=== PATIENT | female | born 1990 | race Caucasian/White ===

== ENCOUNTER 2023-03-16 20:55 | Outpatient (REF) | payer OTHER, SELFPAY ==
[2023-03-22 13:07] LABS: Age Gdln ACOG Testing Note (.); HPV Aptima Negative (Negative); IGP, Aptima HPV, rfx 16/18,45 Note (.)
== END 2023-03-16 20:56 | disposition home or self-care (01) ==
LOC: LAB 20:55
PROVIDERS: Visit Provider Obstetrics & Gynecology
DX: Z12.4 Encounter for screening for malignant neoplasm of cervix (principal)
CPT/HCPCS: 87624; G0145

== ENCOUNTER 2023-10-29 09:24 | Outpatient (OUT) | payer OTHER, SELFPAY ==
--- NOTE | 2023-10-29 09:27 | US_ITS ---
[address] [address] Patient Name: SUSU RAUSCH MRN: [id number] date: 1990 Sex: F Assigned Patient Location: [facility] Current Patient Location: [facility] Accession/Order Number: [id number] Exam Date: 10/29/2023 09:27 Report Date: 10/29/2023 10:02 At the request of: ISABELLA LIRIANO Procedure: US OB transvaginal EXAMINATION: US OB transvaginal HISTORY: MISSED MENSES COMPARISON: No relevant comparison available. FINDINGS: Levi intrauterine gestation Gestational sac: 2.7 cm, 7 weeks 4 days CRL: 2.0 cm, 8 weeks 4 days Yolk sac: 4.9 mm Heart rate: 183 beats minute Cervix: Closed, 4.2 cm The uterus is normal, anteverted, anteflexed The ovaries are normal Clinical age: 8 weeks 6 days Clinical DOUGLAS: 06/03/2024 Ultrasound age: 8 weeks 4 days Clinical DOUGLAS: 06/05/2024 US/US OB transvaginal IMPRESSION: Viable levi intrauterine gestation measuring 8 weeks 4 days Electronically authenticated by: ANDRADE MATHEWS Date: 10/29/2023 10:02
--- OUTSIDE RECORDS SUMMARY | 2023-10-29 09:29 | XMS_ITS | CCD ---
Author Organization [facility] Care Team Providers Care Senior Manager Creative Services Name Role Phone JAIDA, DR QUINTANILLA Attending Unavailable REQUEST, NONE LISTED Primary Care Unavaila ble JAIDA, DR QUINTANILLA Admitting Unavailable JAIDA, DR QUINTANILLA Consulting Unavailable DEANDRA, DR MASON Admitting Unavailable DEANDRA, DR MASON Consulting Unavailable DEANDRA, DR MASON Attending Unavailable REQUEST, NONE LISTED Primary Care Unavaila ble DEANDRA, ISABELLA Attending Unavailable DEANDRA, ISABELLA Attending Unavailable Problems Active Problems Problem Classification Problem Date Documented Date Episodic/Chronic Immunizations and screening for infectious disease (1 source) Encounter for screening for human papillomavirus (HPV); Translations: [ENC SCREENING HUMAN PAPILLOMAVIRUS] Onset: 11-12-2021 Episodic Other screening for suspected conditions (not mental disorders or infectious disease) (4 sources) Encounter for screening for malignant neoplasm of cervix; Translations: [ENC SCREENING MALIG NEOPLASM CERV] Onset: 11-10-2021 Episodic Unclassified (3 sources) CONTACT W/AND (SUSP) EXPOS COVID-19; Translations: [CONTACT W/AND (SUSP) EXPOS COVID-19] Onset: 10-16-2021 Past or Other Problems Problem Classification Problem Date Documented Da te Episodic/Chronic Unclassified (1 source) CONTACT W/AND (SUSP) EXPOS COVID-19; Translations: [CONTACT W/AND (SUSP) EXPOS COVID-19] Onset: 10-14-2021 Results Test Name Value Interpretation Reference Range Facil ity PAP ACOG PANEL 2: 30 to 65on 11-13-2021 . . Normal [facility] Comment on above: Result Comment: Performed at: WB Performed By: #### [id number] #### [facility] [address] [place] [address] Dr. Abby Campoverde Age Gdln ACOG Testing 30-65 Normal [facility] Comment on above: Performed By: #### [id number] #### [facility] [address] [place] [address] Dr. Abby Campoverde DIAGNOSIS: Comment Normal [facility] Comment on above: Result Comment: NEGATIVE FOR INTRAEPITHE LIAL LESION OR MALIGNANCY. Performed at: WB Performed By: #### [id number] #### [facility] [address] [place] [address] Dr. Abby Campoverde HPV Aptima Negative Normal Negative [facility] Comment on above: Result Comment: This nucleic acid amplif ication test detects fourteen high-risk HPV types (16,18,31,33,35,39,45,51,52,56,58,59,66,68) without differentiation. Performed at: =G Performed By: #### [id number] #### [facility] [address] [place] [address] Dr. Abby Campoverde Methodology: Comment Normal [facility] Comment on above: Result Comment: This liquid based ThinPr ep(R) pap test was screened with the use of an image guided system. Performed at: WB Performed By: #### [id number] #### [facility] [address] [place] [address] Dr. Abby Campoverde Note: Comment Normal [facility] Comment on above: Result Comment: The Pap smear is a scree michelle test designed to aid in the detection of premalignant and malignant conditions of the uterine cervix. It is not a diagnostic procedure and should not be used as the sole means of detecting cervical cancer. Both false-positive and false-negative reports do occur. . Performed at: WB Performed By: #### [id number] #### [facility] [address] [place] [address] Dr. Abby Campoverde Performed by: Comment Normal [facility] Comment on above: Result Comment: Cherelle Machado chnologist (ASCP) Performed at: WB Performed By: #### [id number] #### [facility] [address] [place] [address] Dr. Abby Campoverde Specimen adequacy: Comment Normal [facility] Comment on above: Result Comment: Satisfactory for evaluat ion. Endocervical and/or squamous metaplastic cells (endocervical component) are present. Performed at: WB Performed By: #### [id number] #### [facility] [address] [address] [address] Abby Campoverde [facility]01 SARS-CoV-2 (COVID-19) RNA ABDI+probe Ql (Unsp spec) Not detected Normal NOT DETECTED [facility] Comment on above: Result Comment: This test is not yet segundo roved or cleared by the [place] FDA. When there are no FDA-approved or cleared tests available, and other criteria are met, FDA can make tests available under an emergency access mechanism called an Emergency Use Authorization (EUA). The EUA for this test is supported by the Wire Sawyer of Health and Human Service's (HHS's) declaration that circumstances exist to justify the emergency use of in vitro diagnostics for the detection and/or diagnosis of the virus that causes COVID-19. This EUA will remain in effect (meaning this test can be used) for the duration of the COVID-19 declaration justifying emergency of IVDs, unless it is terminated or revoked by FDA (after which the test may no longer be used). When diagnostic testing is negative, the possibility of a false negative should be considered in the context of a patient's recent exposures and the presence of clinical signs and symptoms consistent with SARS-CoV-2. Performed By: #### C VDTB #### [facility] [id number] Abby Campoverde Encounters Encounter Date Encounter Type Care Provider Facility Start: 03-30-2023 End: 03-30-2023 ambulatory ISABELLA LIRIANO Not Available Start: 03-16-2023 End: 03-16-2023 ambulatory ISABELLA LIRIANO Not Available Start: 11-10-2021 End: 11-10-[address] ISABELLA LIRIANO Facility:[facility] Start: 10-14-2021 End: 10-15-[address] DWIGHT SENA Facility:[facility] Payers Date Payer Category Payer Unknown [id number] 2.16.84 [id number] 1990 Unknown [id number] 2.16.84 [id number] 1990 Unknown [id number] 1990 Unknown [id number]. [id number] 1958 Unknown [id number] Summary Purpose Family History No Family History Records FoundNo Family History Records Found Advance Directives No Advanced Directives Records FoundNo Advanced Directives Records Found Additional Source Comments INFORMATION SOURCE (unrecogn ized section and content) DATE CREATED AUTHOR 11/18/2021 [facility] DATE CREATED AUTHOR KAYLIN JORGE 04/01/2023 [facility] EPIC FOR RECORDS PERTAINING TO PATIENTS WHO ARE OR HAVE BEEN ENROLLED IN A CHEMICAL DEPENDENCY/SUBSTANCEABUSE PROGRAM, SOME INFORMATION MAY BE OMITTED. This clinical summary was aggregated from multiple sources. Caution should be exercised in using it in the provision of clinical care. This summary normalizes information from multiple sources, and as a consequence, information in this document may materially change the coding, format and clinical context of patient data. In addition, data may be omitted in some cases. CLINICAL DECISIONS SHOULD BE BASED ON THE PRIMARY CLINICAL RECORDS. [facility]. provides no warranty or guarantee of the accuracy or completeness of information in this document.
== END 2023-10-29 09:25 | disposition home or self-care (01) ==
LOC: NOMS 09:25
PROVIDERS: Visit Provider Obstetrics & Gynecology
DX: Z34.91 Encounter for supervision of normal pregnancy, unspecified, first trimester (principal); Z3A.08 8 weeks gestation of pregnancy; N92.6 Irregular menstruation, unspecified
CPT/HCPCS: 76817

== ENCOUNTER 2023-11-24 13:33 | Outpatient (OUT) | payer OTHER, SELFPAY ==
--- OUTSIDE RECORDS SUMMARY | 2023-11-24 13:46 | XMS_ITS | CCD ---
Author Organization [facility] Care Team Providers Care Moisture Machine Tender Name Role Phone JAIDA, DR QUINTANILLA Attending Unavailable REQUEST, DR LANE LISTED Primary Care Unavaila ble JAIDA, DR QUINTANILLA Admitting Unavailable JAIDA, DR QUINTANILLA Consulting Unavailable DEANDRA, DR MASON Admitting Unavailable DEANDRA, DR MASON Consulting Unavailable DEANDRA, DR MASON Attending Unavailable REQUEST, DR LANE LISTED Primary Care Unavaila ble DEANDRAISABELLA PAL Attending Unavailable DEANDRAISABELLA Attending Unavailable Problems Active Problems Problem Classification [...] to 65on 11-13-2021 . . Normal [facility] Comment on above: Result Comment: Performed at: WB Performed By: #### [id number] #### [facility] [address] [address] [address] Abby Campoverde Age Gdln ACOG Testing 30-65 Normal [facility] Comment on above: Performed By: #### [id number] #### [facility] [address] [place] [address] Dr. Abby Campoverde DIAGNOSIS: Comment Normal [facility] Comment on above: Result Comment: NEGATIVE FOR INTRAEPITHE LIAL LESION OR MALIGNANCY. Performed at: WB Performed By: #### [id number] #### [facility] [address] [place] [address] Dr. Abby Campoverde HPV Aptima Negative Normal Negative [facility] Comment on above: Result Comment: This nucleic acid amplif ication test detects fourteen high-risk HPV types (16,18,31,33,35,39,45,51,52,56,58,59,66,68) without differentiation. Performed at: =G Performed By: #### [id number] #### [facility] [address] [place] [address] Dr. Abby Campoverde Methodology: Comment Normal [facility] Comment on above: Result Comment: This liquid based ThinPr ep(R) pap test was screened with the use of an image guided system. Performed at: WB Performed By: #### [id number] #### [facility] [address] [place] [address] Dr. Abby Campoverde Note: Comment Normal [facility] Comment on above: Result Comment: The Pap smear is a scree michelle test designed to aid in the detection of premalignant and malignant conditions of the uterine cervix. It is not a diagnostic procedure and should not be used as the sole means of detecting cervical cancer. Both false-positive and false-negative reports do occur. . Performed at: WB Performed By: #### [id number] #### [facility] [address] [place] [address] Dr. Abby Campoverde Performed by: Comment Normal [facility] Comment on above: Result Comment: Cherelle Machado chnologist (ASCP) Performed at: WB Performed By: #### [id number] #### [facility] [address] [place] [address] Dr. Abby Campoverde Specimen adequacy: Comment Normal [facility] Comment on above: Result Comment: Satisfactory for evaluat ion. Endocervical and/or squamous metaplastic cells (endocervical component) are present. Performed at: WB Performed By: #### [id number] #### [facility] [address] [place], [place] [address] Dr. Abby Campoverde Covid-19 PCR ([facility])on 10-01 SARS-CoV-2 (COVID-19) RNA ABDI+probe Ql (Unsp spec) Not detected Normal NOT DETECTED [facility] Comment on above: Result Comment: This test is not yet segundo roved or cleared by the [place] FDA. When there are no FDA-approved or cleared tests available, and other criteria are met, FDA can make tests available under an emergency access mechanism called an Emergency Use Authorization (EUA). The EUA for this test is supported by the Hospital Nurse of Health and Human Service's (HHS's) declaration [...] consistent with SARS-CoV-2. Performed By: #### [facility] #### [facility] [address] [place], [place] [address] Dr. Abby Campoverde Encounters Encounter Date Encounter Type Care Provider Facility Start: 10-29-2023 End: 10-29-2023 ambulatory ISABELLA DEANDRA Not Available Start: 03-30-2023 End: 03-30-2023 ambulatory ISABELLA DEANDRA Not Available Start: 03-16-2023 End: 03-16-2023 ambulatory ISABELLA DEANDRA Not Available Start: 11-10-2021 End: 11-10-[address] ISABELLA LIRIANO Facility: Start: 10-14-2021 End: 10-15-[address] DWIGHT SENA Facility:[facility] Payers Date Payer Category Payer Unknown [id number] 2.16.84 [id number] 1990 Unknown [id number] 2.16.84 [id number] 1990 Unknown [id number] 2.16.84 [id number] 1990 Unknown [id number] [id number] 1990 Unknown [id number]. [id number] 1958 Unknown [id number] Summary Purpose Family History No Family History Records FoundNo Family History Records Found Advance Directives No Advanced Directives Records FoundNo Advanced Directives Records Found Additional Source Comments INFORMATION SOURCE (unrecogn ized section and content) DATE CREATED AUTHOR 11/18/2021 [facility] DATE CREATED AUTHOR AUTHOR'S ORGANIZ ATION 10/31/2023 [facility] EPIC FOR RECORDS PERTAINING TO PATIENTS [...] BE BASED ON THE PRIMARY CLINICAL RECORDS. [facility] [employer] provides no warranty or guarantee of the accuracy or completeness of information in this document.
[2023-11-24 14:39] LABS: Basophils Percent Auto 0.3 % (0.2-2.0); Eosinophils Percent Auto 0.5 % (0.9-7.0); Hematocrit 35.8 % (36.0-48.0); Hemoglobin 12.2 g/dL (12.0-16.0); Immature Granulocytes Abs Auto 0.04 10^3/uL (0.00-0.03); Immature Granulocytes Pct Auto 0.5 % (0.0-0.5); Lymphocytes Absolute Auto 1.5 10^3/uL (1.2-3.8); Lymphocytes Percent Auto 16.7 % (20.5-60.0); Mean Corpuscular HGB Conc 34.1 g/dL (29.9-35.2); Mean Corpuscular Hemoglobin 30.5 pg (26.7-34.0); Mean Corpuscular Volume 89.5 fL (81.0-99.0); Mean Platelet Volume 10.1 fL (9.5-13.5); Monocytes Absolute Auto 0.5 10^3/uL (0.3-0.8); Monocytes Percent Auto 5.1 % (1.7-12.0); Neutrophils Absolute Auto 6.8 10^3/uL (1.4-6.5); Neutrophils Percent Auto 76.9 % (43.0-75.0); Platelet Count 344 10^3/uL (150-450); Red Cell Distribution Width 11.5 % (11.0-15.0); White Blood Count 8.9 10^3/uL (4.0-11.0)
[2023-11-24 16:40] LABS: Estimated Average Glucose 103 mg/dL; Glycohemoglobin A1C 5.2 % (4.5-6.2)
[2023-11-25 05:08] LABS: HCV Ab Non Reactive (Non Reactive); HIV Ab/p24 Ag Screen Non Reactive (Non Reactive); Rubella Antibodies, IgG 4.46 index (Immune >0.99)
[2023-11-25 06:09] LABS: HBsAg Screen Negative (Negative)
[2023-11-25 11:10] LABS: Rapid Plasma Reagin, Quant Non Reactive titer (NonRea<1:1)
== END 2023-11-24 13:34 | disposition home or self-care (01) ==
LOC: LAB 13:34
PROVIDERS: Visit Provider Obstetrics & Gynecology
DX: N92.6 Irregular menstruation, unspecified (principal)
CPT/HCPCS: 36415; 83036; 85025; 86592; 86762; 86803; 86850; 86900; 86901; 87086; 87340; 87389

== ENCOUNTER 2024-01-05 19:48 | Outpatient (REF) | payer OTHER, SELFPAY ==
--- OUTSIDE RECORDS SUMMARY | 2024-01-05 19:52 | XMS_ITS | CCD ---
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 . Normal [facility] Comment on above: Result Comment: Performed at: WB Performed By: #### [id number] #### [facility] [address] [place] [address] Dr. Abby Campoverde Age Gdln ACOG Testing 30-65 Normal [facility] Comment on above: Performed By: #### [id number] #### [facility] [address] [place] [address] Dr. Abby Campoverde DIAGNOSIS: Comment Normal [facility] Comment on above: Result Comment: NEGATIVE FOR INTRAEPITHE LIAL LESION OR MALIGNANCY. Performed at: WB Performed By: #### [id number] #### [facility] [address] [place] [address] Dr. Abby Campoverde HPV Aptima Negative Normal Negative [facility] Comment on above: Result Comment: This nucleic acid amplif ication test detects fourteen high-risk HPV types (16,18,31,33,35,39,45,51,52,56,58,59,66,68) without differentiation. Performed at: =G Performed By: #### [id number] #### [facility] [address] [place] [address] Dr. Abby Campoverde Methodology: Comment Normal [facility] Comment on above: Result Comment: This liquid based ThinPr ep(R) pap test was screened with the use of an image guided system. Performed at: WB Performed By: #### [id number] #### [facility] [address] [place] [address] Dr. Abby Campoverde Note: Comment Normal [facility] Comment on above: Result Comment: The Pap smear is a scree michelle test designed to aid in the detection of premalignant and malignant conditions of the uterine cervix. It is not a diagnostic procedure and should not be used as the sole means of detecting cervical cancer. Both false-positive and false-negative reports do occur. . Performed at: WB Performed By: #### [id number] #### [facility] [address] [place] [address] Dr. Abby Campoverde Performed by: Comment Normal [facility] Comment on above: Result Comment: Cherelle Machado chnologist (ASCP) Performed at: WB Performed By: #### [id number] #### [facility] [address] [place] [address] Dr. Abby Campoverde Specimen adequacy: Comment Normal [facility] Comment on above: Result Comment: Satisfactory for evaluat ion. Endocervical and/or squamous metaplastic cells (endocervical component) are present. Performed at: WB Performed By: #### [id number] #### [facility] [address] [address] [address] Abby Campoverde [facility] SARS-CoV-2 (COVID-19) RNA ABDI+probe Ql (Unsp spec) Not detected Normal NOT DETECTED [facility] Comment on above: Result Comment: This test is not yet segundo roved or cleared by the [place] FDA. When there are no FDA-approved or cleared tests available, and other criteria are met, FDA can make tests available under an emergency access mechanism called an Emergency Use Authorization (EUA). The EUA for this test is supported by the [employer] of Health and Human Service's (HHS's) declaration [...] By: #### C VDTB #### [facility] [id number] Abby Campoverde Encounters Encounter Date Encounter Type Care Provider Facility Start: 12-06-2023 End: 12-06-2023 ambulatory ISABELLA DEANDRA Not Available Start: 10-29-2023 End: 10-29-2023 ambulatory ISABELLA DEANDRA Not Available Start: 03-30-2023 End: 03-30-2023 ambulatory ISABELLA DEANDRA Not Available Start: 03-16-2023 End: 03-16-2023 ambulatory ISABELLA DEANDRA Not Available Start: 11-10-2021 End: 11-10-[address] ISABELLA LIRIANO Facility:[facility] Start: 10-14-2021 End: 10-15-[address] DWIGHT SENA Facility:[facility] Payers Date Payer Category Payer Unknown [id number] 2.16.84 [id number] 1990 Unknown [id number] 2.16.84 [id number] 1990 Unknown [id number] 2.16.84 [id number] 1991 Unknown [id number] 2.16.84 [id number] 1991 Unknown [id number] [id number] 1991 Unknown [id number] [id number]. [id number] 1958 Unknown [id number] Summary Purpose Family History No Family History Records FoundNo Family History Records Found Advance Directives No Advanced Directives Records FoundNo Advanced Directives Records Found Additional Source Comments INFORMATION SOURCE (unrecogn ized section and content) DATE CREATED AUTHOR 11/18/2021 [facility] DATE CREATED AUTHOR AUTHOR'S PAULIE JORGE 12/08/2023 [facility] FOR RECORDS PERTAINING TO PATIENTS WHO ARE [...] BE BASED ON THE PRIMARY CLINICAL RECORDS. [facility] [employer] provides no warranty or guarantee of the accuracy or completeness of information in this document.
[2024-01-10 10:07] LABS: Age Gdln ACOG Testing Note (.); HPV Aptima Negative (Negative); IGP, Aptima HPV, rfx 16/18,45 Note (.)
== END 2024-01-05 19:49 | disposition home or self-care (01) ==
LOC: LAB 19:48
PROVIDERS: Visit Provider Obstetrics & Gynecology
DX: Z01.419 Encounter for gynecological examination (general) (routine) without abnormal findings (principal)
CPT/HCPCS: 87624; 88175

== ENCOUNTER 2024-01-27 12:27 | Outpatient (OUT) | payer OTHER, SELFPAY ==
--- OUTSIDE RECORDS SUMMARY | 2024-01-27 12:39 | XMS_ITS | CCD ---
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 . Normal [facility] Comment on above: Result Comment: Performed at: WB Performed By: #### [id number] #### [facility] [address] [place] [address] Dr. Abby Campoverde Age Gdln ACOG Testing 30-65 Normal [facility] Comment on above: Performed By: #### [id number] #### [facility] [address] [place] [address] Dr. Abby Campoverde DIAGNOSIS: Comment Normal [facility] Comment on above: Result Comment: NEGATIVE FOR INTRAEPITHE LIAL LESION OR MALIGNANCY. Performed at: WB Performed By: #### [id number] #### [facility] [address] [place] [address] Dr. Abby Campoverde HPV Aptima Negative Normal Negative [facility] Comment on above: Result Comment: This nucleic acid amplif ication test detects fourteen high-risk HPV types (16,18,31,33,35,39,45,51,52,56,58,59,66,68) without differentiation. Performed at: =G Performed By: #### [id number] #### [facility] [address] [place] [address] Dr. Abby Campoverde Methodology: Comment Normal [facility] Comment on above: Result Comment: This liquid based ThinPr ep(R) pap test was screened with the use of an image guided system. Performed at: WB Performed By: #### [id number] #### [facility] [address] [place] [address] Dr. Abby Campoverde Note: Comment Normal [facility] Comment on above: Result Comment: The Pap smear is a scree michelle test designed to aid in the detection of premalignant and malignant conditions of the uterine cervix. It is not a diagnostic procedure and should not be used as the sole means of detecting cervical cancer. Both false-positive and false-negative reports do occur. . Performed at: WB Performed By: #### [id number] #### [facility] [address] [place] [address] Dr. Abby Campoverde Performed by: Comment Normal [facility] Comment on above: Result Comment: Cherelle Machado chnologist (ASCP) Performed at: WB Performed By: #### [id number] #### [facility] [address] [place], [place] [address] Dr. Abby Campoverde Specimen adequacy: Comment Normal [facility] Comment on above: Result Comment: Satisfactory for evaluat ion. Endocervical and/or squamous metaplastic cells (endocervical component) are present. Performed at: WB Performed By: #### [id number] #### [facility] [address] [place], [place] [address] Dr. Abby Campoverde [facility] SARS-CoV-2 (COVID-19) RNA ABDI+probe Ql (Unsp spec) Not detected Normal NOT DETECTED [facility] Comment on above: Result Comment: This test is not yet segundo roved or cleared by the [place] FDA. When there are no FDA-approved or cleared tests available, and other criteria are met, FDA can make tests available under an emergency access mechanism called an Emergency Use Authorization (EUA). The EUA for this test is supported by the [place] of Health and Human Service's (HHS's) declaration [...] SARS-CoV-2. Performed By: #### C VDTB #### [facility] [address] [place], [place] [address] Dr. Abby Campoverde Encounters Encounter Date Encounter Type Care Provider Facility Start: 01-05-2024 End: 01-05-2024 ambulatory ISABELLA DEANDRA Not Available Start: 12-06-2023 End: 12-06-2023 ambulatory ISABELLA DEANDRA Not Available Start: 10-29-2023 End: 10-29-2023 ambulatory ISABELLA DEANDRA Not Available Start: 03-30-2023 End: 03-30-2023 ambulatory ISABELLA DEANDRA Not Available Start: 03-16-2023 End: 03-16-2023 ambulatory ISABELLA DEANDRA Not Available Start: 11-10-2021 End: 11-10-[address] ISABELLA LIRIANO Facility:[facility] Start: 10-14-2021 End: 10-15-2021 ambulatory DWIGHT SENA Facility:[facility] Payers Date Payer Category Payer Unknown [id number] 2.16.84 [id number] 1990 Unknown [id number] 2.16.84 [id number] 1990 Unknown [id number] 2.16.84 [id number] 1991 Unknown [id number] 2.16.84 [id number] 1991 Unknown [id number] 2.16.84 [id number] 1991 Unknown [id number] 2.16.840 .[id number] 1991 Unknown [id number] [id number]. [id number] 1959 Unknown [id number] Summary Purpose Family History No Family History Records FoundNo Family History Records Found Advance Directives No Advanced Directives Records FoundNo Advanced Directives Records Found Additional Source Comments INFORMATION SOURCE (unrecogn ized section and content) DATE CREATED AUTHOR 11/18/2021 [facility] DATE CREATED AUTHOR AUTHOR'S ORGANIZ ATION 01/07/2024 [facility] EPIC FOR RECORDS PERTAINING TO [...] BE BASED ON THE PRIMARY CLINICAL RECORDS. [facility]. provides no warranty or guarantee of the accuracy or completeness of information in this document.
[2024-01-30 00:10] LABS: AFP Value 54.5 ng/mL (.); Gest. Age on Collection Date 21.7 weeks (.); Insulin Dep Diabetes No (.); OSBR Risk 1 IN 10000 (.); Results Report (.)
== END 2024-01-27 12:28 | disposition home or self-care (01) ==
LOC: LAB 12:27
PROVIDERS: Visit Provider Obstetrics & Gynecology
DX: O24.419 Gestational diabetes mellitus in pregnancy, unspecified control (principal)
CPT/HCPCS: 36415; 82105

== ENCOUNTER 2024-02-02 14:06 | Outpatient (OUT) | payer OTHER, SELFPAY ==
--- NOTE | 2024-02-02 14:09 | US_ITS ---
[address] [address] Patient Name: SUSU RAUSCH MRN: [id number] date: 1990 Sex: F Assigned Patient Location: [facility] Current Patient Location: [facility] Accession/Order Number: [id number] Exam Date: 02/02/2024 14:09 Report Date: 02/02/2024 15:23 At the request of: ISABELLA LIRIANO Procedure: US OB anatomy EXAMINATION: US OB anatomy, US OB cervical length HISTORY: ANATOMY COMPARISON: No relevant comparison available. TECHNIQUE: Transabdominal sonographic examination was performed for obstetrical and evaluation. FINDINGS: Number: 1 Heart Rate: 150 bpm H.B. /min Amniotic Fluid Volume: Subjectively normal Placental Location: Posterior, the placental edge is 5.6 cm from the internal os position: Cephalic presentation, longitudinal lie Cervix Length: 4.22 cm , closed Normal anatomy: Lateral ventricles, cerebellum, posterior fossa, nose, lips, orbits, four-chamber heart, RVOT, LVOT, diaphragm, stomach, kidneys, abdominal cord insertion, bladder, umbilical arteries, three-vessel cord, spine, extremities BIOMETRY: BPD: 5.45 cm; 22 weeks 4 days; 47 % HC: 20.13 cm; 22 weeks 2 days; 25.10 % AC: 17.74 cm; 22 weeks 4 days; 43.60 % FL: 3.99 cm; 22 weeks 6 days; 49.20 % EFW:519.66 g; 48.80 %, 1 lb. 3 oz. FL/AC: 22.49 FL/BPD: 73.21 HC/AC: 1.13 GESTATIONAL AGE: Age by EDC: 22 weeks 4 days DOUGLAS by EDC: 2024-06-03 Age by current US: 22 weeks 4 days DOUGLAS by current US: 2024-06-03 US/US OB anatomy IMPRESSION: Normal anatomy scan Closed cervix measuring 4.2 cm in length *Reference: [employer] Practice Guideline for the performance of Obstetric Ultrasound Examinations, January 31, 2007. Electronically authenticated by: ANDRADE MATHEWS Date: 02/02/2024 15:23
--- NOTE | 2024-02-02 14:09 | US_ITS ---
[address] [address] Patient Name: SUSU RAUSCH MRN: [id number] date: 1990 Sex: F Assigned Patient Location: [facility] Current Patient Location: [facility] Accession/Order Number: [id number] Exam Date: 02/02/2024 14:09 Report Date: 02/02/2024 15:23 At the request of: ISABELLA LIRIANO Procedure: US OB cervical length EXAMINATION: US OB anatomy, US OB cervical length HISTORY: ANATOMY COMPARISON: No relevant comparison available. TECHNIQUE: Transabdominal sonographic examination was performed for obstetrical and evaluation. FINDINGS: Number: 1 Heart Rate: 150 bpm H.B. /min Amniotic Fluid Volume: Subjectively normal Placental Location: Posterior, the placental edge is 5.6 cm from the internal os position: Cephalic presentation, longitudinal lie Cervix Length: 4.22 cm , closed Normal anatomy: Lateral ventricles, cerebellum, posterior fossa, nose, lips, orbits, four-chamber heart, RVOT, LVOT, diaphragm, stomach, kidneys, abdominal cord insertion, bladder, umbilical arteries, three-vessel cord, spine, extremities BIOMETRY: BPD: 5.45 cm; 22 weeks 4 days; 47 % HC: 20.13 cm; 22 weeks 2 days; 25.10 % AC: 17.74 cm; 22 weeks 4 days; 43.60 % FL: 3.99 cm; 22 weeks 6 days; 49.20 % EFW:519.66 g; 48.80 %, 1 lb. 3 oz. FL/AC: 22.49 FL/BPD: 73.21 HC/AC: 1.13 GESTATIONAL AGE: Age by EDC: 22 weeks 4 days DOUGLAS by EDC: 2024-06-03 Age by current US: 22 weeks 4 days DOUGLAS by current US: 2024-06-03 US/US OB cervical length IMPRESSION: Normal anatomy scan Closed cervix measuring 4.2 cm in length *Reference: [employer] Practice Guideline for the performance of Obstetric Ultrasound Examinations, January 31, 2007. Electronically authenticated by: ANDRADE MATHEWS Date: 02/02/2024 15:23
--- OUTSIDE RECORDS SUMMARY | 2024-02-02 14:23 | XMS_ITS | CCD ---
Author Organization [facility] Inform ion [facility] Care Team Providers Care Assistant Infant Teacher Name Role Phone JAIDA, DR QUINTANILLA Attending [...] to 66on 11-13-2021 . . Normal [facility] Comment on above: Result Comment: Performed at: WB Performed By: #### [id number] #### [facility] [address] [place] [address] Dr. Abby Campoverde Age Gdln ACOG Testing 30-65 Normal [facility] Comment on above: Performed By: #### [id number] #### [facility] [address] [place] [address] Dr. Abby Campoverde DIAGNOSIS: Comment Normal [facility] Comment on above: Result Comment: NEGATIVE FOR INTRAEPITHE LIAL LESION OR MALIGNANCY. Performed at: WB Performed By: #### [id number] #### [facility] [address] [place] [address] Dr. Abby Campoverde HPV Aptima Negative Normal Negative [facility] Comment on above: Result Comment: This nucleic acid amplif ication test detects fourteen high-risk HPV types (16,18,31,33,35,39,45,51,52,56,58,59,66,68) without differentiation. Performed at: =G Performed By: #### [id number] #### [facility] [address] [place] [address] Dr. Abby Campoverde Methodology: Comment Normal [facility] Comment on above: Result Comment: This liquid based ThinPr ep(R) pap test was screened with the use of an image guided system. Performed at: WB Performed By: #### [id number] #### [facility] [address] [place] [address] Dr. Abby Campoverde Note: Comment Normal [facility] Comment on above: Result Comment: The Pap smear is a scree michelle test designed to aid in the detection of premalignant and malignant conditions of the uterine cervix. It is not a diagnostic procedure and should not be used as the sole means of detecting cervical cancer. Both false-positive and false-negative reports do occur. . Performed at: WB Performed By: #### [id number] #### [facility] [address] [place] [address] Dr. Abby Campoverde Performed by: Comment Normal [facility] Comment on above: Result Comment: Cherelle Machado chnologist (ASCP) Performed at: WB Performed By: #### [id number] #### [facility] [address] [place], [place] [address] Dr. Abby Campoverde Specimen adequacy: Comment Normal [facility] Comment on above: Result Comment: Satisfactory for evaluat ion. Endocervical and/or squamous metaplastic cells (endocervical component) are present. Performed at: WB Performed By: #### [id number] #### [facility] [address] [place], [place] [address] Dr. Abyb Campoverde [facility] SARS-CoV-2 (COVID-19) RNA ABDI+probe Ql (Unsp spec) Not detected Normal NOT DETECTED [facility] Comment on above: Result Comment: This test is not yet segundo roved or cleared by the [place] FDA. When there are no FDA-approved or cleared tests available, and other criteria are met, FDA can make tests available under an emergency access mechanism called an Emergency Use Authorization (EUA). The EUA for this test is supported by the [place] of Health and Human Service's (HHS's) declaration [...] SARS-CoV-2. Performed By: #### C VDTB #### [facility] [address] [place], [place] [address] Dr. Abby Campoverde Encounters Encounter Date Encounter [...] Facility:[facility] Payers Date Payer Category Payer Unknown [id number] 2.16.84 [id number] 1990 Unknown [id number] 2.16.84 [id number] 1990 Unknown [id number] 2.16.84 [id number] 1990 Unknown [id number] 2.16.84 [id number] 1990 Unknown [id number] 2.16.84 [id number] 1991 Unknown [id number] 2.16.840 .[id number] 1991 Unknown [id number] [id number]. [id number] 1958 Unknown [id number] Summary Purpose Family History No Family History Records FoundNo Family History Records Found Advance Directives No Advanced Directives Records FoundNo Advanced Directives Records Found Additional Source Comments INFORMATION SOURCE (unrecogn ized section and content) DATE CREATED AUTHOR 11/18/2021 [facility] DATE CREATED AUTHOR AUTHOR'S ORGANIZ ATION 01/07/2024 [facility] EPIC FOR RECORDS PERTAINING TO [...] BE BASED ON THE PRIMARY CLINICAL RECORDS. [facility]. provides no warranty or guarantee of the accuracy or completeness of information in this document.
== END 2024-02-02 14:07 | disposition home or self-care (01) ==
LOC: NOMS 14:07
PROVIDERS: Visit Provider Obstetrics & Gynecology
DX: Z36.89 Encounter for other specified antenatal screening (principal); Z3A.22 22 weeks gestation of pregnancy
CPT/HCPCS: 76805; 76817

== ENCOUNTER 2024-02-16 10:09 | Outpatient (OUT) | payer OTHER, SELFPAY ==
--- OUTSIDE RECORDS SUMMARY | 2024-02-16 10:11 | XMS_ITS | CCD ---
Author Organization [facility] Care Team Providers Care Bulk Intake Worker Name Role Phone DR HIMA SENA Attending Unavailable REQUEST, NONE LISTED Primary Care Unavaila francis SENA, DR QUINTANILLA Admitting Unavailable JAIDA, DR QUINTANILLA Consulting Unavailable DEANDRA, DR MASON Admitting Unavailable DEANDRA, DR MASON Consulting Unavailable DEANDRA, DR MASON Attending Unavailable REQUEST, NONE LISTED Primary Care UnavailISABELLA Tiwari Attending Unavailable DEANDRA, ISABELLA Attending Unavailable ISABELLA LIRIANO Attending Unavailable DEANDRA, ISABELLA Attending Unavailable TIFFANI SON Attending Unavailable Hima Sena MD Primary Care Provider Medications Current Medications Medication Drug Class(es) Dates Sig (Normalized) Sig (Original) aspirin 81 mg delayed release oral tablet (2 sources) Platelet Aggregation Inhibitor, Nonsteroidal Anti-inflammatory Drug take 1 tablet by mouth once daily aspirin 81 MG EC tablet Take 81 mg by mouth Daily Active magnesium oxide 400 mg oral tablet (3 sources) Start: 12-06-2023 End: 04-04-2024 take 1 tablet by mouth once daily magnesium oxide (Mag-Ox) 400 MG tablet Indications: Nonintractable headache, unspecified chronicity pattern, unspecified headache type Take 1 tablet (400 mg) by mouth Daily 30 tablet 3 12/06/2023 04/04/2024 Active MV-Min-Fe Fum-FA-DHA ( 1 PO) (3 sources) MV-Min- Fe Fum-FA-DHA ( 1 PO) Take by mouth Active Problems Active Problems Problem Classification Problem Date Documented Date Episodic/Chronic Immunizations and screening for infectious disease (1 source) Encounter for screening for human papillomavirus (HPV); Translations: [ENC SCREENING HUMAN PAPILLOMAVIRUS] Onset: 11-12-2021 Episodic Other and delivery including normal (2 sources) Second trimester ; Translations: [Encounter for supervision of normal , unspecified, second trimester] 02-02-2024 Episodic Other screening for suspected conditions (not mental disorders or infectious disease) (6 sources) Encounter for screening for malignant neoplasm of cervix; Translations: [Patient encounter status] Onset: 11-10-2021 Episodic Residual codes; unclassified (2 sources) Gestation period, 22 weeks; Translations: [22 weeks gestation of ] 02-02-2024 Episodic Unclassified (3 sources) CONTACT W/AND (SUSP) EXPOS COVID-19; Translations: [CONTACT W/AND (SUSP) EXPOS COVID-19] Onset: 10-16-2021 Past or Other Problems Problem Classification Problem Date Documented Da te Episodic/Chronic Unclassified (1 source) CONTACT W/AND (SUSP) EXPOS COVID-19; Translations: [CONTACT W/AND (SUSP) EXPOS COVID-19] Onset: 10-14-2021 Results Test Name Value Interpretation Reference Range Facility Urinalysis macro (dipstick) panel (U)on 02-02-2024 Bilirubin, UA Negative Negative - 4(70) +++ mg/dL [facility] Blood, UA Negative Negative - 50 Álvaro/mcL [facility] Clarity, UA Clear [facility] Color, UA Yellow [facility] Glucose, UA Negative Negative - 1999(110) ++++ mg/dL [facility] Interpretation and review of laboratory results Normal [facility] Ketones, UA Negative Negative - 160(16) ++++ mg/dL [facility] Leukocytes, UA Negative Negative - 500+++ Reji/mcL [facility] Nitrite, UA Negative Negative - Positive [facility] pH, UA 5.5 5 - 9 [facility] Protein, UA Negative Negative - 1999(20) ++++ mg/dL [facility] Spec Grav, UA 1.010 1 - 1.03 [facility] care Urobilinogen, UA 0.2 0.2 - 12 mg/dL [facility] PAP ACOG PANEL 2: 30 to 65on 11-13-2021 . . Normal [facility] Comment on above: Result Comment: Perf ormed at: WB Performed By: #### [id number] #### [facility] [address] [place] [address] Dr. Abby Campoverde Age Gdln ACOG Testing 30-65 Normal [facility] Comment on above: Performed By: #### [id number] #### [facility] [address] [address] [address] Abby Campoverde DIAGNOSIS: Comment Normal [facility] Comment on above: Result Comment: NEGA TIVE FOR INTRAEPITHELIAL LESION OR MALIGNANCY. Performed at: WB Performed By: #### [id number] #### [facility] [address] [address] [address] Abby Campoverde HPV Aptima Negative Normal Negative [facility] Comment on above: Result Comment: This nucleic acid amplification test detects fourteen high-risk HPV types (16,18,31,33,35,39,45,51,52,56,58,59,66,68) without differentiation. Performed at: =G Performed By: #### [id number] #### [facility] [address] [place] [address] Dr. Abby Campoverde Methodology: Comment Normal [facility] Comment on above: Result Comment: This liquid based ThinPrep(R) pap test was screened with the use of an image guided system. Performed at: WB Performed By: #### [id number] #### [facility] [address] [place] [address] Dr. Abby Campoverde Note: Comment Normal [facility] Comment on above: Result Comment: The Pap smear is a screening test designed to aid in the detection of premalignant and malignant conditions of the uterine cervix. It is not a diagnostic procedure and should not be used as the sole means of detecting cervical cancer. Both false-positive and false-negative reports do occur. . Performed at: WB Performed By: #### [id number] #### [facility] [address] [address] [address] Abby Campoverde Performed by: Comment Normal [facility] Comment on above: Result Comment: Madisyn Sherman, Improvement Spec (ASCP) Performed at: WB Performed By: #### [id number] #### [facility] [address] [place] [address] Dr. Abby Campoverde Specimen adequacy: Comment Normal [facility] Comment on above: Result Comment: Sati sfactory for evaluation. Endocervical and/or squamous metaplastic cells (endocervical component) are present. Performed at: WB Performed By: #### [id number] #### [facility] [address] [place] [address] [id number] [address] Abby Campoverde Covid-19 PCR ([facility])on 10-01 SARS-CoV-2 (COVID-19) RNA ABDI+probe Ql (Unsp spec) Not detected Normal NOT DETECTED [facility] Comment on above: Result Comment: This test is not yet approved or cleared by the [place] FDA. When there are no FDA-approved or cleared tests available, and other criteria are met, FDA can make tests available under an emergency access mechanism called an Emergency Use Authorization (EUA). The EUA for this test is supported by the [employer] Clerk of Health and Human Service's (HHS's) declaration [...] consistent with SARS-CoV-2. Performed By: #### [facility] #### [facility] [address] [place] [address] Abby Campoverde Vital Signs Date Time Vital Sign Value Performing Clinician Faci lity 02-02-2024 15:46-0400 Body mass index (BMI) [Ratio] 32.01 kg/m2 Tiffani ALVARENGA Work Phone: [facility] 02-02-2024 15:46-0400 Body weight 79.38 kg Tiffani ALVARENGA Work Phone: [facility] 02-02-2024 15:46-0400 Diastolic blood pressure 76 mm[Hg] Tiffani ALVARENGA Work Phone: [facility] 02-02-2024 15:46-0400 Systolic blood pressure 126 mm[Hg] Tiffani ALVARENGA Work Phone: [facility] Encounters Encounter Date Encounter Type Care Provider Facility Start: 02-02-2024 End: 02-02-2024 flow sheet Tiffani ALVARENGA Work Phone: [facility] Comment on above: Second trimester pre gnancy; 22 weeks gestation of ; Diabetes mellitus screening Start: 02-02-2024 End: 02-02-2024 ambulatory TIFFNAI SON Not Available Start: 02-02-2024 End: 02-02-2024 Bamboo flowsheet Tiffani ALVARENGA Work Phone: [facility] Start: 02-02-2024 End: 02-02-2024 Bamboo flowsheet Tiffani ALVARENGA Work Phone: [facility] Start: 01-05-2024 End: 01-05-2024 ambulatory ISABELLA DEANDRA Not Available Start: 12-06-2023 End: 12-06-2023 ambulatory ISABELLA DEANDRA Not Available Start: 10-29-2023 End: 10-29-2023 ambulatory ISABELLA DEANDRA Not Available Start: 03-30-2023 End: 03-30-2023 ambulatory ISABELLA DEANDRA Not Available Start: 03-16-2023 End: 03-16-2023 ambulatory ISABELLA DEANDRA Not Available Start: 11-10-2021 End: 11-10-[address] ISABELLA LIRIANO Facility:[facility] Start: 10-14-2021 End: 10-15-[address] HIMA SENA Facility:[facility] Procedures Date Procedure Procedure Detail Performing Clinician Start: 02-02-2024 Urnls dip stick/tabl et rgnt non-auto w/o micrscp Tiffani ALVARENGA Work Phone: Start: 01-05-2024 Microscopic observat ion [Identifier] in Cervix by Cyto stain Tiffani ALVARENGA Work Phone: Plan of Treatment Date Care Activity Detail Author Start: 01-04-2027 Screening for malign ant neoplasm of cervix [facility] Start: 10-15-2025 Screening for malign ant neoplasm of cervix HPV/Cotest [facility] Start: 03-01-2024 End: 03-01-2024 Patient encounter procedure 03/01/2024 9:30 AM EDT Routine [facility] [address] [place] [id number] Tiffani Son PA [address] [facility] [address] [place], [place] [id number] [facility] Start: 02-02-2024 End: 02-02-2024 Patient encounter procedure 02/02/2024 3:30 PM EDT Routine [facility] [address] [place] [address] Tiffani Son PA [address] [place], [place] [id number] Arrived [facility] Comment on above: Arrived Start: 02-02-2024 End: 02-01-2025 CBC panel - Blood by Automated count CBC Lab Routine Diabetes mellitus screening Expected: 02/02/2024 (Approximate), Expires: 02/01/2025 [facility] Work Phone: Comment on above: Expected: 02/02/2024 (Approximate), Expires: 02/01/2025 Start: 02-02-2024 End: 02-01-2025 Measurement of glucose 1 hour after glucose challenge for glucose tolerance test Glucose tolerance, 1 hour Lab Routine Diabetes mellitus screening Expected: 02/02/2024 (Approximate), Expires: 02/01/2025 [facility] Comment on above: Expected: 02/02/2024 (Approximate), Expires: 02/01/2025 Start: 01-02-2024 Influenza vaccination Influenz a Vaccine (#1) [facility] Payers Date Payer Category Payer Unknown [employer] [id number] 2022-Present [address] [place] [address] [id number] 1991 Unknown [id number] 1991 Unknown [id number] 1991 Unknown [id number] 1991 Unknown [id number] 1991 Unknown [id number] 1991 Unknown [id number] 1991 Unknown [id number] 1991 Unknown [id number] 1959 Unknown [id number] Social History Date Type Detail Facility Start: 10-29-2023 Tobacco smoking status COIS Never sm oked tobacco [facility] Start: 10-29-2023 Tobacco use and exposure Smoke less tobacco non-user [facility] Start: 01-05-2024 End: 02-02-2024 Alcoholic beverage intake Current drinker of alcohol (finding) [facility] Start: 03-04-2023 End: 10-29-2023 [facility] of Social function [facility] Start: 03-04-2023 End: 10-29-2023 Alcohol Use Disorder Identification Test - Consumption [AUDIT-C] [facility] How often to you hav e a drink containing alcohol? Monthly or less [facility] How many standard dr inks containing alcohol do you have on a typical day? 1 or 2 [facility] How often do you hav e 6 or more drinks on 1 occasion? Never [facility] Start: 09-11-2023 [facility] Start: 1990 Sex assigned at Female [facility] Start: 03-09-2023 Gender identity Identifies as female gender (finding) [facility] History of Present illness Narrative 02-02-2024 COLETTE Almonte - 02/02/2024 3:30 PM EDT Note Date & Type Note Facility 02-02-2024 History of Presen t illness Narrative Reason for Appointment: Patient ID: Liliane Nuno is a 33 y.o. female who presents for Routine Visit Patient presents today for Return OB appointment. MEDICATIONS Current Outpatient Medications Medication Instructions aspirin 81 mg, Oral, Daily magnesium oxide (MAG-OX) 400 mg, Oral, Daily MV-Min-Fe Fum-FA-DHA ( 1 PO) Oral ALLERGIES No Known Allergies PROBLEMS Active Ambulatory Problems Diagnosis Date Noted No Active Ambulatory Problems Resolved Ambulatory Problems Diagnosis Date Noted No Resolved Ambulatory Problems No Additional Past Medical History HISTORY PAST MEDICAL HISTORY SOCIAL HISTORY History reviewed. No pertinent past medical history. Social History Tobacco Use Smoking status: Never Smokeless tobacco: Never Substance Use Topics Alcohol use: Yes Drug use: Never FAMILY HISTORY Family History Problem Relation Name Age of Onset Hypertension Mother Vandana Hyperlipidemia Mother Vandana Allergies Mother Vandana Heart disease Father Cancer Maternal Grandfather Gonsalo Asthma Maternal Grandmother Linda Thyroid disease Maternal Grandmother Linda SURGICAL HISTORY Past Surgical History: Procedure Laterality Date OTHER SURGICAL HISTORY 2012 Pap OTHER SURGICAL HISTORY 04/23/2021 RT ulnar nerve decompression- Dr. Whitman TONSILLECTOMY 2007 REVIEW OF SYSTEMS Review of Systems: Review of Systems Constitutional: Negative. HENT: Negative. Eyes: Negative. Respiratory: Negative. Cardiovascular: Negative. Gastrointestinal: Negative. Genitourinary: Negative. Musculoskeletal: Negative. Neurological: Negative. Psychiatric/Behavioral: Negative. OBJECTIVE Objective: Physical Exam Constitutional: Appearance: Normal appearance. She is normal weight. HENT: Head: Normocephalic. Cardiovascular: Rate and Rhythm: Normal rate. Pulses: Normal pulses. Pulmonary: Effort: Pulmonary effort is normal. Breath sounds: Normal breath sounds. Abdominal: Palpations: Abdomen is soft. Musculoskeletal: General: Normal range of motion. Neurological: General: No focal deficit present. Mental Status: She is alert and oriented to person, place, and time. Psychiatric: Mood and Affect: Mood normal. Behavior: Behavior normal. Thought Content: Thought content normal. Judgment: Judgment normal. Vitals and nursing note reviewed. Vitals: Estimated body mass index is 32.01 kg/m as calculated from the following: Height as of 03/30/23: 5' 2 . Weight as of this encounter: 175 lb. BP: 126/76 Patient's last menstrual period was 08/28/2023. ASSESSMENT & PLAN ICD-10-CM 1. Second trimester Z34.92 POCT urinalysis dipstick manually resulted 2. 22 weeks gestation of Z3A.22 POCT urinalysis dipstick manually resulted 3. Diabetes mellitus screening Z13.1 CBC Glucose tolerance, 1 hour Return OB: Patient presents today for a routine obstetrics appointment. Patient is currently 22w4d . Patient states she is doing well but has complaints of being tired due to current . Patient has verbalizes frequent movement. Orders Placed This Encounter Procedures CBC Glucose tolerance, 1 hour POCT urinalysis dipstick manually resulted Follow Up: Patient is to return to office in 4 week for routine OB appointment. Documented by COLETTE Almonte on behalf of: COLETTE Almonte documented in this encounter [facility] Evaluation note Note Date & Type Note Facility Evaluation note Diagnosis Second trimester state, incidental 22 weeks gestation of Diabetes mellitus screening Screening for diabetes mellitus documented in this encounter [facility] Summary Purpose Family History No Family History Records FoundNo Family History Records Found Advance Directives No Advanced Directives Records FoundNo Advanced Directives Records Found Additional Source Comments INFORMATION SOURCE (unrecogn ized section and content) DATE CREATED AUTHOR 11/18/2021 [facility] DATE CREATED AUTHOR 'S ORGANIZ ATION 02/04/2024 [facility] EPIC Reason for Visit (unrecogniz ed section and content) Reason Comments Routine Visit Care Teams (unrecognized sec tion and content) Bulk Intake Worker Relationship Specialty Start Date End Date Hima Sena MD [address] [facility] [address] [place] [address] PCP - General Family Medicine 09/08/22 Bulk Intake Worker Relationship Specialty Start Date End Date Hima Sena MD [address] [facility] [address] [place] [address] PCP - General Family Medicine 09/08/22 FOR RECORDS PERTAINING TO PATIENTS WHO ARE [...] BE BASED ON THE PRIMARY CLINICAL RECORDS. [facility]. provides no warranty or guarantee of the accuracy or completeness of information in this document.
[2024-02-16 11:17] LABS: Basophils Percent Auto 0.3 % (0.2-2.0); Eosinophils Percent Auto 0.3 % (0.9-7.0); Hematocrit 32.9 % (36.0-48.0); Hemoglobin 10.9 g/dL (12.0-16.0); Immature Granulocytes Abs Auto 0.13 10^3/uL (0.00-0.03); Immature Granulocytes Pct Auto 1.1 % (0.0-0.5); Lymphocytes Absolute Auto 1.1 10^3/uL (1.2-3.8); Lymphocytes Percent Auto 9.3 % (20.5-60.0); Mean Corpuscular HGB Conc 33.1 g/dL (29.9-35.2); Mean Corpuscular Hemoglobin 29.9 pg (26.7-34.0); Mean Corpuscular Volume 90.4 fL (81.0-99.0); Mean Platelet Volume 9.5 fL (9.5-13.5); Monocytes Absolute Auto 0.4 10^3/uL (0.3-0.8); Monocytes Percent Auto 3.1 % (1.7-12.0); Neutrophils Percent Auto 85.9 % (43.0-75.0); Platelet Count 299 10^3/uL (150-450); Red Blood Count 3.64 10^6/uL (4.20-5.40); Red Cell Distribution Width 12.8 % (11.0-15.0); White Blood Count 11.6 10^3/uL (4.0-11.0)
[2024-02-16 11:57] LABS: Glucose 1 Hour 154 mg/dL (<130)
== END 2024-02-16 10:10 | disposition home or self-care (01) ==
PROVIDERS: Visit Provider Physician Assistant
DX: Z13.1 Encounter for screening for diabetes mellitus (principal)
CPT/HCPCS: 36415; 82950; 85025

== ENCOUNTER 2024-02-22 09:13 | Outpatient (OUT) | payer OTHER, SELFPAY ==
--- OUTSIDE RECORDS SUMMARY | 2024-02-22 09:20 | XMS_ITS | CCD ---
Author Organization [facility] Care Team Providers Care Detacher Name Role Phone DR HIMA SENA Attending [...] aspirin 81 mg delayed release oral tablet (3 sources) Platelet Aggregation Inhibitor, Nonsteroidal Anti-inflammatory Drug take 1 tablet by mouth once daily aspirin 81 MG EC tablet Take 81 mg by mouth Daily Active magnesium oxide 400 mg oral tablet (4 sources) Start: 12-06-2023 End: 04-04-2024 take 1 tablet by mouth once daily magnesium oxide (Mag-Ox) 400 MG tablet Indications: Nonintractable headache, unspecified chronicity pattern, unspecified headache type Take 1 tablet (400 mg) by mouth Daily 30 tablet 3 12/06/2023 04/04/2024 Active MV-Min-Fe Fum-FA-DHA ( 1 PO) (4 sources) MV-Min- Fe Fum-FA-DHA ( 1 PO) [...] Test Name Value Interpretation Reference Range Facility ALL CBC WITH AUTO DIFFon BASOPHILS ABSOLUTE AUTO 0 [facility] Basophils/100 WBC (Bld) 0.3 % 0.2 - 2.0 % [facility] Eosinophils/100 WBC (Bld) 0.3 % Low 0.9 - 7.0 % [facility] Erythrocyte distribution width (RBC) [Ratio] 12.8 % 11.0 - 15.0 % [facility] Hematocrit (Bld) [Volume fraction] 32.9 % Low 36.0 - 48.0 % [facility] [Mass/Vol] 10.9 g/dL Low 12.0 - 16.0 g/dL [facility] IMMATURE GRANULOCYTES ABS AUTO 0.13 High [facility] Immature granulocytes/100 WBC (Bld) 1.1 % High 0.0 - 0.5 % [facility] Interpretation and review of laboratory results Abnormal [facility] LYMPHOCYTES ABSOLUTE AUTO 1.1 Low [facility] Lymphocytes/100 WBC (Bld) 9.3 % Low 20.5 - 60.0 % [facility] MCH (RBC) [Entitic mass] 29.9 pg 26.7 - 34.0 pg [facility] MCHC (RBC) [Mass/Vol] 33.1 g/dL 29.9 - 35.2 g/dL [facility] MCV (RBC) [Entitic vol] 90.4 fL 81.0 - 99.0 fL [facility] Monocytes/100 WBC (Bld) 3.1 % 1.7 - 12.0 % [facility] NEUTROPHILS ABSOLUTE AUTO 10 High [facility] Neutrophils/100 WBC (Bld) 85.9 % High 43.0 - 75.0 % [facility] Platelet mean volume (Bld) [Entitic vol] 9.5 fL 9.5 - 13.5 fL [facility] EO # 0 [facility] PLT [address] [facility] TB RBC 3.64 Low [facility] TB WBC 11.6 High [facility] Urinalysis macro (dipstick) panel (U)on 02-02-2024 Bilirubin, UA Negative Negative - 4(70) +++ mg/dL [facility] Blood, UA Negative Negative - 50 Álvaro/mcL [facility] Clarity, UA [facility] re Color, UA Yellow [facility] e Glucose, UA Negative Negative - 1999(110) ++++ mg/dL [facility] Interpretation and review of laboratory results Normal [facility] Ketones, UA Negative Negative - 160(16) ++++ mg/dL [facility] Leukocytes, UA Negative Negative - 500+++ Reji/mcL [facility] Nitrite, UA Negative Negative - Positive [facility] pH, UA 5.5 5 - 9 [facility] e Protein, UA Negative Negative - 1999(20) ++++ mg/dL [facility] Spec Grav, UA 1.010 1 - 1.03 [facility] Urobilinogen, UA 0.2 0.2 - 12 mg/dL [facility] PAP ACOG PANEL 2: 30 to 65on 11-13-2021 . . Normal [facility] Comment on above: Result Comment: Perf ormed at: WB Performed By: #### [id number] #### [facility] [address] [place] [address] Dr. Abby Campoverde Age Gdln ACOG Testing 30-65 Normal [facility] Comment on above: Performed By: #### [id number] #### [facility] [address] [address] [address] Abby Campoverde DIAGNOSIS: Comment Normal [facility] Comment on above: Result Comment: NEGA TIVE FOR INTRAEPITHELIAL LESION OR MALIGNANCY. Performed at: WB Performed By: #### [id number] #### [facility] [address] [place] [address] Dr. Abby Campoverde HPV Aptima Negative Normal Negative [facility] Comment on above: Result Comment: This nucleic acid amplification test detects fourteen high-risk HPV types (16,18,31,33,35,39,45,51,52,56,58,59,66,68) without differentiation. Performed at: =G Performed By: #### [id number] #### [facility] [address] [place] [address] Dr. Abby Campoverde Methodology: Comment Normal [facility] Comment on above: Result Comment: This liquid based ThinPrep(R) pap test was screened with the use of an image guided system. Performed at: WB Performed By: #### [id number] #### [facility] [address] [place] [address] Dr. Abby Campoverde Note: Comment Normal [facility] Comment on above: Result Comment: The Pap smear is a screening test designed to aid in the detection of premalignant and malignant conditions of the uterine cervix. It is not a diagnostic procedure and should not be used as the sole means of detecting cervical cancer. Both false-positive and false-negative reports do occur. . Performed at: WB Performed By: #### [id number] #### [facility] [address] [place] [address] Dr. Abby Campoverde Performed by: Comment Normal [facility] Comment on above: Result Comment: Madisyn Sherman, Test Lab Technician (ASCP) Performed at: WB Performed By: #### [id number] #### [facility] [address] [place] [address] Dr. Abby Campoverde Specimen adequacy: Comment Normal [facility] Comment on above: Result Comment: Sati sfactory for evaluation. Endocervical and/or squamous metaplastic cells (endocervical component) are present. Performed at: WB Performed By: #### [id number] #### [facility] [address] [place] [id number] Abby Campoverde [facility]01 SARS-CoV-2 (COVID-19) RNA ABDI+probe Ql (Unsp spec) Not detected Normal NOT DETECTED [facility] Comment on above: Result Comment: This test is not yet approved or cleared by the [place] FDA. When there are no FDA-approved or cleared tests available, and other criteria are met, FDA can make tests available under an emergency access mechanism called an Emergency Use Authorization (EUA). The EUA for this test is supported by the [employer] T[employer] of Health and Human Service's (HHS's) declaration [...] consistent with SARS-CoV-2. Performed By: #### [facility] #### [facility] [address] [place], [place] [id number] Dr. Abby Campoverde Vital Signs Date Time Vital Sign Value Performing Clinician Faci lity 02-02-2024 15:46-0400 Body mass index (BMI) [Ratio] 32.01 kg/m2 Tiffani ALVARENGA Work Phone: [facility] 02-02-2024 15:46-0400 Body weight 79.38 kg Tiffani ALVARENGA Work Phone: [facility] 02-02-2024 15:46-0400 Diastolic blood pressure 76 mm[Hg] Tiffani ALVARENGA Work Phone: [facility] 02-02-2024 15:46-0400 Systolic blood pressure 126 mm[Hg] Tiffani ALVARENGA Work Phone: [facility] Healthcare Encounters Encounter Date Encounter Type Care Provider Facility Start: 02-16-2024 End: 02-16-2024 [facility] Result Encounter Tiffani ALVARENGA Work Phone: [facility] External Department Unsolicited Start: 02-16-2024 End: 02-16-2024 [facility] Result Encounter Tiffani ALVARENGA Work Phone: [facility] External Department Unsolicited Start: 02-02-2024 End: 02-02-2024 flow sheet Tiffani ALVARENGA Work Phone: [facility] Comment on above: Second trimester pre gnancy; 22 weeks gestation of ; Diabetes mellitus screening Start: 02-02-2024 End: 02-02-2024 ambulatory TIFFANI SON Not Available Start: 02-02-2024 End: 02-02-2024 Bamboo flowsheet Tiffani ALVARENGA Work Phone: [facility] Start: 02-02-2024 End: 02-02-2024 Bamboo flowsheet Tiffani ALVARENGA Work Phone: [facility] Start: 01-05-2024 End: 01-05-2024 ambulatory [...] Date Procedure Procedure Detail Performing Clinician Start: 02-16-2024 ALL CBC WITH AUTO DIFF Tiffani ALVARENGA Work Phone: Start: 02-02-2024 Urnls dip stick/tabl et rgnt non-auto w/o micrscp Tiffani ALVARENGA Work Phone: Start: 01-05-2024 Microscopic observat ion [Identifier] in Cervix by Cyto stain Tiffani ALVARENGA Work Phone: Plan of Treatment Date Care Activity Detail Author Start: 01-04-2027 Screening for malign ant neoplasm of cervix [facility] Start: 10-15-2025 Screening for malign ant neoplasm of cervix HPV/Cotest [facility] Start: 03-01-2024 End: 03-01-2024 Patient encounter procedure 03/01/2024 9:30 AM EDT Routine [facility] [address] [place] [id number] Tiffani Son PA [address] [place] [address] [facility] Start: 02-02-2024 End: 02-02-2024 Patient encounter procedure 02/02/2024 3:30 PM EDT Routine [facility] [address] [place] [id number] Tiffani Son PA [address] [place], [place] [id number] Arrived [facility] Comment on above: Arrived Start: 02-02-2024 End: 02-01-2025 CBC panel - Blood by Automated count CBC Lab Routine Diabetes mellitus screening Expected: 02/02/2024 (Approximate), Expires: 02/01/2025 [facility] Work Phone: Comment on above: Expected: 02/02/2024 (Approximate), Expires: 02/01/2025 Start: 02-02-2024 End: 02-01-2025 Measurement of glucose 1 hour after glucose challenge for glucose tolerance test Glucose tolerance, 1 hour Lab Routine Diabetes mellitus screening Expected: 02/02/2024 (Approximate), Expires: 02/01/2025 [facility] Comment on above: Expected: 02/02/2024 (Approximate), Expires: 02/01/2025 Start: 01-02-2024 Influenza vaccination Influenz a Vaccine (#1) [facility] Payers Date Payer Category Payer Private Health Insurance [employer] [id number] 2022 Unknown [employer] [id number] 2022-Present [address] [place] [address] [id number] 1991 Unknown [id number] 593 1991 Unknown [id number]. 593 1991 Unknown [id number]. 9 1991 Unknown [id number]. 9 1991 Unknown [id number]. 9 1991 Unknown [id number] [id number]. 9 1991 Unknown [id number] [id number]. 9 1991 Unknown [id number]. 1259 1959 Unknown [id number] Social History Date Type Detail Facility Start: 10-29-2023 Tobacco smoking status NHIS Never sm oked tobacco [facility] Start: [...] content) DATE CREATED AUTHOR 11/18/2021 [facility] DATE CREATED AUTHOR AUTHOR'S ORGANIZ ATION 02/04/2024 [facility] EPIC Reason for Visit (unrecogniz ed section and content) Reason Comments Routine Visit Care Teams (unrecognized sec tion and content) Detacher Relationship Specialty Start Date End Date Hima Sena MD [address] [facility] [address] [place] [address] PCP - General Family Medicine 09/08/22 Detacher Relationship Specialty Start Date End Date Hima Sena MD [address] [facility] [address] [place] [address] PCP - General Family Medicine 09/08/22 Detacher Relationship Specialty Start Date End Date Hima Sena MD [address] [facility] [address] [place] [address] PCP - General Family Medicine 09/08/22 FOR [...] BE BASED ON THE PRIMARY CLINICAL RECORDS. [email or web address] provides no warranty or guarantee of the accuracy or completeness of information in this document.
[2024-02-22 09:55] LABS: Glucose Fasting 98 mg/dL (<95)
[2024-02-22 10:34] LABS: Glucose 1 Hour 193 mg/dL (<180)
[2024-02-22 11:54] LABS: Glucose 2 Hour 179 mg/dL (<155)
[2024-02-22 12:30] LABS: Glucose 3 Hour 71 mg/dL (<140)
== END 2024-02-22 09:14 | disposition home or self-care (01) ==
LOC: LAB 09:13
PROVIDERS: Visit Provider Physician Assistant
DX: R73.09 Other abnormal glucose (principal)
CPT/HCPCS: 36415; 82951; 82952

== ENCOUNTER 2024-03-14 08:05 | Outpatient (OUT) | payer OTHER, SELFPAY ==
--- OUTSIDE RECORDS SUMMARY | 2024-03-14 08:20 | XMS_ITS | CCD ---
Author Organization [facility] Care Team Providers Care Tie Binder Name Role Phone JAIDA, DR QUINTANILLA Attending Unavailable REQUEST, NONE LISTED Primary Care Unavailbrendon SENA, DR QUINTANILLA Admitting Unavailable JAIDA, DR QUINTANILLA Consulting Unavailable DEANDRA, DR MASON Admitting Unavailable DEANDRA, DR MASON Consulting Unavailable DEANDRA, DR MASON Attending Unavailable REQUEST, NONE LISTED Primary Care UnavailHima Armendariz MD Primary Care Provider [phone] ISABELLA STEVENSON Attending Unavailable ISABELLA STEVENSON Attending Unavailable ISABELLA STEVENSON Attending Unavailable ISABELLA STEVENSON Attending Unavailable TIFFANI SON Attending Unavailable TIFFANI SON Attending Unavailable Medications Current Medications Medication Drug Class(es) Dates Sig (Normalized) Sig (Original) aspirin 81 mg delayed release oral tablet (7 sources) Platelet Aggregation Inhibitor, Nonsteroidal Anti-inflammatory Drug take 1 tablet by mouth once daily aspirin 81 MG EC tablet Take 81 mg by mouth Daily Active Blood Glucose Monitoring Suppl (D-Care Glucometer) w/Device kit (2 sources) Start: 03-01-2024 End: 03-01-2025 Blood Glucose Monitoring Suppl (D-Care Glucometer) w/Device kit Indications: Gestational diabetes mellitus (GDM), antepartum, gestational diabetes method of control unspecified , Elevated glucose tolerance test 1 kit Daily Use four times daily to check FSBS. In the morning prior to breakfast & 1 hour after each meal for a total of 4times daily. 1 kit 03/01/2024 03/01/2025 Active ferrous sulfate (2 sources) take 1 tablet by mouth in the morning Ferrous Sulfate (IRON PO) Take 1 tablet by mouth in the morning. Active isopropyl alcohol 0.7 ml/ml medicated pad (2 sources) Start: 03-01-2024 Alcohol Swabs (Alcohol Prep Pad) 70 % pads Indications: Gestational diabetes mellitus (GDM), antepartum, gestational diabetes method of control unspecified , Elevated glucose tolerance test Apply 1 Pad topically Daily Use four times daily to check FSBS. 150 each 3 03/01/2024 Active Start: 03-01-2024 Alcohol Swabs (Alcohol Prep Pad) 70 % pads Indications: Gestational diabetes mellitus (GDM), antepartum, gestational diabetes method of control unspecified , Elevated glucose tolerance test Apply 1 Pad topically Daily Use four times daily to check FSBS. 150 each 3 03/01/2024 Active magnesium oxide 400 mg oral tablet (8 sources) Start: 12-06-2023 End: 04-04-2024 take 1 tablet by mouth once daily magnesium oxide (Mag-Ox) 400 MG tablet Indications: Nonintractable headache, unspecified chronicity pattern, unspecified headache type Take 1 tablet (400 mg) by mouth Daily 30 tablet 3 12/06/2023 04/04/2024 Active MV-Min-Fe Fum-FA-DHA ( 1 PO) (8 sources) MV-Min- Fe Fum-FA-DHA ( 1 PO) Take by mouth Active Problems Active Problems Problem Classification Problem Date Documented Date Episodic/Chronic Diabetes mellitus without complication (2 sources) Abnormal glucose tolerance test; Translations: [Other abnormal glucose] 03-01-2024 Episodic Diabetes or abnormal glucose tolerance complicating ; childbirth; or the puerperium (2 sources) Gestational diabetes mellitus; Translations: [Gestational diabetes mellitus in , unspecified control] 03-01-2024 Episodic Immunizations and screening for infectious disease (1 source) Encounter for screening for human papillomavirus (HPV); Translations: [ENC SCREENING HUMAN PAPILLOMAVIRUS] Onset: 11-12-2021 Episodic Other and delivery including normal (4 sources) Second trimester ; Translations: [Encounter for supervision of normal , unspecified, second trimester] 02-02-2024 Episodic Other screening for suspected conditions (not mental disorders or infectious disease) (6 sources) Encounter for screening for malignant neoplasm of cervix; Translations: [Patient encounter status] Onset: 11-10-2021 Episodic Residual codes; unclassified (2 sources) Gestation period, 22 weeks; Translations: [22 weeks gestation of ] 02-02-2024 Episodic Residual codes; unclassified (2 sources) Gestation period, 26 weeks; Translations: [26 weeks gestation of ] 03-01-2024 Episodic Unclassified (3 sources) CONTACT W/AND (SUSP) EXPOS COVID-19; Translations: [CONTACT W/AND (SUSP) EXPOS COVID-19] Onset: 10-16-2021 Past or Other Problems Problem Classification Problem Date Documented Da te Episodic/Chronic Unclassified (1 source) CONTACT W/AND (SUSP) EXPOS COVID-19; Translations: [CONTACT W/AND (SUSP) EXPOS COVID-19] Onset: 10-14-2021 Results Test Name Value Interpretation Reference Range Facility Urinalysis macro (dipstick) panel (U)on 03-01-2024 Bilirubin, UA Negative Negative - 4(70) +++ mg/dL [facility] Blood, UA Negative Negative - 50 Álvaro/mcL [facility] Clarity, UA Clear [facility] re Color, UA Yellow [facility] e Glucose, UA Negative Negative - 2000(110) ++++ mg/dL [facility] Interpretation and review of laboratory results Abnormal [facility] Ketones, UA Negative Negative - 160(16) ++++ mg/dL [facility] Leukocytes, UA Trace Negative - 500+++ Reji/mcL [facility] Nitrite, UA Negative Negative - Positive [facility] pH, UA 7 5 - 9 [facility] e Protein, UA Negative Negative - 2000(20) ++++ mg/dL [facility] Spec Grav, UA 1.015 1 - 1.03 [facility] Urobilinogen, UA 0.2 0.2 - 12 mg/dL [facility] e GLUCOSE TOLERANCE 3 HOURon 1 GLUCOSE TOLERANCE 3 HOUR High mg/dL [facility] Comment on above: GLU FAST 98H (<95) C ol: 02/22/24 0919 GLU 1HR 193H (<180) Col: 02/22/24 1020 GLU 2HR 179H (<155) Col: 02/22/24 1119 GLU 3HR 71 (<140) Col: 02/22/24 1220 Interpretation and review of laboratory results Abnormal [facility] e ALL CBC WITH AUTO DIFFon BASOPHILS ABSOLUTE AUTO 0 [facility] Basophils/100 WBC (Bld) 0.3 % 0.2 - 2.0 % [facility] Eosinophils/100 WBC (Bld) 0.3 % Low 0.9 - 7.0 % [facility] Erythrocyte distribution width (RBC) [Ratio] 12.8 % 11.0 - 15.0 % [facility] Hematocrit (Bld) [Volume fraction] 32.9 % Low 36.0 - 48.0 % [facility] e Hemoglobin (Bld) [Mass/Vol] 10.9 g/dL Low 12.0 - 16.0 g/dL [facility] IMMATURE GRANULOCYTES ABS AUTO 0.13 High [facility] Immature granulocytes/100 WBC (Bld) 1.1 % High 0.0 - 0.5 % [facility] Interpretation and review of laboratory results Abnormal [facility] LYMPHOCYTES ABSOLUTE AUTO 1.1 Low [facility] Lymphocytes/100 WBC (Bld) 9.3 % Low 20.5 - 60.0 % [facility] MCH (RBC) [Entitic mass] 29.9 pg 26.7 - 34.0 pg [facility] MCHC (RBC) [Mass/Vol] 33.1 g/dL 29.9 - 35.2 g/dL [facility] MCV (RBC) [Entitic vol] 90.4 fL 81.0 - 99.0 fL [facility] MONOCYTES ABSOLUTE AUTO 0.4 [facility] Monocytes/100 WBC (Bld) 3.1 % 1.7 - 12.0 % [facility] NEUTROPHILS ABSOLUTE AUTO 10 High [facility] Neutrophils/100 WBC (Bld) 85.9 % High 43.0 - 75.0 % [facility] Platelet mean volume (Bld) [Entitic vol] 9.5 fL 9.5 - 13.5 fL [facility] # 0 [facility] TB PLT 299 [facility] TB RBC 3.64 Low [facility] Health[facility] e TB WBC 11.6 High [facility] e Urinalysis macro (dipstick) panel (U)on 02-02-2024 Bilirubin, UA Negative Negative - 4(70) +++ mg/dL [facility] Blood, UA Negative Negative - 50 Álvaro/mcL [facility] Clarity, UA Clear [facility] Color, UA Yellow [facility] Glucose, UA Negative Negative - 2000(110) ++++ mg/dL [facility] Interpretation and review of laboratory results Normal [facility] Ketones, UA Negative Negative - 160(16) ++++ mg/dL [facility] Leukocytes, UA Negative Negative - 500+++ Reji/mcL [facility] Nitrite, UA Negative Negative - Positive [facility] pH, UA 5.5 5 - 9 [facility] e Protein, UA Negative Negative - 2000(20) ++++ mg/dL [facility] Spec Grav, UA 1.010 1 - 1.03 [facility] Urobilinogen, UA 0.2 0.2 - 12 [facility]dL [facility] PAP ACOG PANEL 2: 30 to 65on 11-13-2021 . . Normal [facility] Comment on above: Result Comment: Perf ormed at: WB Performed By: #### [id number] #### [facility] [address] [place] [address] Dr. Abby Campoverde Age Gdln ACOG Testing 30-65 Normal [facility] Comment on above: Performed By: #### [id number] #### [facility] [address] [address] [address] Abyb Campoverde DIAGNOSIS: Comment Normal [facility] Comment on above: Result Comment: NEGA TIVE FOR INTRAEPITHELIAL LESION OR MALIGNANCY. Performed at: WB Performed By: #### [id number] #### [facility] [address] [address] [address] Abby Campoverde HPV Aptima Negative Normal Negative [facility] Comment on above: Result Comment: This nucleic acid amplification test detects fourteen high-risk HPV types (16,18,31,33,35,39,45,51,52,56,58,59,66,68) without differentiation. Performed at: =G Performed By: #### [id number] #### [facility] [address] [address] [address] Abby Campoverde Methodology: Comment [facility] Comment on above: Result Comment: This liquid based ThinPrep(R) pap test was screened with the use of an image guided system. Performed at: WB Performed By: #### [id number] #### [facility] [address] [address] [address] Abby Campoverde Note: Comment Normal [facility] Comment on above: Result Comment: The Pap smear is a screening test designed to aid in the detection of premalignant and malignant conditions of the uterine cervix. It is not a diagnostic procedure and should not be used as the sole means of detecting cervical cancer. Both false-positive and false-negative reports do occur. . Performed at: WB Performed By: #### [id number] #### [facility] [address] [place] [address] Dr. Abby Campoverde Performed by: Comment Normal [facility] Comment on above: Result Comment: Madisyn Sherman, [employer] Strip Mill Inspector (ASCP) Performed at: WB Performed By: #### [id number] #### [facility] [address] [place] [address] Dr. Abby Campoverde Specimen adequacy: Comment Normal [facility] Comment on above: Result Comment: Sati sfactory for evaluation. Endocervical and/or squamous metaplastic cells (endocervical component) are present. Performed at: WB Performed By: #### [id number] #### [facility] [address] [place] [address] Dr. Abby Campoverde Covid-19 PCR ([facility])on 10-01 SARS-CoV-2 (COVID-19) RNA ABDI+probe Ql (Unsp spec) Not detected Normal NOT DETECTED [facility] Comment on above: Result Comment: This test is not yet approved or cleared by the [place] FDA. When there are no FDA-approved or cleared tests available, and other criteria are met, FDA can make tests available under an emergency access mechanism called an Emergency Use Authorization (EUA). The EUA for this test is supported by the [place] of Health and Human Service's (HHS's) declaration [...] consistent with SARS-CoV-2. Performed By: #### C [facility] #### [facility] [address] [place] [address] Dr. Abby Campoverde Vital Signs Date Time Vital Sign Value Performing Clinician Fachalie lity 03-01-2024 09:57-0400 Body mass index (BMI) [Ratio] 32.74 kg/m2 Tiffani Son PA Work Phone: [facility] 03-01-2024 09:57-0400 Body weight 81.19 kg Tiffani Nancy PA Work Phone: [facility] 03-01-2024 09:57-0400 Diastolic blood pressure 80 mm[Hg] Tiffani Son PA Work Phone: [facility] 03-01-2024 09:57-0400 Systolic blood pressure 122 mm[Hg] Tiffani Son PA Work Phone: [facility] 02-02-2024 15:46-0400 Body mass index (BMI) [Ratio] 32.01 kg/m2 Tiffani Inkster PA Work Phone: [facility] 02-02-2024 15:46-0400 Body weight 79.38 kg Tiffani Nancy PA Work Phone: [facility] 02-02-2024 15:46-0400 Diastolic blood pressure 76 mm[Hg] Tiffani Son PA Work Phone: [facility] 02-02-2024 15:46-0400 Systolic blood pressure 126 mm[Hg] Tiffani Inkster PA Work Phone: [facility] Healthcare Encounters Encounter Date Encounter Type Care Provider Facility Start: 03-01-2024 End: 03-01-2024 Bamboo flowsheet Tiffani Son PA Work Phone: [facility] Start: 03-01-2024 End: 03-01-2024 Bamboo flowsheet Tiffani ALVARENGA Work Phone: [facility] Start: 03-01-2024 End: 03-01-2024 flow sheet Tiffani ALVARENGA Work Phone: [facility] Comment on above: Second trimester pre gnancy; 26 weeks gestation of ; Gestational diabetes mellitus (GDM), antepartum, gestational diabetes method of control unspecified; Elevated glucose tolerance test Start: 03-01-2024 End: 03-01-2024 ambulatory TIFFANI SON Not Available Start: 02-22-2024 End: 02-22-2024 [facility] Result Encounter Tiffani ALVARENGA Work Phone: [facility] External Department Unsolicited Start: 02-22-2024 End: 02-22-2024 [facility] Result Encounter Tiffani ALVARENGA Work Phone: [facility] External Department Unsolicited Start: 02-16-2024 End: 02-16-2024 [facility] Result Encounter Tiffani ALVARENGA Work Phone: [facility] External Department Unsolicited Start: 02-16-2024 End: 02-16-2024 [facility] Result Encounter Tiffani ALVARENGA Work Phone: [facility] External Department Unsolicited Start: 02-02-2024 End: 02-02-2024 flow sheet Tiffani ALVARENGA Work Phone: [facility] Comment on above: Second trimester pre gnancy; 22 weeks gestation of ; Diabetes mellitus screening Start: 02-02-2024 End: 02-02-2024 ambulatory TIFFANI SON Not Available Start: 02-02-2024 End: 02-02-2024 Bamboo flowsheet Tiffani ALVARENGA Work Phone: [facility] Start: 02-02-2024 End: 02-02-2024 Bamboo flowsheet Tiffani ALVARENGA Work Phone: [facility] Start: 01-05-2024 End: 01-05-2024 ambulatory ISABELLA DEANDRA Not Available Start: 12-06-2023 End: 12-06-2023 ambulatory ISABELLA DEANDRA Not Available Start: 10-29-2023 End: 10-29-2023 ambulatory ISABELLA DEANDRA Not Available Start: 03-30-2023 End: 03-30-2023 ambulatory ISABELLA DEANDRA Not Available Start: 03-16-2023 End: 03-16-2023 ambulatory ISABELLA STEVENSON Not Available Start: 11-10-2021 End: 11-10-[address] ISABELLA STEVENSON Facility:[facility] Start: 10-14-2021 End: 10-15-[address] HIMA SENA Facility:[facility] Procedures Date Procedure Procedure Detail Performing Clinician Start: 03-01-2024 Urnls dip stick/tabl et rgnt non-auto w/o micrscp Tiffani ALVARENGA Work Phone: Start: 02-22-2024 GLUCOSE TOLERANCE 3 HOUR Tiffani ALVARENGA Work Phone: Start: 02-16-2024 ALL CBC WITH AUTO DIFF Tiffani ALVARENGA Work Phone: Start: 02-02-2024 Urnls dip stick/tabl et rgnt non-auto w/o micrscp Tiffani ALVARENGA Work Phone: Start: 01-05-2024 Microscopic observat ion [Identifier] in Cervix by Cyto stain Tiffani ALVARENGA Work Phone: Plan of Treatment Date Care Activity Detail Author Start: 01-04-2027 Screening for malign ant neoplasm of cervix [facility] Start: 10-15-2025 Screening for malign ant neoplasm of cervix HPV/Cotest [facility] Start: 03-16-2024 End: 03-16-2024 Patient encounter procedure 03/16/2024 9:50 AM EST Routine [facility] [address] [place] [address] Isabella Stevenson, DO [address] [place] [address] [facility] Start: 03-01-2024 End: 03-01-2025 US for US OB SCAN FOR GROWTH Imaging Routine Gestational diabetes mellitus (GDM), antepartum, gestational diabetes method of control unspecified Expected: 03/01/2024 (Approximate), Expires: 03/01/2025 [facility] Healthcare Work Phone: Comment on above: Expected: 03/01/2024 (Approximate), Expires: 03/01/2025 Start: 03-01-2024 End: 03-01-2024 Patient encounter procedure [facility] Comment on above: Arrived Start: 02-02-2024 End: 02-02-2024 Patient encounter procedure 02/02/2024 3:30 PM EDT Routine [facility] [address] [address] Tiffani Son PA [address] [place] [address] Arrived [facility] Comment on above: Arrived Start: 02-02-2024 End: 02-01-2025 CBC panel - Blood by Automated count CBC Lab Routine Diabetes mellitus screening Expected: 02/02/2024 (Approximate), Expires: 02/01/2025 [facility] Healthcare Work Phone: Comment on above: Expected: 02/02/2024 (Approximate), Expires: 02/01/2025 Start: 02-02-2024 End: 02-01-2025 Measurement of glucose 1 hour after glucose challenge for glucose tolerance test Glucose tolerance, 1 hour Lab Routine Diabetes mellitus screening Expected: 02/02/2024 (Approximate), Expires: 02/01/2025 [facility] Healthcare Comment on above: Expected: 02/02/2024 (Approximate), Expires: 02/01/2025 Start: 01-02-2024 Influenza vaccination Influenza Vacc ine (#1) [facility] Healthcare Payers Date Payer Category Payer Private Health Insurance [employer] [id number] 2022 Unknown [employer] [id number] 2022-Present [address] [place] [address] [id number] 1991 Unknown [id number] 1991 Unknown [id number] 1991 Unknown [id number] 1259 1991 Unknown [id number] 9 1991 Unknown [id number] 1259 1991 Unknown [id number] 9 1991 Unknown [id number] 1259 1991 Unknown [id number] 9 1991 Unknown [id number] 1259 1959 Unknown [id number] Social History Date Type Detail Facility Start: 10-29-2023 Tobacco smoking status TNIS Never sm oked tobacco [facility] Healthcare Start: 10-29-2023 Tobacco use and exposure Smoke less tobacco non-user [facility] Start: 01-05-2024 End: 02-02-2024 Alcoholic beverage intake Current drinker of alcohol (finding) [facility] Start: 03-04-2023 End: 10-29-2023 History of Social function [facility] re Start: 03-04-2023 End: 10-29-2023 Alcohol [...] Identifies as female gender (finding) [facility] Medical Equipment Procedure Code Equipment Code Equipment Origin al Text Equipment Identifier Dates Use as instructed [id number] Start: 03-01-2024 End: 03-01-2025 1 each by In Vit ro route Daily Use to check FSBS four times daily [id number] Start: 03-01-2024 End: 03-31-2024 History of Present illness Narrative 03-01-2024 COLETTE Almonte - 03/01/2024 9:30 AM EDT Note Date & Type Note Facility 03-01-2024 History of Presen t illness Narrative Reason for Appointment: Patient ID: Liliane Nuno is a 33 y.o. female who presents for Routine Visit Patient presents today for Return OB appointment. MEDICATIONS Current Outpatient Medications Medication Instructions Alcohol Swabs (Alcohol Prep Pad) 70 % pads 1 Pad, Topical, Daily, Use four times daily to check FSBS. aspirin 81 mg, Oral, Daily Blood Glucose Monitoring Suppl (D-Care Glucometer) w/Device kit 1 kit, Does not apply, Daily, Use four times daily to check FSBS. In the morning prior to breakfast & 1 hour after each meal for a total of 4times daily. Ferrous Sulfate (IRON PO) 1 tablet, Oral, Daily RT FREESTYLE TEST STRIPS test strip Use as instructed Lancets Ultra Thin misc 1 each, In Vitro, Daily, Use to check FSBS four times daily magnesium oxide (MAG-OX) 400 mg, Oral, Daily MV-Min-Fe Fum-FA-DHA ( 1 PO) Oral ALLERGIES No Known Allergies PROBLEMS Active Ambulatory Problems Diagnosis Date Noted No Active Ambulatory Problems Resolved Ambulatory Problems Diagnosis Date Noted No Resolved Ambulatory Problems No Additional Past Medical History HISTORY PAST MEDICAL HISTORY SOCIAL HISTORY No past medical history on file. Social History Tobacco Use Smoking status: Never [...] Negative. Gastrointestinal: Negative. Genitourinary: Negative. Musculoskeletal: Negative. Skin: Negative. Neurological: Negative. All other systems reviewed and are negative. Hematological: Negative. Endocrine: Negative. Allergic/Immunologic: Negative. OBJECTIVE Objective: Physical Exam Constitutional: Appearance: [...] reviewed. Vitals: Estimated body mass index is 32.74 kg/m as calculated from the following: Height as of 03/30/23: 5' 2 . Weight as of this encounter: 179 lb. BP: 122/80 Patient's last menstrual period was 08/28/2023. ASSESSMENT & PLAN ICD-10-CM 1. Second trimester Z34.92 POCT urinalysis dipstick manually resulted 2. 26 weeks gestation of Z3A.26 3. Gestational diabetes mellitus (GDM), antepartum, gestational diabetes method of control unspecified O24.419 Lancets Ultra Thin misc Alcohol Swabs (Alcohol Prep Pad) 70 % pads Blood Glucose Monitoring Suppl (D-Care Glucometer) w/Device kit FREESTYLE TEST STRIPS test strip 4. Elevated glucose tolerance test R73.09 Lancets Ultra [facility]in [facility] Alcohol Swabs (Alcohol Prep Pad) 70 % pads Blood Glucose Monitoring Suppl (D-Care Glucometer) w/Device kit FREESTYLE TEST STRIPS test strip Return OB: Patient presents today for a routine obstetrics appointment. Patient is currently 26w4d . Patient states she is doing well but has complaints of being tired due to current . Patient has verbalizes frequent movement. labor precautions was discussed/given and patient was instructed to perform kick counts three times a day. Patient was advised she failed her 3 hour glucose and a referral to Diabetic Edu was sent over to [facility]. Pt was made aware diabetic supplies were sent to pharmacy today and to picking belt operator when ready. Pt was advised to make sure to take her supplies w/her to her appt when she gets scheduled by Kristal Yee RN at [facility]. Pt verbally understood. Growth US was given to patient today to have done at 28 weeks to schedule at [facility]. Orders Placed This Encounter Procedures POCT urinalysis dipstick manually resulted Follow Up: Patient is to return to office in 2 week for routine OB appointment. Documented by Tosin Carvalho MA on behalf of: COLETTE Almonte documented in this encounter [facility] History of Present illness Narrative [...] History: Procedure Laterality Date OTHER SURGICAL HISTORY 2013 Pap OTHER SURGICAL HISTORY 04/23/2021 RT ulnar nerve decompression- Dr. Whitman TONSILLECTOMY 2006 REVIEW OF SYSTEMS Review of Systems: Review [...] mellitus documented in this encounter [facility] Evaluation note Note Date & Type Note Facility Evaluation note Diagnosis Second trimester state, incidental 26 weeks gestation of Gestational diabetes mellitus (GDM), antepartum, gestational diabetes method of control unspecified Elevated glucose tolerance test Impaired glucose tolerance test documented in this encounter [facility] Summary Purpose Family History No Family History Records FoundNo Family History Records Found Advance Directives No Advanced Directives Records FoundNo Advanced Directives Records Found Additional Source Comments INFORMATION SOURCE (unrecogn ized section and content) DATE CREATED AUTHOR 11/18/2021 [facility] DATE CREATED AUTHOR AUTHOR'S ORGANIZ ATION 03/02/2024 [facility] EPIC Reason for Visit (unrecogniz ed section and content) Reason Comments Routine Visit Care Teams (unrecognized sec tion and content) Tie Binder Relationship Specialty Start Date End Date Hima Sena MD [address] [address] PCP - General Family Medicine 09/08/22 Tie Binder Relationship Specialty Start Date End Date Hima Sena MD 112 [facility] [address] [place] [address] PCP - General Family Medicine 09/08/22 Tie Binder Relationship Specialty Start Date End Date Hima Sena MD [address] [address] PCP - General Family Medicine 09/08/22 Tie Binder Relationship Specialty Start Date End Date Hima Sena MD 112 [facility] [address] [place] [address] PCP - General Family Medicine 09/08/22 FOR [...] BE BASED ON THE PRIMARY CLINICAL RECORDS. [facility] [employer] [facility]. provides no warranty or guarantee of the accuracy or completeness of information in this document.
== END 2024-03-14 13:20 | disposition home or self-care (01) ==
LOC: FBCO 08:06
PROVIDERS: Visit Provider Obstetrics & Gynecology
DX: O24.419 Gestational diabetes mellitus in pregnancy, unspecified control (principal)
CPT/HCPCS: G0109

== ENCOUNTER 2024-03-29 13:03 | Outpatient (OUT) | payer OTHER, SELFPAY ==
--- NOTE | 2024-03-29 13:08 | US_ITS ---
[address] [address] Patient Name: SUSU RAUSCH MRN: [id number] date: 1990 Sex: F Assigned Patient Location: [facility] Current Patient Location: Accession/Order Number: [id number] Exam Date: 03/29/2024 13:08 Report Date: 03/30/2024 06:11 At the request of: MERY SON Procedure: US OB growth EXAMINATION: US OB growth HISTORY: GESTATIONAL DIABETES COMPARISON: Ultrasound OB anatomy 02/02/2024 FINDINGS: Heart Rate: 136 bpm Amniotic Fluid Volume: 10.2 cm; normal range. Number: 1 Position: CEPHALIC BIOMETRY: BPD: 7.80 cm; 31 weeks 2 days; 61.60 % HC: 28.27 cm; 31 weeks 0 days; 25.40 % AC: 26.26 cm; 30 weeks 0 days; 40.20 % FL: 6.01 cm; 31 weeks 2 days; 55.80 % EFW: 1627.74 g; 45.20 % FL/AC: 22.89 FL/BPD: 77.05 HC/AC: 1.08 GESTATIONAL AGE: Age by EDC: 30 weeks 4 days DOUGLAS by EDC: 2024-06-03 Age by US: 31 weeks 0 days DOUGLAS by US: 2024-05-31 US/US OB growth IMPRESSION: 1. Single live intrauterine with growth detailed above. Electronically authenticated by: DARREN LIRIANO Date: 03/30/2024 06:11
--- OUTSIDE RECORDS SUMMARY | 2024-03-29 13:22 | XMS_ITS | CCD ---
Author Organization [facility] Care Team Providers Care Library Attendant Name Role Phone JAIDA, DR QUINTANILLA Attending Unavailable REQUEST, NONE LISTED Primary Care Unavailbrendon SENA, DR QUINTANILLA Admitting Unavailable JAIDA, DR QUINTANILLA Consulting Unavailable ELVA, DR MASON Admitting Unavailable ELVA, DR MASON Consulting Unavailable ELVA, DR MASON Attending Unavailable NAYLA, NONE LISTED Primary Care Unavailbrendon Sena MD, Hima Vásquez Primary Care Provider ISABELLA STEVENSON Attending Unavailable ISABELLA STEVENSON Attending Unavailable ISABELLA STEVENSON Attending Unavailable TIFFANI SON Attending Unavailable TIFFANI SON Attending Unavailable ISABELLA STEVENSON Attending Unavailable Medications Current Medications Medication Drug Class(es) Dates Sig (Normalized) Sig (Original) aspirin 81 mg delayed release oral tablet (10 sources) Platelet Aggregation Inhibitor, Nonsteroidal Anti-inflammatory Drug take 1 tablet by mouth once daily aspirin 81 MG EC tablet Take 81 mg by mouth Daily Active Blood Glucose Monitoring Suppl (D-Care Glucometer) w/Device kit (5 sources) Start: 03-01-2024 End: 03-01-2025 Blood Glucose [...] 1 kit 03/01/2024 03/01/2025 Active ferrous sulfate (5 sources) take 1 tablet by mouth in the morning Ferrous Sulfate (IRON PO) Take 1 tablet by mouth in the morning. Active isopropyl alcohol 0.7 ml/ml medicated pad (5 sources) Start: 03-01-2024 Alcohol Swabs (Alcohol Prep Pad) 70 % pads Indications: Gestational diabetes mellitus (GDM), antepartum, gestational diabetes method of control unspecified , Elevated glucose tolerance test Apply 1 Pad topically Daily Use four times daily to check FSBS. 150 each 3 03/01/2024 Active magnesium oxide 400 mg oral tablet (11 sources) Start: 12-06-2023 End: 04-04-2024 take 1 tablet by mouth once daily magnesium oxide (Mag-Ox) 400 MG tablet Indications: Nonintractable headache, unspecified chronicity pattern, unspecified headache type Take 1 tablet (400 mg) by mouth Daily 30 tablet 3 12/06/2023 04/04/2024 Active MV-Min-Fe Fum-FA-DHA ( 1 PO) (11 sources) MV-Min- Fe Fum-FA-DHA ( 1 PO) [...] 11-12-2021 Episodic Other and delivery including normal (6 sources) Second trimester ; Translations: [Encounter for [...] [26 weeks gestation of ] 03-01-2024 Episodic Residual codes; unclassified (2 sources) Gestation period, 28 weeks; Translations: [28 weeks gestation of ] 03-16-2024 Episodic Unclassified (3 sources) CONTACT W/AND (SUSP) EXPOS COVID-19; Translations: [CONTACT W/AND (SUSP) EXPOS COVID-19] Onset: 10-16-2021 Past or Other Problems Problem Classification Problem Date Documented Da te Episodic/Chronic Unclassified (1 source) CONTACT W/AND (SUSP) EXPOS COVID-19; Translations: [CONTACT W/AND (SUSP) EXPOS COVID-19] Onset: 10-14-2021 Results Test Name Value Interpretation Reference Range Facility Urinalysis macro (dipstick) panel (U)on 03-16-2024 Bilirubin, UA Negative Negative - 4(70) +++ mg/dL [facility] Healthcare Blood, UA Negative Negative - 50 Álvaro/mcL [facility] Clarity, UA Clear [facility] Color, UA Yellow [facility] Glucose, UA Negative Negative - 1999(110) ++++ mg/dL [facility] Interpretation and review of laboratory results Abnormal [facility] Ketones, UA Negative Negative - 160(16) ++++ mg/dL [facility] Leukocytes, UA Negative Negative - 500+++ Reji/mcL [facility] Nitrite, UA Negative Negative - Positive [facility] pH, UA 7 5 - 9 [facility] Protein, UA Negative Negative - 1999(20) ++++ mg/dL [facility] Spec Grav, UA 1.02 1 - 1.03 [facility] care Urobilinogen, UA 1.0 0.2 - 12 mg/dL [facility] Urinalysis macro (dipstick) panel (U)on 03-01-2024 Bilirubin, UA Negative Negative - 4(70) +++ mg/dL [facility] Blood, UA Negative Negative - 50 Álvaro/mcL [facility] Clarity, UA Clear [facility] Color, UA Yellow [facility] Glucose, UA Negative Negative - 1999(110) ++++ mg/dL [facility] Interpretation and review of laboratory results Abnormal [facility] Ketones, UA Negative Negative - 160(16) ++++ mg/dL [facility] Leukocytes, UA Trace Negative - 500+++ Reji/mcL [facility] Nitrite, UA Negative Negative - Positive [facility] pH, UA 7 5 - 9 [facility] Protein, UA Negative Negative - 1999(20) ++++ mg/dL [facility] Spec Grav, UA 1.015 1 - 1.03 [facility] Urobilinogen, UA 0.2 0.2 - 12 mg/dL [facility] GLUCOSE TOLERANCE 3 HOURon GLUCOSE TOLERANCE 3 HOUR High mg/dL [facility] Comment on above: GLU FAST 98H (<95) C ol: 02/22/24 0919 GLU 1HR 193H (<180) Col: 02/22/24 1020 GLU 2HR 179H (<155) Col: 02/22/24 1119 GLU 3HR 71 (<140) Col: 02/22/24 1220 Interpretation and review of laboratory results Abnormal [facility] e ALL CBC WITH AUTO DIFFon BASOPHILS ABSOLUTE AUTO 0 [facility] Basophils/100 WBC (Bld) 0.3 % 0.2 - 2.0 % [facility] Eosinophils/100 WBC (Bld) 0.3 % Low 0.9 - 7.0 % [facility] Erythrocyte distribution width (RBC) [Ratio] 12.8 % 11.0 - 15.0 % [facility] Hematocrit (Bld) [Volume fraction] 32.9 % Low 36.0 - 48.0 % [facility] e Hemoglobin (Bld) [Mass/Vol] 10.9 g/dL Low 12.0 - 16.0 g/dL [facility] IMMATURE GRANULOCYTES ABS AUTO 0.13 High [facility] Immature granulocytes/100 WBC (Bld) 1.1 % High 0.0 - 0.5 % [facility] Interpretation and review of laboratory results Abnormal [facility] LYMPHOCYTES ABSOLUTE AUTO 1.1 Low [facility] Lymphocytes/100 WBC (Bld) 9.3 % Low 20.5 - 60.0 % [facility] MCH (RBC) [Entitic mass] 29.9 pg 26.7 - 34.0 pg [facility] MCHC (RBC) [Mass/Vol] 33.1 g/dL 29.9 - 35.2 g/dL [facility] MCV (RBC) [Entitic vol] 90.4 fL 81.0 - 99.0 fL [facility] MONOCYTES ABSOLUTE AUTO 0.4 [facility] Monocytes/100 WBC (Bld) 3.1 % 1.7 - 12.0 % [facility] NEUTROPHILS ABSOLUTE AUTO 10 High [facility] Neutrophils/100 WBC (Bld) 85.9 % High 43.0 - 75.0 % [facility] Platelet mean volume (Bld) [Entitic vol] 9.5 fL 9.5 - 13.5 fL [facility] EO # 0 [facility] PLT 299 [facility] RBC 3.64 Low [facility] WBC 11.6 High [facility] Urinalysis macro (dipstick) panel (U)on 02-02-2024 Bilirubin, UA Negative Negative - 4(70) +++ mg/dL [facility] Blood, UA Negative Negative - 50 Álvaro/mcL [facility] Clarity, UA Clear [facility] Color, UA Yellow [facility] e Glucose, UA Negative Negative - 1999(110) ++++ mg/dL [facility] Interpretation and review of laboratory results Normal [facility] Ketones, UA Negative Negative - 160(16) ++++ mg/dL [facility] Leukocytes, UA Negative Negative - 500+++ Reji/mcL [facility] Nitrite, UA Negative Negative - Positive [facility] pH, UA 5.5 5 - 9 [facility] e Protein, UA Negative Negative - 1999(20) ++++ mg/dL [facility] Spec Grav, UA 1.010 1 - 1.03 [facility] Urobilinogen, UA 0.2 0.2 - 12 mg/dL [facility] PAP ACOG PANEL 2: 30 to 65on 11-13-2021 . . Normal [facility] Comment on above: Result Comment: Perf ormed at: WB Performed By: #### [id number] #### [facility] [address] [address] [address] Abby Campoverde Age Gdln ACOG Testing 30-65 Normal [facility] Comment on above: Performed By: #### [id number] #### [facility] [address] [address] [address] Abby Campoverde DIAGNOSIS: Comment [facility] Comment on above: Result Comment: NEGA TIVE FOR INTRAEPITHELIAL LESION OR MALIGNANCY. Performed at: WB Performed By: #### [id number] #### [facility] [address] [address] [address] Abby Campoverde HPV Aptima Negative Normal Negative [facility] Comment on above: Result Comment: This nucleic acid amplification test detects fourteen high-risk HPV types (16,18,31,33,35,39,45,51,52,56,58,59,66,68) without differentiation. Performed at: =G Performed By: #### [id number] #### [facility] [address] [place] [address] Dr. Abby Campoverde Methodology: Comment Normal [facility] Comment on above: Result Comment: This liquid based ThinPrep(R) pap test was screened with the use of an image guided system. Performed at: WB Performed By: #### [id number] #### [facility] [address] [place] [address] Dr. Abby Campoverde Note: Comment Normal [facility] Comment on above: Result Comment: The Pap smear is a screening test designed to aid in the detection of premalignant and malignant conditions of the uterine cervix. It is not a diagnostic procedure and should not be used as the sole means of detecting cervical cancer. Both false-positive and false-negative reports do occur. . Performed at: WB Performed By: #### [id number] #### [facility] [address] [place] [address] Dr. Abby Campoverde Performed by: Comment Normal [facility] Comment on above: Result Comment: Madisyn Sherman, Semi Conductor Assembler (ASCP) Performed at: WB Performed By: #### [id number] #### [facility] [address] [place] [address] Dr. Abby Campoverde Specimen adequacy: Comment Normal [facility] Comment on above: Result Comment: Sati sfactory for evaluation. Endocervical and/or squamous metaplastic cells (endocervical component) are present. Performed at: WB Performed By: #### [id number] #### [facility] [address] [place] [address] Dr. Abby Campoverde Covid-19 PCR ([facility])on 10-01 SARS-CoV-2 (COVID-19) RNA ABDI+probe Ql (Unsp spec) Not detected Normal NOT DETECTED [facility] Comment on above: Result Comment: This test is not yet approved or cleared by the [place] FDA. When there are no FDA-approved or cleared tests available, and other criteria are met, FDA can make tests available under an emergency access mechanism called an Emergency Use Authorization (EUA). The EUA for this test is supported by the [place] of Health and Human Service's (HHS's) declaration [...] consistent with SARS-CoV-2. Performed By: #### C [facility] #### [facility] [address] [place] [address] Dr. Abby Campoverde Vital Signs Date Time Vital Sign Value Performing Clinician Raymond adorno 03-16-2024 10:04-0500 Body mass index (BMI) [Ratio] 33.13 kg/m2 [employer] Work Phone: [facility] 03-16-2024 10:04-0500 Body weight 82.16 kg IsabellaLearnBIG Work Phone: [facility] 03-16-2024 10:04-0500 Diastolic blood pressure 80 mm[Hg] [employer] Work Phone: [facility] 03-16-2024 10:04-0500 Systolic blood pressure 130 mm[Hg] [employer] Work Phone: [facility] 03-01-2024 09:57-0400 Body mass index (BMI) [Ratio] 32.74 kg/m2 Tiffani ALVARENGA Work Phone: [facility] 03-01-2024 09:57-0400 Body weight 81.19 kg Tiffani ALVARENGA Work Phone: [facility] 03-01-2024 09:57-0400 Diastolic blood pressure 80 mm[Hg] Tiffani ALVARENGA Work Phone: [facility] 03-01-2024 09:57-0400 Systolic blood pressure 122 mm[Hg] Tiffani ALVARENGA Work Phone: [facility] 02-02-2024 15:46-0400 Body mass index (BMI) [Ratio] 32.01 kg/m2 Tiffani Son PA Work Phone: [facility] 02-02-2024 15:46-0400 Body weight 79.38 kg Tiffani ALVARENGA Work Phone: [facility] 02-02-2024 15:46-0400 Diastolic blood pressure 76 mm[Hg] Tiffani ALVARENGA Work Phone: [facility] 02-02-2024 15:46-0400 Systolic blood pressure 126 mm[Hg] Tiffani ALVARENGA Work Phone: [facility] Encounters Encounter Date Encounter Type Care Provider Facility Start: 03-16-2024 End: 03-16-2024 Bamboo flowsheet Isabella Elva DO Work Phone: [facility] Start: 03-16-2024 End: 03-16-2024 Bamboo flowsheet Isabella Elva DO Work Phone: [facility] Start: 03-16-2024 End: 03-16-2024 flow sheet Isabella Elva DO Work Phone: [facility] Comment on above: 28 weeks gestation o f ; Third trimester Start: 03-16-2024 End: 03-16-2024 ambulatory ISABELLA ELVA Not Available Start: 03-01-2024 End: 03-01-2024 Bamboo flowsheet Tiffani ALVARENGA Work Phone: [facility] Start: 03-01-2024 End: 03-01-2024 Bamboo flowsheet Tiffani ALVARENGA Work Phone: [facility] Start: 03-01-2024 End: 03-01-2024 flow sheet Tiffani ALVARENGA Work Phone: [facility] Comment on above: Second trimester pre gnancy; 26 weeks gestation of ; Gestational diabetes mellitus (GDM), antepartum, gestational diabetes method of control unspecified; Elevated glucose tolerance test Start: 03-01-2024 End: 03-01-2024 ambulatory TIFFANI SON Not Available Start: 02-22-2024 End: 02-22-2024 [facility] Result Encounter Tiffani ALVARENGA Work Phone: [facility] External Department Unsolicited Start: 02-22-2024 End: 02-22-2024 [facility] Result Encounter Tiffani ALVARENGA Work Phone: [facility] External Department Unsolicited Start: 02-16-2024 End: 02-16-2024 [facility] Result Encounter Tiffani ALVARENGA Work Phone: [facility] External Department Unsolicited Start: 02-16-2024 End: 02-16-2024 [facility] Result Encounter Tiffani Nancy COLETTE Work Phone: [facility] External Department Unsolicited Start: 02-02-2024 End: 02-02-2024 flow sheet Tiffani [place] PA Work Phone: [facility] Comment on above: Second trimester pre gnancy; 22 weeks gestation of ; Diabetes mellitus screening Start: 02-02-2024 End: 02-02-2024 ambulatory TIFFANI SON Not Available Start: 02-02-2024 End: 02-02-2024 Bamboo flowsheet Tiffani Son PA Work Phone: [facility] Start: 02-02-2024 End: 02-02-2024 Bamboo flowsheet Tiffani ALVARENGA Work Phone: [facility] Start: 01-05-2024 End: 01-05-2024 ambulatory ISABELLA ELVA Not Available Start: 12-06-2023 End: 12-06-2023 ambulatory ISABELLA ELVA Not Available Start: 10-29-2023 End: 10-29-2023 ambulatory ISABELLA ELVA Not Available Start: 03-30-2023 End: 03-30-2023 ambulatory ISABELLA STEVENSON Not Available Start: 11-10-2021 End: 11-10-[address] ISABELLA STEVENSON Facility:[facility] Start: 10-14-2021 End: 10-15-[address] HIMA SENA Facility:[facility] Procedures Date Procedure Procedure Detail Performing Clinician Start: 03-16-2024 Urnls dip stick/tabl et rgnt non-auto w/o micrscp Isabella Stevenson DO Work Phone: Start: 03-01-2024 Urnls dip stick/tabl et rgnt non-auto w/o micrscp Tfifani ALVARENGA Work Phone: Start: 02-22-2024 GLUCOSE TOLERANCE [...] Screening for malign ant neoplasm of cervix [facility] Start: 10-15-2025 Screening for malign ant neoplasm of cervix HPV/Cotest [facility] Start: 03-29-2024 End: 03-29-2024 Patient encounter procedure 03/29/2024 1:40 PM EST Routine [facility] [address] [place] [address] Isabella Stevenson, DO [address] [place], [place] [id number] [facility] Start: 03-29-2024 End: 03-29-2024 Professional / ancillary services management 03/29/2024 1:00 PM EST Ancillary Procedure [facility] [address] [place] [id number] [facility] Start: 03-16-2024 End: 03-16-2024 Patient encounter procedure 03/16/2024 9:50 AM EST Routine [facility] [address] [place] [address] Isabella Stevenson DO [address] [place] [address] [facility] Start: 03-01-2024 End: 03-01-2025 US for US OB SCAN FOR GROWTH Imaging Routine Gestational diabetes mellitus (GDM), antepartum, gestational diabetes method of control unspecified Expected: 03/01/2024 (Approximate), Expires: 03/01/2025 [facility] Work Phone: Comment on above: Expected: 03/01/2024 (Approximate), Expires: 03/01/2025 Start: 03-01-2024 End: 03-01-2024 Patient encounter procedure [facility] Comment on above: Arrived Start: 02-02-2024 End: 02-02-2024 Patient encounter procedure 02/02/2024 3:30 PM EDT Routine [facility] [address] [place] [id number] Tiffani Son PA [address] [place] [address] Arrived [facility] Comment on above: Arrived Start: 02-02-2024 End: 02-01-2025 CBC panel - Blood by Automated count CBC Lab Routine Diabetes mellitus screening Expected: 02/02/2024 (Approximate), Expires: 02/01/2025 [facility] Work Phone: Comment on above: Expected: 02/02/2024 (Approximate), Expires: 02/01/2025 Start: 02-02-2024 End: 02-01-2025 Measurement of glucose 1 hour after glucose challenge for glucose tolerance test Glucose tolerance, 1 hour Lab Routine Diabetes mellitus screening Expected: 02/02/2024 (Approximate), Expires: 02/01/2025 [facility] Comment on above: Expected: 02/02/2024 (Approximate), Expires: 02/01/2025 Start: 01-02-2024 Influenza vaccination Influenza Vacc ine (#1) [facility] Payers Date Payer Category Payer Private Health Insurance [employer] [id number] 2022 Unknown [employer] [id number] 2022-Present [address] [place] [address] [id number] 1991 Unknown [id number] 1991 Unknown [id number] 593 1991 Unknown [id number] 9 1991 Unknown [id number] 9 1991 Unknown [id number] 1259 1991 Unknown [id number]. 9 1991 Unknown [id number]. 1259 1991 Unknown [id number]. 1259 1991 Unknown [id number]. 1259 1959 Unknown [id number] Social History Date Type Detail Facility Start: 10-29-2023 Tobacco smoking status NHIS Never sm oked tobacco [facility] Start: 10-29-2023 Tobacco use and exposure Smoke less tobacco non-user [facility] Start: 02-02-2024 End: 03-16-2024 Alcoholic beverage intake Current drinker of alcohol [...] Text Equipment Identifier Dates Use as instructed [id number] Start: 03-01-2024 End: 03-01-2025 1 each by In Vit ro route Daily Use to check FSBS four times daily [id number] Start: 03-01-2024 End: 03-31-2024 History of Present illness Narrative 03-16-2024 Joyce Robles LPN - 03/16/2024 9:50 AM EST Note Date & Type Note Facility 03-16-2024 History of Presen t illness Narrative Reason for Appointment: Patient ID: Liliane Rausch is a 33 y.o. female who presents for No chief complaint on file. Patient presents today for Return OB appointment. MEDICATIONS Current Outpatient Medications Medication Instructions Alcohol Swabs (Alcohol Prep Pad) 70 % pads 1 Pad, Topical, Daily, Use four times daily to check FSBS. aspirin 81 mg, Daily Blood Glucose Monitoring Suppl (Tutto Glucometer) w/Device kit 1 kit, Does not apply, Daily, Use four times daily to check FSBS. In the morning prior to breakfast & 1 hour after each meal for a total of 4times daily. Ferrous Sulfate (IRON PO) 1 tablet, Daily RT FREESTYLE TEST STRIPS test strip Use as instructed Lancets Ultra Thin misc 1 each, In Vitro, Daily, Use to check FSBS four times daily magnesium oxide (MAG-OX) 400 mg, Oral, Daily MV-Min-Fe Fum-FA-DHA ( 1 PO) Take by mouth ALLERGIES No Known Allergies PROBLEMS Active Ambulatory Problems Diagnosis Date Noted No Active Ambulatory Problems Resolved Ambulatory Problems Diagnosis Date Noted No Resolved Ambulatory Problems Past Medical History: Diagnosis Date Gestational diabetes HISTORY PAST MEDICAL HISTORY SOCIAL HISTORY Past Medical History: Diagnosis Date Gestational diabetes Social History Tobacco Use Smoking status: Never [...] SYSTEMS Review of Systems: Review of Systems All other systems reviewed and are negative. OBJECTIVE Objective: Physical Exam Constitutional: Appearance: Normal appearance. She is well-developed. Cardiovascular: Rate and Rhythm: Normal rate and regular rhythm. Pulmonary: Effort: Pulmonary effort is normal. Breath sounds: Normal breath sounds. Abdominal: General: Bowel sounds are normal. There is no distension. Palpations: Abdomen is soft. Tenderness: There is no abdominal tenderness. There is no guarding or rebound. Musculoskeletal: General: No swelling. Normal range of motion. Right lower leg: No edema. Left lower leg: No edema. Neurological: Mental Status: She is alert and oriented to person, place, and time. Skin: General: Skin is warm and dry. Psychiatric: Mood and Affect: Mood normal. Behavior: Behavior normal. Vitals and nursing note reviewed. Exam conducted with a traffic attendant present. Vitals: Estimated body mass index is 33.13 kg/m as calculated from the following: Height as of 23: 5' 2 . Weight as of this encounter: 181 lb 1.9 oz. BP: 130/80 Patient's last menstrual period was 08/28/2023. ASSESSMENT & PLAN ICD-10-CM 1. 28 weeks gestation of Z3A.28 POCT urinalysis dipstick manually resulted 2. Third trimester Z34.93 POCT urinalysis dipstick manually resulted Patient presents today for a routine obstetrics appointment. Patient is currently 28w5d with a Estimated Date of Delivery: 06/03/24. Patient recently completed Diabetic Education and is currently diet controlled. Patient is already scheduled for growth scan. Patient will start NST/BPPs at 32 weeks gestation for GDM and history of pre-eclampsia. Patient to return to clinic in 2 weeks and orders will be given at that time for NST/BPP. Documented by Joyce Robles LPN on behalf of: Isabella Stevenson DO documented in this encounter [facility] History of Present illness Narrative 03-01-2024 COLETTE Almonte - 03/01/2024 9:30 AM EDT Note Date & Type Note Facility 03-01-2024 History of Presen t illness Narrative Reason for Appointment: Patient ID: Liliane Rausch is a 33 y.o. female who presents [...] glucose tolerance test R73.09 Lancets Ultra Thin misc Alcohol Swabs (Alcohol [...] to Diabetic Edu was sent over to [facility]. Pt was made aware diabetic supplies were sent to pharmacy today and to fruit or nut picker when ready. Pt was advised to make sure to take her supplies w/her to her appt when she gets scheduled by Kristal Yee RN at [facility]. Pt verbally understood. Growth US was given to patient today to have done at 28 weeks to schedule at [facility]. Orders Placed This Encounter Procedures POCT [...] Narrative Reason for Appointment: Patient ID: Liliane Rausch is a 33 y.o. female who presents [...] of: COLETTE Almonte documented in this encounter [facility] Evaluation note Note Date & Type [...] test documented in this encounter [facility] Evaluation note Note Date & Type Note Facility Evaluation note Diagnosis 28 weeks gestation of Third trimester state, incidental documented in this encounter [facility] Summary Purpose Family History No Family History Records FoundNo Family History Records Found Advance Directives No Advanced Directives Records FoundNo Advanced Directives Records Found Additional Source Comments INFORMATION SOURCE (unrecogn ized section and content) DATE CREATED AUTHOR 11/18/2021 [facility] DATE CREATED AUTHOR AUTHOR'S ORGANIZ ATION 03/18/[address] [facility] EPIC Reason for Visit (unrecogniz ed section and content) Reason Comments Routine Visit Care Teams (unrecognized sec tion and content) Library Attendant Relationship Specialty Start Date End Date Hima Sena MD [address] [address] PCP - General Family Medicine 09/08/22 Library Attendant Relationship Specialty Start Date End Date Hima Sena MD [address] [facility] [address] [place] [address] PCP - General Family Medicine 09/08/22 Library Attendant Relationship Specialty Start Date End Date Hima Sena MD [address] [address] PCP - General Family Medicine 09/08/22 Library Attendant Relationship Specialty Start Date End Date Hima Sena MD [address] [place] [address] PCP - General [facility] 09/08/22 Library Attendant Relationship Specialty Start Date End Date Hima Sena MD [address] [facility] [address] [place] [address] PCP - General [facility] 09/08/22 Library Attendant Relationship Specialty Start Date End Date Hima Sena MD [address] [facility] [address] [place] [address] PCP - General [facility] 09/08/22 FOR RECORDS PERTAINING TO PATIENTS WHO [...] BE BASED ON THE PRIMARY CLINICAL RECORDS. [facility]. provides no warranty or guarantee of the accuracy or completeness of information in this document.
== END 2024-03-29 13:04 | disposition home or self-care (01) ==
LOC: NOMS 13:03
PROVIDERS: Visit Provider Physician Assistant
DX: O24.419 Gestational diabetes mellitus in pregnancy, unspecified control (principal); Z3A.31 31 weeks gestation of pregnancy
CPT/HCPCS: 76816

== ENCOUNTER 2024-04-07 07:36 | Outpatient (RCR) | payer OTHER, SELFPAY ==
[2024-04-07 09:30] VITALS: BP 121/65; PULSE 112; TEMP 36.5; O2SAT 98
[2024-04-07] MEDS: RHO(D) IMMUNE GLOBULIN 1,500 UNIT SYRINGE 1500 UNIT IM (09:38)
== END 2024-04-10 08:39 | disposition home or self-care (01) ==
LOC: LAB 07:36
PROVIDERS: Visit Provider Obstetrics & Gynecology
DX: O26.893 Other specified pregnancy related conditions, third trimester (principal); Z67.91 Unspecified blood type, Rh negative; Z3A.00 Weeks of gestation of pregnancy not specified
CPT/HCPCS: 36415; 86850; 86900; 86901; 96372; J2791

== ENCOUNTER 2024-04-18 06:04 | Outpatient (OUT) | payer OTHER, SELFPAY ==
--- NOTE | 2024-04-18 | US_ITS ---
[address] [address] Patient Name: SUSU RAUSCH MRN: [id number] date: 1990 Sex: F Assigned Patient Location: [facility] Current Patient Location: [facility] Accession/Order Number: [id number] Exam Date: 04/18/2024 13:00 Report Date: 04/18/2024 13:33 At the request of: ISABELLA LIRIANO Procedure: US OB BPP w non-stress EXAMINATION: US OB BPP w non-stress HISTORY: GESTATIONAL DIABETES MELLITUS O24.419 COMPARISON: No relevant comparison available. TECHNIQUE: Ultrasound biophysical profile was performed in the radiology department. non-reactive stress testing was performed by nursing staff in the birthing center. FINDINGS: BREATHING MOVEMENTS: 2 GROSS BODY MOVEMENTS: 2 TONE: 2 QUALITATIVE AMNIOTIC FLUID VOLUME: 2 PRESENTATION: CEPHALIC HEART RATE: 154.29 bpm AMNIOTIC FLUID VOLUME: 14.8 cm GESTATIONAL AGE: 33 weeks 3 days US/US OB BPP w non-stress IMPRESSION: Total biophysical profile score: 8 Electronically authenticated by: ANDRADE MATHEWS Date: 04/18/2024 13:33
--- OUTSIDE RECORDS SUMMARY | 2024-04-18 06:07 | XMS_ITS | CCD ---
Author Organization [facility] Care Team Providers Care Domestic Freight Forwarder Name Role Phone JAIDA, DR QUINTANILLA Attending Unavailable REQUEST, NONE LISTED Primary Care Unavailbrendon SENA, DR QUINTANILLA Admitting Unavailable JAIDA, DR QUINTANILLA Consulting Unavailable ELVA, DR MASON Admitting Unavailable ELVA, DR MASON Consulting Unavailable ELVA, DR MASON Attending Unavailable REQUEST, NONE LISTED Primary Care Unavailbrendon Sena MD, Hima Vásquez Primary Care Provider ISABELLA STEVENSON Attending Unavailable ELVA, ISABELLA Attending Unavailable TIFFANI SON Attending Unavailable TIFFANI SON Attending Unavailable ISABELLA STEVENSON Attending Unavailable ISABELLA STEVENSON Attending Unavailable ISABELLA STEVENSON Attending Unavailable Medications Current Medications Medication Drug Class(es) Dates Sig (Normalized) Sig (Original) aspirin 81 mg delayed release oral tablet (13 sources) Platelet Aggregation Inhibitor, Nonsteroidal Anti-inflammatory Drug take 1 tablet by mouth once daily aspirin 81 MG EC tablet Take 81 mg by mouth Daily Active azithromycin 250 mg oral tablet (2 sources) Macrolide Antimicrobial Start: 03-29-2024 azithromycin (Zithromax Z-Padilla) 250 MG tablet Indications: Sinusitis, unspecified chronicity, unspecified location As directed 6 tablet 03/29/2024 Active Blood Glucose Monitoring Suppl (D-Care Glucometer) w/Device kit (8 sources) Start: 03-01-2024 End: 03-01-2025 Blood Glucose [...] 1 kit 03/01/2024 03/01/2025 Active ferrous sulfate (8 sources) take 1 tablet by mouth in the morning Ferrous Sulfate (IRON PO) Take 1 tablet by mouth in the morning. Active isopropyl alcohol 0.7 ml/ml medicated pad (8 sources) Start: 03-01-2024 Alcohol Swabs (Alcohol Prep Pad) 70 % pads Indications: Gestational diabetes mellitus (GDM), antepartum, gestational diabetes method of control unspecified , Elevated glucose tolerance test Apply 1 Pad topically Daily Use four times daily to check FSBS. 150 each 3 03/01/2024 Active magnesium oxide 400 mg oral tablet (14 sources) Start: 12-06-2023 End: 04-04-2024 take 1 tablet by mouth once daily magnesium oxide (Mag-Ox) 400 MG tablet Indications: Nonintractable headache, unspecified chronicity pattern, unspecified headache type Take 1 tablet (400 mg) by mouth Daily 30 tablet 3 12/06/2023 04/04/2024 Active omeprazole 20 mg delayed release oral capsule (2 sources) Proton Pump Inhibitor Start: 03-29-2024 End: 04-28-2024 take 1 capsule by mouth before mealtime omeprazole (PriLOSEC) [address] capsule Indications: Gastroesophageal Reflux Disease , Heartburn Take 1 capsule (20 mg) by mouth in the morning. Take before meals. Do not crush or chew.. 30 capsule 3 03/29/2024 04/28/2024 Active MV-Min-Fe Fum-FA-DHA ( 1 PO) (14 sources) MV-Min- Fe Fum-FA-DHA ( 1 PO) [...] SCREENING HUMAN PAPILLOMAVIRUS] Onset: 11-12-2021 Episodic Other complications of (2 sources) Gastroesophageal reflux disease in ; Translations: [Diseases of the digestive system complicating , unspecified trimester] 03-29-2024 Episodic Other and delivery including normal (8 sources) Second trimester ; Translations: [Encounter for supervision of normal , unspecified, second trimester] 02-02-2024 Episodic Other screening for suspected conditions (not mental disorders or infectious disease) (6 sources) Encounter for screening for malignant neoplasm of cervix; Translations: [Patient encounter status] Onset: 11-10-2021 Episodic Other upper respiratory infections (2 sources) Sinusitis; Translations: [Chronic sinusitis, unspecified] 03-29-2024 Chronic Residual codes; unclassified (2 sources) Gestation period, 22 weeks; Translations: [22 weeks gestation of ] 02-02-2024 Episodic Residual codes; unclassified (2 sources) Gestation period, 26 weeks; Translations: [26 weeks gestation of ] 03-01-2024 Episodic Residual codes; unclassified (2 sources) Gestation period, 28 weeks; Translations: [28 weeks gestation of ] 03-16-2024 Episodic Residual codes; unclassified (2 sources) Gestation period, 30 weeks; Translations: [30 weeks gestation of ] 03-29-2024 Episodic Unclassified (3 sources) CONTACT W/AND (SUSP) EXPOS COVID-19; Translations: [CONTACT W/AND (SUSP) EXPOS COVID-19] Onset: 10-16-2021 Past or Other Problems Problem Classification Problem Date Documented Da te Episodic/Chronic Unclassified (1 source) CONTACT W/AND (SUSP) EXPOS COVID-19; Translations: [CONTACT W/AND (SUSP) EXPOS COVID-19] Onset: 10-14-2021 Results Test Name Value Interpretation Reference Range Facility Urinalysis macro (dipstick) panel (U)on 03-29-2024 Bilirubin, UA Positive Negative - 4(70) +++ mg/dL [facility] Comment on above: small Blood, UA Negative Negative - 50 Álvaro/mcL [facility] Clarity, UA Clear [facility] re Color, UA Yellow [facility] Glucose, UA Negative Negative - 2000(110) ++++ mg/dL [facility] Interpretation and review of laboratory results Abnormal [facility] Ketones, UA Positive Negative - 160(16) ++++ mg/dL [facility] Comment on above: 40 Leukocytes, UA Negative Negative - 500+++ Reji/mcL [facility] Nitrite, UA Negative Negative - Positive [facility] pH, UA 7 5 - 9 [facility] Protein, UA Positive Negative - 1999(20) ++++ mg/dL [facility] Comment on above: 30 Spec Grav, UA 1.025 1 - 1.03 [facility] care Urobilinogen, UA 0.2 0.2 - 12 mg/dL [facility] Urinalysis macro (dipstick) panel (U)on 03-16-2024 Bilirubin, UA Negative Negative - 4(70) +++ mg/dL [facility] Blood, UA Negative Negative - 50 Álvaro/mcL [facility] Clarity, UA Clear [facility] re Color, UA Yellow [facility] e Glucose, UA Negative Negative - 1999(110) ++++ mg/dL [facility] Interpretation and review of laboratory results Abnormal [facility] Ketones, UA Negative Negative - 160(16) ++++ mg/dL [facility] Leukocytes, UA Negative Negative - 500+++ Reji/mcL [facility] Nitrite, UA Negative Negative - Positive [facility] pH, UA 7 5 - 9 [facility] Protein, UA Negative Negative - 1999(20) ++++ mg/dL [facility] Spec Grav, UA 1.02 1 - 1.03 [facility] Urobilinogen, UA 1.0 0.2 - 12 mg/dL [facility] Urinalysis macro (dipstick) panel (U)on 03-01-2024 Bilirubin, UA Negative Negative - 4(70) +++ mg/dL [facility] Blood, UA Negative Negative - 50 Álvaro/mcL [facility] Clarity, UA Clear [facility] Color, UA Yellow [facility] Glucose, UA Negative Negative - 1999(110) ++++ mg/dL [facility] Interpretation and review of laboratory results Abnormal [facility] Ketones, UA Negative Negative - 160(16) ++++ mg/dL [facility] Leukocytes, UA Trace Negative - 500+++ Reji/mcL [facility] Nitrite, UA Negative Negative - Positive [facility] pH, UA 7 5 - 9 [facility] e Protein, UA Negative Negative - 1999(20) ++++ mg/dL [facility] Spec Grav, UA 1.015 1 - 1.03 [facility] Urobilinogen, UA 0.2 0.2 - 12 mg/dL [facility] e GLUCOSE TOLERANCE 3 HOURon 1 GLUCOSE TOLERANCE 3 HOUR High mg/dL [facility] Comment on above: GLU FAST 98H (<95) C ol: 02/22/24 0919 GLU 1HR 193H (<180) Col: 02/22/24 1020 GLU 2HR 179H (<155) Col: 02/22/24 1119 GLU 3HR 71 (<140) Col: 02/22/24 1220 Interpretation and review of laboratory results Abnormal [facility] CBC WITH AUTO DIFFon BASOPHILS ABSOLUTE AUTO 0 [facility] Basophils/100 WBC (Bld) 0.3 % 0.2 - 2.0 % [facility] Eosinophils/100 WBC (Bld) 0.3 % Low 0.9 - 7.0 % [facility] Erythrocyte distribution width (RBC) [Ratio] 12.8 % 11.0 - 15.0 % [facility] Hematocrit (Bld) [Volume fraction] 32.9 % Low 36.0 - 48.0 % [facility] Hemoglobin (Bld) [Mass/Vol] 10.9 g/dL Low 12.0 - 16.0 g/dL [facility] IMMATURE GRANULOCYTES ABS AUTO 0.[address] [facility] Immature granulocytes/100 WBC (Bld) 1.1 % High 0.0 - 0.5 % [facility] Interpretation and review of laboratory results Abnormal [facility] LYMPHOCYTES ABSOLUTE AUTO 1.[address] [facility] Lymphocytes/100 WBC (Bld) 9.3 % Low 20.5 - 60.0 % [facility] MCH (RBC) [Entitic mass] 29.9 pg 26.7 - 34.[address] [facility] MCHC (RBC) [Mass/Vol] 33.1 g/dL 29.9 - 35.2 g/dL [facility] MCV (RBC) [Entitic vol] 90.4 fL 81.0 - 99.[address] [facility] MONOCYTES ABSOLUTE AUTO 0.4 [facility] Monocytes/100 WBC (Bld) 3.1 % 1.7 - 12.0 % [facility] NEUTROPHILS ABSOLUTE AUTO [address] [facility] Neutrophils/100 WBC (Bld) 85.9 % High 43.0 - 75.0 % [facility] Platelet mean volume (Bld) [Entitic vol] 9.5 fL 9.5 - 13.5 fL [facility] EO # 0 [facility] PLT 299 [facility] TB RBC 3.64 Low [facility] WBC 11.6 High [facility] e Urinalysis macro (dipstick) panel (U)on 02-02-2024 Bilirubin, UA Negative Negative - 4(70) +++ mg/dL [facility] Blood, UA Negative Negative - 50 Álvaro/mcL [facility] Clarity, UA Clear [facility] re Color, UA Yellow [facility] e Glucose, UA Negative Negative - 1999(110) ++++ mg/dL [facility] Interpretation and review of laboratory results Normal [facility] Ketones, UA Negative Negative - 160(16) ++++ mg/dL [facility] Leukocytes, UA Negative Negative - 500+++ Reji/mcL [facility] Nitrite, UA Negative Negative - Positive [facility] pH, UA 5.5 5 - 9 [facility] e Protein, UA Negative Negative - 1999(20) ++++ mg/dL [facility] Spec Grav, UA 1.010 1 - 1.03 [facility] Urobilinogen, UA 0.2 0.2 - 12 mg/dL [facility] PAP ACOG PANEL 2: 30 to 65on 11-13-2021 . . Normal [facility] Comment on above: Result Comment: Perf ormed at: WB Performed By: #### [id number] #### [facility] [address] [address] [address] Abby Campoverde Age Gdln ACOG Testing 30-65 Normal [facility] Comment on above: Performed By: #### [id number] #### [facility] [address] [address] [address] Abby Campoverde DIAGNOSIS: Comment [facility] Comment on above: Result Comment: NEGA TIVE FOR INTRAEPITHELIAL LESION OR MALIGNANCY. Performed at: WB Performed By: #### [id number] #### [facility] [address] [place] [address] Dr. Abby Campoverde HPV Aptima Negative Normal Negative [facility] Comment on above: Result Comment: This nucleic acid amplification test detects fourteen high-risk HPV types (16,18,31,33,35,39,45,51,52,56,58,59,66,68) without differentiation. Performed at: =G Performed By: #### [id number] #### [facility] [address] [place] [address] Dr. Abby Campoverde Methodology: Comment Normal [facility] Comment on above: Result Comment: This liquid based ThinPrep(R) pap test was screened with the use of an image guided system. Performed at: WB Performed By: #### [id number] #### [facility] [address] [place] [address] Dr. Abby Campoverde Note: Comment Normal [facility] Comment on above: Result Comment: The Pap smear is a screening test designed to aid in the detection of premalignant and malignant conditions of the uterine cervix. It is not a diagnostic procedure and should not be used as the sole means of detecting cervical cancer. Both false-positive and false-negative reports do occur. . Performed at: WB Performed By: #### [id number] #### [facility] [address] [place] [address] Dr. Abby Campoverde Performed by: Comment Normal [facility] Comment on above: Result Comment: Madisyn Sherman Roll Former (ASCP) Performed at: WB Performed By: #### [id number] #### [facility] [address] [place] [address] Dr. Abby Campoverde Specimen adequacy: Comment Normal [facility] Comment on above: Result Comment: Sati sfactory for evaluation. Endocervical and/or squamous metaplastic cells (endocervical component) are present. Performed at: WB Performed By: #### [id number] #### [facility] [address] [place] [address] Dr. Abby Campoverde [facility]01 SARS-CoV-2 (COVID-19) RNA ABDI+probe Ql (Unsp spec) Not detected Normal NOT DETECTED [facility] Comment on above: Result Comment: This test is not yet approved or cleared by the [place] FDA. When there are no FDA-approved or cleared tests available, and other criteria are met, FDA can make tests available under an emergency access mechanism called an Emergency Use Authorization (EUA). The EUA for this test is supported by the [place] of Health and Human Service's (HHS's) declaration [...] consistent with SARS-CoV-2. Performed By: #### C [facility] #### [facility] [address] [place] [address] Dr. Abby Campoverde Vital Signs Date Time Vital Sign Value Performing Clinician Raymond adorno 03-29-2024 14:09-0500 Body mass index (BMI) [Ratio] 33 kg/m2 [employer] Work Phone: [facility] 03-29-2024 14:09-0500 Body weight 81.83 kg [employer] Work Phone: [facility] 03-29-2024 14:09-0500 Diastolic blood pressure 70 mm[Hg] [employer] Work Phone: [facility] 03-29-2024 14:09-0500 Systolic blood pressure 120 mm[Hg] [employer] Work Phone: [facility] 03-16-2024 10:04-0500 Body mass index (BMI) [Ratio] 33.13 kg/m2 [employer] Work Phone: [facility] 03-16-2024 10:04-0500 Body weight 82.16 kg Isabella Elva DO Work Phone: [facility] 03-16-2024 10:04-0500 Diastolic blood pressure 80 mm[Hg] Isabella Elva DO Work Phone: [facility] 03-16-2024 10:04-0500 Systolic blood pressure 130 mm[Hg] Isabella Elva DO Work Phone: [facility] 03-01-2024 09:57-0400 Body mass index (BMI) [Ratio] 32.74 kg/m2 Tiffani Nancy PA Work Phone: [facility] 03-01-2024 09:57-0400 Body weight 81.19 kg Tiffani La Grande PA Work Phone: [facility] 03-01-2024 09:57-0400 Diastolic blood pressure 80 mm[Hg] Tiffani Nancy PA Work Phone: [facility] 03-01-2024 09:57-0400 Systolic blood pressure 122 mm[Hg] Tiffani Nancy PA Work Phone: [facility] 02-02-2024 15:46-0400 Body mass index (BMI) [Ratio] 32.01 kg/m2 Tiffani Nancy PA Work Phone: [facility] 02-02-2024 15:46-0400 Body weight 79.38 kg Tiffani La Grande PA Work Phone: [facility] 02-02-2024 15:46-0400 Diastolic blood pressure 76 mm[Hg] Tiffani La Grande PA Work Phone: [facility] 02-02-2024 15:46-0400 Systolic blood pressure 126 mm[Hg] Tiffani La Grande PA Work Phone: [facility] Encounters Encounter Date Encounter Type Care Provider Facility Start: 04-12-2024 End: 04-12-2024 ambulatory ISABELLA ELVA Not Available Start: 03-29-2024 End: 03-29-2024 Bamboo flowsheet Isabella Elva DO Work Phone: [facility] Start: 03-29-2024 End: 03-29-2024 Bamboo flowsheet Isabella Elva DO Work Phone: [facility] Start: 03-29-2024 End: 03-29-2024 flow sheet Isabella Elva DO Work Phone: [facility] Comment on above: 30 weeks gestation o f ; Third trimester ; Sinusitis, unspecified chronicity, unspecified location; Gastroesophageal reflux in Start: 03-29-2024 End: 03-29-2024 ambulatory ISABELLA ELVA Not Available Start: 03-16-2024 End: 03-16-2024 Bamboo flowsheet Isabella Elva DO Work Phone: [facility] Start: 03-16-2024 End: 03-16-2024 Bamboo flowsheet Isabella Elva DO Work Phone: [facility] Start: 03-16-2024 End: 03-16-2024 flow sheet Isabella Elva DO Work Phone: [facility] Comment on above: 28 weeks gestation o f ; Third trimester Start: 03-16-2024 End: 03-16-2024 ambulatory ISABELLA ELVA Not Available Start: 03-01-2024 End: 03-01-2024 Bamboo flowsheet Tiffani ALVARENGA Work Phone: [facility] Start: 03-01-2024 End: 03-01-2024 Bamboo flowsheet Tiffani ALVARENGA Work Phone: [facility] Start: 03-01-2024 End: 03-01-2024 flow sheet Tiffani ALVARENGA Work Phone: [facility] [...] 02-22-2024 End: 02-22-2024 [facility] Result Encounter Tiffani Nancy ALVARENGA Work Phone: [facility] Unsolicited Start: 02-16-2024 End: 02-16-2024 [facility] Result Encounter Tiffani Friasnohemi ALVARENGA Work Phone: [facility] Unsolicited Start: 02-16-2024 End: 02-16-2024 [facility] Result Encounter Tiffani Son COLETTE Work Phone: [facility] Unsolicited Start: 02-02-2024 End: 02-02-2024 flow sheet Tiffani ALVARENGA Work Phone: [facility] Comment on above: Second trimester pre gnancy; 22 weeks gestation of ; Diabetes mellitus screening Start: 02-02-2024 End: 02-02-2024 ambulatory TIFFANI SON Not Available Start: 02-02-2024 End: 02-02-2024 Bamboo flowsheet Tiffani ALVARENGA Work Phone: [facility] Start: 02-02-2024 End: 02-02-2024 Bamboo flowsheet Tiffani ALVARENGA Work Phone: [facility] Start: 01-05-2024 End: 01-05-2024 ambulatory ISABELLA ELVA Not Available Start: 12-06-2023 End: 12-06-2023 ambulatory ISABELLA ELVA Not Available Start: 10-29-2023 End: 10-29-2023 ambulatory ISABELLA ELVA Not Available Start: 11-10-2021 End: 11-10-[address] ISABELLA STEVENSON Facility:[facility] Start: 10-14-2021 End: 10-15-[address] HIMA SENA Facility:[facility] Procedures Date Procedure Procedure Detail Performing Clinician Start: 03-29-2024 Urnls dip stick/tabl et rgnt non-auto w/o micrscp Isabella Elva DO Work Phone: Start: 03-16-2024 Urnls dip stick/tabl et rgnt [...] for malign ant neoplasm of cervix HPV/Cotest [facility] Start: 04-12-2024 End: 04-12-2024 Patient encounter procedure 04/12/2024 2:20 PM EST Routine [facility] [address] [place] [id number] Isabella Stevenson, DO [address] [place] [address] [facility] Start: 03-29-2024 End: 03-29-2024 Patient encounter procedure [facility] Comment on above: Arrived Start: 03-29-2024 End: 03-29-2024 Professional / ancillary services management 03/29/2024 1:00 PM EST Ancillary Procedure [facility] [address] [place] [id number] [facility] Start: 03-16-2024 End: 03-16-2024 Patient encounter procedure 03/16/2024 9:50 AM EST Routine [facility] [address] [place] [id number] Isabella Stevenson DO [address] [place] [address] [facility] Start: 03-01-2024 End: 03-01-2025 US for US OB SCAN FOR GROWTH Imaging Routine Gestational diabetes mellitus (GDM), antepartum, gestational diabetes method of control unspecified Expected: 03/01/2024 (Approximate), Expires: 03/01/2025 [facility] Work Phone: Comment on above: Expected: 03/01/2024 (Approximate), Expires: 03/01/2025 Start: 03-01-2024 End: 03-01-2024 Patient encounter procedure [facility] OB Comment on above: Arrived Start: 02-02-2024 End: 02-02-2024 Patient encounter procedure 02/02/2024 3:30 PM EDT Routine [facility] [address] [place] [id number] Tiffani Son PA [address] [place], [facility] Arrived [facility] OB Comment on above: Arrived Start: 02-02-2024 End: 02-01-2025 CBC panel - Blood by Automated count CBC Lab Routine Diabetes mellitus screening Expected: 02/02/2024 (Approximate), Expires: 02/01/2025 [facility] Work Phone: Comment on above: Expected: 02/02/2024 (Approximate), Expires: 02/01/2025 Start: 02-02-2024 End: 02-01-2025 Measurement of glucose 1 hour after glucose challenge for glucose tolerance test Glucose tolerance, 1 hour Lab Routine Diabetes mellitus screening Expected: 02/02/2024 (Approximate), Expires: 02/01/2025 [facility] Comment on above: Expected: 02/02/2024 (Approximate), Expires: 02/01/2025 Start: 01-02-2024 Influenza vaccination Influenza Vacc ine (#1) [facility] Payers Date Payer Category Payer Private Health Insurance [employer] [id number] 2022 Unknown [employer] [id number] 2022-Present [address] [place] [address] [id number] 1991 Unknown [id number] 593 1991 Unknown [id number]. 593 1991 Unknown [id number] [id number]. 9 1991 Unknown [id number] [id number]. 9 1991 Unknown [id number] [id number]. 9 1991 Unknown [id number] [id number]. 9 1991 Unknown [id number] [id number]. 9 1991 Unknown [id number] [id number]. 9 1991 Unknown [id number] [id number]. 1259 1991 Unknown [id number]. 1259 1959 Unknown [id number] Social History Date Type Detail Facility Start: 10-29-2023 Tobacco smoking status NHIS Never sm oked tobacco [facility] Start: 10-29-2023 Tobacco use and exposure Smoke less tobacco non-user [facility] Start: 02-02-2024 End: 03-29-2024 Alcoholic beverage intake Current drinker of alcohol [...] Text Equipment Identifier Dates Use as instructed [id number] Start: 03-01-2024 End: 03-01-2025 1 each by In Vit ro route Daily Use to check FSBS four times daily [id number] Start: 03-01-2024 End: 03-31-2024 History of Present illness Narrative 03-29-2024 Jessica Sánchez LPN - 03/29/2024 1:40 PM EST Note Date & Type Note Facility 03-29-2024 History of Presen t illness Narrative Reason for Appointment: Patient ID: Liliane Rausch is a 33 y.o. female who presents for Routine Visit Patient presents today for Return OB appointment. MEDICATIONS Current Outpatient Medications Medication Instructions Alcohol Swabs (Alcohol Prep Pad) 70 % pads 1 Pad, Topical, Daily, Use four times daily to check FSBS. aspirin 81 mg, Daily azithromycin (Zithromax Z-Padilla) 250 MG tablet As directed Blood Glucose Monitoring Suppl ([employer] Digital Glucometer) w/Device kit 1 kit, Does not [...] magnesium oxide (MAG-OX) 400 mg, Oral, Daily omeprazole (PRILOSEC) 20 mg, Oral, Daily before breakfast, Do not crush or chew. MV-Min-Fe Fum-FA-DHA ( 1 PO) Take by [...] nursing note reviewed. Exam conducted with a area manager present. Vitals: Estimated body mass index is 33 kg/m as calculated from the following: Height as of 23: 5' 2 . Weight as of this encounter: 180 lb 6.4 oz. BP: 120/70 Patient's last menstrual period was 08/28/2023. ASSESSMENT & PLAN ICD-10-CM 1. 30 weeks gestation of Z3A.30 POCT urinalysis dipstick manually resulted 2. Third trimester Z34.93 POCT urinalysis dipstick manually resulted 3. Sinusitis, unspecified chronicity, unspecified location J32.9 azithromycin (Zithromax Z-Padilla) 250 MG tablet 4. Gastroesophageal reflux in O99.619 omeprazole (PriLOSEC) [address] capsule K21.9 Return OB: Patient presents today for a routine obstetrics appointment. Patient is currently 30w4d . Patient states she is doing well but has complaints of being tired due to current . Patient has verbalizes frequent movement. labor precautions was discussed/given and patient was instructed to perform kick counts three times a day. Pt has heartburn- rx for omeprazole faxed to pharmacy. Orders Placed This Encounter Procedures POCT urinalysis dipstick manually resulted Follow Up: Patient is to return to office in 2 week for routine OB appointment. Documented by Jessica Sánchez LPN on behalf of: Isabella Stevenson DO documented in this encounter [facility] History of Present illness Narrative 03-16-2024 Joyce [...] 81 mg, Daily Blood Glucose Monitoring Suppl ([employer] Dial Glucometer) w/Device kit 1 kit, Does not [...] nursing note reviewed. Exam conducted with a area manager present. Vitals: Estimated body mass index is [...] to Diabetic Edu was sent over to [facility]. Pt was made aware diabetic supplies were sent to pharmacy today and to pickle sorter when ready. Pt was advised to make sure to take her supplies w/her to her appt when she gets scheduled by Kristal Yee RN at [facility]. Pt verbally understood. Growth US was given to patient today to have done at 28 weeks to schedule at [facility]. Orders Placed This Encounter Procedures POCT [...] incidental documented in this encounter [facility] Evaluation note Note Date & Type Note Facility Evaluation note Diagnosis 30 weeks gestation of Third trimester state, incidental Sinusitis, unspecified chronicity, unspecified location Gastroesophageal reflux in documented in this encounter [facility] Summary Purpose Family History No Family History Records FoundNo Family History Records Found Advance Directives No Advanced Directives Records FoundNo Advanced Directives Records Found Additional Source Comments INFORMATION SOURCE (unrecogn ized section and content) DATE CREATED AUTHOR 11/18/2021 [facility] DATE CREATED AUTHOR AUTHOR'S ORGANIZ ATION 04/15/2024 [facility] Reason for Visit (unrecogniz ed section and content) Reason Comments Routine Visit Care Teams (unrecognized sec tion and content) Domestic Freight Forwarder Relationship Specialty Start Date End Date Hima Sena MD [address] [address] PCP - General Family Medicine 09/08/22 Domestic Freight Forwarder Relationship Specialty Start Date End Date Hima Sena MD [address] [facility] [address] [place] [address] PCP - General Family Medicine 09/08/22 Domestic Freight Forwarder Relationship Specialty Start Date End Date Hima Sena MD [address] [facility] [address] [place] [address] PCP - [facility] 09/08/22 Domestic Freight Forwarder Relationship Specialty Start Date End Date Hima Sena MD [address] [facility] [address] [place] [address] PCP - [facility] 09/08/22 Domestic Freight Forwarder Relationship Specialty Start Date End Date Hima Sena MD [address] [facility] [address] [place] [address] PCP - [facility] 09/08/22 Domestic Freight Forwarder Relationship Specialty Start Date End Date Hima Sena MD [address] [facility] [address] [place] [address] PCP - [facility] 09/08/22 Domestic Freight Forwarder Relationship Specialty Start Date End Date Hima Sena MD [address] [facility] [address] [place] [address] PCP - [facility] 09/08/22 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 [employer] [facility]. provides no warranty or guarantee of the accuracy or completeness of information in this document.
[2024-04-18 13:22] VITALS: BP 138/86; PULSE 111
== END 2024-04-18 13:55 ==
LOC: FBCO 06:05 → FBC 12:53
PROVIDERS: Visit Provider Obstetrics & Gynecology
DX: O24.419 Gestational diabetes mellitus in pregnancy, unspecified control (principal); Z3A.33 33 weeks gestation of pregnancy
CPT/HCPCS: 76818

== ENCOUNTER 2024-04-21 05:13 | Outpatient (OUT) | payer OTHER, SELFPAY ==
--- OUTSIDE RECORDS SUMMARY | 2024-04-21 05:15 | XMS_ITS | CCD ---
Author Organization [facility] Care Team Providers Care Rectification Printer Name Role Phone JAIDA, DR QUINTANILLA Attending [...] aspirin 81 mg delayed release oral tablet (15 sources) Platelet Aggregation Inhibitor, Nonsteroidal Anti-inflammatory Drug take 1 tablet by mouth once daily aspirin 81 MG EC tablet Take 81 mg by mouth Daily Active azithromycin 250 mg oral tablet (4 sources) Macrolide Antimicrobial Start: 03-29-2024 azithromycin (Zithromax Z-Padilla) 250 MG tablet Indications: Sinusitis, unspecified chronicity, unspecified location As directed 6 tablet 03/29/2024 Active Blood Glucose Monitoring Suppl (D-Care Glucometer) w/Device kit (10 sources) Start: 03-01-2024 End: 03-01-2025 Blood Glucose [...] 1 kit 03/01/2024 03/01/2025 Active ferrous sulfate (10 sources) take 1 tablet by mouth in the morning Ferrous Sulfate (IRON PO) Take 1 tablet by mouth in the morning. Active isopropyl alcohol 0.7 ml/ml medicated pad (10 sources) Start: 03-01-2024 Alcohol Swabs (Alcohol Prep Pad) 70 % pads Indications: Gestational diabetes mellitus (GDM), antepartum, gestational diabetes method of control unspecified , Elevated glucose tolerance test Apply 1 Pad topically Daily Use four times daily to check FSBS. 150 each 3 03/01/2024 Active omeprazole 20 mg delayed release oral capsule (4 sources) Proton Pump Inhibitor Start: 03-29-2024 End: 04-28-2024 take 1 capsule by mouth before mealtime omeprazole (PriLOSEC) [address] capsule Indications: Gastroesophageal Reflux Disease , Heartburn Take 1 capsule (20 mg) by mouth in the morning. Take before meals. Do not crush or chew.. 30 capsule 3 03/29/2024 04/28/2024 Active MV-Min-Fe Fum-FA-DHA ( 1 PO) (20 sources) MV-Min- Fe Fum-FA-DHA ( 1 PO) Take by mouth Active Completed/Discontinued Medications Medication Drug Class(es) Dates Sig (Normalized) Sig (Original) magnesium oxide 400 mg oral tablet (20 sources) Start: 12-06-2023 End: 04-13-2024 take 1 tablet by mouth once daily magnesium oxide (Mag-Ox) 400 MG tablet Indications: Nonintractable headache, unspecified chronicity pattern, unspecified headache type Take 1 tablet (400 mg) by mouth Daily 30 tablet 3 12/06/2023 04/13/2024 Discontinued Problems Active Problems Problem Classification Problem Date Documented Date Episodic/Chronic Diabetes mellitus without complication (2 sources) Abnormal glucose tolerance test; Translations: [Other abnormal glucose] 03-01-2024 Episodic Diabetes or abnormal glucose tolerance complicating ; childbirth; or the puerperium (4 sources) Gestational diabetes mellitus; Translations: [Gestational diabetes mellitus in , unspecified control] 03-01-2024 Episodic Other complications of (2 sources) Gastroesophageal reflux disease in ; Translations: [Diseases of the digestive system complicating , unspecified trimester] 03-29-2024 Episodic Other and delivery including normal (12 sources) Second trimester ; Translations: [Encounter for supervision of normal , unspecified, second trimester] 02-02-2024 Episodic Other screening for suspected conditions (not mental disorders or infectious disease) (8 sources) Encounter for screening for malignant neoplasm [...] [30 weeks gestation of ] 03-29-2024 Episodic Residual codes; unclassified (2 sources) Gestation period, 32 weeks; Translations: [32 weeks gestation of ] 04-12-2024 Episodic Unclassified (3 sources) CONTACT W/AND (SUSP) EXPOS COVID-19; Translations: [CONTACT W/AND (SUSP) EXPOS COVID-19] Onset: 10-16-2021 Past or Other Problems Problem Classification Problem Date Documented Date Episodic/Chronic Immunizations and screening for infectious disease (3 sources) Encounter for screening for human papillomavirus (HPV); Translations: [Patient encounter status] Onset: 11-12-2021 01-05-2024 Episodic Other female genital disorders (2 sources) Vaginal discharge; Translations: [Other specified noninflammatory disorders of vagina] 01-05-2024 Episodic Unclassified (1 source) CONTACT W/AND (SUSP) EXPOS COVID-19; Translations: [CONTACT W/AND (SUSP) EXPOS COVID-19] Onset: 10-14-2021 Results Test Name Value Interpretation Reference Range Facility Urinalysis macro (dipstick) panel (U)on 04-12-2024 Bilirubin, UA Negative Negative - 4(70) +++ mg/dL [facility] Blood, UA Negative Negative - 50 Álvaro/mcL [facility] Clarity, UA Clear [facility] re Color, UA Yellow [facility] Glucose, UA Negative Negative - 1999(110) ++++ mg/dL [facility] Interpretation and review of laboratory results Abnormal [facility] Ketones, UA Positive Negative - 160(16) ++++ mg/dL [facility] Comment on above: 15 Leukocytes, UA Trace Negative - 500+++ Reji/mcL [facility] Nitrite, UA Negative Negative - Positive [facility] pH, UA 7 5 - 9 [facility] Protein, UA Negative Negative - 1999(20) ++++ mg/dL [facility] Spec Grav, UA 1.02 1 - 1.03 [facility] care Urobilinogen, UA 1.0 0.2 - 12 mg/dL [facility] Urinalysis macro (dipstick) panel (U)on 03-29-2024 Bilirubin, UA Positive Negative - 4(70) +++ mg/dL [facility] Comment on above: small Blood, UA Negative Negative - 50 Álvaro/mcL [facility] Clarity, UA Clear [facility] Color, UA Yellow [facility] Glucose, UA Negative Negative - 1999(110) ++++ mg/dL [facility] Interpretation and review of laboratory results Abnormal [facility] Ketones, UA Positive Negative - 160(16) ++++ mg/dL [facility] Comment on above: 40 Leukocytes, UA Negative Negative - 500+++ Reji/mcL [facility] Nitrite, UA Negative Negative - Positive [facility] pH, UA 7 5 - 9 [facility] Protein, UA Positive Negative - 1999(20) ++++ mg/dL [facility] Comment on above: 30 Spec Grav, UA 1.025 1 - 1.03 [facility] Health care Urobilinogen, UA 0.2 0.2 - 12 mg/dL [facility] Urinalysis macro (dipstick) panel (U)on 03-16-2024 Bilirubin, UA Negative Negative - 4(70) +++ mg/dL [facility] Blood, UA Negative Negative - 50 Álvaro/mcL [facility] Clarity, UA Clear [facility] Color, UA Yellow [facility] Glucose, UA Negative Negative - 1999(110) ++++ mg/dL [facility] Interpretation and review of laboratory results Abnormal [facility] Ketones, UA Negative Negative - 160(16) ++++ mg/dL [facility] Leukocytes, UA Negative Negative - 500+++ Reji/mcL [facility] Nitrite, UA Negative Negative - Positive [facility] pH, UA 7 5 - 9 [facility] Protein, UA Negative Negative - 1999(20) ++++ mg/dL [facility] Spec Grav, UA 1.02 1 - 1.03 [facility] Urobilinogen, UA 1.0 0.2 - 12 mg/dL [facility] Urinalysis macro (dipstick) panel (U)on 03-01-2024 Bilirubin, UA Negative Negative - 4(70) +++ mg/dL [facility] Blood, UA Negative Negative - 50 Álvaro/mcL [facility] Clarity, UA Clear [facility] re Color, UA Yellow [facility] e Glucose, UA Negative Negative - 1999(110) ++++ mg/dL [facility] Interpretation and review of laboratory results Abnormal [facility] Ketones, UA Negative Negative - 160(16) ++++ mg/dL [facility] Leukocytes, UA Trace Negative - 500+++ Reji/mcL [facility] Nitrite, UA Negative Negative - Positive [facility] pH, UA 7 5 - 9 [facility] Protein, UA Negative Negative - 1999(20) ++++ mg/dL [facility] Spec Grav, UA 1.015 1 - 1.03 [facility] Urobilinogen, UA 0.2 0.2 - 12 mg/dL [facility] GLUCOSE TOLERANCE 3 HOURon GLUCOSE TOLERANCE 3 HOUR High mg/dL [facility] Comment on above: GLU FAST 98H (<95) C ol: 02/22/24 0919 GLU 1HR 193H (<180) Col: 02/22/24 1020 GLU 2HR 179H (<155) Col: 02/22/24 1119 GLU 3HR 71 (<140) Col: 02/22/24 1220 Interpretation and review of laboratory results Abnormal [facility] ALL CBC WITH AUTO DIFFon BASOPHILS ABSOLUTE AUTO 0 [facility] Basophils/100 WBC (Bld) 0.3 % 0.2 - 2.0 % [facility] Eosinophils/100 WBC (Bld) 0.3 % Low 0.9 - 7.0 % [facility] Erythrocyte distribution width (RBC) [Ratio] 12.8 % 11.0 - 15.0 % [facility] Hematocrit (Bld) [Volume fraction] 32.9 % Low 36.0 - 48.0 % [facility] Hemoglobin (Bld) [Mass/Vol] 10.9 g/dL Low 12.0 - 16.0 g/dL [facility] IMMATURE GRANULOCYTES ABS AUTO 0.13 High [facility] Immature granulocytes/100 WBC (Bld) 1.1 % High 0.0 - 0.5 % [facility] Interpretation and review of laboratory results Abnormal [facility] LYMPHOCYTES ABSOLUTE AUTO 1.1 Low [facility] Lymphocytes/100 WBC (Bld) 9.3 % Low 20.5 - 60.0 % [facility] MCH (RBC) [Entitic mass] 29.9 pg 26.7 - 34.0 pg [facility] MCHC (RBC) [Mass/Vol] 33.1 g/dL 29.9 - 35.2 g/dL [facility] MCV (RBC) [Entitic vol] 90.4 fL 81.0 - 99.0 fL [facility] MONOCYTES ABSOLUTE AUTO 0.4 [facility] Monocytes/100 WBC (Bld) 3.1 % 1.7 - 12.0 % [facility] NEUTROPHILS ABSOLUTE AUTO 10 High [facility] Neutrophils/100 WBC (Bld) 85.9 % High 43.0 - 75.0 % [facility] Platelet mean volume (Bld) [Entitic vol] 9.5 fL 9.5 - 13.5 fL [facility] TBH EO # 0 [facility] TB PLT 299 [facility] TB RBC 3.64 Low [facility] TB WBC 11.6 High [facility] Urinalysis macro (dipstick) panel (U)on 02-02-2024 Bilirubin, UA Negative Negative - 4(70) +++ mg/dL [facility] Blood, UA Negative Negative - 50 Álvaro/mcL [facility] Clarity, UA Clear [facility] Color, UA Yellow [facility] Glucose, UA Negative Negative - 2000(110) ++++ mg/dL [facility] Interpretation and review of laboratory results Normal [facility] Ketones, UA Negative Negative - 160(16) ++++ mg/dL [facility] Leukocytes, UA Negative Negative - 500+++ Reji/mcL [facility] Nitrite, UA Negative Negative - Positive [facility] pH, UA 5.5 5 - 9 [facility] e Protein, UA Negative Negative - 2000(20) ++++ mg/dL [facility] Spec Grav, UA 1.010 1 - 1.03 [facility] Urobilinogen, UA 0.2 0.2 - 12 mg/dL [facility] AFP, SERUM, OPEN SPINA BIFID Aon 01-30-2024 AFP MOM 0.83 . [facility] AFP VALUE 54.5 ng/mL . [facility] COMMENT: Comment . [facility] Comment on above: Siria Davis , Ph.D., [facility] Director References: Available Upon Request. Multiples Of Median Cutoffs For AFP Elevations Espinoza 2.5 Black 2.8 IDD 2.0 Twins 4.5 Abbreviation Definitions IDD - Insulin Dep Diabetes OSBR - Open Spina Bifida Risk For further inquiries contact [employer] [facility] at [phone]. This test was developed and its performance characteristics determined by [employer]. It has not been cleared or approved by the Food and Drug Administration. Performed at: [facility] [address] [id number] [employer] Machine Operator: Luis Kelly [facility], Phone: [phone] GEST. AGE ON COLLECTION DATE 21.7 . weeks [facility] GESTAT. AGE BASED ON LMP . [facility] Comment on above: Recalculations are n ot recommended when gestational dating by LMP and ultrasound are within 10 days. INSULIN DEP DIABETES No . [facility] INTERPRETATION Comment . [facility] Comment on above: Interpretation: Scre en Negative This result is screen negative for OSB. The AFP MoM calculated is based on the gestational age provided. MS-AFP can identify up to 80% of open neural tube defects. Closed neural tube defects and some open defects may not be detected by this test. This test does not screen for Down Syndrome or Trisomy 18. If screening for Down Syndrome or Trisomy 18 is desired, contact [facility] [employer] [facility] to discuss available options. The [employer] recommends amniocentesis be offered to women age 35 and older. [age] [facility] MULTIPLE GESTATION No . [facility] [place] [id number] . [facility] RACE . [facility] Mob[employer] RESULTS Report . [facility] TEST RESULTS: Negative . [facility] Health care WEIGHT 165 . lbs [facility] N N LMP [id number] 4 18 N 1 Y 165 N N N N N White/ [facility] IGP,APTIMA HPV,AGE GDLNon AGE GDLN ACOG TESTING Note . [facility] Comment on above: TESTS RESULT FLAG UN ITS REF RANGE LAB Clinician Provided Cytology Information Source.............Cervix No. of containers..01 ThinPrep Vial Age Algo ACOG Elizabeth... 30-65 01 FLAG LEGEND: L-Low Normal,H-High Normal,LL-Alert Low,HH-Alert High <-Panic Low,>-Panic High,A-Abnormal,AA-Critical Abnormal Performed at: 01 =G [facility] [place] [address] Lexie Nichols MD, HPV APTIMA Negative Negative [facility] Comment on above: This nucleic acid am plification test detects fourteen high- risk HPV types (16,18,31,33,35,39,45,51,52,56,58,59,66,68) without differentiation. Performed at: =G - [facility] [id number] [employer] Operator: Lexie Nichols MD, Phone: [phone] Performed at: - [facility], [place] [id number] [employer] Operator: Lexie Nichols MD, Phone: [phone] IGP, APTIMA HPV, RFX 16/18,45 Note . [facility] Comment on above: TESTS RESULT FLAG UN ITS REF RANGE LAB DIAGNOSIS: 02 NEGATIVE FOR INTRAEPITHELIAL LESION OR MALIGNANCY. Specimen adequacy: 02 Satisfactory for evaluation. No endocervical component is identified. Performed by: 02 Lizzy Hutchinson, Benefits Coordinator (ASC) . 02 Note: Note 02 The Pap smear is a screening test designed to aid in the detection of premalignant and malignant conditions of the uterine cervix. It is not a diagnostic procedure and should not be used as the sole means of detecting cervical cancer. Both false-positive and false-negative reports do occur. Test Methodology: Note 02 This liquid based ThinPrep(R) pap test was screened with the use of an image guided system. HPV Genotype Reflex Note 02 Criteria not met, HPV Genotype not performed. FLAG LEGEND: L-Low Normal,H-High Normal,LL-Alert Low,HH-Alert High <-Panic Low,>-Panic High,A-Abnormal,AA-Critical Abnormal Performed at: 02 [facility] [place] [address] [place] [address] Lexie Nichols MD, BRUSH-ALONE CERVIX [facility] URETHRITIS/DISCHARGE PLUS VA GINITIS (HTRX)on 01-08-2024 ATOPOBIUM VAGINAE 0.000 [facility] ATOPOBIUM VAGINAE Not detected [facility] BVAB 2,3 (BACTERIAL VAGINOSIS ASSOCIATED BACTERIA 2, 3); MOBILUNCUS SPP 0.000 [facility] BVAB 2,3 (BACTERIAL VAGINOSIS ASSOCIATED BACTERIA 2, 3); MOBILUNCUS SPP Not detected [facility] EMMY ALBICANS, PARAPSILOSIS, TROPICALIS 29.274 Abnormal [facility] EMMY ALBICANS, PARAPSILOSIS, TROPICALIS Detected Abnormal [facility] EMMY GLABRATA 0.000 [facility] EMMY GLABRATA Not detected [facility] EMMY KRUSEI 0.000 [facility] EMMY KRUSEI Not detected [facility] CHLAMYDIA TRACHOMATIS 0.000 [facility] CHLAMYDIA TRACHOMATIS Not detected [facility] GARDNERELLA VAGINALIS 0.000 [facility] GARDNERELLA VAGINALIS Not detected [facility] Interpretation and review of laboratory results Abnormal [facility] MEGASPHAERA (TYPES 1, 2) 0.000 [facility] MEGASPHAERA (TYPES 1, 2) Not detected [facility] MYCOPLASMA GENITALIUM 0.000 [facility] MYCOPLASMA GENITALIUM Not detected [facility] NEISSERIA GONORRHOEAE 0.000 [facility] NEISSERIA GONORRHOEAE Not detected [facility] TRICHOMONAS VAGINALIS 0.000 [facility] TRICHOMONAS VAGINALIS Not detected [facility] Urinalysis macro (dipstick) panel (U)on 01-05-2024 Bilirubin, UA Negative Negative - 4(70) +++ mg/dL [facility] Blood, UA Negative Negative - 50 Álvaro/mcL [facility] Clarity, UA Clear [facility] re Color, UA Yellow [facility] Glucose, UA Negative Negative - 2000(110) ++++ mg/dL [facility] Interpretation and review of laboratory results Abnormal [facility] Ketones, UA Negative Negative - 160(16) ++++ mg/dL [facility] Leukocytes, UA Trace Negative - 500+++ Reji/mcL [facility] Nitrite, UA Negative Negative - Positive [facility] pH, UA 6.5 5 - 9 [facility] Protein, UA Negative Negative - 2000(20) ++++ mg/dL [facility] Spec Grav, UA 1.025 1 - 1.03 [facility] Urobilinogen, UA 0.2 0.2 - 12 mg/dL [facility] PAP ACOG PANEL 2: 30 to 65on 11-13-2021 . . Normal [facility] Comment on above: Result Comment: Perf ormed at: WB Performed By: #### [id number] #### [facility] [address] [address] [address] Abby Campoverde Age Gdln ACOG Testing 30-65 [facility] Comment on above: Performed By: #### [id number] #### [facility] [address] [address] [address] Abby Campoverde DIAGNOSIS: Comment [facility] Comment on above: Result Comment: NEGA TIVE FOR INTRAEPITHELIAL LESION OR MALIGNANCY. Performed at: WB Performed By: #### [id number] #### [facility] [address] [address] [address] Abby Campoverde HPV Aptima Negative Normal [facility] Comment on above: Result Comment: This nucleic acid amplification test detects fourteen high-risk HPV types (16,18,31,33,35,39,45,51,52,56,58,59,66,68) without differentiation. Performed at: =G Performed By: #### [id number] #### [facility] [address] [address] [address] Abby Campoverde Methodology: Comment [facility] Comment on above: Result Comment: This liquid based ThinPrep(R) pap test was screened with the use of an image guided system. Performed at: WB Performed By: #### [id number] #### [facility] [address] [address] [address] Abby Campoverde Note: Comment Normal [facility] Comment on above: Result Comment: The Pap smear is a screening test designed to aid in the detection of premalignant and malignant conditions of the uterine cervix. It is not a diagnostic procedure and should not be used as the sole means of detecting cervical cancer. Both false-positive and false-negative reports do occur. . Performed at: WB Performed By: #### [id number] #### [facility] [address] [place] [address] Dr. Abby Campoverde Performed by: Comment Normal [facility] Comment on above: Result Comment: Madisyn Sherman, Benefits Coordinator (ASCP) Performed at: WB Performed By: #### [id number] #### [facility] [address] [address] [address] Abby Campoverde Specimen adequacy: Comment Normal [facility] Comment on above: Result Comment: Sati sfactory for evaluation. Endocervical and/or squamous metaplastic cells (endocervical component) are present. Performed at: WB Performed By: #### [id number] #### [facility] [address] [place] [address] Dr. Abby Campoverde [facility]01 SARS-CoV-2 (COVID-19) RNA ABDI+probe Ql (Unsp spec) Not detected Normal NOT DETECTED [facility] Comment on above: Result Comment: This test is not yet approved or cleared by the [place] FDA. When there are no FDA-approved or cleared tests available, and other criteria are met, FDA can make tests available under an emergency access mechanism called an Emergency Use Authorization (EUA). The EUA for this test is supported by the [place] of Health and Human Service's (HHS's) declaration [...] SARS-CoV-2. Performed By: #### C VDTB #### [facility] [address] [place] [address] Dr. Abby Campoverde Vital Signs Date Time Vital Sign Value Performing Clinician Raymond adorno 04-12-2024 15:18-0500 Body mass index (BMI) [Ratio] 33.47 kg/m2 Isabella Elva DO Work Phone: [facility] 04-12-2024 15:18-0500 Body weight 83.01 kg Isabella Elva DO Work Phone: [facility] 04-12-2024 15:18-0500 Diastolic blood pressure 78 mm[Hg] Isabella Elva DO Work Phone: [facility] 04-12-2024 15:18-0500 Systolic blood pressure 126 mm[Hg] Isabella Elva DO Work Phone: [facility] 03-29-2024 14:09-0500 Body mass index (BMI) [Ratio] 33 kg/m2 Isabella Elva DO Work Phone: [facility] 03-29-2024 14:09-0500 Body weight 81.83 kg Isabella Elva DO Work Phone: [facility] 03-29-2024 14:09-0500 Diastolic blood pressure 70 mm[Hg] Isabella Elva DO Work Phone: [facility] 03-29-2024 14:09-0500 Systolic blood pressure 120 mm[Hg] Isabella Elva DO Work Phone: [facility] 03-16-2024 10:04-0500 Body mass index (BMI) [Ratio] 33.13 kg/m2 Isabella Elva DO Work Phone: [facility] 03-16-2024 10:04-0500 Body weight 82.16 kg Isabella Elva DO Work Phone: [facility] 03-16-2024 10:04-0500 Diastolic blood pressure 80 mm[Hg] Isabella Elva DO Work Phone: [facility] 03-16-2024 10:04-0500 Systolic blood pressure 130 mm[Hg] Isabella Elva DO Work Phone: [facility] 03-01-2024 09:57-0400 Body mass index (BMI) [Ratio] 32.74 kg/m2 Tiffani [place] PA Work Phone: [facility] 03-01-2024 09:57-0400 Body weight 81.19 kg Tiffani Huy PA Work Phone: [facility] 03-01-2024 09:57-0400 Diastolic blood pressure 80 mm[Hg] Tiffani Huy PA Work Phone: [facility] 03-01-2024 09:57-0400 Systolic blood pressure 122 mm[Hg] Tiffani [place] PA Work Phone: [facility] 02-02-2024 15:46-0400 Body mass index (BMI) [Ratio] 32.01 kg/m2 Tiffani Huy PA Work Phone: [facility] 02-02-2024 15:46-0400 Body weight 79.38 kg Tiffani [place] PA Work Phone: [facility] 02-02-2024 15:46-0400 Diastolic blood pressure 76 mm[Hg] Tiffani [place] PA Work Phone: [facility] 02-02-2024 15:46-0400 Systolic blood pressure 126 mm[Hg] Tiffani Huy PA Work Phone: [facility] 01-05-2024 14:31-0400 Body mass index (BMI) [Ratio] 30.32 kg/m2 Isabella Elva DO Work Phone: [facility] 01-05-2024 14:31-0400 Body weight 75.18 kg Isabella Elva DO Work Phone: [facility] 01-05-2024 14:31-0400 Diastolic blood pressure 82 mm[Hg] Isabella Elva DO Work Phone: [facility] 01-05-2024 14:31-0400 Systolic blood pressure 126 mm[Hg] Isabella Elva DO Work Phone: [facility] Encounters Encounter Date Encounter Type Care Provider Facility Start: 04-12-2024 End: 04-12-2024 flow sheet Isabella Elva DO Work Phone: [facility] Comment on above: Third trimester preg bharathi; 32 weeks gestation of ; Diet controlled gestational diabetes mellitus (GDM) in third trimester Start: 04-12-2024 End: 04-12-2024 ambulatory ISABELLA ELVA Not Available Start: 03-29-2024 End: 03-29-2024 Bamboo flowsheet Isabella Elva DO Work Phone: [facility] Start: 03-29-2024 End: 03-29-2024 Bamboo flowsheet Isabella Elva DO Work Phone: [facility] Start: 03-29-2024 End: 03-29-2024 flow sheet Isabella Elva DO Work Phone: [facility] Comment on above: 30 weeks gestation o f ; Third trimester ; Sinusitis, unspecified chronicity, unspecified location; Gastroesophageal reflux in Start: 03-29-2024 End: 03-29-2024 ambulatory ISABELLA ELVA Not Available Start: 03-16-2024 End: 03-16-2024 Bamboo flowsheet Isabella Elva DO Work Phone: [facility] Start: 03-16-2024 End: 03-16-2024 Bamboo flowsheet Isabella Elva DO Work Phone: [facility] Start: 03-16-2024 End: 03-16-2024 flow sheet Isabella Elva DO Work Phone: [facility] Comment on above: 28 weeks gestation o f ; Third trimester Start: 03-16-2024 End: 03-16-2024 ambulatory ISABELLA ELVA Not Available Start: 03-01-2024 End: 03-01-2024 Bamboo flowsheet Tiffani ALVARENGA Work Phone: [facility] Start: 03-01-2024 End: 03-01-2024 Bamboo flowsheet Tiffani ALVARENGA Work Phone: [facility] Start: 03-01-2024 End: 03-01-2024 flow sheet Tiffani Huy PA Work Phone: [facility] Comment on above: Second trimester pre gnancy; 26 weeks gestation of ; Gestational diabetes mellitus (GDM), antepartum, gestational diabetes method of control unspecified; Elevated glucose tolerance test Start: 03-01-2024 End: 03-01-2024 ambulatory TIFFANI SON Not Available Start: 02-22-2024 End: 02-22-2024 Clinisync Result Encounter Tiffani ALVARENGA Work Phone: [facility] External Department Unsolicited Start: 02-22-2024 End: 02-22-2024 Clinisync Result Encounter Tiffani ALVARENGA Work Phone: [facility] External Department Unsolicited Start: 02-16-2024 End: 02-16-2024 Clinisync Result Encounter Tiffani Huy COLETTE Work Phone: [facility] External Department Unsolicited Start: 02-16-2024 End: 02-16-2024 Clinisync Result Encounter Tiffani Huy COLETTE Work Phone: [facility] External Department Unsolicited Start: 02-02-2024 End: 02-02-2024 flow sheet Tiffani [place] PA Work Phone: [facility] OB Comment on above: Second trimester pre gnancy; 22 weeks gestation of ; Diabetes mellitus screening Start: 02-02-2024 End: 02-02-2024 ambulatory TIFFANI PERESEY Not Available Start: 02-02-2024 End: 02-02-2024 Bamboo flowsheet Tiffani Son PA Work Phone: [facility] Start: 02-02-2024 End: 02-02-2024 Bamboo flowsheet Tiffani [place] PA Work Phone: [facility] Start: 01-27-2024 End: 01-30-2024 Clinisync Result Encounter Isabella Elva DO Work Phone: [facility] Unsolicited Start: 01-27-2024 End: 01-30-2024 Clinisync Result Encounter Isabella Elva DO Work Phone: [facility] External Department Unsolicited Start: 01-05-2024 End: 01-05-2024 Bamboo flowsheet Isabella Elva DO Work Phone: [facility] Start: 01-05-2024 End: 01-10-2024 Bamboo flowsheet Isabella Elva DO Work Phone: [facility] Start: 01-05-2024 End: 01-10-2024 Clinisync Result Encounter Isabella Elva DO Work Phone: [facility] External Department Unsolicited Start: 01-05-2024 End: 01-08-2024 External Result Encounter Isabella Elva DO Work Phone: [facility] External Department Unsolicited Start: 01-05-2024 End: 01-05-2024 Patient encounter procedure Isabella Elva DO Work Phone: [facility] Start: 01-05-2024 End: 01-05-2024 Periodic preventive med est patient 18-39 yrs Isabella Elva DO Work Phone: [facility] Comment on above: Well woman exam with routine gynecological exam; Screening, , for anatomic survey; Second trimester ; Screen for STD (sexually transmitted disease); Vaginal discharge Start: 01-05-2024 End: 01-05-2024 ambulatory ISABELLA ELVA Not Available Start: 12-06-2023 End: 12-06-2023 ambulatory ISABELLA ELVA Not Available Start: 10-29-2023 End: 10-29-2023 ambulatory ISABELLA ELVA Not Available Start: 11-10-2021 End: 11-10-[address] ISABELLA STEVENSON Facility:[facility] Start: 10-14-2021 End: 10-15-[address] HIMA SENA Facility:[facility] Procedures Date Procedure Procedure Detail Performing Clinician Start: 04-12-2024 Urnls dip stick/tabl et rgnt non-auto w/o micrscp Isabella Elva DO Work Phone: Start: 03-29-2024 Urnls dip stick/tabl et rgnt non-auto w/o micrscp Isabella Elva DO Work Phone: Start: 03-16-2024 Urnls dip stick/tabl et rgnt non-auto w/o micrscp Isabella Elva DO Work Phone: Start: 03-01-2024 Urnls dip stick/tabl et rgnt non-auto w/o micrscp Tiffani ALVARENGA Work Phone: Start: 02-22-2024 GLUCOSE TOLERANCE 3 HOUR Tiffani ALVARENGA Work Phone: Start: 02-16-2024 ALL CBC WITH AUTO DIFF Tiffani ALVARENGA Work Phone: Start: 02-02-2024 Urnls dip stick/tabl et rgnt non-auto w/o micrscp Tiffani ALVARENGA Work Phone: Start: 01-27-2024 AFP, SERUM, OPEN SPI NA BIFIDA [facility] Work Phone: Start: 01-05-2024 Urnls dip stick/tabl et rgnt non-auto w/o micrscp [facility] Work Phone: Start: 01-05-2024 IGP,APTIMA HPV,AGE GDLN [facility] DO Work Phone: Start: 01-05-2024 Microscopic observat ion [Identifier] in Cervix by Cyto stain [facility] DO Work Phone: Start: 01-05-2024 URETHRITIS/DISCHARGE PLUS VAGINITIS (HTRX) [facility] DO Work Phone: Plan of Treatment Date Care Activity Detail Author Start: 01-04-2027 Screening for malign ant neoplasm of cervix [facility] Start: 10-15-2025 Screening for malign ant neoplasm of cervix [facility] Start: 04-27-2024 End: 04-27-2024 Patient encounter procedure 04/27/2024 11:10 AM EST Routine [facility] [address] [place] [address] Isabella Stevenson, DO [address] [place] [address] [facility] Start: 04-12-2024 End: 04-12-2024 Patient encounter procedure 04/12/2024 2:20 PM EST Routine [facility] [address] [place] [address] Isabella Stevenson, DO [address] [place] [address] [facility] Start: 04-12-2024 End: 04-12-2025 US biophysical profile w non stress test US biophysical profile w non stress test Imaging Routine Diet controlled gestational diabetes mellitus (GDM) in third trimester Expected: 04/12/2024 (Approximate), Expires: 04/12/2025 [facility] Work Phone: Comment on above: Expected: 04/12/2024 (Approximate), Expires: 04/12/2025 Start: 03-29-2024 End: 03-29-2024 Patient encounter procedure [facility] Comment on above: Arrived Start: 03-29-2024 End: 03-29-2024 Professional / ancillary services management 03/29/2024 1:00 PM EST Ancillary Procedure [facility] [address] [place] [id number] [facility] Start: 03-16-2024 End: 03-16-2024 Patient encounter procedure 03/16/2024 9:50 AM EST Routine [facility] [address] [place] [id number] Isabella Stevenson, DO [address] [place] [address] [facility] Start: 03-01-2024 End: 03-01-2025 US for US OB SCAN FOR GROWTH Imaging Routine Gestational diabetes mellitus (GDM), antepartum, gestational diabetes method of control unspecified Expected: 03/01/2024 (Approximate), Expires: 03/01/2025 [facility] Work Phone: Comment on above: Expected: 03/01/2024 (Approximate), Expires: 03/01/2025 Start: 03-01-2024 End: 03-01-2024 Patient encounter procedure [facility] Comment on above: Arrived Start: 02-02-2024 End: 02-02-2024 Patient encounter procedure [facility] Comment on above: Arrived Start: 02-02-2024 End: 02-01-2025 CBC panel - Blood by Automated count CBC Lab Routine Diabetes mellitus screening Expected: 02/02/2024 (Approximate), Expires: 02/01/2025 [facility] Work Phone: Comment on above: Expected: 02/02/2024 (Approximate), Expires: 02/01/2025 Start: 02-02-2024 End: 02-01-2025 Measurement of glucose 1 hour after glucose challenge for glucose tolerance test Glucose tolerance, 1 hour Lab Routine Diabetes mellitus screening Expected: 02/02/2024 (Approximate), Expires: 02/01/2025 [facility] Comment on above: Expected: 02/02/2024 (Approximate), Expires: 02/01/2025 Start: 02-02-2024 End: 02-02-2024 Professional / ancillary services management 02/02/2024 2:00 PM EDT Ancillary Procedure [facility] [address] [place] [address] [place] [address] [facility] Start: 01-05-2024 End: 01-04-2025 Alpha fetoprotein, maternal Alpha fetoprotein, maternal Lab Routine Second trimester Expected: 01/05/2024 (Approximate), Expires: 01/04/2025 [facility] Comment on above: Expected: 01/05/2024 (Approximate), Expires: 01/04/2025 Start: 01-05-2024 End: 01-04-2025 US for US OB ANATOMY SINGLE W US OB CERVICAL LENGTH Imaging Routine Screening, , for anatomic survey Expected: 01/05/2024 (Approximate), Expires: 01/04/2025 [facility] Comment on above: Expected: 01/05/2024 (Approximate), Expires: 01/04/2025 Start: 01-05-2024 End: 01-05-2024 Patient encounter procedure 01/05/2024 1:50 PM EDT Routine [facility] [address] [facility] [place] [address] Isabella Stevenson, DO [address] [facility] [place] [address] Arrived [facility] Comment on above: Arrived Start: 01-02-2024 Influenza vaccination Influenza Vacc ine (#1) [facility] Start: 2012 Screening for malign ant neoplasm of cervix Pap Smear [facility] CHLAMYDIA TRACHOMATI S (GENITO/STI) CHLAMYDIA TRACHOMATIS (GENITO/STI) Lab Routine Second trimester Screen for STD (sexually transmitted disease) Vaginal discharge Ordered: 01/05/2024 [facility] Comment on above: Ordered: 01/05/2024 Cytology Cervical or vaginal smear or scraping study Pap Smear Pathology and Cytology Routine Well woman exam with routine gynecological exam Ordered: 01/05/2024 [facility] Work Phone: Comment on above: Ordered: 01/05/2024 Human papilloma viru s DNA [Presence] in Unspecified specimen by Probe with amplification HPV DNA probe, amplified Microbiology Routine Well woman exam with routine gynecological exam Ordered: 01/05/2024 [facility] Comment on above: Ordered: 01/05/2024 Neisseria gonorrhoea e DNA [Presence] in Unspecified specimen by ABDI with probe detection Neisseria gonorrhea DNA probe, direct Lab Routine Second trimester Screen for STD (sexually transmitted disease) Vaginal discharge Ordered: 01/05/2024 [facility] Comment on above: Ordered: 01/05/2024 SURESWAB(R) ADVANCED VAGINITIS PLUS, TMA SURESWAB(R) ADVANCED VAGINITIS PLUS, TMA Pathology and Cytology Routine Second trimester Screen for STD (sexually transmitted disease) Vaginal discharge Ordered: 01/05/2024 [facility] Comment on above: Ordered: 01/05/2024 Payers Date Payer Category Payer Private Health Insurance [employer] [id number] 2022 Unknown [employer] [id number] 2022-Present [address] [place] [address] [id number] 1991 Unknown [id number] 593 1991 Unknown [id number]. 593 1991 Unknown [id number]. 1259 1991 Unknown [id number]. 1259 1991 Unknown [id number]. 9 1991 Unknown [id number] [id number]. 1259 1991 Unknown [id number] [id number]. 1259 1991 Unknown [id number] [id number]. 1259 1991 Unknown [id number] [id number]. 1259 1991 Unknown [id number] 1259 1959 Unknown [id number] Social History Date Type Detail Facility Start: [...] Text Equipment Identifier Dates Use as instructed [id number] Start: 03-01-2024 End: 03-01-2025 1 each by In Vit ro route Daily Use to check FSBS four times daily [id number] Start: 03-01-2024 End: 03-31-2024 Clinical Notes 01-05-2024 to 04-12-2024 Jessica Sánchez LPN - 04/12/2024 2:20 PM Eva Sánchez LPN - 03/29/2024 1:40 PM Shayna Robles LPN - 03/16/2024 9:50 AM COLETTE Rivas - 03/01/2024 9:30 AM EDT Note Date & Type Note Facility 04-12-2024 History of Presen t illness Narrative Reason [...] tablet As directed Blood Glucose Monitoring Suppl (MoPals Glucometer) w/Device kit 1 kit, Does not apply, Daily, Use four times daily to check FSBS. In the morning prior to breakfast & 1 hour after each meal for a total of 4times daily. Ferrous Sulfate (IRON PO) 1 tablet, Daily RT FREESTYLE TEST STRIPS test strip Use as instructed omeprazole (PRILOSEC) 20 mg, Oral, Daily before [...] nursing note reviewed. Exam conducted with a manager collection present. Vitals: Estimated body mass index is 33.47 kg/m as calculated from the following: Height as of 03/30/23: 5' 2 . Weight as of this encounter: 183 lb. BP: 126/78 Patient's last menstrual period was 08/28/2023. ASSESSMENT & PLAN ICD-10-CM 1. Third trimester Z34.93 POCT urinalysis dipstick manually resulted 2. 32 weeks gestation of Z3A.32 3. Diet controlled gestational diabetes mellitus (GDM) in third trimester O24.410 US biophysical profile w non stress test Return OB: Patient presents today for a routine obstetrics appointment. Patient is currently 32w4d . Patient states she is doing well but has complaints of being tired due to current . Patient has verbalizes frequent movement. labor precautions was discussed/given and patient was instructed to perform kick counts three times a day. Orders Placed This Encounter Procedures US biophysical profile w non stress test POCT urinalysis dipstick manually resulted Follow Up: Patient is to return to office in 2 week for routine OB appointment. Documented by Jessica Sánchez LPN on behalf of: Isabella Stevenson DO documented in this encounter [facility] 03-29-2024 History of Presen t illness Narrative [...] tablet As directed Blood Glucose Monitoring Suppl (MoPals Glucometer) w/Device kit 1 kit, Does not [...] nursing note reviewed. Exam conducted with a manager collection present. Vitals: Estimated body mass index is [...] Isabella Stevenson DO documented in this encounter [facility] 03-16-2024 History of Presen t illness Narrative [...] 81 mg, Daily Blood Glucose Monitoring Suppl (MoPals Glucometer) w/Device kit 1 kit, Does not [...] nursing note reviewed. Exam conducted with a manager collection present. Vitals: Estimated body mass index is [...] Isabella Stevenson DO documented in this encounter [facility] 03-01-2024 History of Presen t illness Narrative [...] glucose tolerance test R73.09 [facility]abs (Alcohol Prep Pad) 70 % [...] to Diabetic Edu was sent over to [facility]. Pt was made aware diabetic supplies were sent to pharmacy today and to picker/puller when ready. Pt was advised to make sure to take her supplies w/her to her appt when she gets scheduled by Kristal Yee RN at [facility]. Pt verbally understood. Growth US was given to patient today to have done at 28 weeks to schedule at [facility]. Orders Placed This Encounter Procedures POCT urinalysis dipstick manually resulted Follow Up: Patient is to return to office in 2 week for routine OB appointment. Documented by Tosin Carvalho MA on behalf of: COLETTE Almonte documented in this encounter [facility] 02-02-2024 History of Presen t illness Narrative [...] of: COLETTE Almonte documented in this encounter [facility] 01-05-2024 History of Presen t illness Narrative Reason for Appointment: Patient ID: Liliane Rausch is a 33 y.o. female who presents for Routine Visit Patient presents today for Annual Exam., STD Check., and Return OB appointment. MEDICATIONS Current Outpatient Medications Medication Instructions magnesium oxide (MAG-OX) 400 mg, Oral, Daily [...] Constitutional: Appearance: Normal appearance. She is well-developed. Genitourinary: Vulva normal. Breasts: Breasts are soft. Right: Normal. Left: Normal. Cardiovascular: Rate and Rhythm: Normal rate and [...] nursing note reviewed. Exam conducted with a manager collection present. Vitals: Estimated body mass index is 30.32 kg/m as calculated from the following: Height as of 23: 5' 2 . Weight as of this encounter: 165 lb 12 oz. BP: 126/82 Patient's last menstrual period was 08/28/2023. ASSESSMENT & PLAN ICD-10-CM 1. Well woman exam with routine gynecological exam Z01.419 Pap Smear HPV DNA probe, amplified 2. Screening, , for anatomic survey Z36.89 US OB ANATOMY SINGLE W US OB CERVICAL LENGTH 3. Second trimester Z34.92 SURESWAB(R) ADVANCED VAGINITIS PLUS, TMA CHLAMYDIA TRACHOMATIS (GENITO/STI) Neisseria gonorrhea DNA probe, direct POCT urinalysis dipstick manually resulted Alpha fetoprotein, maternal Alpha fetoprotein, maternal 4. Screen for STD (sexually transmitted disease) Z11.3 SURESWAB(R) ADVANCED VAGINITIS PLUS, TMA CHLAMYDIA TRACHOMATIS (GENITO/STI) Neisseria gonorrhea DNA probe, direct 5. Vaginal discharge N89.8 SURESWAB(R) ADVANCED VAGINITIS PLUS, TMA CHLAMYDIA TRACHOMATIS (GENITO/STI) Neisseria gonorrhea DNA probe, direct Return OB/Annual Exam: Patient presents today for a annual exam/routine obstetrics appointment. Patient is currently 18w4d . Patient states she is doing well but has complaints of nausea in the morning. Pap and cultures was obtained without difficulty and patient was given orders for anatomy scan and msAFP to be obtained. Orders Placed This Encounter Procedures HPV DNA probe, amplified US OB ANATOMY SINGLE W US OB CERVICAL LENGTH CHLAMYDIA TRACHOMATIS (GENITO/STI) Neisseria gonorrhea DNA probe, direct Alpha fetoprotein, maternal POCT urinalysis dipstick manually resulted Follow Up: Patient is to schedule annual exam for next year and return to office in 4 weeks for OB appointment. Documented by Jessica Sánchez LPN on behalf of: Isabella Stevenson DO documented in this encounter [facility] Evaluation note Diagnosis Second trimester state, incidental 22 weeks gestation of Diabetes mellitus screening Screening for diabetes mellitus documented [facility] this [facility]* Diagnosis Second trimester state, incidental 26 weeks gestation of Gestational diabetes mellitus (GDM), antepartum, gestational diabetes method of control unspecified Elevated glucose tolerance test Impaired glucose tolerance test documented in this [facility]* Diagnosis 28 weeks gestation of Third trimester state, incidental documented [facility]* Diagnosis 30 weeks gestation of Third trimester state, incidental Sinusitis, unspecified chronicity, unspecified location Gastroesophageal reflux in documented [facility] this [facility]* Diagnosis Third trimester state, incidental 32 weeks gestation of Diet controlled gestational diabetes mellitus (GDM) in third trimester documented [facility]* Diagnosis Well woman exam with routine gynecological exam Routine gynecological examination Screening, , for anatomic survey Encounter for anatomic survey Second trimester state, incidental Screen for STD (sexually transmitted disease) Screening examination for venereal disease Vaginal discharge Leukorrhea, not specified as infective documented in this encounter [facility] Summary Purpose Family History No Family History Records FoundNo Family History Records Found Advance Directives No Advanced Directives Records FoundNo Advanced Directives Records Found Additional Source Comments INFORMATION SOURCE (unrecogn ized section and content) DATE CREATED AUTHOR 11/18/2021 [facility] DATE CREATED AUTHOR AUTHOR'S ORGANIZ ATION 04/15/2024 [facility] EPIC Reason for Visit (unrecogniz ed section and content) Reason Comments Routine Visit Care Teams (unrecognized sec tion and content) Rectification Printer Relationship Specialty Start Date End Date Hima Sena MD [address] [address] PCP - General Family Medicine 09/08/22 Rectification Printer Relationship Specialty Start Date End Date Hima Sena MD [address] [facility] [address] [place] [address] PCP - General Family Medicine 09/08/22 Rectification Printer Relationship Specialty Start Date End Date Hima Sena MD [address] [facility] [address] [place] [address] PCP - General Family Medicine 09/08/22 Rectification Printer Relationship Specialty Start Date End Date Hima Sena MD [address] [facility] [address] [place] [address] PCP - [facility] Medicine 09/08/22 Rectification Printer Relationship Specialty Start Date End Date Hima Sena MD [address] [facility] [address] [place] [address] PCP - [facility] 09/08/22 Rectification Printer Relationship Specialty Start Date End Date Hima Sena MD [address] [facility] [address] [place] [address] PCP - [facility] 09/08/22 Rectification Printer Relationship Specialty Start Date End Date Hima Sena MD [address] [facility] [address] [place] [address] PCP - [facility] 09/08/22 Rectification Printer Relationship Specialty Start Date End Date Hima Sena MD [address] [facility] [address] [place] [address] PCP - [facility] 09/08/22 Rectification Printer Relationship Specialty Start Date End Date Hima Sena MD [address] [facility] [address] [place] [address] PCP - [facility] 09/08/22 Rectification Printer Relationship Specialty Start Date End Date Hima Sena MD [address] [facility] [address] [place] [address] PCP - [facility] Medicine 09/08/22 FOR RECORDS PERTAINING TO PATIENTS [...] BE BASED ON THE PRIMARY CLINICAL RECORDS. [facility] [employer] [facility]. provides no warranty or guarantee of the accuracy or completeness of information in this document.
== END 2024-04-21 11:55 | disposition home or self-care (01) ==
LOC: FBCO 05:13 → FBC 11:13
PROVIDERS: Visit Provider Obstetrics & Gynecology
DX: O99.283 Endocrine, nutritional and metabolic diseases complicating pregnancy, third trimester (principal)
CPT/HCPCS: 59025

== ENCOUNTER 2024-04-24 05:58 | Outpatient (OUT) | payer OTHER, SELFPAY ==
--- OUTSIDE RECORDS SUMMARY | 2024-04-24 06:03 | XMS_ITS | CCD ---
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 Name Role Phone JAIDA, DR QUINTANILLA Attending [...] UA Negative Negative - 1999(110) ++++ mg/dL [facility] Interpretation and review of laboratory results Abnormal [facility] Healthcare Ketones, UA Positive Negative - 160(16) ++++ mg/dL [facility] Comment on above: 15 Leukocytes, UA Trace Negative - 500+++ Reji/mcL [facility] Healthcare Nitrite, UA Negative Negative - Positive [facility] pH, UA 7 5 - 9 [facility] Protein, UA Negative Negative - 1999(20) ++++ mg/dL [facility] Spec Grav, UA 1.02 1 - 1.03 [facility] Health care Urobilinogen, UA 1.0 0.2 - 12 mg/dL [facility] Urinalysis macro (dipstick) panel (U)on 03-29-2024 Bilirubin, UA Positive Negative - 4(70) +++ mg/dL [facility] Comment on above: small Blood, UA Negative Negative - 50 Álvaro/mcL [facility] Healthcare Clarity, UA Clear [facility] re Color, UA Yellow [facility] Glucose, UA Negative Negative - 1999(110) ++++ mg/dL [facility] Interpretation and review of laboratory results Abnormal [facility] Ketones, UA Positive Negative - 160(16) ++++ mg/dL [facility] Comment on above: 40 Leukocytes, UA Negative Negative - 500+++ Reji/mcL [facility] Healthcare Nitrite, UA Negative Negative - Positive [facility] pH, UA 7 5 - 9 [facility] Protein, UA Positive Negative - 1999(20) ++++ mg/dL [facility] Comment on above: 30 Spec Grav, UA 1.025 1 - 1.03 [facility] Health care Urobilinogen, UA 0.2 0.2 - 12 mg/dL [facility] Urinalysis macro (dipstick) panel (U)on 03-16-2024 Bilirubin, UA Negative Negative - 4(70) +++ mg/dL [facility] Blood, UA Negative Negative - 50 Álvaro/mcL [facility] Healthcare Clarity, UA Clear [facility] re Color, UA Yellow [facility] Glucose, UA Negative Negative - 1999(110) ++++ mg/dL [facility] Interpretation and review of laboratory results Abnormal [facility] Ketones, UA Negative Negative - 160(16) ++++ mg/dL [facility] Leukocytes, UA Negative Negative - 500+++ Reji/mcL [facility] Nitrite, UA Negative Negative - Positive [facility] pH, UA 7 5 - 9 [facility] Protein, UA Negative Negative - 1999(20) ++++ mg/dL [facility] Spec Grav, UA 1.02 1 - 1.03 [facility] Urobilinogen, UA 1.0 0.2 - 12 mg/dL [facility] Urinalysis macro (dipstick) panel (U)on 03-01-2024 Bilirubin, UA Negative Negative - 4(70) +++ mg/dL [facility] Blood, UA Negative Negative - 50 Álvaro/mcL [facility] Clarity, UA Clear [facility] re Color, UA Yellow [facility] e Glucose, UA Negative Negative - 1999(110) ++++ mg/dL [facility] Interpretation and review of laboratory results Abnormal [facility] Ketones, UA Negative Negative - 160(16) ++++ mg/dL [facility] Leukocytes, UA Trace Negative - 500+++ Reji/mcL [facility] Nitrite, UA Negative Negative - Positive [facility] pH, UA 7 5 - [facility], UA Negative Negative - 1999(20) ++++ mg/dL [facility] Spec Grav, UA 1.015 1 - 1.03 [facility] Urobilinogen, UA 0.2 0.2 - 12 mg/dL [facility] GLUCOSE TOLERANCE 3 HOURon GLUCOSE TOLERANCE 3 HOUR High mg/dL [facility] Comment on above: GLU FAST 98H (<95) C ol: 02/22/24 0919 GLU 1HR 193H (<180) Col: 02/22/24 1020 GLU 2HR 179H (<155) Col: 02/22/24 1119 GLU 3HR 71 (<140) Col: 02/22/24 1220 Interpretation and review of laboratory results Abnormal [facility] e ALL CBC WITH AUTO DIFFon BASOPHILS ABSOLUTE AUTO 0 [facility] Basophils/100 WBC (Bld) 0.3 % 0.2 - 2.0 % [facility] Eosinophils/100 WBC (Bld) 0.3 % Low 0.9 - 7.0 % [facility] Erythrocyte distribution width (RBC) [Ratio] 12.8 % 11.0 - 15.0 % [facility] Hematocrit (Bld) [Volume fraction] 32.9 % Low 36.0 - 48.0 % [facility] Hemoglobin (Bld) [Mass/Vol] 10.9 g/dL Low 12.0 - 16.0 g/dL [facility] IMMATURE GRANULOCYTES ABS AUTO 0.13 High [facility] Immature granulocytes/100 WBC (Bld) 1.1 % High 0.0 - 0.5 % [facility] Interpretation and review of laboratory results Abnormal [facility] LYMPHOCYTES ABSOLUTE AUTO 1.1 Low [facility] Lymphocytes/100 WBC (Bld) 9.3 % Low 20.5 - 60.0 % [facility] MCH (RBC) [Entitic mass] 29.9 pg 26.7 - 34.0 pg [facility] MCHC (RBC) [Mass/Vol] 33.1 g/dL 29.9 - 35.2 g/dL [facility] MCV (RBC) [Entitic vol] 90.4 fL 81.0 - 99.0 fL [facility] MONOCYTES ABSOLUTE AUTO 0.4 [facility] Monocytes/100 WBC (Bld) 3.1 % 1.7 - 12.0 % [facility] NEUTROPHILS ABSOLUTE AUTO 10 High [facility] Neutrophils/100 WBC (Bld) 85.9 % High 43.0 - 75.0 % [facility] Platelet mean volume (Bld) [Entitic vol] 9.5 fL 9.5 - 13.[address] [facility] EO # 0 [facility] TB PLT 299 [facility] TB RBC 3.64 Low [facility] TB WBC 11.6 High [facility] e Urinalysis macro (dipstick) panel (U)on 02-02-2024 Bilirubin, UA Negative Negative - 4(70) +++ mg/dL [facility] Blood, UA Negative Negative - 50 Álvaro/mcL [facility] Clarity, UA Clear [facility] Color, UA Yellow [facility] Glucose, UA Negative Negative - 2000(110) ++++ mg/dL [facility] Interpretation and review of laboratory results Normal [facility] Ketones, UA Negative Negative - 160(16) ++++ mg/dL [facility] Leukocytes, UA Negative Negative - 500+++ Reji/mcL [facility] Nitrite, UA Negative Negative - Positive [facility] pH, UA 5.5 5 - 9 [facility] e Protein, UA Negative Negative - 2000(20) ++++ mg/dL [facility] Spec Grav, UA 1.010 1 - 1.03 [facility] Urobilinogen, UA 0.2 0.2 - 12 mg/dL [facility] AFP, SERUM, OPEN SPINA BIFID Aon 01-30-2024 AFP MOM 0.83 . [facility] AFP VALUE 54.5 ng/mL . [facility] COMMENT: Comment . [facility] Comment on above: Siria Davis , Ph.D., [facility] Director References: Available Upon Request. Multiples Of Median Cutoffs For AFP Elevations Espinoza 2.5 Black 2.8 IDD 2.0 Twins 4.5 Abbreviation Definitions IDD - Insulin Dep Diabetes OSBR - Open Spina Bifida Risk For further inquiries contact [email or web address] [facility] [facility] at [phone]. This test was developed and its performance characteristics determined by [employer]. It has not been cleared or approved by the Food and Drug Administration. Performed at: [facility] [address] [id number] Senior Technical Program Manager: Luis Kelly [facility], Phone: [phone] GEST. AGE ON COLLECTION DATE 21.7 . weeks [facility] GESTAT. AGE BASED ON LMP . [facility] Comment on above: Recalculations are n ot recommended when gestational dating by LMP and ultrasound are within 10 days. INSULIN DEP DIABETES No . [facility] INTERPRETATION Comment . [facility]alt [facility] Comment on above: Interpretation: [...] Customer Services to discuss available options. The [place] [employer] recommends amniocentesis be offered to women age 35 and older. [age] [facility] MULTIPLE GESTATION No . [facility] [place] [address] [place] [phone] . [facility]alt [facility] RACE . [facility] Lumora e RESULTS Report . [facility] dineoutcar e TEST RESULTS: Negative . [facility] Health care WEIGHT 165 . lbs [facility] Health[facility] e N N LMP [id number] 4 18 N 1 Y 165 N N N N N White/ [facility] dineoutcar e IGP,APTIMA HPV,AGE GDLNon AGE GDLN ACOG TESTING Note . [facility] Comment on above: TESTS RESULT FLAG UN ITS REF RANGE LAB Clinician Provided Cytology Information Source.............Cervix No. of containers..01 ThinPrep Vial Age Algo ACOG Elizabeth... 30-65 01 FLAG LEGEND: L-Low Normal,H-High Normal,LL-Alert Low,HH-Alert High <-Panic Low,>-Panic High,A-Abnormal,AA-Critical Abnormal Performed at: 01 =G [facility] [place] [address] Lexie Nichols MD, HPV APTIMA Negative Negative [facility] dineoutcar e Comment on above: This nucleic acid am plification test detects fourteen high- risk HPV types (16,18,31,33,35,39,45,51,52,56,58,59,66,68) without differentiation. Performed at: =G - [facility] [id number] Senior Technical Program Manager: Lexie Nichols MD, Phone: [phone] Performed at: - [facility], [place] [id number] Senior Technical Program Manager: Lexie Nichols MD, Phone: [phone] IGP, APTIMA HPV, RFX 16/18,45 Note . [facility] Comment on above: TESTS RESULT FLAG UN ITS REF RANGE LAB DIAGNOSIS: 02 NEGATIVE FOR INTRAEPITHELIAL LESION OR MALIGNANCY. Specimen adequacy: 02 Satisfactory for evaluation. No endocervical component is identified. Performed by: 02 Lizzy Hutchinson, Associate Account Director (ASC) . 02 Note: Note 02 The [...] Low,>-Panic High,A-Abnormal,AA-Critical Abnormal Performed at: 02 [facility] [place] [address] [facility] [place] [address] Lexie Nichols MD, BRUSH-ALONE CERVIX [facility] Healthcar e URETHRITIS/DISCHARGE PLUS VA GINITIS (HTRX)on 01-08-2024 ATOPOBIUM VAGINAE 0.000 [facility] ATOPOBIUM VAGINAE Not detected [facility] Healthcare BVAB 2,3 (BACTERIAL VAGINOSIS ASSOCIATED BACTERIA 2, 3); MOBILUNCUS SPP 0.000 [facility] BVAB 2,3 (BACTERIAL VAGINOSIS ASSOCIATED BACTERIA 2, 3); MOBILUNCUS SPP Not detected [facility] EMMY ALBICANS, PARAPSILOSIS, TROPICALIS 29.274 Abnormal [facility] EMMY ALBICANS, PARAPSILOSIS, TROPICALIS Detected Abnormal [facility] EMMY GLABRATA 0.000 [facility] EMMY GLABRATA Not detected [facility] EMMY KRUSEI 0.000 [facility] EMMY KRUSEI Not detected [facility] CHLAMYDIA TRACHOMATIS 0.000 [facility] CHLAMYDIA TRACHOMATIS Not detected [facility] GARDNERELLA VAGINALIS 0.000 [facility] GARDNERELLA VAGINALIS Not detected [facility] Interpretation and review of laboratory results Abnormal [facility] MEGASPHAERA (TYPES 1, 2) 0.000 [facility] MEGASPHAERA (TYPES 1, 2) Not detected [facility] MYCOPLASMA GENITALIUM 0.000 [facility] MYCOPLASMA GENITALIUM Not detected [facility] NEISSERIA GONORRHOEAE 0.000 [facility] NEISSERIA GONORRHOEAE Not detected [facility] TRICHOMONAS VAGINALIS 0.000 [facility] TRICHOMONAS VAGINALIS Not detected [facility] e Urinalysis macro (dipstick) panel (U)on 01-05-2024 Bilirubin, UA Negative Negative - 4(70) +++ mg/dL [facility] Blood, UA Negative Negative - 50 Álvaro/mcL [facility] Clarity, UA Clear [facility] re Color, UA Yellow [facility] Health[facility] e Glucose, UA Negative Negative - 2000(110) ++++ mg/dL [facility] Interpretation and review of laboratory results Abnormal [facility] Ketones, UA Negative Negative - 160(16) ++++ mg/dL [facility] Leukocytes, UA Trace Negative - 500+++ Reji/mcL [facility] Nitrite, UA Negative Negative - Positive [facility] pH, UA 6.5 5 - [address] [facility] Protein, UA Negative Negative - 2000(20) ++++ mg/dL [facility] Spec Grav, UA 1.025 1 - 1.03 [facility] Urobilinogen, UA 0.2 0.2 - 12 mg/dL [facility] PAP ACOG PANEL 2: 30 to 65on 11-13-2021 . . Normal [facility] Comment on above: Result Comment: Perf ormed at: WB Performed By: #### [id number] #### [facility] [address] [address] [address] Abby Campoverde Age Gdln ACOG Testing 30-65 [facility] Comment on above: Performed By: #### [id number] #### [facility] [address] [address] [address] Abby Campoverde DIAGNOSIS: Comment [facility] Comment on above: Result Comment: NEGA TIVE FOR INTRAEPITHELIAL LESION OR MALIGNANCY. Performed at: WB Performed By: #### [id number] #### [facility] [address] [address] [address] Abby Campoverde HPV Aptima Negative Normal [facility] Comment on above: Result Comment: This nucleic acid amplification test detects fourteen high-risk HPV types (16,18,31,33,35,39,45,51,52,56,58,59,66,68) without differentiation. Performed at: =G Performed By: #### [id number] #### [facility] [address] [address] [address] Abby Campoverde Methodology: Comment [facility] Comment on above: Result Comment: This liquid based ThinPrep(R) pap test was screened with the use of an image guided system. Performed at: WB Performed By: #### [id number] #### [facility] [address] [address] [address] Abby Campoverde Note: Comment Normal [facility] Comment on above: Result Comment: The Pap smear is a screening test designed to aid in the detection of premalignant and malignant conditions of the uterine cervix. It is not a diagnostic procedure and should not be used as the sole means of detecting cervical cancer. Both false-positive and false-negative reports do occur. . Performed at: WB Performed By: #### [id number] #### [facility] [address] [place] [address] Dr. Abby Campoverde Performed by: Comment Normal [facility] Comment on above: Result Comment: Madisyn Sherman, Associate Account Director (ASCP) Performed at: WB Performed By: #### [id number] #### [facility] [address] [address] [address] Abby Campoverde Specimen adequacy: Comment Normal [facility] Comment on above: Result Comment: Sati sfactory for evaluation. Endocervical and/or squamous metaplastic cells (endocervical component) are present. Performed at: WB Performed By: #### [id number] #### [facility] [address] [place] [address] Dr. Abby Campoverde [facility]on 10-01 SARS-CoV-2 (COVID-19) RNA ABDI+probe Ql (Unsp spec) Not detected Normal NOT DETECTED [facility] Comment on above: Result Comment: This test is not yet approved or cleared by the [place] FDA. When there are no FDA-approved or cleared tests available, and other criteria are met, FDA can make tests available under an emergency access mechanism called an Emergency Use Authorization (EUA). The EUA for this test is supported by the [place] of Health and Human Service's (HHS's) declaration [...] SARS-CoV-2. Performed By: #### C VDTB #### [facility] [address] [place] [address] Dr. Abby Campoverde Vital Signs Date Time Vital Sign Value Performing Clinician Raymond adorno 04-12-2024 15:18-0500 Body mass index (BMI) [Ratio] 33.47 kg/m2 Isabella Elva DO Work Phone: [facility] 04-12-2024 15:18-0500 Body weight 83.01 kg Isabella Elva DO Work Phone: [facility] 04-12-2024 15:18-0500 Diastolic blood pressure 78 mm[Hg] Isabella Elva DO Work Phone: [facility] 04-12-2024 15:18-0500 Systolic blood pressure 126 mm[Hg] Isabella Elva DO Work Phone: [facility] 03-29-2024 14:09-0500 Body mass index (BMI) [Ratio] 33 kg/m2 Isabella Elva DO Work Phone: [facility] 03-29-2024 14:09-0500 Body weight 81.83 kg Isabella Elva DO Work Phone: [facility] 03-29-2024 14:09-0500 Diastolic blood pressure 70 mm[Hg] Isabella Elva DO Work Phone: [facility] 03-29-2024 14:09-0500 Systolic blood pressure 120 mm[Hg] Isabella Elva DO Work Phone: [facility] 03-16-2024 10:04-0500 Body mass index (BMI) [Ratio] 33.13 kg/m2 Isabella Elva DO Work Phone: [facility] 03-16-2024 10:04-0500 Body weight 82.16 kg Isabella Elva DO Work Phone: [facility] 03-16-2024 10:04-0500 Diastolic blood pressure 80 mm[Hg] Isabella Elva DO Work Phone: [facility] 03-16-2024 10:04-0500 Systolic blood pressure 130 mm[Hg] Isabella Elva DO Work Phone: [facility] 03-01-2024 09:57-0400 Body mass index (BMI) [Ratio] 32.74 kg/m2 Tiffani Antioch PA Work Phone: [facility] 03-01-2024 09:57-0400 Body weight 81.19 kg Tiffani Huy PA Work Phone: [facility] 03-01-2024 09:57-0400 Diastolic blood pressure 80 mm[Hg] Tiffani Huy PA Work Phone: [facility] 03-01-2024 09:57-0400 Systolic blood pressure 122 mm[Hg] Tiffani Antioch PA Work Phone: [facility] 02-02-2024 15:46-0400 Body mass index (BMI) [Ratio] 32.01 kg/m2 Tiffani Huy PA Work Phone: [facility] 02-02-2024 15:46-0400 Body weight 79.38 kg Tiffani Antioch PA Work Phone: [facility] 02-02-2024 15:46-0400 Diastolic blood pressure 76 mm[Hg] Tiffani Antioch PA Work Phone: [facility] 02-02-2024 15:46-0400 Systolic blood pressure 126 mm[Hg] Tiffani Huy PA Work Phone: [facility] 01-05-2024 14:31-0400 Body mass index (BMI) [Ratio] 30.32 kg/m2 Isabella Elva DO Work Phone: [facility] 01-05-2024 14:31-0400 Body weight 75.18 kg Isabella Elva DO Work Phone: [facility] 01-05-2024 14:31-0400 Diastolic blood pressure 82 mm[Hg] Isabella Elva DO Work Phone: [facility] 01-05-2024 14:31-0400 Systolic blood pressure 126 mm[Hg] [...] Bamboo flowsheet Isabella Elva DO Work Phone: [facility] Start: 03-29-2024 End: 03-29-2024 Bamboo flowsheet Isabella Elva DO Work Phone: [facility] Start: 03-29-2024 End: 03-29-2024 flow sheet Isabella Elva DO Work Phone: [facility] Comment on above: 30 weeks gestation o f ; Third trimester ; Sinusitis, unspecified chronicity, unspecified location; Gastroesophageal reflux in Start: 03-29-2024 End: 03-29-2024 ambulatory ISABELLA ELVA Not Available Start: 03-16-2024 End: 03-16-2024 Bamboo flowsheet Isabella Elva DO Work Phone: [facility] Start: 03-16-2024 End: 03-16-2024 Bamboo [...] 03-01-2024 Bamboo flowsheet Tiffani ALVARENGA Work Phone: [facility] Start: 03-01-2024 End: 03-01-2024 flow sheet Tiffani Huy PA Work Phone: [facility] Comment on above: Second trimester pre gnancy; 26 weeks gestation of ; Gestational diabetes mellitus (GDM), antepartum, gestational diabetes method of control unspecified; Elevated glucose tolerance test Start: 03-01-2024 End: 03-01-2024 ambulatory TIFFANI SON Not Available Start: 02-22-2024 End: 02-22-2024 [facility] Result Encounter Tiffani ALVARENGA Work Phone: [facility] External Department Unsolicited Start: 02-22-2024 End: 02-22-2024 [facility]inis[facility] Result Encounter Tiffani ALVARENGA Work Phone: [facility] External Department Unsolicited Start: 02-16-2024 End: 02-16-2024 Clinisync Result Encounter Tiffani Huy COLETTE Work Phone: [facility] External Department Unsolicited Start: 02-16-2024 End: 02-16-2024 [facility]inisync Result Encounter Tiffani Huy COLETTE Work Phone: [facility] External Department Unsolicited Start: 02-02-2024 End: 02-02-2024 flow sheet Tiffani Antioch PA Work Phone: [facility] OB Comment on above: Second trimester pre gnancy; 22 weeks gestation of ; Diabetes mellitus screening Start: 02-02-2024 End: 02-02-2024 ambulatory TIFFANI PERESEY Not Available Start: 02-02-2024 End: 02-02-2024 Bamboo flowsheet Tiffani Son PA Work Phone: [facility] OB Start: 02-02-2024 End: 02-02-2024 Bamboo flowsheet Tiffani Antioch PA Work Phone: [facility] Start: 01-27-2024 End: 01-30-2024 [...] encounter procedure Isabella Elva DO Work Phone: [facility] Healthcare Start: 01-05-2024 End: 01-05-2024 Periodic preventive [...] 01-27-2024 AFP, SERUM, OPEN SPI NA [facility] Work Phone: Start: 01-05-2024 Urnls dip stick/tabl et rgnt non-auto w/o micrscp [facility] Work Phone: Start: 01-05-2024 IGP,APTIMA HPV,AGE GDLN [facility] DO Work Phone: Start: 01-05-2024 Microscopic observat ion [Identifier] in Cervix by Cyto stain [facility] DO Work Phone: Start: 01-05-2024 URETHRITIS/DISCHARGE PLUS VAGINITIS (HTRX) [facility] DO Work Phone: Plan of Treatment Date Care Activity Detail Author Start: 01-04-2027 Screening for malign ant neoplasm of cervix [facility] Start: 10-15-2025 Screening for malign ant neoplasm of cervix [facility] Start: 04-27-2024 End: 04-27-2024 Patient encounter procedure 04/27/2024 11:10 AM EST Routine [facility] [address] [place] [id number] Isabella Stevenson, DO [address] [place] [address] [facility] Start: 04-12-2024 End: 04-12-2024 Patient encounter procedure 04/12/2024 2:20 PM EST Routine [facility] [address] [place] [id number] Isabella Stevenson, DO [address] [place] [address] [facility] Start: 04-12-2024 End: 04-12-2025 [...] [facility] [address] [place] [id number] [facility] Start: 03-16-2024 End: 03-16-2024 Patient encounter procedure 03/16/2024 9:50 AM EST Routine [facility] [address] [place] [phone] Isabella Stevenson, DO [address] [place] [address] [facility] Start: 03-01-2024 End: 03-01-2025 [...] mellitus screening Expected: 02/02/2024 (Approximate), Expires: 02/01/2025 [facility] Comment on above: Expected: 02/02/2024 (Approximate), Expires: 02/01/2025 Start: 02-02-2024 End: 02-02-2024 Professional / ancillary services management 02/02/2024 2:00 PM EDT Ancillary Procedure [facility] [address] [place] [address] [place] [address] [facility] Start: 01-05-2024 End: 01-04-2025 Alpha fetoprotein, maternal Alpha fetoprotein, maternal Lab Routine Second trimester Expected: 01/05/2024 (Approximate), Expires: 01/04/2025 [facility] Comment on above: Expected: 01/05/2024 (Approximate), Expires: 01/04/2025 Start: 01-05-2024 End: 01-04-2025 US for US OB ANATOMY SINGLE W US OB CERVICAL LENGTH Imaging Routine Screening, , for anatomic survey Expected: 01/05/2024 (Approximate), Expires: 01/04/2025 [facility] Comment on above: Expected: 01/05/2024 (Approximate), Expires: 01/04/2025 Start: 01-05-2024 End: 01-05-2024 Patient encounter procedure 01/05/2024 1:50 PM EDT Routine [facility] [address] [facility] [place] [place] [address] Isabella Stevenson, DO [address] [facility] [place] [address] Arrived [facility] Comment on above: Arrived Start: 01-02-2024 Influenza vaccination Influenza Vacc ine (#1) [facility] Start: 2012 Screening for malign ant neoplasm of cervix Pap Smear [facility] CHLAMYDIA TRACHOMATI S (GENITO/STI) CHLAMYDIA TRACHOMATIS (GENITO/STI) Lab Routine Second trimester Screen for STD (sexually transmitted disease) Vaginal discharge Ordered: 01/05/2024 [facility] Comment on above: Ordered: 01/05/2024 Cytology Cervical or vaginal smear or scraping study Pap Smear Pathology and Cytology Routine Well woman exam with routine gynecological exam Ordered: 01/05/2024 [facility] Work Phone: Comment on above: Ordered: 01/05/2024 Human papilloma viru s DNA [Presence] in Unspecified specimen by Probe with amplification HPV DNA probe, amplified Microbiology Routine Well woman exam with routine gynecological exam Ordered: 01/05/2024 [facility] Comment on above: Ordered: 01/05/2024 Neisseria gonorrhoea e DNA [Presence] in Unspecified specimen by ABDI with probe detection Neisseria gonorrhea DNA probe, direct Lab Routine Second trimester Screen for STD (sexually transmitted disease) Vaginal discharge Ordered: 01/05/2024 [facility] Comment on above: Ordered: 01/05/2024 SURESWAB(R) ADVANCED VAGINITIS PLUS, TMA SURESWAB(R) ADVANCED VAGINITIS PLUS, TMA Pathology and Cytology Routine Second trimester Screen for STD (sexually transmitted disease) Vaginal discharge Ordered: 01/05/2024 [facility] Comment on above: Ordered: 01/05/2024 Payers Date Payer Category Payer Private Health Insurance [employer] [id number] 2022 Unknown [employer] [id number] 2022-Present [address] [place] [address] [id number] 1991 Unknown [id number] 1991 Unknown [id number] 1991 Unknown [id number]. 1259 1990 Unknown [id number] 2.16.840.1.354446.3.579.2. 1259 1990 Unknown [id number] 2.16.840.1.405768.3.579.2. 9 1991 Unknown [id number] 2.16.840.1.746666.3.579.2. 1259 1990 Unknown [id number] 2.16.840.1.664140.3.579.2. 1259 1991 Unknown [id number] 2.16.840.1.985425.3.579.2. 1259 1991 Unknown [id number] 2.16.840.1.079966.3.579.2. 1259 1991 Unknown [id number] 2.16.840.1.004249.3.579.2. 1259 1959 Unknown [id number] Social History Date Type Detail Facility Start: [...] Text Equipment Identifier Dates Use as instructed [id number] Start: 03-01-2024 End: 03-01-2025 1 each by In Vit ro route Daily Use to check FSBS four times daily [id number] Start: 03-01-2024 End: 03-31-2024 Clinical Notes 01-05-2024 [...] tablet As directed Blood Glucose Monitoring Suppl (Base CRM Glucometer) w/Device kit 1 kit, Does not [...] nursing note reviewed. Exam conducted with a sustainable development policy analyst present. Vitals: Estimated body mass index is [...] Isabella Stevenson DO documented in this encounter [facility] 03-29-2024 History of Presen t illness Narrative [...] tablet As directed Blood Glucose Monitoring Suppl (Base CRM Glucometer) w/Device kit 1 kit, Does not [...] nursing note reviewed. Exam conducted with a sustainable development policy analyst present. Vitals: Estimated body mass index is [...] Isabella Stevenson DO documented in this encounter [facility] 03-16-2024 History of Presen t illness Narrative [...] 81 mg, Daily Blood Glucose Monitoring Suppl (Base CRM Glucometer) w/Device kit 1 kit, Does not [...] nursing note reviewed. Exam conducted with a sustainable development policy analyst present. Vitals: Estimated body mass index is [...] Isabella Stevenson DO documented in this encounter [facility] 03-01-2024 History of Presen t illness Narrative [...] glucose tolerance test R73.09 Lancets Ultra Thin [facility] Alcohol Swabs (Alcohol Prep Pad) 70 % [...] to Diabetic Edu was sent over to [facility]. Pt was made aware diabetic supplies were sent to pharmacy today and to picker machine operator when ready. Pt was advised to make sure to take her supplies w/her to her appt when she gets scheduled by Kristal Yee RN at [facility]. Pt verbally understood. Growth US was given to patient today to have done at 28 weeks to schedule at [facility]. Orders Placed This Encounter Procedures POCT urinalysis dipstick manually resulted Follow Up: Patient is to return to office in 2 week for routine OB appointment. Documented by Tosin Carvalho MA on behalf of: COLETTE Almonte documented in this encounter [facility] 02-02-2024 History of Presen t illness Narrative [...] of: COLETTE Almonte documented in this encounter [facility] 01-05-2024 History of Presen t illness Narrative [...] Vandana Heart disease Father Cancer Maternal Grandfather Gonaslo Asthma Maternal Grandmother Linda Thyroid disease Maternal [...] nursing note reviewed. Exam conducted with a sustainable development policy analyst present. Vitals: Estimated body mass index is [...] DATE CREATED AUTHOR AUTHOR'S ORGANIZ ATION 04/15/2024 [facility] EPIC Reason for Visit (unrecogniz ed section and content) Reason Comments Routine Visit Care Teams (unrecognized sec tion and content) Glue Bone Crusher Relationship Specialty Start Date End Date Hima Sena MD [address] [address] PCP - General Family Medicine 09/08/22 Glue Bone Crusher Relationship Specialty Start Date End Date Hima Sena MD [address] [facility] [address] [place] [address] PCP - General Family Medicine 09/08/22 Glue Bone Crusher Relationship Specialty Start Date End Date Hima Sena MD [address] [facility] [address] [place] [address] PCP - General Family Medicine 09/08/22 Glue Bone Crusher Relationship Specialty Start Date End Date Hima Sena MD [address] [facility] [address] [place] [address] PCP - [facility] Medicine 09/08/22 Glue Bone Crusher Relationship Specialty Start Date End Date Hima Sena MD [address] [facility] [address] [place] [address] PCP - [facility] 09/08/22 Glue Bone Crusher Relationship Specialty Start Date End Date Hima Sena MD [address] [facility] [address] [place] [address] PCP - [facility] 09/08/22 Glue Bone Crusher Relationship Specialty Start Date End Date Hima Sena MD [address] [facility] [address] [place] [address] PCP - [facility] 09/08/22 Glue Bone Crusher Relationship Specialty Start Date End Date Hima Sena MD [address] [facility] [address] [place] [address] PCP - [facility] 09/08/22 Glue Bone Crusher Relationship Specialty Start Date End Date Hima Sena MD [address] [facility] [address] [place] [address] PCP - [facility] 09/08/22 Glue Bone Crusher Relationship Specialty Start Date End Date Hima Sena MD [address] [facility] [address] [place] [address] PCP - [facility] Medicine 09/08/22 FOR RECORDS PERTAINING TO PATIENTS [...] BE BASED ON THE PRIMARY CLINICAL RECORDS. [facility]. provides no warranty or guarantee of the accuracy or completeness of information in this document.
--- NOTE | 2024-04-24 19:05 | US_ITS ---
[address] [address] Patient Name: SUSU RAUSCH MRN: [id number] date: 1990 Sex: F Assigned Patient Location: [facility] Current Patient Location: Accession/Order Number: [id number] Exam Date: 04/24/2024 19:08 Report Date: 04/27/2024 07:56 At the request of: ISABELLA LIRIANO Procedure: US OB BPP w non-stress EXAMINATION: US OB BPP w non-stress HISTORY:DIET CONTROLLED GDM O24.410 COMPARISON: Ultrasound OB biophysical 04/18/2024 TECHNIQUE: Ultrasound biophysical profile was performed in the radiology department. BREATHING MOVEMENTS: 2 GROSS BODY MOVEMENTS: 2 TONE: 2 QUALITATIVE AMNIOTIC FLUID VOLUME: 2 PRESENTATION: CEPHALIC HEART RATE: 171.97 bpm AMNIOTIC FLUID VOLUME: 11.06 cm GESTATIONAL AGE: 34 weeks 2 days US/US OB BPP w non-stress IMPRESSION: Total biophysical profile score: 8 Electronically authenticated by: DARREN LIRIANO Date: 04/27/2024 07:56
--- NOTE | 2024-04-24 19:17 | US_ITS ---
[address] [address] Patient Name: SUSU RAUSCH MRN: [id number] date: 1990 Sex: F [place] [facility] [place] Patient Location: Accession/Order Number: [id number] Exam Date: 04/24/2024 19:08 Report Date: 04/27/2024 07:55 At the request of: ISABELLA LIRIANO Procedure: US OB growth EXAMINATION: US OB growth HISTORY: GDM COMPARISON: ULTRASOUND OB GROWTH 03/29/2024 FINDINGS: Heart Rate: 171.97 bpm Amniotic Fluid Volume: 11.1 cm; normal range. Number: 1 Position: CEPHALIC BIOMETRY: BPD: 8.75 cm; 35 weeks 2 days; 78.10 % HC: 31.97 cm; 36 weeks 0 days; 59 % AC: 33.30 cm; 37 weeks 1 day; >97 % FL: 6.62 cm; 34 weeks 1 day; 35.20 % EFW: 2850.23 g; 90.70 % FL/AC: 19.88 FL/BPD: 75.63 HC/AC: 0.96 GESTATIONAL AGE: Age by EDC: 34 weeks 2 days DOUGLAS by EDC: 2024-06-03 Age by US: 35 weeks 5 days DOUGLAS by US: 2024-05-24 US/US OB growth IMPRESSION: 1. Single live intrauterine with growth detailed above. 2. Abdominal circumference is greater than 97th percentile. Electronically authenticated by: DARREN LIRIANO Date: 04/27/2024 07:55
[2024-04-24 20:06] VITALS: BP 143/79; PULSE 101
== END 2024-04-24 20:07 | disposition home or self-care (01) ==
LOC: US 05:59 → FBCO 06:04 → FBC 19:00
PROVIDERS: Visit Provider Obstetrics & Gynecology
DX: O24.410 Gestational diabetes mellitus in pregnancy, diet controlled (principal); Z3A.35 35 weeks gestation of pregnancy
CPT/HCPCS: 76816; 76818

== ENCOUNTER 2024-04-28 00:07 | Outpatient (OUT) | payer OTHER, SELFPAY ==
--- OUTSIDE RECORDS SUMMARY | 2024-04-28 00:10 | XMS_ITS | CCD ---
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 Role Phone JAIDA, DR QUINTANILLA Attending [...] aspirin 81 mg delayed release oral tablet (17 sources) Platelet Aggregation Inhibitor, Nonsteroidal Anti-inflammatory Drug take 1 tablet by mouth once daily aspirin 81 MG EC tablet Take 81 mg by mouth Daily Active azithromycin 250 mg oral tablet (6 sources) Macrolide Antimicrobial Start: 03-29-2024 End: 04-27-2024 azithromycin (Zithromax Z-Padilla) 250 MG tablet Indications: Sinusitis, unspecified chronicity, unspecified location As directed 6 tablet 03/29/2024 04/27/2024 Discontinued Blood Glucose Monitoring Suppl (D-Care Glucometer) w/Device kit (12 sources) Start: 03-01-2024 End: 03-01-2025 Blood Glucose [...] 1 kit 03/01/2024 03/01/2025 Active ferrous sulfate (12 sources) take 1 tablet by mouth in the morning Ferrous Sulfate (IRON PO) Take 1 tablet by mouth in the morning. Active insulin detemir 100 unt/ml injectable solution (2 sources) Insulin Analog Start: 04-27-2024 End: 04-27-2024 inject 10 [IU] by subcutaneous injection at bedtime insulin detemir (Levemir) 100 UNIT/ML injection Indications: Gestational diabetes mellitus (GDM) affecting Inject 10 Units under the skin at bedtime 10 mL 12 04/27/2024 04/27/2024 Discontinued (Entered in error) insulin glargine 100 unt/ml injectable solution (2 sources) Insulin Analog Start: 04-27-2024 End: 05-27-2024 inject 10 [IU] by subcutaneous injection in the evening insulin glargine (Lantus) 100 UNIT/ML injection Indications: Hyperglycemia , GESTATIONAL DIABETES Inject 10 Units under the skin in the evening 3 mL 04/27/2024 05/27/2024 Active isopropyl alcohol 0.7 ml/ml medicated pad (12 sources) Start: 03-01-2024 Alcohol Swabs (Alcohol Prep Pad) 70 % pads Indications: Gestational diabetes mellitus (GDM), antepartum, gestational diabetes method of control unspecified , Elevated glucose tolerance test Apply 1 Pad topically Daily Use four times daily to check FSBS. 150 each 3 03/01/2024 Active magnesium oxide 400 mg oral tablet (20 sources) Start: 12-06-2023 End: 08-11-2024 take 1 tablet by mouth once daily magnesium oxide (Mag-Ox) 400 MG tablet Indications: Nonintractable headache, unspecified chronicity pattern, unspecified headache type TAKE 1 TABLET (400 MG) BY MOUTH DAILY 30 tablet 3 04/13/2024 08/11/2024 Active omeprazole 20 mg delayed release oral capsule (6 sources) Proton Pump Inhibitor Start: 03-29-2024 End: [...] tolerance complicating ; childbirth; or the puerperium (6 sources) Gestational diabetes mellitus; Translations: [Gestational diabetes mellitus in , unspecified control] 03-01-2024 Episodic Other complications of (2 sources) Gastroesophageal reflux disease in ; Translations: [Diseases of the digestive system complicating , unspecified trimester] 03-29-2024 Episodic Other and delivery including normal (14 sources) Second trimester ; Translations: [Encounter for [...] [32 weeks gestation of ] 04-12-2024 Episodic Residual codes; unclassified (2 sources) Gestation period, 34 weeks; Translations: [34 weeks gestation of ] 04-27-2024 Episodic Unclassified (3 sources) CONTACT W/AND (SUSP) [...] Range Facility Urinalysis macro (dipstick) panel (U)on 04-27-2024 Bilirubin, UA Negative Negative - 4(70) +++ mg/dL [facility] Blood, UA Negative Negative - 50 Álvaro/mcL [facility] Clarity, UA Clear [facility] re Color, UA Yellow [facility] e Glucose, UA Negative Negative - 1999(110) ++++ mg/dL [facility] Interpretation and review of laboratory results Abnormal [facility] Ketones, UA Negative Negative - 160(16) ++++ mg/dL [facility] Leukocytes, UA Trace Negative - 500+++ Reji/mcL [facility] Nitrite, UA Negative Negative - Positive [facility] pH, UA 6.5 5 - 9 [facility] e Protein, UA Negative Negative - 1999(20) ++++ mg/dL [facility] Spec Grav, UA 1.025 1 - 1.03 [facility] Urobilinogen, UA 1.0 0.2 - 12 mg/dL [facility] Urinalysis macro (dipstick) panel (U)on 04-12-2024 Bilirubin, UA Negative Negative - 4(70) +++ mg/dL [facility] Blood, UA Negative Negative - 50 Álvaro/mcL [facility] Clarity, UA Clear [facility] re Color, UA Yellow [facility] e Glucose, UA Negative Negative - 1999(110) ++++ mg/dL [facility] Interpretation and review of laboratory results Abnormal [facility] Ketones, UA Positive Negative - 160(16) ++++ mg/dL [facility] Comment on above: 15 Leukocytes, UA Trace Negative - 500+++ Reji/mcL [facility] Healthcare Nitrite, UA Negative Negative - Positive [facility] Healthcare pH, UA 7 5 - 9 [facility] Protein, UA Negative Negative - 1999(20) ++++ mg/dL [facility] Spec Grav, UA 1.02 1 - 1.03 [facility] Urobilinogen, UA 1.0 0.2 - 12 mg/dL [facility] Urinalysis macro (dipstick) panel (U)on 03-29-2024 Bilirubin, UA Positive Negative - 4(70) +++ mg/dL [facility] Comment on above: small Blood, UA Negative Negative - 50 Álvaro/mcL [facility] Healthcare Clarity, UA Clear [facility] re Color, UA Yellow [facility] Glucose, UA Negative Negative - 1999(110) ++++ mg/dL [facility] Interpretation and review of laboratory results Abnormal [facility] Ketones, UA Positive Negative - 160(16) ++++ mg/dL [facility] Comment on above: 40 Leukocytes, UA Negative Negative - 500+++ Reji/mcL [facility] Nitrite, UA Negative Negative - Positive [facility] pH, UA 7 5 - 9 [facility] Health[facility] e Protein, UA Positive Negative - 1999(20) ++++ mg/dL [facility] Comment on above: 30 Spec Grav, UA 1.025 1 - 1.03 [facility] Urobilinogen, UA 0.2 0.2 - 12 mg/dL [facility] Urinalysis macro (dipstick) panel (U)on 03-16-2024 Bilirubin, UA Negative Negative - 4(70) +++ mg/dL [facility] Blood, UA Negative Negative - 50 Álvaro/mcL [facility] Healthcare Clarity, UA Clear [facility] Color, UA Yellow [facility] Glucose, UA Negative Negative - 1999(110) ++++ mg/dL [facility] Interpretation and review of laboratory results Abnormal [facility] Ketones, UA Negative Negative - 160(16) ++++ mg/dL [facility] Leukocytes, UA Negative Negative - 500+++ Reji/mcL [facility] Healthcare Nitrite, UA Negative Negative - Positive [facility] pH, UA 7 5 - 9 [facility] Protein, UA Negative Negative - 1999(20) ++++ mg/dL [facility] Spec Grav, UA 1.02 1 - 1.03 [facility] Urobilinogen, UA 1.0 0.2 - 12 mg/dL [facility] e Urinalysis macro (dipstick) panel (U)on 03-01-2024 Bilirubin, UA Negative Negative - 4(70) +++ mg/dL [facility] Blood, UA Negative Negative - 50 Álvaro/mcL [facility] Clarity, UA Clear [facility] re Color, UA Yellow [facility] e Glucose, UA Negative Negative - 1999(110) ++++ mg/dL [facility] Interpretation and review of laboratory results Abnormal [facility] Ketones, UA Negative Negative - 160(16) ++++ mg/dL [facility] Leukocytes, UA Trace Negative - 500+++ Reji/mcL [facility] Nitrite, UA Negative Negative - Positive [facility] pH, UA 7 5 - 9 [facility] e Protein, UA Negative Negative - 1999(20) ++++ mg/dL [facility] Spec Grav, UA 1.015 1 - 1.03 [facility] Urobilinogen, UA 0.2 0.2 - 12 mg/dL [facility] Health[facility] e GLUCOSE TOLERANCE 3 HOURon GLUCOSE TOLERANCE 3 HOUR High mg/dL [facility] Comment on above: GLU FAST 98H (<95) C ol: 02/22/24 0919 GLU 1HR 193H (<180) Col: 02/22/24 1020 GLU 2HR 179H (<155) Col: 02/22/24 1119 GLU 3HR 71 (<140) Col: 02/22/24 1220 Interpretation and review of laboratory results Abnormal [facility] e ALL CBC WITH AUTO DIFFon BASOPHILS ABSOLUTE AUTO 0 [facility] Basophils/100 WBC (Bld) 0.3 % 0.2 - 2.0 % [facility] Eosinophils/100 WBC (Bld) 0.3 % Low 0.9 - 7.0 % [facility] Erythrocyte distribution width (RBC) [Ratio] 12.8 % 11.0 - 15.0 % [facility] Hematocrit (Bld) [Volume fraction] 32.9 % Low 36.0 - 48.0 % [facility] Health[facility] e Hemoglobin (Bld) [Mass/Vol] 10.9 g/dL Low 12.0 - 16.0 g/dL [facility] IMMATURE GRANULOCYTES ABS AUTO 0.13 High [facility] Immature granulocytes/100 WBC (Bld) 1.1 % High 0.0 - 0.5 % [facility] Interpretation and review of laboratory results Abnormal [facility] LYMPHOCYTES ABSOLUTE AUTO 1.1 Low [facility] Lymphocytes/100 WBC (Bld) 9.3 % Low 20.5 - 60.0 % [facility] MCH (RBC) [Entitic mass] 29.9 pg 26.7 - 34.0 pg [facility] MCHC (RBC) [Mass/Vol] 33.1 g/dL 29.9 - 35.2 g/dL [facility] MCV (RBC) [Entitic vol] 90.4 fL 81.0 - 99.0 fL [facility] MONOCYTES ABSOLUTE AUTO 0.4 [facility] Monocytes/100 WBC (Bld) 3.1 % 1.7 - 12.0 % [facility] NEUTROPHILS ABSOLUTE AUTO 10 High [facility] Neutrophils/100 WBC (Bld) 85.9 % High 43.0 - 75.0 % [facility] Platelet mean volume (Bld) [Entitic vol] 9.5 fL 9.5 - 13.5 fL [facility] EO # 0 [facility] TB PLT 299 [facility] Health[facility] e [facility] RBC 3.64 Low [facility] Healthcar e TB WBC 11.6 High [facility] Healthcar e [facility] Health[facility] e Urinalysis macro (dipstick) panel (U)on 02-02-2024 Bilirubin, UA Negative Negative - 4(70) +++ mg/dL [facility] Blood, UA Negative Negative - 50 Álvaro/mcL [facility] Clarity, UA Clear [facility] Healthca re Color, UA Yellow [facility] Health[facility] e Glucose, UA Negative Negative - 2000(110) ++++ mg/dL [facility] Interpretation and review of laboratory results Normal [facility] Ketones, UA Negative Negative - 160(16) ++++ mg/dL [facility] Leukocytes, UA Negative Negative - 500+++ Reji/mcL [facility] Nitrite, UA Negative Negative - Positive [facility] pH, UA 5.5 5 - 9 [facility] Protein, UA Negative Negative - 1999(20) ++++ mg/dL [facility] Spec Grav, UA 1.010 1 - 1.03 [facility] Urobilinogen, UA 0.2 0.2 - 12 mg/dL [facility] Health[facility] e AFP, SERUM, OPEN SPINA BIFID Aon 01-30-2024 AFP MOM 0.83 . [facility] [employer]ifiedcar e AFP VALUE 54.5 ng/mL . [facility] [employer] e COMMENT: Comment . [facility] Comment on above: Siria Davis , Ph.D., [facility] Director References: Available Upon Request. Multiples Of Median Cutoffs For AFP Elevations Espinoza 2.5 Black 2.8 IDD 2.0 Twins 4.5 Abbreviation Definitions IDD - Insulin Dep Diabetes OSBR - Open Spina Bifida Risk For further inquiries contact [employer] at [phone]. This test was developed and its performance characteristics determined by [employer]. It has not been cleared or approved by the Food and Drug Administration. Performed at: [facility] [employer] [address] [id number] Drill Instructor: Luis Kelly [facility], Phone: [phone] GEST. AGE ON COLLECTION DATE 21.7 . weeks [facility] GESTAT. AGE BASED ON LMP . [facility] Comment on above: Recalculations are n ot recommended when gestational dating by LMP and ultrasound are within 10 days. INSULIN DEP DIABETES No . [facility] INTERPRETATION Comment . [facility] Comment on above: Interpretation: Scre en Negative [...] Customer Services to discuss available options. The [place] [employer] recommends amniocentesis be offered to women age 35 and older. [age] [facility] MULTIPLE GESTATION No . [facility] H [facility] [place] [address] [place] [phone] . [facility] RACE . Amperion e RESULTS Report . [employer]per[employer] e TEST RESULTS: Negative . [facility] Health care WEIGHT 165 . lbs [facility] Healthcar e N N LMP [id number] 4 18 N 1 Y 165 N N N N N White/ [facility] e IGP,APTIMA HPV,AGE GDLNon AGE GDLN ACOG TESTING Note . [facility] Comment on above: TESTS RESULT FLAG UN ITS REF RANGE LAB Clinician Provided Cytology Information Source.............Cervix No. of containers..01 ThinPrep Vial Age Algo ACOG [place]... 30-65 01 FLAG LEGEND: L-Low Normal,H-High Normal,LL-Alert Low,HH-Alert High <-Panic Low,>-Panic High,A-Abnormal,AA-Critical Abnormal Performed at: 01 =G [address] [id number] eLxie Nichols MD, HPV APTIMA Negative Negative [facility] Comment on above: This nucleic acid am plification test detects fourteen high- risk HPV types (16,18,31,33,35,39,45,51,52,56,58,59,66,68) without differentiation. Performed at: =[facility] [id number] Drill Instructor: Lexie Nichols MD, Phone: [phone] Performed at: - [facility] [address], [place] [id number] Drill Instructor: Lexie Nichols MD, Phone: [phone] IGP, APTIMA HPV, RFX 16/18,45 Note . [facility] Comment on above: TESTS RESULT FLAG UN ITS REF RANGE LAB DIAGNOSIS: 02 NEGATIVE FOR INTRAEPITHELIAL LESION OR MALIGNANCY. Specimen adequacy: 02 Satisfactory for evaluation. No endocervical component is identified. Performed by: 02 Lizzy Hutchinson, Senior Electrical Designer (ASCP) . 02 Note: Note 02 The Pap [...] <-Panic Low,>-Panic High,A-Abnormal,AA-Critical Abnormal Performed at: 02 WB [facility] [address] [place] [address] Lexie Nichols MD, BRUSH-ALONE CERVIX [facility] Healthcar e URETHRITIS/DISCHARGE PLUS VA GINITIS (HTRX)on 01-08-2024 ATOPOBIUM VAGINAE 0.000 [facility] ATOPOBIUM VAGINAE Not detected [facility] BVAB 2,3 (BACTERIAL VAGINOSIS ASSOCIATED BACTERIA 2, 3); MOBILUNCUS SPP 0.000 [facility] BVAB 2,3 (BACTERIAL VAGINOSIS ASSOCIATED BACTERIA 2, 3); MOBILUNCUS SPP Not detected [facility] EMMY ALBICANS, PARAPSILOSIS, TROPICALIS 29.274 Abnormal [facility] EMMY ALBICANS, PARAPSILOSIS, TROPICALIS Detected Abnormal [facility] E[facility] GLABRATA [facility].000 [facility] GLABRATA Not detected [facility] EMMY KRUSEI 0.000 [facility] EMMY KRUSEI Not detected [facility] CHLAMYDIA TRACHOMATIS 0.000 [facility] CHLAMYDIA TRACHOMATIS Not detected [facility] GARDNERELLA VAGINALIS 0.000 [facility] GARDNERELLA VAGINALIS Not detected [facility] Interpretation and review of laboratory results Abnormal [facility] MEGASPHAERA (TYPES 1, 2) 0.000 [facility] MEGASPHAERA (TYPES 1, 2) Not detected [facility] MYCOPLASMA GENITALIUM 0.000 [facility] MYCOPLASMA GENITALIUM Not detected [facility] NEISSERIA GONORRHOEAE 0.000 [facility] NEISSERIA GONORRHOEAE Not detected [facility] TRICHOMONAS VAGINALIS 0.000 [facility] TRICHOMONAS VAGINALIS Not detected [facility] Urinalysis macro (dipstick) panel (U)on 01-05-2024 Bilirubin, UA Negative Negative - 4(70) +++ mg/dL [facility] Blood, UA Negative Negative - 50 Álvaro/mcL [facility] Clarity, UA Clear [facility] re Color, UA Yellow [facility] Health[facility] e Glucose, UA Negative Negative - 1999(110) ++++ mg/dL [facility] Interpretation and review of laboratory results Abnormal [facility] Ketones, UA Negative Negative - 160(16) ++++ mg/dL [facility] Leukocytes, UA Trace Negative - 500+++ Reji/mcL [facility] Nitrite, UA Negative Negative - Positive [facility] pH, UA 6.5 5 - 9 [facility] Protein, UA Negative Negative - 1999(20) ++++ mg/dL [facility] Spec Grav, UA 1.025 1 - 1.03 [facility] Urobilinogen, UA 0.2 0.2 - 12 mg/dL [facility] PAP ACOG PANEL 2: 30 to 65on 11-13-2021 . . Normal [facility] Comment on above: Result Comment: Perf ormed at: WB Performed By: #### [id number] #### [facility] [address] [address] [address] Abby Campoverde Age Gdln ACOG Testing 30-65 Normal [facility] Comment on above: Performed By: #### [id number] #### [facility] [address] [address] [address] Abby Campoverde DIAGNOSIS: Comment Normal [facility] Comment on above: Result Comment: NEGA TIVE FOR INTRAEPITHELIAL LESION OR MALIGNANCY. Performed at: WB Performed By: #### [id number] #### [facility] [address] [place] [address] Dr. Abby Campoverde HPV Aptima Negative Normal Negative [facility] Comment on above: Result Comment: This nucleic acid amplification test detects fourteen high-risk HPV types (16,18,31,33,35,39,45,51,52,56,58,59,66,68) without differentiation. Performed at: =G Performed By: #### [id number] #### [facility] [address] [address] [address] Abby Campoverde Methodology: Comment Normal [facility] Comment on above: Result Comment: This liquid based ThinPrep(R) pap test was screened with the use of an image guided system. Performed at: WB Performed By: #### [id number] #### [facility] [address] [place] [address] Dr. Abby Campoverde Note: Comment Normal [facility] Comment on above: Result Comment: The Pap smear is a screening test designed to aid in the detection of premalignant and malignant conditions of the uterine cervix. It is not a diagnostic procedure and should not be used as the sole means of detecting cervical cancer. Both false-positive and false-negative reports do occur. . Performed at: WB Performed By: #### [id number] #### [facility] [address] [address] [address] Abby Campoverde Performed by: Comment Normal [facility] Comment on above: Result Comment: Madisyn Sherman, Senior Electrical Designer (ASCP) Performed at: WB Performed By: #### [id number] #### [facility] [address] [address] [address] Abby Campoverde Specimen adequacy: Comment Normal [facility] Comment on above: Result Comment: Sati sfactory for evaluation. Endocervical and/or squamous metaplastic cells (endocervical component) are present. Performed at: WB Performed By: #### [id number] #### [facility] [address] [place] [address] Dr. Abby Campoverde Covid-19 PCR ([facility])on 10-01 SARS-CoV-2 (COVID-19) RNA ABDI+probe Ql (Unsp spec) Not detected Normal NOT DETECTED [facility] Comment on above: Result Comment: This test is not yet approved or cleared by the [place] FDA. When there are no FDA-approved or cleared tests available, and other criteria are met, FDA can make tests available under an emergency access mechanism called an Emergency Use Authorization (EUA). The EUA for this test is supported by the Associate Buyer of Health and Human Service's (HHS's) declaration [...] consistent with SARS-CoV-2. Performed By: #### C VDTBH #### [facility] [address] [place] [address] Dr. Abby Campoverde Vital Signs Date Time Vital Sign Value Performing Clinician Faci lity 04-27-2024 11:25-0500 Body mass index (BMI) [Ratio] 33.31 kg/m2 Isabella Elva DO Work Phone: [facility] 04-27-2024 11:25-0500 Body weight 82.61 kg Isabella Elva DO Work Phone: [facility] 04-27-2024 11:25-0500 Diastolic blood pressure 70 mm[Hg] Isabella Elva DO Work Phone: [facility] 04-27-2024 11:25-0500 Systolic blood pressure 120 mm[Hg] Isabella Elva DO Work Phone: [facility] 04-12-2024 15:18-0500 Body mass index (BMI) [Ratio] 33.47 kg/m2 Isabella Elva DO Work Phone: [facility] 04-12-2024 15:18-0500 Body weight 83.01 kg Isabella Elva DO Work Phone: [facility] 04-12-2024 15:18-0500 Diastolic blood pressure 78 mm[Hg] Isabella Elva DO Work Phone: [facility] 04-12-2024 15:18-0500 Systolic blood pressure 126 mm[Hg] Isabella Elva DO Work Phone: [facility] 03-29-2024 14:09-0500 Body mass index (BMI) [Ratio] 33 kg/m2 Isabella Elva DO Work Phone: [facility] 03-29-2024 14:09-0500 Body weight 81.83 kg Isabella Elva DO Work Phone: [facility] 03-29-2024 14:09-0500 Diastolic blood pressure 70 mm[Hg] Isabella Elva DO Work Phone: [facility] 03-29-2024 14:09-0500 Systolic blood pressure 120 mm[Hg] Isabella Elva DO Work Phone: [facility] 03-16-2024 10:04-0500 Body mass index (BMI) [Ratio] 33.13 kg/m2 Isabella Elva DO Work Phone: [facility] 03-16-2024 10:04-0500 Body weight 82.16 kg Isabella Elva DO Work Phone: [facility] 03-16-2024 10:04-0500 Diastolic blood pressure 80 mm[Hg] Isabella Elva DO Work Phone: [facility] 03-16-2024 10:04-0500 Systolic blood pressure 130 mm[Hg] Isabella Elva DO Work Phone: [facility] 03-01-2024 09:57-0400 Body mass index (BMI) [Ratio] 32.74 kg/m2 Tiffani Nancy PA Work Phone: [facility] 03-01-2024 09:57-0400 Body weight 81.19 kg Tiffani [place] PA Work Phone: [facility] 03-01-2024 09:57-0400 Diastolic blood pressure 80 mm[Hg] Tiffani [place] PA Work Phone: [facility] 03-01-2024 09:57-0400 Systolic blood pressure 122 mm[Hg] Tiffani [place] PA Work Phone: [facility] 02-02-2024 15:46-0400 Body mass index (BMI) [Ratio] 32.01 kg/m2 Tiffani [place] PA Work Phone: [facility] [facility] 02-02-[facility]24 15:46-0400 Body weight 79.38 kg Tiffani Saint Paul PA Work Phone: [facility] 02-02-2024 15:46-0400 Diastolic blood pressure 76 mm[Hg] Tiffani Nancy PA Work Phone: [facility] 02-02-2024 15:46-0400 Systolic blood pressure 126 mm[Hg] Tiffani Saint Paul PA Work Phone: [facility] 01-05-2024 14:31-0400 Body mass index (BMI) [Ratio] 30.32 kg/m2 Isabella Elva DO Work Phone: [facility] 01-05-2024 14:31-0400 Body weight 75.18 kg Isabella Elva DO Work Phone: [facility] 01-05-2024 14:31-0400 Diastolic blood pressure 82 mm[Hg] Isabella Elva DO Work Phone: [facility] 01-05-2024 14:31-0400 Systolic blood pressure 126 mm[Hg] Isabella Elva DO Work Phone: [facility] Healthcare Encounters Encounter Date Encounter Type Care Provider Facility Start: 04-27-2024 End: 04-27-2024 flow sheet Isabella Elva DO Work Phone: [facility] Comment on above: 34 weeks gestation o f ; Third trimester ; Gestational diabetes mellitus (GDM) affecting Start: 04-12-2024 End: 04-12-2024 flow sheet Isabella Elva DO Work Phone: [facility] Comment on above: Third trimester preg bhartahi; 32 weeks gestation of ; Diet controlled gestational diabetes mellitus (GDM) in third trimester Start: 04-12-2024 End: 04-12-2024 ambulatory ISABELLA ELVA Not Available Start: 03-29-2024 End: 03-29-2024 Bamboo flowsheet Isabella Elva DO Work Phone: [facility] Start: 03-29-2024 End: 03-29-2024 Bamboo flowsheet Isabella Elva DO Work Phone: [facility] Start: 03-29-2024 End: 03-29-2024 flow sheet Isabella Elva DO Work Phone: [facility] OB Comment on above: 30 weeks gestation o f ; Third trimester ; Sinusitis, unspecified chronicity, unspecified location; Gastroesophageal reflux in Start: 03-29-2024 End: 03-29-2024 ambulatory ISABELLA ELVA Not Available Start: 03-16-2024 End: 03-16-2024 Bamboo flowsheet Isabella Elva DO Work Phone: [facility] Start: 03-16-2024 End: 03-16-2024 Bamboo flowsheet Isabella Elva DO Work Phone: [facility] Start: 03-16-2024 End: 03-16-2024 flow sheet Isabella Elva DO Work Phone: [facility] Comment on above: 28 weeks [...] 03-01-2024 flow sheet Tiffani ALVARENGA Work Phone: [facility] Comment on above: Second trimester [...] ALVARENGA Work Phone: [facility] Start: 01-27-2024 End: 01-30-2024 Clinisync [...] encounter procedure Isabella Elva DO Work Phone: [facility] Start: 01-05-2024 End: 01-05-2024 Periodic preventive med est patient 18-39 yrs Isabella Elva DO Work Phone: [facility] Comment on above: Well woman exam with routine gynecological exam; Screening, , for anatomic survey; Second trimester ; Screen for STD (sexually transmitted disease); Vaginal discharge Start: 01-05-2024 End: 01-05-2024 ambulatory ISABELLA STEVENSON Not Available Start: 12-06-2023 End: 12-06-2023 ambulatory ISABELLA STEVENSON Not Available Start: 10-29-2023 End: 10-29-2023 ambulatory ISABELLA STEVENSON Not Available Start: 11-10-2021 End: 11-10-[address] ISABELLA STEVENSON Facility:[facility] Start: 10-14-2021 End: 10-15-[address] HIMA SENA Facility:[facility] Procedures Date Procedure Procedure Detail Performing Clinician Start: 04-27-2024 Urnls dip stick/tabl et rgnt non-auto w/o micrscp Isabella Elva DO Work Phone: Start: 04-12-2024 Urnls dip stick/tabl et rgnt [...] 01-27-2024 AFP, SERUM, OPEN SPI NA BIFIDA Isabella Elva DO Work Phone: Start: 01-05-2024 Urnls dip stick/tabl et rgnt non-auto w/o [facility]scp [facility]: Start: 01-05-2024 IGP,APTIMA HPV,AGE GDLN Isabella Elva DO Work Phone: Start: 01-05-2024 Microscopic observat ion [Identifier] in Cervix by Cyto stain [facility] Work Phone: Start: 01-05-2024 URETHRITIS/DISCHARGE PLUS VAGINITIS (HTRX) [facility] Work Phone: Plan of Treatment Date Care Activity Detail Author Start: 01-04-2027 Screening for malign ant neoplasm of cervix [facility] Start: 10-15-2025 Screening for malign ant neoplasm of cervix [facility] Start: 05-11-2024 End: 05-11-2024 Patient encounter procedure 05/11/2024 10:30 AM EST Routine [facility] [address] [place] [id number] Isabella Stevenson, DO [address] [address] [facility] Start: 04-27-2024 End: 04-27-2024 Patient encounter procedure 04/27/2024 11:10 AM EST Routine [facility] [address] [place] [phone] Isabella Stevenson, DO [address] [place] [address] [facility] Start: 04-12-2024 End: 04-12-2024 Patient encounter procedure 04/12/2024 2:20 PM EST Routine [facility] [address] [place] [phone] Isabella Stevenson, DO [address] [place], [place] [id number] [facility] Start: 04-12-2024 End: 04-12-2025 [...] EST Ancillary Procedure [facility] [address] [place] [phone] [facility] Start: 03-16-2024 End: 03-16-2024 Patient encounter procedure 03/16/2024 9:50 AM EST Routine [facility] [address] [place] [phone] Isabella Stevenson, DO [address] [place] [address] [facility] Start: 03-01-2024 End: 03-01-2025 [...] management 02/02/2024 2:00 PM EDT Ancillary Procedure [facility] [address] [place] [address] [facility] Start: 01-05-2024 End: 01-04-2025 Alpha fetoprotein, maternal Alpha fetoprotein, maternal Lab Routine Second trimester Expected: 01/05/2024 (Approximate), Expires: 01/04/2025 [facility] Healthcare Comment on above: Expected: 01/05/2024 (Approximate), Expires: 01/04/2025 Start: 01-05-2024 End: 01-04-2025 US for US OB ANATOMY SINGLE W US OB CERVICAL LENGTH Imaging Routine Screening, , for anatomic survey Expected: 01/05/2024 (Approximate), Expires: 01/04/2025 [facility] Healthcare Comment on above: Expected: 01/05/2024 (Approximate), Expires: 01/04/2025 Start: 01-05-2024 End: 01-05-2024 Patient encounter procedure 01/05/2024 1:50 PM EDT Routine [facility] [address] [place] [phone] Isabella Stevenson DO [address] [place] [address] Arrived [facility] Comment on above: Arrived Start: 01-02-2024 Influenza vaccination Influenza Vacc ine (#1) [facility] Start: 2012 Screening for malign ant neoplasm of cervix Pap Smear [facility] CHLAMYDIA TRACHOMATI S (GENITO/STI) CHLAMYDIA TRACHOMATIS (GENITO/STI) Lab Routine Second trimester Screen for STD (sexually transmitted disease) Vaginal discharge Ordered: 01/05/2024 [facility] Comment on above: Ordered: 01/05/2024 Cytology Cervical or vaginal smear or scraping study Pap Smear Pathology and Cytology Routine Well woman exam with routine gynecological exam Ordered: 01/05/2024 [facility] Work Phone: Comment on above: Ordered: 01/05/2024 Human papilloma viru s DNA [Presence] in Unspecified specimen by Probe with amplification HPV DNA probe, amplified Microbiology Routine Well woman exam with routine gynecological exam Ordered: 01/05/2024 [facility] Comment on above: Ordered: 01/05/2024 Neisseria gonorrhoea e DNA [Presence] in Unspecified specimen by ABDI with probe detection Neisseria gonorrhea DNA probe, direct Lab Routine Second trimester Screen for STD (sexually transmitted disease) Vaginal discharge Ordered: 01/05/2024 [facility] Comment on above: Ordered: 01/05/2024 SURESWAB(R) ADVANCED VAGINITIS PLUS, TMA SURESWAB(R) ADVANCED VAGINITIS PLUS, TMA Pathology and Cytology Routine Second trimester Screen for STD (sexually transmitted disease) Vaginal discharge Ordered: 01/05/2024 [facility] Comment on above: Ordered: 01/05/2024 Payers Date Payer Category Payer Private Health Insurance [employer] [id number] 2022 Unknown [employer] [id number] 2022-Present [address] [place] [address] [id number] 1991 Unknown [id number] 1991 Unknown [id number] 1991 Unknown [id number] [id number]. 9 1991 Unknown [id number]. 9 1991 Unknown [id number] [id number]. 9 1991 Unknown [id number] [id number]. 9 1991 Unknown [id number] [id number]. 9 1991 Unknown [id number] [id number]. 9 1991 Unknown [id number] [id number]. 9 1991 Unknown [id number]. 9 1959 Unknown [id number] Social History Date Type Detail Facility Start: 10-29-2023 Tobacco smoking status NJIS Never sm oked tobacco [facility] Start: 10-29-2023 Tobacco use and exposure Smoke less tobacco non-user [facility] Start: 02-02-2024 End: 04-27-2024 Alcoholic beverage intake Current drinker of alcohol (finding) [facility] Start: 03-04-2023 End: 10-29-2023 History of Social function [facility] Start: 03-04-2023 End: 10-29-2023 Alcohol [...] Start: 1990 Sex assigned at Female [facility] Start: 03-09-2023 Gender identity Identifies as female gender (finding) [facility] Medical Equipment Procedure Code Equipment Code Equipment Origin al Text Equipment Identifier Dates Use as instructed [id number] Start: 03-01-2024 End: 03-01-2025 1 each by In Vit ro route Daily Use to check FSBS four times daily [id number] Start: 03-01-2024 End: 03-31-2024 Use as instructed [id number] Start: 04-27-2024 End: 04-27-2024 Use as instructed [id number] Start: 04-27-2024 End: 04-27-2025 Clinical Notes 01-05-2024 to 04-27-2024 Jessica Sánchez PROMOTIONAL ADVERTISING ASSISTANT - 04/27/2024 11:10 AM Eva Sánchez, PROMOTIONAL ADVERTISING ASSISTANT - 04/12/2024 2:20 PM Eva Sánchez PROMOTIONAL ADVERTISING ASSISTANT - 03/29/2024 1:40 PM Shayna Robles [facility] - 03/16/2024 9:50 AM EST Note Date & Type Note Facility 04-27-2024 History of Presen t illness Narrative Reason [...] 81 mg, Daily Blood Glucose Monitoring Suppl (D-Care Glucometer) w/Device kit 1 kit, Does not apply, Daily, Use four times daily to check FSBS. In the morning prior to breakfast & 1 hour after each meal for a total of 4times daily. Ferrous Sulfate (IRON PO) 1 tablet, Daily RT FREESTYLE TEST STRIPS test strip Use as instructed magnesium oxide (MAG-OX) 400 mg, Oral, Daily [...] nursing note reviewed. Exam conducted with a vp scientific present. Vitals: Estimated body mass index is 33.31 kg/m as calculated from the following: Height as of 03/30/23: 5' 2 . Weight as of this encounter: 182 lb 1.9 oz. BP: 120/70 Patient's last menstrual period was 08/28/2023. ASSESSMENT & PLAN ICD-10-CM 1. 34 weeks gestation of Z3A.34 POCT urinalysis dipstick manually resulted 2. Third trimester Z34.93 POCT urinalysis dipstick manually resulted Return OB: Patient presents today for a routine obstetrics appointment. Patient is currently 34w5d . Patient states she is doing well but has complaints of being tired due to current . Patient has verbalizes frequent movement. labor precautions was discussed/given and patient was instructed to perform kick counts three times a day. 10 units lantus faxed to pharmacy. Morning sugars are over 100 Orders Placed This Encounter Procedures POCT urinalysis dipstick manually resulted Follow Up: Patient is to return to office in 2 week for routine OB appointment. Documented by Jessica Sánchez LPN on behalf of: Isabella Stevenson DO documented in this encounter [facility] 04-12-2024 History of Presen t illness Narrative [...] tablet As directed Blood Glucose Monitoring Suppl (D-Care Glucometer) w/Device [...] nursing note reviewed. Exam conducted with a vp scientific present. Vitals: Estimated body mass index is [...] Isabella Stevenson DO documented in this encounter [facility] 03-29-2024 History of Presen t illness Narrative [...] tablet As directed Blood Glucose Monitoring Suppl (D-Care Glucometer) w/Device [...] nursing note reviewed. Exam conducted with a vp scientific present. Vitals: Estimated body mass index is [...] Isabella Stevenson DO documented in this encounter [facility] 03-16-2024 History of Presen t illness Narrative [...] 81 mg, Daily Blood Glucose Monitoring Suppl (D-[employer] Glucometer) w/Device kit 1 kit, Does not [...] nursing note reviewed. Exam conducted with a vp scientific present. Vitals: Estimated body mass index is [...] Isabella Stevenson DO documented in this encounter [facility] 03-01-2024 History of Presen t illness Narrative [...] mg, Oral, Daily Blood Glucose Monitoring Suppl (D-[employer] Glucometer) w/Device kit 1 kit, Does not [...] to Diabetic Edu was sent over to [facility]. Pt was made aware diabetic supplies were sent to pharmacy today and to coal picker when ready. Pt was advised to make sure to take her supplies w/her to her appt when she gets scheduled by Kristal Yee RN at [facility]. Pt verbally understood. Growth US was given to patient today to have done at 28 weeks to schedule at [facility]. Orders Placed This Encounter Procedures POCT urinalysis dipstick manually resulted Follow Up: Patient is to return to office in 2 week for routine OB appointment. Documented by Tosin Carvalho MA on behalf of: COLETTE Almonte documented in this encounter [facility] 02-02-2024 History of Presen t illness Narrative [...] of: COLETTE Almonte documented in this encounter [facility] 01-05-2024 History of Presen t illness Narrative [...] nursing note reviewed. Exam conducted with a vp scientific present. Vitals: Estimated body mass index is [...] Isabella Stevenson DO documented in this encounter [facility] Evaluation note Diagnosis Second trimester state, [...] as infective documented in this encounter [facility] Diagnosis 34 weeks gestation of Third trimester state, incidental Gestational diabetes mellitus (GDM) affecting documented in this encounter [facility] Summary Purpose Family History No Family History Records FoundNo Family History Records Found Advance Directives No Advanced Directives Records FoundNo Advanced Directives Records Found Additional Source Comments INFORMATION SOURCE (unrecogn ized section and content) DATE CREATED AUTHOR 11/18/2021 [facility] DATE CREATED AUTHOR AUTHOR'S ORGANIZ ATION 04/15/2024 [facility] EPIC Reason for Visit (unrecogniz ed section and content) Reason Comments Routine Visit Care Teams (unrecognized sec tion and content) 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 Relationship Specialty Start Date End Date Hima Sena MD [address] [facility] [address] [place] [address] PCP - General Family Medicine 09/08/22 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 Relationship Specialty Start Date End Date Hima Sena MD [address] [facility] [address] [place] [address] PCP - General Family Medicine 09/08/22 [employer] 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 Relationship Specialty Start Date End Date Hima Sena MD [address] [facility] [address] [place] [address] PCP - General Family Medicine 09/08/22 [employer] 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 Relationship Specialty Start Date End Date Hima Sena MD [address] [facility] [address] [place] [address] PCP - General Family Medicine 09/08/22 [employer] 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 Relationship Specialty Start Date End Date Hima Sena MD [address] [facility] [address] [place] [address] PCP - General Family Medicine 09/08/22 [employer] 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 Relationship Specialty Start Date End Date Hima Sena MD [address] [facility] [address] [place] [address] PCP - General Family Medicine 09/08/22 [employer] 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 Relationship Specialty Start Date End Date Hima Sena MD [address] [facility] [address] [place] [address] PCP - [facility] 09/08/22 [employer] 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 Relationship Specialty Start Date End Date Hima Sena MD [address] [facility] [address] [place] [address] PCP - [facility] 09/08/22 [employer] 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 Relationship Specialty Start Date End Date Hima Sena MD [address] [facility] [address] [place] [address] PCP - [facility] 09/08/22 [employer] 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 Department of Health and Human Services [facility]. provides no warranty or guarantee of the accuracy or completeness of information in this document.
[2024-04-28 11:10] VITALS: BP 137/92; PULSE 115
== END 2024-04-28 11:35 | disposition home or self-care (01) ==
LOC: FBCO 00:07 → FBC 11:06
PROVIDERS: Visit Provider Obstetrics & Gynecology
DX: O24.419 Gestational diabetes mellitus in pregnancy, unspecified control (principal); Z3A.34 34 weeks gestation of pregnancy
CPT/HCPCS: 59025

== ENCOUNTER 2024-05-02 05:28 | Outpatient (OUT) | payer OTHER, SELFPAY ==
--- OUTSIDE RECORDS SUMMARY | 2024-05-02 05:31 | XMS_ITS | CCD ---
Author Organization [facility] Care Team Providers Care Brass Cutter Name Role Phone JAIDA, DR QUINTANILLA Attending Unavailable REQUEST, NONE LISTED Primary Care Unavailbrendon SENA, DR QUINTANILLA Admitting Unavailable JAIDA, DR QUINTANILLA Consulting Unavailable ELVA, DR MASON Admitting Unavailable ELVA, DR MASON Consulting Unavailable ELVA, DR MASON Attending Unavailable REQUEST, NONE LISTED Primary Care Unavailbrendon Sena MD, Hima Vásquez Primary Care Provider [phone] ISABELLA STEVENSON Attending Unavailable ELVA, ISABELLA Attending Unavailable TIFFANI SON Attending Unavailable TIFFANI SON Attending Unavailable ELVA, ISABELLA Attending Unavailable ELVA, ISABELLA Attending Unavailable ELVA, ISABELLA Attending Unavailable ELVAISABELLA PAL Attending Unavailable Medications Current Medications Medication Drug [...] UA Negative Negative - 4(70) +++ mg/dL [facility] Blood, UA Negative Negative - 50 Álvaro/mcL [facility] Clarity, UA Clear [facility] Health[facility] re Color, UA Yellow [facility] e Glucose, UA Negative Negative - 1999(110) ++++ mg/dL [facility] Interpretation and review of laboratory results Abnormal [facility] Ketones, UA Negative Negative - 160(16) ++++ mg/dL [facility] Leukocytes, UA Trace Negative - 500+++ Reji/mcL [facility] Nitrite, UA Negative Negative - Positive [facility] pH, UA 6.5 5 - 9 [facility] e Protein, UA Negative Negative - 1999(20) ++++ mg/dL [facility] Spec Grav, UA 1.025 1 - 1.03 [facility] Urobilinogen, UA 1.0 0.2 - 12 mg/dL [facility] Urinalysis macro (dipstick) panel (U)on 04-12-2024 Bilirubin, UA Negative Negative - 4(70) +++ mg/dL [facility] Blood, UA Negative Negative - 50 Álvaro/mcL [facility] Clarity, UA Clear [facility] Health[facility] re Color, UA Yellow [facility] Glucose, UA Negative Negative - 1999(110) ++++ mg/dL [facility] Interpretation and review of laboratory results Abnormal [facility] Ketones, UA Positive Negative - 160(16) ++++ mg/dL [facility] Comment on above: 15 Leukocytes, UA Trace Negative - 500+++ Reji/mcL [facility] Healthcare Nitrite, UA Negative Negative - Positive [facility] Healthcare pH, UA 7 5 - 9 [facility] Protein, UA Negative Negative - 1999(20) ++++ mg/dL [facility] Healthcare Spec Grav, UA 1.02 1 - 1.03 [facility] Urobilinogen, UA 1.0 0.2 - 12 mg/dL [facility] Urinalysis macro (dipstick) panel (U)on 03-29-2024 Bilirubin, UA Positive Negative - 4(70) +++ mg/dL [facility] Comment on above: small Blood, UA Negative Negative - 50 Álvaro/mcL [facility] Healthcare Clarity, UA Clear [facility] Color, UA Yellow [facility] Glucose, UA Negative Negative - 1999(110) ++++ mg/dL [facility] Interpretation and review of laboratory results Abnormal [facility] Healthcare Ketones, UA Positive Negative - 160(16) ++++ mg/dL [facility] Comment on above: 40 Leukocytes, UA Negative Negative - 500+++ Reji/mcL [facility] Healthcare Nitrite, UA Negative Negative - Positive [facility] pH, UA 7 5 - 9 [facility] Health[facility] e Protein, UA Positive Negative - 1999(20) ++++ mg/dL [facility] Comment on above: 30 Spec Grav, UA 1.025 1 - 1.03 [facility] Urobilinogen, UA 0.2 0.2 - 12 mg/dL [facility] Urinalysis macro (dipstick) panel (U)on 03-16-2024 Bilirubin, UA Negative Negative - 4(70) +++ mg/dL [facility] Blood, UA Negative Negative - 50 Álvaro/mcL [facility] Healthcare Clarity, UA Clear [facility] Color, UA Yellow [facility] Glucose, UA Negative Negative - 1999(110) ++++ mg/dL [facility] Interpretation and review of laboratory results Abnormal [facility] Ketones, UA Negative Negative - 160(16) ++++ mg/dL [facility] Leukocytes, UA Negative Negative - 500+++ Reji/mcL [facility] Nitrite, UA Negative Negative - Positive [facility] pH, UA 7 5 - 9 [facility] Protein, UA Negative Negative - 1999(20) ++++ mg/dL [facility] Spec Grav, UA 1.02 1 - 1.03 [facility] Urobilinogen, UA 1.0 0.2 - 12 mg/dL [facility] e Urinalysis macro (dipstick) panel (U)on 03-01-2024 Bilirubin, UA Negative Negative - 4(70) +++ mg/dL [facility] Blood, UA Negative Negative - 50 Álvaro/mcL [facility] Clarity, UA Clear [facility] re Color, UA Yellow [facility] Glucose, UA Negative Negative - 1999(110) ++++ mg/dL [facility] Interpretation and review of laboratory results Abnormal [facility] Ketones, UA Negative Negative - 160(16) ++++ mg/dL [facility] Leukocytes, UA Trace Negative - 500+++ Reji/mcL [facility] Nitrite, UA Negative Negative - Positive [facility] pH, UA 7 5 - 9 [facility] e Protein, UA Negative Negative - 1999(20) ++++ mg/dL [facility] Spec Grav, UA 1.015 1 - 1.03 [facility] Urobilinogen, UA 0.2 0.2 - 12 mg/dL [facility] GLUCOSE TOLERANCE 3 HOURon GLUCOSE TOLERANCE 3 HOUR High mg/dL [facility] Comment on above: GLU FAST 98H (<95) C ol: 02/22/24 0919 GLU 1HR 193H (<180) Col: 02/22/24 1020 GLU 2HR 179H (<155) Col: 02/22/24 1119 GLU 3HR 71 (<140) Col: 02/22/24 1220 Interpretation and review of laboratory results Abnormal [facility] e ALL CBC WITH AUTO DIFFon BASOPHILS ABSOLUTE AUTO 0 [facility] Basophils/100 WBC (Bld) 0.3 % 0.2 - 2.0 % [facility] Eosinophils/100 WBC (Bld) 0.3 % Low 0.9 - 7.0 % [facility] Erythrocyte distribution width (RBC) [Ratio] 12.8 % 11.0 - 15.0 % [facility] Hematocrit (Bld) [Volume fraction] 32.9 % Low 36.0 - 48.0 % [facility] Health[facility] e Hemoglobin (Bld) [Mass/Vol] 10.9 g/dL Low 12.0 - 16.0 g/dL [facility] IMMATURE GRANULOCYTES ABS AUTO 0.13 High [facility] Immature granulocytes/100 WBC (Bld) 1.1 % High 0.0 - 0.5 % [facility] Interpretation and review of laboratory results Abnormal [facility] LYMPHOCYTES ABSOLUTE AUTO 1.1 Low [facility] Lymphocytes/100 WBC (Bld) 9.3 % Low 20.5 - 60.0 % [facility] MCH (RBC) [Entitic mass] 29.9 pg 26.7 - 34.0 pg [facility] MCHC (RBC) [Mass/Vol] 33.1 g/dL 29.9 - 35.2 g/dL [facility] MCV (RBC) [Entitic vol] 90.4 fL 81.0 - 99.0 fL [facility] MONOCYTES ABSOLUTE AUTO 0.4 [facility] Monocytes/100 WBC (Bld) 3.1 % 1.7 - 12.0 % [facility] NEUTROPHILS ABSOLUTE AUTO 10 High [facility] Neutrophils/100 WBC (Bld) 85.9 % High 43.0 - 75.0 % [facility] Platelet mean volume (Bld) [Entitic vol] 9.5 fL 9.5 - 13.5 fL [facility] are TBH EO # 0 [facility] TB PLT 299 [facility] e [facility] RBC 3.64 Low [facility] TB WBC 11.6 High [facility] e Urinalysis macro (dipstick) panel (U)on 02-02-2024 Bilirubin, UA Negative Negative - 4(70) +++ mg/dL [facility] Blood, UA Negative Negative - 50 Álvaro/mcL [facility] Clarity, UA Clear [facility] Health[facility] re Color, UA Yellow [facility] Glucose, UA Negative Negative - 2000(110) ++++ mg/dL [facility] Interpretation and review of laboratory results Normal [facility] Ketones, UA Negative Negative - 160(16) ++++ mg/dL [facility] Leukocytes, UA Negative Negative - 500+++ Reji/mcL [facility] Nitrite, UA Negative Negative - Positive [facility] pH, UA 5.5 5 - 9 [facility] e Protein, UA Negative Negative - 1999(20) ++++ mg/dL [facility] Spec Grav, UA 1.010 1 - 1.03 [facility] Urobilinogen, UA 0.2 0.2 - 12 mg/dL [facility] AFP, SERUM, OPEN SPINA BIFID Aon 01-30-2024 AFP MOM 0.83 . [facility] e AFP VALUE 54.5 ng/mL . [facility] COMMENT: Comment . [facility] Comment on above: Siria Davis , Ph.D., [facility] Director References: Available Upon Request. Multiples Of Median Cutoffs For AFP Elevations Espinoza 2.5 Black 2.8 IDD 2.0 Twins 4.5 Abbreviation Definitions IDD - Insulin Dep Diabetes OSBR - Open Spina Bifida Risk For further inquiries contact [employer] at [phone]. This test was developed and its performance characteristics determined by [facility]. It has not been cleared or approved by the Food and Drug Administration. Performed at: [facility] [place], [place] [id number] Location Man: Luis Kelly [facility], Phone: [phone] GEST. AGE ON COLLECTION DATE 21.7 . weeks [facility] GESTAT. AGE BASED ON LMP . [facility] Comment on above: Recalculations are n ot recommended when gestational dating by LMP and ultrasound are within 10 days. INSULIN DEP DIABETES No . [facility] INTERPRETATION Comment . [facility] Comment on above: Interpretation: Scre [...] Customer Services to discuss available options. The [place] [employer] recommends amniocentesis be offered to women age 35 and older. [age] [facility] MULTIPLE GESTATION No . [facility] H ealth[facility] [place] [address] [place] [phone] . [facility] R[facility] . [facility] Vote[employer] e RESULTS Report . [facility] Vote[employer] [facility] TEST RESULTS: Negative . [facility] Health care WEIGHT 165 . lbs [facility] N N LMP [phone] 18 N 1 Y 165 N N N N N White/ [facility] e IGP,APTIMA HPV,AGE GDLNon AGE GDLN ACOG TESTING Note . [facility] Comment on above: TESTS RESULT FLAG UN ITS REF RANGE LAB Clinician Provided Cytology Information Source.............Cervix No. of containers..01 ThinPrep Vial Age Algo ACOG Elizabeth... 30-65 01 FLAG LEGEND: L-Low Normal,H-High Normal,LL-Alert Low,HH-Alert High <-Panic Low,>-Panic High,A-Abnormal,AA-Critical Abnormal Performed at: 01 =G [address] [address] Lexie Nichols MD, HPV APTIMA Negative Negative [facility] Vote[facility] Comment on above: This nucleic acid am plification test detects fourteen high- risk HPV types (16,18,31,33,35,39,45,51,52,56,58,59,66,68) without differentiation. Performed at: =G [facility] [id number] Location Man: Lexie Nichols MD, Phone: [phone] Performed at: - [facility], [place] [id number] Location Man: Lexie Nichols MD, Phone: [phone] IGP, APTIMA HPV, RFX 16/18,45 Note . [facility] Comment on above: TESTS RESULT FLAG UN ITS REF RANGE LAB DIAGNOSIS: 02 NEGATIVE FOR INTRAEPITHELIAL LESION OR MALIGNANCY. Specimen adequacy: 02 Satisfactory for evaluation. No endocervical component is identified. Performed by: Benson Hutchinson, Traffic Coordinator (ASC) . 02 Note: Note 02 [...] High <-Panic Low,>-Panic High,A-Abnormal,AA-Critical Abnormal Performed at: [facility] [address] [place] [address] Lexie Nichols MD, BRUSH-ALONE CERVIX [facility] URETHRITIS/DISCHARGE PLUS VA GINITIS (HTRX)on 01-08-2024 ATOPOBIUM VAGINAE 0.000 [facility] ATOPOBIUM VAGINAE Not detected [facility] BVAB 2,3 (BACTERIAL VAGINOSIS ASSOCIATED BACTERIA 2, 3); MOBILUNCUS SPP 0.000 [facility] BVAB 2,3 (BACTERIAL VAGINOSIS ASSOCIATED BACTERIA 2, 3); MOBILUNCUS SPP Not detected [facility] EMMY ALBICANS, PARAPSILOSIS, TROPICALIS 29.274 Abnormal [facility] EMMY ALBICANS, PARAPSILOSIS, TROPICALIS Detected Abnormal [facility] EMMY GLABRATA 0.000 [facility] EMMY GLABRATA Not detected [facility] EMMY KRUSEI 0.000 [facility] KRUSEI Not detected [facility] CHLAMYDIA TRACHOMATIS 0.000 [facility] CHLAMYDIA TRACHOMATIS Not detected [facility] GARDNERELLA VAGINALIS 0.000 [facility] GARDNERELLA VAGINALIS Not detected [facility] Interpretation and review of laboratory results Abnormal [facility] MEGASPHAERA (TYPES 1, 2) 0.000 [facility] MEGASPHAERA (TYPES 1, 2) Not detected [facility] MYCOPLASMA GENITALIUM 0.000 [facility] MYCOPLASMA GENITALIUM Not detected [facility] NEISSERIA GONORRHOEAE 0.000 [facility] NEISSERIA GONORRHOEAE Not detected [facility] TRICHOMONAS VAGINALIS 0.000 [facility] TRICHOMONAS VAGINALIS Not detected [facility] Urinalysis macro (dipstick) panel (U)on 01-05-2024 Bilirubin, UA Negative Negative - 4(70) +++ mg/dL [facility] Blood, UA Negative Negative - 50 Álvaro/mcL [facility] Clarity, UA Clear [facility] re Color, UA Yellow [facility] Glucose, UA Negative Negative - 1999(110) ++++ mg/dL [facility] Interpretation and review of laboratory results Abnormal [facility] Ketones, UA Negative Negative - 160(16) ++++ mg/dL [facility] Leukocytes, UA Trace Negative - 500+++ Reji/mcL [facility] Nitrite, UA Negative Negative - Positive [facility] pH, UA 6.5 5 - 9 [facility] Health[facility] Protein, UA Negative Negative - 1999(20) ++++ mg/dL [facility] Spec Grav, UA 1.025 1 - 1.03 [facility] Urobilinogen, UA 0.2 0.2 - 12 mg/dL [facility] PAP ACOG PANEL 2: 30 to 65on 11-13-2021 . . Normal [facility] Comment on above: Result Comment: Perf ormed at: WB Performed By: #### [id number] #### [facility] [address] [place] [address] Dr. Abby Campoverde Age Gdln ACOG Testing 30-65 Normal [facility] Comment on above: Performed By: #### [id number] #### [facility] [address] [place] [address] Dr. Abby Campoverde DIAGNOSIS: Comment Normal [facility] Comment on above: Result Comment: NEGA TIVE FOR INTRAEPITHELIAL LESION OR MALIGNANCY. Performed at: WB Performed By: #### [id number] #### [facility] [address] [place] [address] Dr. Abby Campoverde HPV Aptima Negative Normal [facility] Comment on above: Result Comment: This nucleic acid amplification test detects fourteen high-risk HPV types (16,18,31,33,35,39,45,51,52,56,58,59,66,68) without differentiation. Performed at: =G Performed By: #### [id number] #### [facility] [address] [place] [address] Dr. Abby Campoverde Methodology: Comment Normal [facility] Comment on above: Result Comment: This liquid based ThinPrep(R) pap test was screened with the use of an image guided system. Performed at: WB Performed By: #### [id number] #### [facility] [address] [place] [address] Dr. Abby Campoverde Note: Comment Normal [facility] Comment on above: Result Comment: The Pap smear is a screening test designed to aid in the detection of premalignant and malignant conditions of the uterine cervix. It is not a diagnostic procedure and should not be used as the sole means of detecting cervical cancer. Both false-positive and false-negative reports do occur. . Performed at: WB Performed By: #### [id number] #### [facility] [address] [address] [address] Abby Campoverde Performed by: Comment Normal [facility] Comment on above: Result Comment: Madisyn Sherman, Traffic Coordinator (ASCP) Performed at: WB Performed By: #### [id number] #### [facility] [address] [address] [address] Abby Campoverde Specimen adequacy: Comment Normal [facility] Comment on above: Result Comment: Sati sfactory for evaluation. Endocervical and/or squamous metaplastic cells (endocervical component) are present. Performed at: WB Performed By: #### [id number] #### [facility] [address] [address] [address] Abby Campoverde Covid-19 PCR (CVDTB)on 10-01 SARS-CoV-2 (COVID-19) RNA ABDI+probe Ql (Unsp spec) Not detected Normal NOT DETECTED [facility] Comment on above: Result Comment: This test is not yet approved or cleared by the [place] FDA. When there are no FDA-approved or cleared tests available, and other criteria are met, FDA can make tests available under an emergency access mechanism called an Emergency Use Authorization (EUA). The EUA for this test is supported by the [employer] Presser of Health and Human Service's (HHS's) declaration [...] SARS-CoV-2. Performed By: #### C VDTBH #### [facility] [address] [address] [address] Abby Campoverde Vital Signs Date Time Vital Sign Value Performing Clinician Faci lity 04-27-2024 11:25-0500 Body mass index (BMI) [Ratio] 33.31 kg/m2 Isabella Elva DO Work Phone: [facility] 04-27-2024 11:25-0500 Body weight 82.61 kg Isabella Elva DO Work Phone: [facility] 04-27-2024 11:25-0500 Diastolic blood pressure 70 mm[Hg] Isabella Elva DO Work Phone: [facility] 04-27-2024 11:25-0500 Systolic blood pressure 120 mm[Hg] Isabella Elva DO Work Phone: [facility] 04-12-2024 15:18-0500 Body mass index (BMI) [Ratio] 33.47 kg/m2 Isabella Elva DO Work Phone: [facility] 04-12-2024 15:18-0500 Body weight 83.01 kg Isabella Elva DO Work Phone: [facility] 04-12-2024 15:18-0500 Diastolic blood pressure 78 mm[Hg] Isabella Elva DO Work Phone: [facility] 04-12-2024 15:18-0500 Systolic blood pressure 126 mm[Hg] Isabella Elva DO Work Phone: [facility] 03-29-2024 14:09-0500 Body mass index (BMI) [Ratio] 33 kg/m2 Isabella Elva DO Work Phone: [facility] 03-29-2024 14:09-0500 Body weight 81.83 kg Isabella Elva DO Work Phone: [facility] 03-29-2024 14:09-0500 Diastolic blood pressure 70 mm[Hg] Isabella Elva DO Work Phone: [facility] 03-29-2024 14:09-0500 Systolic blood pressure 120 mm[Hg] Isabella Elva DO Work Phone: [facility] 03-16-2024 10:04-0500 Body mass index (BMI) [Ratio] 33.13 kg/m2 Isabella Elva DO Work Phone: [facility] 03-16-2024 10:04-0500 Body weight 82.16 kg Isabella Elva DO Work Phone: [facility] 03-16-2024 10:04-0500 Diastolic blood pressure 80 mm[Hg] Isabella Elva DO Work Phone: [facility] 03-16-2024 10:04-0500 Systolic blood pressure 130 mm[Hg] Isabella Elva DO Work Phone: [facility] 03-01-2024 09:57-0400 Body mass index (BMI) [Ratio] 32.74 kg/m2 Tiffani Nancy PA Work Phone: [facility] 03-01-2024 09:57-0400 Body weight 81.19 kg Tiffani Nancy PA Work Phone: [facility] 03-01-2024 09:57-0400 Diastolic blood pressure 80 mm[Hg] Tiffani Nancy PA Work Phone: [facility] 03-01-2024 09:57-0400 Systolic blood pressure 122 mm[Hg] Tiffani Nancy PA Work Phone: [facility] 02-02-2024 15:46-0400 Body mass index (BMI) [Ratio] 32.01 kg/m2 Tiffani Nancy PA Work Phone: [facility] 02-02-2024 15:46-0400 Body weight 79.38 kg Tiffani Nancy PA Work Phone: [facility] 02-02-2024 15:46-0400 Diastolic blood pressure 76 mm[Hg] Tiffani [place] PA Work Phone: [facility] 02-02-2024 15:46-0400 Systolic blood pressure 126 mm[Hg] Tiffani Nancy PA Work Phone: [facility] 01-05-2024 14:31-0400 Body mass index (BMI) [Ratio] 30.32 kg/m2 Isabella Elva DO Work Phone: [facility] 01-05-2024 14:31-0400 Body weight 75.18 kg Isabella Elva DO Work Phone: [facility] 01-05-2024 14:31-0400 Diastolic blood pressure 82 mm[Hg] Isabella Elav DO Work Phone: [facility] 01-05-2024 14:31-0400 Systolic blood pressure 126 mm[Hg] Isabella Elva DO Work Phone: [facility] Healthcare Encounters Encounter Date Encounter Type Care Provider Facility Start: 04-27-2024 End: 04-27-2024 flow sheet Isabella Elva DO Work Phone: [facility] Comment on above: 34 weeks gestation o f ; Third trimester ; Gestational diabetes mellitus (GDM) affecting Start: 04-27-2024 End: 04-27-2024 ambulatory ISABELLA ELVA Not Available Start: 04-12-2024 End: 04-12-2024 flow sheet Isabella Elva DO Work Phone: [facility] Comment on above: Third trimester preg bharathi; 32 weeks gestation of ; Diet controlled gestational diabetes mellitus (GDM) in third trimester Start: 04-12-2024 End: 04-12-2024 ambulatory ISABELLA ELVA Not Available Start: 03-29-2024 End: 03-29-2024 Bamboo flowsheet Isabella Elva DO Work Phone: [facility] Start: 03-29-2024 End: 03-29-2024 Bamboo flowsheet Isabella Elva DO Work Phone: [facility] Start: 03-29-2024 End: 03-29-2024 flow sheet Isabella Elva DO Work Phone: [facility] Comment on above: 30 weeks gestation o f ; Third trimester ; Sinusitis, unspecified chronicity, unspecified location; Gastroesophageal reflux in Start: 03-29-2024 End: 03-29-2024 ambulatory ISABELLA ELVA Not Available Start: 03-16-2024 End: 03-16-2024 Bamboo flowsheet Isabella Elva DO Work Phone: [facility] Start: 03-16-2024 End: 03-16-2024 Bamboo flowsheet Isabella Elva DO Work Phone: [facility] Start: 03-16-2024 End: 03-16-2024 flow sheet Isabella Elva DO Work Phone: [facility] Comment on above: 28 weeks gestation o f ; Third trimester Start: 03-16-2024 End: 03-16-2024 ambulatory ISABELLA ELVA Not Available Start: 03-01-2024 End: 03-01-2024 Bamboo flowsheet Tiffani ALVARENGA Work Phone: [facility] Start: 03-01-2024 End: 03-01-2024 Bamboo flowsheet Tiffani ALVARENGA Work Phone: [facility] Start: 03-01-2024 End: 03-01-2024 flow sheet Tiffani ALVARENGA Work Phone: [facility] Comment on above: Second trimester pre gnancy; 26 weeks gestation of ; Gestational diabetes mellitus (GDM), antepartum, gestational diabetes method of control unspecified; Elevated glucose tolerance test Start: 03-01-2024 End: 03-01-2024 ambulatory TIFFANI SON Not Available Start: 02-22-2024 End: 02-22-2024 Clinisync Result Encounter Tiffani ALVARENGA Work Phone: [facility] External Department Unsolicited Start: 02-22-2024 End: 02-22-2024 Clinisync Result Encounter Tiffani ALVARENGA Work Phone: [facility] External Department Unsolicited Start: 02-16-2024 End: 02-16-2024 Clinisync Result Encounter Tiffani ALVARENGA Work Phone: [facility] External Department Unsolicited Start: 02-16-2024 End: [...] AFP, SERUM, OPEN SPI NA BIFIDA Isabella Bolster DO Work Phone: Start: 01-05-2024 Urnls dip stick/tabl et rgnt non-auto w/o micrscp Isabella Bolster DO Work Phone: Start: 01-05-2024 IGP,APTIMA HPV,AGE GDLN Isabella Bolster DO Work Phone: Start: 01-05-2024 Microscopic observat ion [Identifier] in Cervix by Cyto stain Isabella Bolster DO Work Phone: Start: 01-05-2024 URETHRITIS/DISCHARGE PLUS VAGINITIS (HTRX) Isabella Bolster DO Work Phone: Plan of Treatment Date Care Activity Detail Author Start: 01-04-2027 Screening for malign ant neoplasm of cervix [facility] Start: 10-15-2025 Screening for malign ant neoplasm of cervix [facility] Start: 05-11-2024 End: 05-11-2024 Patient encounter procedure 05/11/2024 10:30 AM EST Routine [facility] [address] [facility] [place] [id number] Isabella Stevenson, DO [address] [place] [address] [facility] Start: 04-27-2024 End: 04-27-2024 Patient encounter procedure 04/27/2024 11:10 AM EST Routine [facility] [address] [place] [id number] Isabella Stevenson DO [address] [place] [address] [facility] Start: 04-12-2024 End: 04-12-2024 Patient encounter procedure 04/12/2024 2:20 PM EST Routine [facility] [address] [place] [id number] Isabella Stevenson, DO [address] [place] [address] [facility] Start: 04-12-2024 End: 04-12-2025 [...] EST Ancillary Procedure [facility] [address] [facility] [place] [id number] [facility] Start: 03-16-2024 End: 03-16-2024 Patient encounter procedure 03/16/2024 9:50 AM EST Routine [facility] [address] [facility] [place] [place] [phone] Isabella Stevenson, DO [address] [place] [address] [facility] Start: 03-01-2024 End: 03-01-2025 [...] mellitus screening Expected: 02/02/2024 (Approximate), Expires: 02/01/2025 [facility] Comment on above: Expected: 02/02/2024 (Approximate), Expires: 02/01/2025 Start: 02-02-2024 End: 02-02-2024 Professional / ancillary services management 02/02/2024 2:00 PM EDT Ancillary Procedure [facility] OB [address] [place] [id number] [facility] Start: 01-05-2024 End: 01-04-2025 Alpha fetoprotein, maternal Alpha fetoprotein, maternal Lab Routine Second trimester Expected: 01/05/2024 (Approximate), Expires: 01/04/2025 [facility] Comment on above: Expected: 01/05/2024 (Approximate), Expires: 01/04/2025 Start: 01-05-2024 End: 01-04-2025 US for US OB ANATOMY SINGLE W US OB CERVICAL LENGTH Imaging Routine Screening, , for anatomic survey Expected: 01/05/2024 (Approximate), Expires: 01/04/2025 [facility] Comment on above: Expected: 01/05/2024 (Approximate), Expires: 01/04/2025 Start: 01-05-2024 End: 01-05-2024 Patient encounter procedure 01/05/2024 1:50 PM EDT Routine [facility] [address] [place] [phone] Isabella Stevenson, [address] [place] [address] [address] [facility] Comment on above: Arrived Start: 01-02-2024 Influenza vaccination Influenza Vacc ine (#1) [facility] Start: 2012 Screening for malign ant neoplasm of cervix Pap Smear [facility] CHLAMYDIA TRACHOMATI S (GENITO/STI) CHLAMYDIA TRACHOMATIS (GENITO/STI) Lab Routine Second trimester Screen for STD (sexually transmitted disease) Vaginal discharge Ordered: 01/05/2024 [facility] Comment on above: Ordered: 01/05/2024 Cytology Cervical or vaginal smear or scraping study Pap Smear Pathology and Cytology Routine Well woman exam with routine gynecological exam Ordered: 01/05/2024 [facility] Work Phone: Comment on above: Ordered: 01/05/2024 Human papilloma viru s DNA [Presence] in Unspecified specimen by Probe with amplification HPV DNA probe, amplified Microbiology Routine Well woman exam with routine gynecological exam Ordered: 01/05/2024 [facility] Comment on above: Ordered: 01/05/2024 Neisseria gonorrhoea e DNA [Presence] in Unspecified specimen by ABDI with probe detection Neisseria gonorrhea DNA probe, direct Lab Routine Second trimester Screen for STD (sexually transmitted disease) Vaginal discharge Ordered: 01/05/2024 [facility] Comment on above: Ordered: 01/05/2024 SURESWAB(R) ADVANCED VAGINITIS PLUS, TMA SURESWAB(R) ADVANCED VAGINITIS PLUS, TMA Pathology and Cytology Routine Second trimester Screen for STD (sexually transmitted disease) Vaginal discharge Ordered: 01/05/2024 [facility] Comment on above: Ordered: 01/05/2024 Payers Date Payer Category Payer Private Health Insurance [employer] [id number] 2022 Unknown [employer] [id number] 2022-Present [address] [place] [address] [id number] 1991 Unknown [id number] [id number]. 593 1991 Unknown [id number] 2.16.840.1.544926.3.579.2. 593 1991 Unknown [id number] 2.16.840.1.822452.3.579.2. 9 1991 Unknown [id number] 2.16.840.1.221104.3.579.2. 9 1991 Unknown [id number] 2.16.840.1.522463.3.579.2. 9 1991 Unknown [id number] 2.16.840.1.633413.3.579.2. 9 1991 Unknown [id number] 2.16.840.1.515681.3.579.2. 9 1991 Unknown [id number] 2.16.840.1.870793.3.579.2. 9 1991 Unknown [id number] 2.16.840.1.589994.3.579.2. 9 1991 Unknown [id number] 2.16.840.1.683457.3.579.2. 1258 1991 Unknown [id number] [id number]. 9 1959 Unknown [id number] Social History Date Type Detail Facility Start: 10-29-2023 Tobacco smoking status WAIS Never sm oked tobacco [facility] Start: 10-29-2023 Tobacco use and exposure Smoke less tobacco non-user [facility] Start: 02-02-2024 End: 04-27-2024 Alcoholic beverage intake Current drinker of alcohol (finding) [facility] Start: 03-04-2023 End: 10-29-2023 History of Social function [facility] Start: 03-04-2023 End: 10-29-2023 Alcohol [...] or more drinks on 1 occasion? Never [facility] Start: 09-11-2023 [facility] Start: 1990 Sex assigned at Female N [facility] Start: 03-09-2023 Gender identity Identifies as female gender (finding) [facility] Medical Equipment Procedure Code Equipment Code Equipment Origin al Text Equipment Identifier Dates Use as instructed [id number] Start: 03-01-2024 End: 03-01-2025 1 each by In Vit ro route Daily Use to check FSBS four times daily [id number] Start: 03-01-2024 End: 03-31-2024 Use as instructed [id number] Start: 04-27-2024 End: 04-27-2024 Use as instructed [id number] Start: 04-27-2024 End: 04-27-2025 Clinical Notes 01-05-2024 to 04-27-2024 Jessica Sánchez LPN - 04/27/2024 11:10 AM Eva Sánchez LPN - 04/12/2024 2:20 PM Eva Sánchez LPN - 03/29/2024 1:40 PM Shayna Robles LPN - 03/16/2024 9:50 AM EST [...] 81 mg, Daily Blood Glucose Monitoring Suppl ([employer] Glucometer) w/Device kit 1 kit, Does not [...] nursing note reviewed. Exam conducted with a harbor police launch commander present. Vitals: Estimated body mass index is [...] Isabella Stevenson DO documented in this encounter [facility] 04-12-2024 History of Presen t illness [...] nursing note reviewed. Exam conducted with a harbor police launch commander present. Vitals: Estimated body mass index is [...] Isabella Stevenson DO documented in this encounter [facility] 03-29-2024 History of Presen t illness [...] nursing note reviewed. Exam conducted with a harbor police launch commander present. Vitals: Estimated body mass index is [...] Isabella Stevenson DO documented in this encounter [facility] 03-16-2024 History of Presen t illness [...] of Onset Hypertension Mother Vandana Hyperlipidemia Mother Vanadna Allergies Mother Vandana Heart disease Father Cancer [...] nursing note reviewed. Exam conducted with a harbor police launch commander present. Vitals: Estimated body mass index is [...] Isabella Stevenson DO documented in this encounter [facility] 03-01-2024 History of Presen t illness [...] mg, Oral, Daily Blood Glucose Monitoring Suppl ([employer] Glucometer) w/Device kit 1 kit, Does not [...] to Diabetic Edu was sent over to [facility]. Pt was made aware diabetic supplies were sent to pharmacy today and to pickle pumper when ready. Pt was advised to make sure to take her supplies w/her to her appt when she gets scheduled by Kristal Yee RN at [facility]. Pt verbally understood. Growth US was given to patient today to have done at 28 weeks to schedule at [facility]. Orders Placed This Encounter Procedures POCT urinalysis dipstick manually resulted Follow Up: Patient is to return to office in 2 week for routine OB appointment. Documented by Tosin Carvalho MA on behalf of: COLETTE Almonte documented in this encounter [facility] 02-02-2024 History of Presen t illness [...] of: COLETTE Almonte documented in this encounter [facility] 01-05-2024 History of Presen t illness [...] nursing note reviewed. Exam conducted with a harbor police launch commander present. Vitals: Estimated body mass index is [...] pital DATE CREATED AUTHOR AUTHOR'S ORGANIZ ATION 04/28/2024 [facility] EPIC Reason for Visit (unrecogniz ed section and content) Reason Comments Routine Visit Care Teams (unrecognized sec tion and content) Brass Cutter Relationship Specialty Start Date End Date Hima Sena MD [address] [facility] [address] [place] [address] PCP - General Family Medicine 09/08/22 Brass Cutter Relationship Specialty Start Date End Date Hima Sena MD [address] [facility] [address] [place] [address] PCP - General Family Medicine 09/08/22 Brass Cutter Relationship Specialty Start Date End Date Hima Sena MD [address] [facility] [address] [place] [address] PCP - General Family Medicine 09/08/22 Brass Cutter Relationship Specialty Start Date End Date Hima Sena MD [address] [facility] [address] [place] [address] PCP - General Family Medicine 09/08/22 Brass Cutter Relationship Specialty Start Date End Date Hima Sena MD [address] [facility] [address] [place] [address] PCP - General Family Medicine 09/08/22 Brass Cutter Relationship Specialty Start Date End Date Hima Sena MD [address] [facility] [address] [place] [address] PCP - [facility] 09/08/22 Brass Cutter Relationship Specialty Start Date End Date Hima Sena MD [address] [facility] [address] [place] [address] PCP - [facility] 09/08/22 Brass Cutter Relationship Specialty Start Date End Date Hima Sena MD [address] [facility] [address] [place] [address] PCP - [facility] 09/08/22 Brass Cutter Relationship Specialty Start Date End Date Hima Sena MD [address] [facility] [address] [place] [address] PCP - [facility] 09/08/22 Brass Cutter Relationship Specialty Start Date End Date Hima Sena MD [address] [facility] [address] [place] [address] PCP - [facility] 09/08/22 Brass Cutter Relationship Specialty Start Date End Date Hima Sena MD [address] [facility] [address] [place] [address] PCP - [facility] 09/08/22 FOR RECORDS PERTAINING TO [...] BE BASED ON THE PRIMARY CLINICAL RECORDS. [employer] [facility]. provides no warranty or guarantee of the accuracy or completeness of information in this document.
--- NOTE | 2024-05-02 13:00 | US_ITS ---
[address] [address] Patient Name: SUSU RAUSCH MRN: [id number] date: 1990 Sex: F Assigned Patient Location: Current Patient Location: Accession/Order Number: [id number] Exam Date: 05/02/2024 13:02 Report Date: 05/02/2024 15:04 At the request of: ISABELLA LIRIANO Procedure: US OB BPP w non-stress EXAMINATION: US OB BPP w non-stress HISTORY: Diet controlled gestational diabetes COMPARISON: No relevant comparison available. TECHNIQUE: Ultrasound biophysical profile was performed in the radiology department. non-reactive stress testing was performed by nursing staff in the birthing center. FINDINGS: BREATHING MOVEMENTS: 2 GROSS BODY MOVEMENTS: 2 TONE: 2 QUALITATIVE AMNIOTIC FLUID VOLUME: 2 PRESENTATION: CEPHALIC HEART RATE: 143.62 bpm AMNIOTIC FLUID VOLUME: 11.2 cm GESTATIONAL AGE: 35 weeks 3 days US/US OB BPP w non-stress IMPRESSION: Total biophysical profile score: 8 Electronically authenticated by: ANDRADE MATHEWS Date: 05/02/2024 15:04
[2024-05-02 13:31] VITALS: BP 141/79; PULSE 88
== END 2024-05-02 14:10 | disposition home or self-care (01) ==
LOC: US 05:28 → FBC 13:04
PROVIDERS: Visit Provider Obstetrics & Gynecology
DX: O24.419 Gestational diabetes mellitus in pregnancy, unspecified control (principal); Z3A.35 35 weeks gestation of pregnancy
CPT/HCPCS: 76818

== ENCOUNTER 2024-05-05 01:17 | Outpatient (OUT) | payer OTHER, SELFPAY ==
--- OUTSIDE RECORDS SUMMARY | 2024-05-05 01:20 | XMS_ITS | CCD ---
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 Name Role Phone JAIDA, DR QUINTANILLA Attending [...] UA Negative Negative - 4(70) +++ mg/dL [facility] Blood, UA Negative Negative - 50 Álvaro/mcL [facility] Clarity, UA Clear [facility] re Color, UA Yellow [facility] Glucose, UA Negative Negative - 1999(110) ++++ mg/dL [facility] Interpretation and review of laboratory results Abnormal [facility] Ketones, UA Negative Negative - 160(16) ++++ mg/dL [facility] Leukocytes, UA Trace Negative - 500+++ Reji/mcL [facility] Nitrite, UA Negative Negative - Positive [facility] pH, UA 6.5 5 - 9 [facility] e Protein, UA Negative Negative - 1999(20) ++++ mg/dL [facility] Spec Grav, UA 1.025 1 - 1.03 [facility] Urobilinogen, UA 1.0 0.2 - 12 mg/dL [facility]inal[facility] macro (dipstick) panel (U)on 04-12-2024 Bilirubin, UA Negative Negative - 4(70) +++ mg/dL [facility] Blood, UA Negative Negative - 50 Álvaro/mcL [facility] Clarity, UA Clear [facility] re Color, UA Yellow [facility] Glucose, UA Negative Negative - 1999(110) ++++ mg/dL [facility] Interpretation and review of laboratory results Abnormal [facility] Ketones, UA Positive Negative - 160(16) ++++ mg/dL [facility] Comment on above: 15 Leukocytes, UA Trace Negative - 500+++ Reji/mcL [facility] Nitrite, UA Negative Negative - Positive [facility] pH, UA 7 5 - 9 [facility] Protein, UA Negative Negative - 1999(20) ++++ mg/dL [facility] Spec Grav, UA 1.02 1 - 1.03 [facility] care Urobilinogen, UA 1.0 0.2 - 12 mg/dL [facility] Urinalysis macro (dipstick) panel (U)on 03-29-2024 Bilirubin, UA Positive Negative - 4(70) +++ mg/dL [facility] Comment on above: small Blood, UA Negative Negative - 50 Álvaro/mcL [facility] Clarity, UA Clear [facility] Color, UA Yellow [facility] Glucose, UA Negative Negative - 1999(110) ++++ mg/dL [facility] Interpretation and review of laboratory results Abnormal [facility] Ketones, UA Positive Negative - 160(16) ++++ mg/dL [facility] Comment on above: 40 Leukocytes, UA Negative Negative - 500+++ Reji/mcL [facility] Nitrite, UA Negative Negative - Positive [facility] pH, UA 7 5 - 9 [facility] Protein, UA Positive Negative - 1999(20) ++++ mg/dL [facility] Comment on above: 30 Spec Grav, UA 1.025 1 - 1.03 [facility] Urobilinogen, UA 0.2 0.2 - 12 mg/dL [facility] Urinalysis macro (dipstick) panel (U)on 03-16-2024 Bilirubin, UA Negative Negative - 4(70) +++ mg/dL [facility] Blood, UA Negative Negative - 50 Álvaro/mcL [facility] Clarity, UA Clear [facility] Color, UA Yellow [facility] Glucose, UA Negative Negative - 1999(110) ++++ mg/dL [facility] Interpretation and review of laboratory results Abnormal [facility] Ketones, UA Negative Negative - 160(16) ++++ mg/dL [facility] Leukocytes, UA Negative Negative - 500+++ Reji/mcL [facility] Nitrite, UA Negative Negative - Positive [facility] pH, UA 7 5 - 9 [facility] Protein, UA Negative Negative - 1999(20) ++++ mg/dL [facility] Spec Grav, UA 1.02 1 - 1.03 [facility] Urobilinogen, UA 1.0 0.2 - 12 mg/dL [facility] Urinalysis macro (dipstick) panel (U)on 03-01-2024 Bilirubin, UA Negative Negative - 4(70) +++ mg/dL [facility] Blood, UA Negative Negative - 50 Álvaro/mcL [facility] Clarity, UA Clear [facility] re Color, UA Yellow [facility] Glucose, UA Negative Negative - 1999(110) ++++ mg/dL [facility] Interpretation and review of laboratory results Abnormal [facility] Ketones, UA Negative Negative - 160(16) ++++ mg/dL [facility] Leukocytes, UA Trace Negative - 500+++ Reji/mcL [facility] Nitrite, UA Negative Negative - Positive [facility] pH, UA 7 5 - 9 [facility] e Protein, UA Negative Negative - 1999(20) ++++ mg/dL [facility] Spec Grav, UA 1.015 1 - 1.03 [facility] Urobilinogen, UA 0.2 0.2 - 12 mg/dL [facility] GLUCOSE TOLERANCE 3 HOURon GLUCOSE TOLERANCE 3 HOUR High mg/dL [facility] Comment on above: GLU FAST 98H (<95) C ol: 02/22/24 0919 GLU 1HR 193H (<180) Col: 02/22/24 1020 GLU 2HR 179H (<155) Col: 02/22/24 1119 GLU 3HR 71 (<140) Col: 02/22/24 1220 Interpretation and review of laboratory results Abnormal [facility] ALL CBC WITH AUTO DIFFon BASOPHILS ABSOLUTE AUTO 0 [facility] Basophils/100 WBC (Bld) 0.3 % 0.2 - 2.0 % [facility] Eosinophils/100 WBC (Bld) 0.3 % Low 0.9 - 7.0 % [facility] Erythrocyte distribution width (RBC) [Ratio] 12.8 % 11.0 - 15.0 % [facility] Hematocrit (Bld) [Volume fraction] 32.9 % Low 36.0 - 48.0 % [facility] Hemoglobin (Bld) [Mass/Vol] 10.9 g/dL Low 12.0 - 16.0 g/dL [facility] IMMATURE GRANULOCYTES ABS AUTO 0.13 High [facility] Immature granulocytes/100 WBC (Bld) 1.1 % High 0.0 - 0.5 % [facility] Interpretation and review of laboratory results Abnormal [facility] LYMPHOCYTES ABSOLUTE AUTO 1.1 Low [facility] Lymphocytes/100 WBC (Bld) 9.3 % Low 20.5 - 60.0 % [facility] MCH (RBC) [Entitic mass] 29.9 pg 26.7 - 34.0 pg [facility] MCHC (RBC) [Mass/Vol] 33.1 g/dL 29.9 - 35.2 g/dL [facility] MCV (RBC) [Entitic vol] 90.4 fL 81.0 - 99.0 fL [facility] MONOCYTES ABSOLUTE AUTO 0.4 [facility] Monocytes/100 WBC (Bld) 3.1 % 1.7 - 12.0 % [facility] NEUTROPHILS ABSOLUTE AUTO 10 High [facility] Neutrophils/100 WBC (Bld) 85.9 % High 43.0 - 75.0 % [facility] Platelet mean volume (Bld) [Entitic vol] 9.5 fL 9.5 - 13.5 fL [facility] EO # 0 [facility] TB PLT 299 [facility] RBC 3.64 Low [facility] TB WBC 11.6 High [facility] Urinalysis macro (dipstick) panel (U)on 02-02-2024 Bilirubin, UA Negative Negative - 4(70) +++ mg/dL [facility] Blood, UA Negative Negative - 50 Álvaro/mcL [facility] Clarity, UA Clear [facility] Color, UA Yellow [facility] Glucose, UA Negative Negative - 2000(110) ++++ mg/dL [facility] Interpretation and review of laboratory results Normal [facility] Ketones, UA Negative Negative - 160(16) ++++ mg/dL [facility] Leukocytes, UA Negative Negative - 500+++ Reji/mcL [facility] Nitrite, UA Negative Negative - Positive [facility] pH, UA 5.5 5 - 9 [facility] e Protein, UA Negative Negative - 1999(20) ++++ mg/dL [facility] Spec Grav, UA 1.010 1 - 1.03 [facility] Urobilinogen, UA 0.2 0.2 - 12 mg/dL [facility] AFP, SERUM, OPEN SPINA BIFID Aon 01-30-2024 AFP MOM 0.83 . [facility] AFP VALUE 54.5 ng/mL . [facility] COMMENT: Comment . [facility] Comment on above: Siria Davis , Ph.D., [facility] Director References: Available Upon Request. Multiples Of Median Cutoffs For AFP Elevations Espinoza 2.5 Black 2.8 IDD 2.0 Twins 4.5 Abbreviation Definitions IDD - Insulin Dep Diabetes OSBR - Open Spina Bifida Risk For further inquiries contact [facility] at [phone]. This test was developed and its performance characteristics determined by [employer]. It has not been cleared or approved by the Food and Drug Administration. Performed at: [facility] [place], [place] [id number] Research Compliance Specialist: Luis Kelly [facility], Phone: [phone] GEST. AGE ON COLLECTION DATE 21.7 . weeks [facility] GESTAT. AGE BASED ON LMP . [facility] Comment on above: Recalculations are n ot recommended when gestational dating by LMP and ultrasound are within 10 days. INSULIN DEP DIABETES No . [facility] INTERPRETATION Comment . [facility] Comment on above: Interpretation: Scre [...] Customer Services to discuss available options. The [employer] recommends amniocentesis be offered to women age 35 and older. [age] [facility] MULTIPLE GESTATION No . [facility] [place] [address] . [facility] R[facility] . [facility] e RESULTS Report . [facility] TEST RESULTS: Negative . [facility] WEIGHT 165 . lbs [facility] N N LMP [id number] 4 18 N 1 Y 165 N N N N N White/ [facility] IGP,APTIMA HPV,AGE GDLNon AGE GDLN ACOG TESTING Note . [facility] Comment on above: TESTS RESULT FLAG UN ITS REF RANGE LAB Clinician Provided Cytology Information Source.............Cervix No. of containers..01 ThinPrep Vial Age Algo ACOG Elizabeth... 30-65 01 FLAG LEGEND: L-Low Normal,H-High Normal,LL-Alert Low,HH-Alert High <-Panic Low,>-Panic High,A-Abnormal,AA-Critical Abnormal Performed at: 01 =G [address] [address] Lexie Nichols MD, HPV APTIMA Negative Negative [facility] Comment on above: This nucleic acid am plification test detects fourteen high- risk HPV types (16,18,31,33,35,39,45,51,52,56,58,59,66,68) without differentiation. Performed at: =G [facility] [id number] Research Compliance Specialist: Lexie Nichols MD, Phone: [phone] Performed at: - [facility], [place] [id number] Research Compliance Specialist: Lexie Nichols MD, Phone: [phone] IGP, APTIMA HPV, RFX 16/18,45 Note . [facility] Comment on above: TESTS RESULT FLAG UN ITS REF RANGE LAB DIAGNOSIS: 02 NEGATIVE FOR INTRAEPITHELIAL LESION OR MALIGNANCY. Specimen adequacy: 02 Satisfactory for evaluation. No endocervical component is identified. Performed by: Benson Hutchinson, Pharmacy Specialist (ASC) . 02 Note: Note 02 The [...] High <-Panic Low,>-Panic High,A-Abnormal,AA-Critical Abnormal Performed at: [facility] [address] [place] [address] Lexie Nichols MD, BRUSH-ALONE CERVIX [facility] URETHRITIS/DISCHARGE PLUS VA GINITIS (HTRX)on 01-08-2024 ATOPOBIUM VAGINAE 0.000 [facility] ATOPOBIUM VAGINAE Not detected [facility] BVAB 2,3 (BACTERIAL VAGINOSIS ASSOCIATED BACTERIA 2, 3); MOBILUNCUS SPP 0.000 [facility] BVAB 2,3 (BACTERIAL VAGINOSIS ASSOCIATED BACTERIA 2, 3); MOBILUNCUS SPP Not detected [facility] EMMY ALBICANS, PARAPSILOSIS, TROPICALIS 29.274 Abnormal [facility] EMMY ALBICANS, PARAPSILOSIS, TROPICALIS Detected Abnormal [facility] EMMY GLABRATA 0.000 [facility] EMMY GLABRATA Not detected [facility] EMMY KRUSEI 0.000 [facility] E[facility] KRUSEI Not detected [facility] CHLAMYDIA TRACHOMATIS 0.000 [facility] CHLAMYDIA TRACHOMATIS Not detected [facility] GARDNERELLA VAGINALIS 0.000 [facility] GARDNERELLA VAGINALIS Not detected [facility] Interpretation and review of laboratory results Abnormal [facility] MEGASPHAERA (TYPES 1, 2) 0.000 [facility] MEGASPHAERA (TYPES 1, 2) Not detected [facility] MYCOPLASMA GENITALIUM 0.000 [facility] MYCOPLASMA GENITALIUM Not detected [facility] NEISSERIA GONORRHOEAE 0.000 [facility] NEISSERIA GONORRHOEAE Not detected [facility] TRICHOMONAS VAGINALIS 0.000 [facility] TRICHOMONAS VAGINALIS Not detected [facility] Urinalysis macro (dipstick) panel (U)on 01-05-2024 Bilirubin, UA Negative Negative - 4(70) +++ mg/dL [facility] Blood, UA Negative Negative - 50 Álvaro/mcL [facility] Clarity, UA Clear [facility], UA Yellow [facility] Glucose, UA Negative Negative - 1999(110) ++++ mg/dL [facility] Interpretation and review of laboratory results Abnormal [facility] Ketones, UA Negative Negative - 160(16) ++++ mg/dL [facility] Leukocytes, UA Trace Negative - 500+++ Reji/mcL [facility] Nitrite, UA Negative Negative - Positive [facility] pH, UA 6.5 5 - 9 [facility] Protein, UA Negative Negative - 1999(20) ++++ mg/dL [facility] Spec Grav, UA 1.025 1 - 1.03 [facility] Urobilinogen, UA 0.2 0.2 - 12 mg/dL [facility] PAP ACOG PANEL 2: 30 to 65on 11-13-2021 . . Normal [facility] Comment on above: Result Comment: Perf ormed at: WB Performed By: #### [id number] #### [facility] [address] [place] [address] Dr. Abby Campoverde Age Gdln ACOG Testing 30-65 Normal [facility] Comment on above: Performed By: #### [id number] #### [facility] [address] [place] [address] Dr. Abby Campoverde DIAGNOSIS: Comment Normal [facility] Comment on above: Result Comment: NEGA TIVE FOR INTRAEPITHELIAL LESION OR MALIGNANCY. Performed at: WB Performed By: #### [id number] #### [facility] [address] [place] [address] Dr. Abby Campoverde HPV Aptima Negative Normal [facility] Comment on above: Result Comment: This nucleic acid amplification test detects fourteen high-risk HPV types (16,18,31,33,35,39,45,51,52,56,58,59,66,68) without differentiation. Performed at: =G Performed By: #### [id number] #### [facility] [address] [place] [address] Dr. Abby Campoverde Methodology: Comment Normal [facility] Comment on above: Result Comment: This liquid based ThinPrep(R) pap test was screened with the use of an image guided system. Performed at: WB Performed By: #### [id number] #### [facility] [address] [place] [address] Dr. Abby Campoverde Note: Comment Normal [facility] Comment on above: Result Comment: The Pap smear is a screening test designed to aid in the detection of premalignant and malignant conditions of the uterine cervix. It is not a diagnostic procedure and should not be used as the sole means of detecting cervical cancer. Both false-positive and false-negative reports do occur. . Performed at: WB Performed By: #### [id number] #### [facility] [address] [address] [address] Abby Campoverde Performed by: Comment Normal [facility] Comment on above: Result Comment: Madisyn Sherman, Pharmacy Specialist (ASCP) Performed at: WB Performed By: #### [id number] #### [facility] [address] [address] [address] Abby Campoverde Specimen adequacy: Comment Normal [facility] Comment on above: Result Comment: Sati sfactory for evaluation. Endocervical and/or squamous metaplastic cells (endocervical component) are present. Performed at: WB Performed By: #### [id number] #### [facility] [address] [address] [address] Abby Campoverde Covid-19 PCR (CVDTB)on 10-01 SARS-CoV-2 (COVID-19) RNA ABDI+probe Ql (Unsp spec) Not detected Normal NOT DETECTED [facility] Comment on above: Result Comment: This test is not yet approved or cleared by the [place] FDA. When there are no FDA-approved or cleared tests available, and other criteria are met, FDA can make tests available under an emergency access mechanism called an Emergency Use Authorization (EUA). The EUA for this test is supported by the Equipment Service Engineer of Health and Human Service's (HHS's) declaration [...] SARS-CoV-2. Performed By: #### C VDTBH #### [facility] [address] [address] [address] Abby Campoverde Vital Signs Date Time Vital Sign Value Performing Clinician Faci lity 04-27-2024 11:25-0500 Body mass index (BMI) [Ratio] 33.31 kg/m2 Isabella Elva DO Work Phone: [facility] 04-27-2024 11:25-0500 Body weight 82.61 kg Isabella Elva DO Work Phone: [facility] 04-27-2024 11:25-0500 Diastolic blood pressure 70 mm[Hg] Isabella Elva DO Work Phone: [facility] 04-27-2024 11:25-0500 Systolic blood pressure 120 mm[Hg] Isbaella Elva DO Work Phone: [facility] 04-12-2024 15:18-0500 Body mass index (BMI) [Ratio] 33.47 kg/m2 Isabella Elva DO Work Phone: [facility] 04-12-2024 15:18-0500 Body weight 83.01 kg Isabella Elva DO Work Phone: [facility] 04-12-2024 15:18-0500 Diastolic blood pressure 78 mm[Hg] Isabella Elva DO Work Phone: [facility] 04-12-2024 15:18-0500 Systolic blood pressure 126 mm[Hg] Isabella Elva DO Work Phone: [facility] 03-29-2024 14:09-0500 Body mass index (BMI) [Ratio] 33 kg/m2 Isabella Elva DO Work Phone: [facility] 03-29-2024 14:09-0500 Body weight 81.83 kg Isabella Elva DO Work Phone: [facility] 03-29-2024 14:09-0500 Diastolic blood pressure 70 mm[Hg] Isabella Elva DO Work Phone: [facility] 03-29-2024 14:09-0500 Systolic blood pressure 120 mm[Hg] Isabella Elva DO Work Phone: [facility] 03-16-2024 10:04-0500 Body mass index (BMI) [Ratio] 33.13 kg/m2 Isabella Elva DO Work Phone: [facility] 03-16-2024 10:04-0500 Body weight 82.16 kg Isabella Elva DO Work Phone: [facility] 03-16-2024 10:04-0500 Diastolic blood pressure 80 mm[Hg] Isabella Elva DO Work Phone: [facility] 03-16-2024 10:04-0500 Systolic blood pressure 130 mm[Hg] Isabella Elva DO Work Phone: [facility] 03-01-2024 09:57-0400 Body mass index (BMI) [Ratio] 32.74 kg/m2 Tiffani Nancy PA Work Phone: [facility] 03-01-2024 09:57-0400 Body weight 81.19 kg Tiffani Nancy PA Work Phone: [facility] 03-01-2024 09:57-0400 Diastolic blood pressure 80 mm[Hg] Tiffani Nancy PA Work Phone: [facility] 03-01-2024 09:57-0400 Systolic blood pressure 122 mm[Hg] Tiffani Nancy PA Work Phone: [facility] 02-02-2024 15:46-0400 Body mass index (BMI) [Ratio] 32.01 kg/m2 Tiffani Nancy PA Work Phone: [facility] 02-02-2024 15:46-0400 Body weight 79.38 kg Tiffani Kranzburg PA Work Phone: [facility] 02-02-2024 15:46-0400 Diastolic blood pressure 76 mm[Hg] Tiffani Kranzburg PA Work Phone: [facility] 02-02-2024 15:46-0400 Systolic blood pressure 126 mm[Hg] Tiffani Nancy PA Work Phone: [facility] 01-05-2024 14:31-0400 Body mass index (BMI) [Ratio] 30.32 kg/m2 Isabella Elva DO Work Phone: [facility] 01-05-2024 14:31-0400 Body weight 75.18 kg Isabella Elva DO Work Phone: [facility] 01-05-2024 14:31-0400 Diastolic blood pressure 82 mm[Hg] Isabella Elva DO Work Phone: [facility] 01-05-2024 14:31-0400 Systolic blood pressure 126 mm[Hg] Isabella Elva DO Work Phone: [facility] Encounters Encounter Date Encounter Type Care Provider Facility Start: 04-27-2024 End: 04-27-2024 flow sheet Isabella Elva DO Work Phone: [facility] Comment on above: 34 weeks gestation o f ; Third trimester ; Gestational diabetes mellitus (GDM) affecting Start: 04-27-2024 End: 04-27-2024 ambulatory ISABELLA ELVA Not Available Start: 04-12-2024 End: 04-12-2024 flow sheet Isabella Elva DO Work Phone: [facility] Comment on above: Third trimester preg bharathi; 32 weeks gestation of ; Diet controlled gestational diabetes mellitus (GDM) in third trimester Start: 04-12-2024 End: 04-12-2024 ambulatory ISABELLA ELVA Not Available Start: 03-29-2024 End: 03-29-2024 Bamboo flowsheet Isabella Elva DO Work Phone: [facility] Start: 03-29-2024 End: 03-29-2024 Bamboo flowsheet Isabella Elva DO Work Phone: [facility] Start: 03-29-2024 End: 03-29-2024 flow sheet Isabella Elva DO Work Phone: [facility] Comment on above: 30 weeks gestation o f ; Third trimester ; Sinusitis, unspecified chronicity, unspecified location; Gastroesophageal reflux in Start: 03-29-2024 End: 03-29-2024 ambulatory ISABELLA ELVA Not Available Start: 03-16-2024 End: 03-16-2024 Bamboo flowsheet Isabella Elva DO Work Phone: [facility] Start: 03-16-2024 End: 03-16-2024 Bamboo flowsheet Isabella Elva DO Work Phone: [facility] Start: 03-16-2024 End: 03-16-2024 flow sheet Isabella Elva DO Work Phone: [facility] Comment on above: 28 weeks gestation o f ; Third trimester Start: 03-16-2024 End: 03-16-2024 ambulatory ISABELLA ELVA Not Available Start: 03-01-2024 End: 03-01-2024 Bamboo flowsheet Tiffani ALVARENGA Work Phone: [facility] Start: 03-01-2024 End: 03-01-2024 Bamboo flowsheet Tiffani ALVARENGA Work Phone: [facility] Start: 03-01-2024 End: 03-01-2024 flow sheet Tiffani ALVARENGA Work Phone: [facility] Comment on above: Second trimester pre gnancy; 26 weeks gestation of ; Gestational diabetes mellitus (GDM), antepartum, gestational diabetes method of control unspecified; Elevated glucose tolerance test Start: 03-01-2024 End: 03-01-2024 ambulatory TIFFANI SON Not Available Start: 02-22-2024 End: 02-22-2024 Clinis[facility] Result Encounter Tiffani ALVARENGA Work Phone: [facility] External Department Unsolicited Start: 02-22-2024 End: 02-22-2024 Clinisync Result Encounter Tiffani ALVARENGA Work Phone: [facility] External Department Unsolicited Start: 02-16-2024 End: 02-16-2024 Clinisync Result Encounter Tiffani ALVARENGA Work Phone: [facility] External Department Unsolicited Start: 02-16-2024 End: 02-16-2024 [...] Periodic preventive med est patient 18-39 yrs Isabelal Elva DO Work Phone: [facility] [...] AFP, SERUM, OPEN SPI NA BIFIDA Isabella Flukle DO Work Phone: Start: 01-05-2024 Urnls dip stick/tabl et rgnt non-auto w/o micrscp Isabella Flukle DO Work Phone: Start: 01-05-2024 IGP,APTIMA HPV,AGE GDLN Isabella Flukle DO Work Phone: Start: 01-05-2024 Microscopic observat ion [Identifier] in Cervix by Cyto stain Isabella Flukle DO Work Phone: Start: 01-05-2024 URETHRITIS/DISCHARGE PLUS VAGINITIS (HTRX) Isabella Flukle DO Work Phone: Plan of Treatment Date Care Activity Detail Author Start: 01-04-2027 Screening for malign ant neoplasm of cervix [facility] Start: 10-15-2025 Screening for malign ant neoplasm of cervix [facility] Start: 05-11-2024 End: 05-11-2024 Patient encounter procedure 05/11/2024 10:30 AM EST Routine [facility] [address] [place] [phone] Isabella Stevenson, DO [address] [place] [address] [facility] Start: 04-27-2024 End: 04-27-2024 Patient encounter procedure 04/27/2024 11:10 AM EST Routine [facility] [address] [place] [phone] Isabella Stevenson DO [address] [place] [address] [facility] Start: 04-12-2024 End: 04-12-2024 Patient encounter procedure 04/12/2024 2:20 PM EST Routine [facility] [address] [place] [phone] Isabella Stevenson, DO [address] [place] [address] [facility] Start: 04-12-2024 End: 04-12-2025 [...] EST Ancillary Procedure [facility] [address] [place] [phone] [facility] Start: 03-16-2024 End: 03-16-2024 Patient encounter procedure 03/16/2024 9:50 AM EST Routine [facility] [address] [place] [id number] Isabella Stevenson, DO [address] [place] [address] [facility] Start: 03-01-2024 End: 03-01-2025 [...] mellitus screening Expected: 02/02/2024 (Approximate), Expires: 02/01/2025 [facility] Comment on above: Expected: 02/02/2024 (Approximate), Expires: 02/01/2025 Start: 02-02-2024 End: 02-02-2024 Professional / ancillary services management 02/02/2024 2:00 PM EDT Ancillary Procedure [facility] [address] [place] [phone] [facility] [facility] Start: 01-05-2024 End: 01-04-2025 Alpha fetoprotein, maternal Alpha fetoprotein, maternal Lab Routine Second trimester Expected: 01/05/2024 (Approximate), Expires: 01/04/2025 [facility] Comment on above: Expected: 01/05/2024 (Approximate), Expires: 01/04/2025 Start: 01-05-2024 End: 01-04-2025 US for US OB ANATOMY SINGLE W US OB CERVICAL LENGTH Imaging Routine Screening, , for anatomic survey Expected: 01/05/2024 (Approximate), Expires: 01/04/2025 [facility] Comment on above: Expected: 01/05/2024 (Approximate), Expires: 01/04/2025 Start: 01-05-2024 End: 01-05-2024 Patient encounter procedure 01/05/2024 1:50 PM EDT Routine [facility] [address] [place] [id number] Isabella Stevenson, [address] [place] [address] Arrived [facility] Comment on above: Arrived Start: 01-02-2024 Influenza vaccination Influenza Vacc ine (#1) [facility] Start: 2012 Screening for malign ant neoplasm of cervix Pap Smear [facility] CHLAMYDIA TRACHOMATI S (GENITO/STI) CHLAMYDIA TRACHOMATIS (GENITO/STI) Lab Routine Second trimester Screen for STD (sexually transmitted disease) Vaginal discharge Ordered: 01/05/2024 [facility] Comment on above: Ordered: 01/05/2024 Cytology Cervical or vaginal smear or scraping study Pap Smear Pathology and Cytology Routine Well woman exam with routine gynecological exam Ordered: 01/05/2024 [facility] Work Phone: Comment on above: Ordered: 01/05/2024 Human papilloma viru s DNA [Presence] in Unspecified specimen by Probe with amplification HPV DNA probe, amplified Microbiology Routine Well woman exam with routine gynecological exam Ordered: 01/05/2024 [facility] Comment on above: Ordered: 01/05/2024 Neisseria gonorrhoea e DNA [Presence] in Unspecified specimen by ABDI with probe detection Neisseria gonorrhea DNA probe, direct Lab Routine Second trimester Screen for STD (sexually transmitted disease) Vaginal discharge Ordered: 01/05/2024 [facility] Comment on above: Ordered: 01/05/2024 SURESWAB(R) ADVANCED VAGINITIS PLUS, TMA SURESWAB(R) ADVANCED VAGINITIS PLUS, TMA Pathology and Cytology Routine Second trimester Screen for STD (sexually transmitted disease) Vaginal discharge Ordered: 01/05/2024 [facility] Comment on above: Ordered: 01/05/2024 Payers Date Payer Category Payer Private Health Insurance [employer] [id number] 2022 Unknown [employer] [id number] 2022-Present [address] [place] [address] [id number] 1991 Unknown [id number]. 593 1991 Unknown [id number] 2.16.840.1.779918.3.579.2. 593 1991 Unknown [id number] 2.16.840.1.506006.3.579.2. 9 1991 Unknown [id number] 2.16.840.1.945578.3.579.2. 9 1991 Unknown [id number] 2.16.840.1.939200.3.579.2. 9 1991 Unknown [id number] 2.16.840.1.645884.3.579.2. 9 1991 Unknown [id number] 2.16.840.1.310722.3.579.2. 9 1991 Unknown [id number] 2.16.840.1.794648.3.579.2. 9 1991 Unknown [id number] 2.16.840.1.642886.3.579.2. 9 1991 Unknown [id number] 2.16.840.1.646914.3.579.2. 1258 1991 Unknown [id number] 2.16.840.1.352964.3.579.2. 9 1959 Unknown [id number] Social History Date Type Detail Facility Start: 10-29-2023 Tobacco smoking status WAIS Never sm oked tobacco [facility] Start: 10-29-2023 Tobacco use and exposure Smoke less tobacco non-user [facility] Start: 02-02-2024 End: 04-27-2024 Alcoholic beverage intake Current drinker of alcohol (finding) [facility] Start: 03-04-2023 End: 10-29-2023 History of [...] or more drinks on 1 occasion? Never [facility] Start: 09-11-2023 [facility] Start: 1990 Sex assigned at Female [facility] Start: 03-09-2023 Gender identity Identifies as female gender (finding) [facility] Medical Equipment Procedure Code Equipment Code Equipment Origin al Text Equipment Identifier Dates Use as instructed [id number] Start: 03-01-2024 End: 03-01-2025 1 each by In Vit ro route Daily Use to check FSBS four times daily [id number] Start: 03-01-2024 End: 03-31-2024 Use as instructed [id number] Start: 04-27-2024 End: 04-27-2024 Use as instructed [id number] Start: 04-27-2024 End: 04-27-2025 Clinical Notes 01-05-2024 [...] 81 mg, Daily Blood Glucose Monitoring Suppl ([employer] Glucometer) w/Device kit 1 kit, Does not [...] nursing note reviewed. Exam conducted with a subassembly supervisor present. Vitals: Estimated body mass index is [...] Isabella Stevenson DO documented in this encounter [facility] 04-12-2024 History of Presen t illness Narrative [...] nursing note reviewed. Exam conducted with a subassembly supervisor present. Vitals: Estimated body mass index is [...] Isabella Stevenson DO documented in this encounter [facility] 03-29-2024 History of Presen t illness Narrative [...] nursing note reviewed. Exam conducted with a subassembly supervisor present. Vitals: Estimated body mass index is [...] Isabella Stevenson DO documented in this encounter [facility] 03-16-2024 History of Presen t illness Narrative [...] nursing note reviewed. Exam conducted with a subassembly supervisor present. Vitals: Estimated body mass index is [...] Isabella Stevenson DO documented in this encounter [facility] 03-01-2024 History of Presen t illness Narrative [...] mg, Oral, Daily Blood Glucose Monitoring Suppl ([email or web address] Glucometer) w/Device kit 1 kit, Does not [...] to Diabetic Edu was sent over to [facility]. 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 Pt was advised to make sure to take her supplies w/her to her appt when she gets scheduled by Kristal Yee RN at [facility]. Pt verbally understood. Growth US was given to patient today to have done at 28 weeks to schedule at [facility]. Orders Placed This Encounter Procedures POCT urinalysis dipstick manually resulted Follow Up: Patient is to return to office in 2 week for routine OB appointment. Documented by Tosin Carvalho MA on behalf of: COLETTE Almonte documented in this encounter [facility] 02-02-2024 History of Presen t illness Narrative [...] for routine OB appointment. Documented by COLETTE Amlonte on behalf of: COLETTE Almonte documented in this encounter [facility] 01-05-2024 History of Presen t illness Narrative [...] nursing note reviewed. Exam conducted with a subassembly supervisor present. Vitals: Estimated body mass index is [...] DATE CREATED AUTHOR AUTHOR'S ORGANIZ ATION 04/28/2024 [facility] EPIC Reason for Visit (unrecogniz ed section and content) Reason Comments Routine Visit Care Teams (unrecognized sec tion and content) [employer] Utility Worker Relationship Specialty Start Date End Date Hima Sena MD [address] [facility] [address] [place] [address] PCP - General Family Medicine 09/08/22 [employer] Worker Relationship Specialty Start Date End Date Hima Sena MD [address] [facility] [address] [place] [address] PCP - General Family Medicine 09/08/22 [employer] Worker Relationship Specialty Start Date End Date Hima Sena MD [address] [facility] [address] [place] [address] PCP - General Family Medicine 09/08/22 [employer] Worker Relationship Specialty Start Date End Date Hima Sena MD [address] [facility] [address] [place] [address] PCP - General Family Medicine 09/08/22 [employer] Utility Worker Relationship Specialty Start Date End Date Hima Sena MD [address] [facility] [address] [place] [address] PCP - General Family Medicine 09/08/22 [employer] Utility Worker Relationship Specialty Start Date End Date Hima Sena MD [address] [facility] [address] [place] [address] PCP - [facility] 09/08/22 [employer] Utility Worker Relationship Specialty Start Date End Date Hima Sena MD [address] [facility] [address] [place] [address] PCP - [facility] 09/08/22 [employer] Worker Relationship Specialty Start Date End Date Hima Sena MD [address] [facility] [address] [place] [address] PCP - [facility] 09/08/22 [employer] Worker Relationship Specialty Start Date End Date Hima Sena MD [address] [facility] [address] [place] [address] PCP - [facility] 09/08/22 [employer] Worker Relationship Specialty Start Date End Date Hima Sena MD [address] [facility] [address] [place] [address] PCP - [facility] 09/08/22 [employer] Utility Worker Relationship Specialty Start Date End Date Hima Sena MD [address] [facility] [address] [place] [address] PCP - [facility] 09/08/22 FOR RECORDS PERTAINING TO PATIENTS [...] BE BASED ON THE PRIMARY CLINICAL RECORDS. [employer] [facility]. provides no warranty or guarantee of the accuracy or completeness of information in this document.
[2024-05-05 11:10] VITALS: BP 149/79; PULSE 95
[2024-05-05 11:39] VITALS: BP 137/84; PULSE 96
== END 2024-05-05 11:43 | disposition home or self-care (01) ==
LOC: FBCO 01:18 → FBC 11:06
PROVIDERS: Visit Provider Obstetrics & Gynecology
DX: O24.419 Gestational diabetes mellitus in pregnancy, unspecified control (principal)
CPT/HCPCS: 59025

== ENCOUNTER 2024-05-09 15:15 | Observation (INO) | payer OTHER, SELFPAY ==
--- NOTE | 2024-05-09 | US_ITS ---
[address] [address] Patient Name: SUSU RAUSCH MRN: [id number] date: 1990 Sex: F Assigned Patient Location: [facility] Current Patient Location: [facility] Accession/Order Number: [id number] Exam Date: 05/09/2024 13:00 Report Date: 05/09/2024 14:37 At the request of: ISABELLA LIRIANO Procedure: US OB BPP w non-stress EXAMINATION: US OB BPP w non-stress HISTORY:Diet controlled gestational diabetes O24.410 COMPARISON: Ultrasound OB biophysical 05/02/2024 TECHNIQUE: Ultrasound biophysical profile was performed in the radiology department. BREATHING MOVEMENTS: 2 GROSS BODY MOVEMENTS: 2 TONE: 2 QUALITATIVE AMNIOTIC FLUID VOLUME: 2 PRESENTATION: CEPHALIC HEART RATE: 139.18 bpm AMNIOTIC FLUID VOLUME: 13.70 cm GESTATIONAL AGE: 36 weeks 3 days US/US OB BPP w non-stress IMPRESSION: Total biophysical profile score: 8 Electronically authenticated by: DARREN LIRIANO Date: 05/09/2024 14:37
[2024-05-09 13:21] VITALS: BP 142/94; PULSE 109
[2024-05-09 13:32] VITALS: BP 148/91; PULSE 109
[2024-05-09 13:42] VITALS: BP 146/91; PULSE 117
[2024-05-09 13:52] VITALS: BP 146/89; PULSE 101
[2024-05-09 14:03] VITALS: BP 145/86; PULSE 100
[2024-05-09 14:26] LABS: Basophils Percent Auto 0.3 % (0.2-2.0); Eosinophils Percent Auto 0.3 % (0.9-7.0); Hematocrit 35.1 % (36.0-48.0); Hemoglobin 11.4 g/dL (12.0-16.0); Immature Granulocytes Abs Auto 0.06 10^3/uL (0.00-0.03); Immature Granulocytes Pct Auto 0.5 % (0.0-0.5); Lymphocytes Absolute Auto 1.2 10^3/uL (1.2-3.8); Lymphocytes Percent Auto 10.4 % (20.5-60.0); Mean Corpuscular HGB Conc 32.5 g/dL (29.9-35.2); Mean Corpuscular Hemoglobin 27.5 pg (26.7-34.0); Mean Corpuscular Volume 84.8 fL (81.0-99.0); Mean Platelet Volume 11.5 fL (9.5-13.5); Monocytes Absolute Auto 0.6 10^3/uL (0.3-0.8); Neutrophils Absolute Auto 9.9 10^3/uL (1.4-6.5); Neutrophils Percent Auto 83.5 % (43.0-75.0); Platelet Count 295 10^3/uL (150-450); Red Blood Count 4.14 10^6/uL (4.20-5.40); White Blood Count 11.9 10^3/uL (4.0-11.0)
[2024-05-09 14:31] LABS: Alanine Aminotransferase 17 U/L (14-59); Aspartate Amino Transferase 9 U/L (15-37); Estimated GFR (African America >60 (>=60 mL/min/1.73m^2); Estimated GFR (Non-African Ame >60 (>=60 mL/min/1.73m^2); Uric Acid 4.6 mg/dL (2.6-6.0)
[2024-05-09 14:41] LABS: Partial Thromboplastin Time 21.9 sec (22.3-36.2); Prothrombin Time 9.3 sec (9.0-11.6)
[2024-05-09 14:45] LABS: Creatinine Urine Random <13.00 mg/dL (20.00-300.00); Total Protein Urine Random <6.0 mg/dL (<=11.9)
[2024-05-09 14:49] LABS: INR <0.93
[2024-05-09 14:50] LABS: Fibrinogen 412 mg/dL (200-400)
[2024-05-09] MEDS: LABETALOL HCL 100 MG TABLET PO (15:36)
[2024-05-09 16:13] VITALS: BP 137/83; PULSE 88
[2024-05-09] MEDS: BETAMETHASONE ACE/BETAMETHASONE SOD PHOS 30 MG/5 ML 12 MG IM (16:16)
== END 2024-05-09 16:28 | disposition home or self-care (01) ==
LOC: FBCO 15:42 → FBC 15:42
PROVIDERS: Admitting Provider Obstetrics & Gynecology; Visit Provider Obstetrics & Gynecology
DX: O16.3 Unspecified maternal hypertension, third trimester (principal); Z3A.36 36 weeks gestation of pregnancy; O24.410 Gestational diabetes mellitus in pregnancy, diet controlled
CPT/HCPCS: 36415; 76818; 82565; 82570; 84156; 84450; 84460; 84520; 84550; 85025; 85384; 85610; 85730; 96372; G0378; G0379; J0702

== ENCOUNTER 2024-05-10 00:58 | Outpatient (OUT) | payer OTHER, SELFPAY ==
[2024-05-10] MEDS: BETAMETHASONE ACE/BETAMETHASONE SOD PHOS 30 MG/5 ML 12 MG IM (16:34)
[2024-05-10 16:38] VITALS: TEMP 36.8
--- NOTE | 2024-05-10 16:39 | PC.NURSE ---
Pt in: 1615 Pt out: 1631
== END 2024-05-10 16:35 | disposition home or self-care (01) ==
LOC: FBCO 00:59
PROVIDERS: Visit Provider Obstetrics & Gynecology
DX: O16.9 Unspecified maternal hypertension, unspecified trimester (principal); Z3A.00 Weeks of gestation of pregnancy not specified
CPT/HCPCS: 84156; 96372; J0702

== ENCOUNTER 2024-05-10 16:14 | Outpatient (REF) | payer OTHER, SELFPAY ==
[2024-05-10 16:30] LABS: Total Volume 24 Hour Urine 1200 mL/24hr
[2024-05-10 16:35] LABS: Total Protein Urine Random 18.5 mg/dL (<=11.9)
== END 2024-05-10 16:15 | disposition home or self-care (01) ==
LOC: LAB 16:14
PROVIDERS: Visit Provider Obstetrics & Gynecology
DX: I10 Essential (primary) hypertension (principal)
CPT/HCPCS: 84156

== ENCOUNTER 2024-05-11 01:14 | Outpatient (OUT) | payer OTHER, SELFPAY ==
[2024-05-11 12:16] VITALS: BP 118/63; PULSE 81
== END 2024-05-11 12:25 | disposition home or self-care (01) ==
LOC: FBCO 01:14 → FBC 11:51
PROVIDERS: Visit Provider Obstetrics & Gynecology
DX: O24.419 Gestational diabetes mellitus in pregnancy, unspecified control (principal); Z3A.36 36 weeks gestation of pregnancy

== ENCOUNTER 2024-05-11 06:57 | Outpatient (REF) | payer OTHER, SELFPAY ==
--- OUTSIDE RECORDS SUMMARY | 2024-05-12 07:01 | XMS_ITS | CCD ---
Author Organization [facility] Care Team Providers Care Quality Control Expert Name Role Phone JAIDA, DR QUINTANILLA Attending Unavailable REQUEST, NONE LISTED Primary Care Unavailbrendon SENA, DR QUINTANILLA Admitting Unavailable JAIDA, DR QUINTANILLA Consulting Unavailable ELVA, DR MASON Admitting Unavailable ELVA, DR MASON Consulting Unavailable ELVA, DR MASON Attending Unavailable REQUEST, NONE LISTED Primary Care Unavailbrendon Sena MD, Hima Vásquez Primary Care Provider [phone] ISABELLA STEVENSON Attending Unavailable ELVA, ISABELLA Attending Unavailable TIFFANI SON Attending Unavailable TIFFANI SON Attending Unavailable ELVA, ISABELLA Attending Unavailable ELVA, ISABELLA Attending Unavailable ELVA, ISABELLA Attending Unavailable ELVAISABELLA PAL Attending Unavailable Medications Current Medications Medication Drug Class(es) Dates Sig (Normalized) Sig (Original) aspirin 81 mg delayed release oral tablet (18 sources) Platelet Aggregation Inhibitor, Nonsteroidal Anti-inflammatory Drug [...] Glucose Monitoring Suppl (D-Care Glucometer) w/Device kit (13 sources) Start: 03-01-2024 End: 03-01-2025 Blood Glucose [...] 1 kit 03/01/2024 03/01/2025 Active ferrous sulfate (13 sources) take 1 tablet by mouth in [...] error) insulin glargine 100 unt/ml injectable solution (3 sources) Insulin Analog Start: 04-27-2024 End: 05-27-2024 inject 10 [IU] by subcutaneous injection in the evening insulin glargine (Lantus) 100 UNIT/ML injection Indications: Hyperglycemia , GESTATIONAL DIABETES Inject 10 Units under the skin in the evening 3 mL 04/27/2024 05/27/2024 Active isopropyl alcohol 0.7 ml/ml medicated pad (13 sources) Start: 03-01-2024 Alcohol Swabs (Alcohol Prep [...] omeprazole 20 mg delayed release oral capsule (7 sources) Proton Pump Inhibitor Start: 03-29-2024 End: 04-28-2024 take 1 capsule by mouth before mealtime omeprazole (PriLOSEC) [address] capsule Indications: Gastroesophageal Reflux Disease , Heartburn Take 1 capsule (20 mg) by mouth in the morning. Take before meals. Do not crush or chew.. 30 capsule 3 03/29/2024 Active MV-Min-Fe Fum-FA-DHA ( 1 PO) (20 [...] WITH AUTO DIFFon BASOPHILS ABSOLUTE AUTO 0 [facility] Basophils/100 WBC (Bld) 0.3 % 0.2 - 2.0 % [facility] Eosinophils/100 WBC (Bld) 0.3 % Low 0.9 - 7.0 % [facility] Erythrocyte distribution width (RBC) [Ratio] 13 % 11.0 - 15.0 % [facility] Hematocrit (Bld) [Volume fraction] 35.1 % Low 36.0 - 48.0 % [facility] Hem[facility] (Bld) [Mass/Vol] 11.4 g/dL Low 12.0 - 16.0 g/dL [facility] IMMATURE GRANULOCYTES ABS AUTO 0.06 High [facility] Immature granulocytes/100 WBC (Bld) 0.5 % 0.0 - 0.5 % [facility] Interpretation and review of laboratory results Abnormal [facility] LYMPHOCYTES ABSOLUTE AUTO 1.2 [facility] Lymphocytes/100 WBC (Bld) 10.4 % Low 20.5 - 60.0 % [facility] MCH (RBC) [Entitic mass] 27.5 pg 26.7 - 34.0 pg [facility] MCHC (RBC) [Mass/Vol] 32.5 g/dL 29.9 - 35.2 g/dL [facility] MCV (RBC) [Entitic vol] 84.8 fL 81.0 - 99.0 fL [facility] MONOCYTES ABSOLUTE AUTO 0.6 [facility] Monocytes/100 WBC (Bld) 5 % 1.7 - 12.0 % [facility] NEUTROPHILS ABSOLUTE AUTO 9.9 High [facility] Neutrophils/100 WBC (Bld) 83.5 % High 43.0 - 75.0 % [facility] Platelet mean volume (Bld) [Entitic vol] 11.5 fL 9.5 - 13.5 fL [facility] are TBH EO # 0 [facility] e TB PLT 295 [facility] e [facility] RBC 4.14 Low [facility] e TB WBC 11.9 High [facility] e [facility] e Urinalysis macro (dipstick) panel (U)on 04-27-2024 Bilirubin, UA Negative Negative - 4(70) +++ mg/dL [facility] Blood, UA Negative Negative - 50 Álvaro/mcL [facility] Clarity, UA Clear [facility] re Color, UA Yellow [facility] Healthcar e Glucose, UA Negative Negative - 1999(110) ++++ mg/dL [facility] Interpretation and review of laboratory results Abnormal [facility] Ketones, UA Negative Negative - 160(16) ++++ mg/dL [facility] Leukocytes, UA Trace Negative - 500+++ Reji/mcL [facility] Nitrite, UA Negative Negative - Positive [facility] pH, UA 6.5 5 - 9 [facility] e Protein, UA Negative Negative - 1999(20) ++++ mg/dL [facility] Spec Grav, UA 1.025 1 - 1.03 [facility] Urobilinogen, UA 1.0 0.2 - 12 mg/dL [facility] Health[facility] e Urinalysis macro (dipstick) panel (U)on 04-12-2024 Bilirubin, UA Negative Negative - 4(70) +++ mg/dL [facility] Blood, UA Negative Negative - 50 Álvaro/mcL [facility] Clarity, UA Clear [facility] Health[facility] re Color, UA Yellow [facility] Healthcar e Glucose, UA Negative Negative - 1999(110) ++++ mg/dL [facility] Interpretation and review of laboratory results Abnormal [facility] Ketones, UA Positive Negative - 160(16) ++++ mg/dL [facility] Comment on above: 15 Leukocytes, UA Trace Negative - 500+++ Reji/mcL [facility] Nitrite, UA Negative Negative - Positive [facility] pH, UA 7 5 - 9 [facility] Healthcar e Protein, UA Negative Negative - 1999(20) ++++ mg/dL [facility] Spec Grav, UA 1.02 1 - 1.03 [facility] Health care Urobilinogen, UA 1.0 0.2 - 12 mg/dL [facility] Urinalysis macro (dipstick) panel (U)on 03-29-2024 Bilirubin, UA Positive Negative - 4(70) +++ mg/dL [facility] Comment on above: small Blood, UA Negative Negative - 50 Álvaro/mcL [facility] Healthcare Clarity, UA Clear [facility] re Color, UA Yellow [facility] Glucose, UA Negative Negative - 1999(110) ++++ mg/dL [facility] Interpretation and review of laboratory results Abnormal [facility] Healthcare Ketones, UA Positive Negative - 160(16) ++++ mg/dL [facility] Comment on above: 40 Leukocytes, UA Negative Negative - 500+++ Reji/mcL [facility] Healthcare Nitrite, UA Negative Negative - Positive [facility] pH, UA 7 5 - 9 [facility] Healthcar e Protein, UA Positive Negative - 1999(20) ++++ mg/dL [facility] Comment on above: 30 Spec Grav, UA 1.025 1 - 1.03 [facility] Health care Urobilinogen, UA 0.2 0.2 - 12 mg/dL [facility] Urinalysis macro (dipstick) panel (U)on 03-16-2024 Bilirubin, UA Negative Negative - 4(70) +++ mg/dL [facility] Blood, UA Negative Negative - 50 Álvaro/mcL [facility] Healthcare Clarity, UA Clear [facility] re Color, UA Yellow [facility] Healthcar e Glucose, UA Negative Negative - 1999(110) ++++ mg/dL [facility] Interpretation and review of laboratory results Abnormal [facility] Ketones, UA Negative Negative - 160(16) ++++ mg/dL [facility] Leukocytes, UA Negative Negative - 500+++ Reji/mcL [facility] Healthcare Nitrite, UA Negative Negative - Positive [facility] pH, UA 7 5 - 9 [facility] Protein, UA Negative Negative - 1999(20) ++++ mg/dL [facility] Spec Grav, UA 1.02 1 - 1.03 [facility] Urobilinogen, UA 1.0 0.2 - 12 mg/dL [facility] Urinalysis macro (dipstick) panel (U)on 03-01-2024 Bilirubin, UA Negative Negative - 4(70) +++ mg/dL [facility] Blood, UA Negative Negative - 50 Álvaro/mcL [facility] Clarity, UA Clear [facility] re Color, UA Yellow [facility] Glucose, UA Negative Negative - 1999(110) ++++ mg/dL [facility] Interpretation and review of laboratory results Abnormal [facility] Ketones, UA Negative Negative - 160(16) ++++ mg/dL [facility] Leukocytes, UA Trace Negative - 500+++ Reji/mcL [facility] Nitrite, UA Negative Negative - Positive [facility] pH, UA 7 5 - 9 [facility] Protein, UA Negative Negative - 1999(20) ++++ mg/dL [facility] Spec Grav, UA 1.015 1 - 1.03 [facility] Urobilinogen, UA 0.2 0.2 - 12 mg/dL [facility] Healthcar e GLUCOSE TOLERANCE 3 HOURon 1 GLUCOSE TOLERANCE 3 HOUR High mg/dL [facility] Comment on above: GLU FAST 98H (<95) C ol: 02/22/24 0919 GLU 1HR 193H (<180) Col: 02/22/24 1020 GLU 2HR 179H (<155) Col: 02/22/24 1119 GLU 3HR 71 (<140) Col: 02/22/24 1220 Interpretation and review of laboratory results Abnormal [facility] e ALL CBC WITH AUTO DIFFon BASOPHILS ABSOLUTE AUTO 0 [facility] Basophils/100 WBC (Bld) 0.3 % 0.2 - 2.0 % [facility] Eosinophils/100 WBC (Bld) 0.3 % Low 0.9 - 7.0 % [facility] Erythrocyte distribution width (RBC) [Ratio] 12.8 % 11.0 - 15.0 % [facility] Hematocrit (Bld) [Volume fraction] 32.9 % Low 36.0 - 48.0 % [facility] Hemoglobin (Bld) [Mass/Vol] 10.9 g/dL Low 12.0 - 16.0 g/dL [facility] IMMATURE GRANULOCYTES ABS AUTO 0.13 High [facility] Immature granulocytes/100 WBC (Bld) 1.1 % High 0.0 - 0.5 % [facility] Interpretation and review of laboratory results Abnormal [facility] LYMPHOCYTES ABSOLUTE AUTO 1.1 Low [facility] Lymphocytes/100 WBC (Bld) 9.3 % Low 20.5 - 60.0 % [facility] MCH (RBC) [Entitic mass] 29.9 pg 26.7 - 34.0 pg [facility] MCHC (RBC) [Mass/Vol] 33.1 g/dL 29.9 - 35.2 g/dL [facility] MCV (RBC) [Entitic vol] 90.4 fL 81.0 - 99.0 fL [facility] MONOCYTES ABSOLUTE AUTO 0.4 [facility] Monocytes/100 WBC (Bld) 3.1 % 1.7 - 12.0 % [facility] NEUTROPHILS ABSOLUTE AUTO 10 High [facility] Neutrophils/100 WBC (Bld) 85.9 % High 43.0 - 75.0 % [facility] Platelet mean volume (Bld) [Entitic vol] 9.5 fL 9.5 - 13.5 fL [facility] E[facility] # 0 [facility] TB PLT 299 [facility] Healthcar e TB RBC 3.64 Low [facility] Healthcar e TBH WBC 11.6 High [facility] Healthcar e [facility] Healthcar e Urinalysis macro (dipstick) panel (U)on 02-02-2024 Bilirubin, UA Negative Negative - 4(70) +++ mg/dL [facility] Blood, UA Negative Negative - 50 Álvaro/mcL [facility] Clarity, UA Clear [facility] re Color, UA Yellow [facility] Glucose, UA Negative Negative - 1999(110) ++++ mg/dL [facility] Interpretation and review of laboratory results Normal [facility] Ketones, UA Negative Negative - 160(16) ++++ mg/dL [facility] Leukocytes, UA Negative Negative - 500+++ Reji/mcL [facility] Nitrite, UA Negative Negative - Positive [facility] pH, UA 5.5 5 - 9 [facility] e Protein, UA Negative Negative - 1999(20) ++++ mg/dL [facility] Spec Grav, UA 1.010 1 - 1.03 [facility] Urobilinogen, UA 0.2 0.2 - 12 mg/dL [facility] AFP, SERUM, OPEN SPINA BIFID Aon 01-30-2024 AFP MOM 0.83 . [facility] AFP VALUE 54.5 ng/mL . [facility] Healthcar e COMMENT: Comment . [facility] Healthcar e Comment on above: Siria Davis , Ph.D., [facility] Director References: Available Upon Request. Multiples Of Median Cutoffs For AFP Elevations Espinoza 2.5 Black 2.8 IDD 2.0 Twins 4.5 Abbreviation Definitions IDD - Insulin Dep Diabetes OSBR - Open Spina Bifida Risk For further inquiries contact [employer] at [phone]. This test was developed and its performance characteristics determined by [employer]. It has not been cleared or approved by the Food and Drug Administration. Performed at: [facility] [address] [id number] Civil Laboratory Technician: Luis Kelly [facility], Phone: [phone] GEST. AGE ON COLLECTION DATE 21.7 . weeks [facility] GESTAT. AGE BASED ON LMP . [facility] Comment on above: Recalculations are n ot recommended when gestational dating by LMP and ultrasound are within 10 days. INSULIN DEP DIABETES No . [facility] Healthcare INTERPRETATION Comment . [facility] Comment on above: Interpretation: Scre en [...] Customer Services to discuss available options. The [place] [employer] recommends amniocentesis be offered to women age 35 and older. [age] [facility] MULTIPLE GESTATION No . [facility] OSBR RISK 1 [place] [address] . MARI hanson RACE . [facility] Healthcar e RESULTS Report . [facility] [employer] TEST RESULTS: Negative . [facility] WEIGHT 165 . lbs [facility] Healthcar e N N LMP [phone] 4 18 N 1 Y 165 N N N N N White/ [facility] [employer] e IGP,APTIMA HPV,AGE GDLNon AGE GDLN ACOG TESTING Note . [facility] Comment on above: TESTS RESULT FLAG UN ITS REF RANGE LAB Clinician Provided Cytology Information Source.............Cervix No. of containers..01 ThinPrep Vial Age Algo ACOG Elizabeth... FLAG LEGEND: L-Low Normal,H-High Normal,LL-Alert Low,HH-Alert High <-Panic Low,>-Panic High,A-Abnormal,AA-Critical Abnormal Performed at: 01 =[address] [phone] Lexie Nichols MD, HPV APTIMA Negative Negative [facility] [employer] Comment on above: This nucleic acid am plification test detects fourteen high- risk HPV types (16,18,31,33,35,39,45,51,52,56,58,59,66,68) without differentiation. Performed at: =[address] [id number] Civil Laboratory Technician: Lexie Nichols MD, Phone: [phone] Performed at: [address] [id number] Civil Laboratory Technician: Lexie Nichols MD, Phone: [phone] IGP, APTIMA HPV, RFX 16/18,45 Note . [facility] Comment on above: TESTS RESULT FLAG UN ITS REF RANGE LAB DIAGNOSIS: 02 NEGATIVE FOR INTRAEPITHELIAL LESION OR MALIGNANCY. Specimen adequacy: 02 Satisfactory for evaluation. No endocervical component is identified. Performed by: 02 Lizzy Hutchinson, [employer] Former (ASCP) . 02 Note: Note 02 The [...] High,A-Abnormal,AA-Critical Abnormal Performed at: 02 WB [facility] [address] [place] [address] Lexie Nichols MD, BRUSH-ALONE CERVIX [facility] URETHRITIS/DISCHARGE PLUS VA GINITIS (HTRX)on 01-08-2024 ATOPOBIUM VAGINAE 0.000 [facility] ATOPOBIUM VAGINAE Not detected [facility] BVAB 2,3 (BACTERIAL VAGINOSIS ASSOCIATED BACTERIA 2, 3); MOBILUNCUS SPP 0.000 [facility] BVAB 2,3 (BACTERIAL VAGINOSIS ASSOCIATED BACTERIA 2, 3); MOBILUNCUS SPP Not detected [facility] EMMY ALBICANS, PARAPSILOSIS, TROPICALIS 29.274 Abnormal [facility] EMMY ALBICANS, PARAPSILOSIS, TROPICALIS Detected Abnormal [facility] EMMY GLABRATA 0.000 [facility] EMMY GLABRATA Not detected [facility] EMMY KRUSEI 0.000 [facility]alt [facility]care EMMY KRUSEI Not detected [facility] CHLAMYDIA TRACHOMATIS 0.000 [facility] CHLAMYD[facility] TRACHOMATIS Not detected [facility] GARDNERELLA VAGINALIS 0.000 [facility] GARDNERELLA VAGINALIS Not detected [facility] Interpretation and review of laboratory results Abnormal [facility] MEGASPHAERA (TYPES 1, 2) 0.000 [facility] MEGASPHAERA (TYPES 1, 2) Not detected [facility] MYCOPLASMA GENITALIUM 0.000 [facility] MYCOPLASMA GENITALIUM Not detected [facility] NEISSERIA GONORRHOEAE 0.000 [facility] NEISSERIA GONORRHOEAE Not detected [facility] TRICHOMONAS VAGINALIS 0.000 [facility] TRICHOMONAS VAGINALIS Not detected [facility] Urinalysis macro (dipstick) panel (U)on 01-05-2024 Bilirubin, UA Negative Negative - 4(70) +++ mg/dL [facility] Blood, UA Negative Negative - 50 Álvaro/mcL [facility] Clarity, UA Clear [facility] re Color, UA Yellow [facility] e Glucose, UA Negative Negative - 1999(110) ++++ mg/dL [facility] Interpretation and review of laboratory results Abnormal [facility] Ketones, UA Negative Negative - 160(16) ++++ mg/dL [facility] Leukocytes, UA Trace Negative - 500+++ Reji/mcL [facility] Nitrite, UA Negative Negative - Positive [facility] pH, UA 6.5 5 - 9 [facility] Healthcar e Protein, UA Negative Negative - 1999(20) ++++ mg/dL [facility] Spec Grav, UA 1.025 1 - 1.03 [facility] Urobilinogen, UA 0.2 0.2 - 12 mg/dL [facility] Health[facility] e PAP ACOG PANEL 2: 30 to 65on 11-13-2021 . . Normal [facility] Comment on above: Result Comment: Perf ormed at: WB Performed By: #### [id number] #### [facility] [address] [place] [address] Dr. Abby Campoverde Age Gdln ACOG Testing 30-65 [facility] Comment on above: Performed By: #### [id number] #### [facility] [address] [place] [address] Dr. Abby Campoverde DIAGNOSIS: Comment Normal [facility] Comment on above: Result Comment: NEGA TIVE FOR INTRAEPITHELIAL LESION OR MALIGNANCY. Performed at: WB Performed By: #### [id number] #### [facility] [address] [place] [address] Dr. Abby Campoverde HPV Aptima Negative Normal [facility] Comment on above: Result Comment: This nucleic acid amplification test detects fourteen high-risk HPV types (16,18,31,33,35,39,45,51,52,56,58,59,66,68) without differentiation. Performed at: =G Performed By: #### [id number] #### [facility] [address] [place] [address] Dr. Abby Campoverde Methodology: Comment [facility] Comment on above: Result Comment: This liquid based ThinPrep(R) pap test was screened with the use of an image guided system. Performed at: WB Performed By: #### [id number] #### [facility] [address] [place] [address] Dr. Abby Campoverde Note: Comment Normal [facility] Comment on above: Result [...] Performed at: WB Performed By: #### [id number] #### [facility] [address] [place] [address] Dr. Abby Campoverde Performed by: Comment Normal [facility] Comment on above: Result Comment: Madisyn Sherman, Insulator Cutter And Former (ASCP) Performed at: WB Performed By: #### [id number] #### [facility] [address] [address] [address] Abby Campoverde Specimen adequacy: Comment Normal [facility] Comment on above: Result Comment: Sati sfactory for evaluation. Endocervical and/or squamous metaplastic cells (endocervical component) are present. Performed at: WB Performed By: #### [id number] #### [facility] [address] [address] [address] Abby Campoverde Covid-19 PCR ([facility])on 10-01 SARS-CoV-2 (COVID-19) RNA ABDI+probe Ql (Unsp spec) Not detected Normal NOT DETECTED [facility] Comment on above: Result Comment: This test is not yet approved or cleared by the [place] FDA. When there are no FDA-approved or cleared tests available, and other criteria are met, FDA can make tests available under an emergency access mechanism called an Emergency Use Authorization (EUA). The EUA for this test is supported by the Certified Medical Transcriptionist of Health and Human Service's (HHS's) declaration [...] SARS-CoV-2. Performed By: #### C VDTBH #### [facility] [address] [id number] Abby Campoverde Vital Signs Date Time Vital Sign Value Performing Clinician Faci lity 04-27-2024 11:25-0500 Body mass index (BMI) [Ratio] 33.31 kg/m2 [employer] Work Phone: [facility] 04-27-2024 11:25-0500 Body weight 82.61 kg Isabella Elva DO Work Phone: [facility] 04-27-2024 11:25-0500 Diastolic blood pressure 70 mm[Hg] Isabella Elva DO Work Phone: [facility] 04-27-2024 11:25-0500 Systolic blood pressure 120 mm[Hg] Isabella Elva DO Work Phone: [facility] 04-12-2024 15:18-0500 Body mass index (BMI) [Ratio] 33.47 kg/m2 Isabella Elva DO Work Phone: [facility] 04-12-2024 15:18-0500 Body weight 83.01 kg Isabella Elva DO Work Phone: [facility] 04-12-2024 15:18-0500 Diastolic blood pressure 78 mm[Hg] Isabella Elva DO Work Phone: [facility] 04-12-2024 15:18-0500 Systolic blood pressure 126 mm[Hg] Isabella Elva DO Work Phone: [facility] 03-29-2024 14:09-0500 Body mass index (BMI) [Ratio] 33 kg/m2 Isabella Elva DO Work Phone: [facility] 03-29-2024 14:09-0500 Body weight 81.83 kg Isabella Elva DO Work Phone: [facility] 03-29-2024 14:09-0500 Diastolic blood pressure 70 mm[Hg] Isabella Elva DO Work Phone: [facility] 03-29-2024 14:09-0500 Systolic blood pressure 120 mm[Hg] Isabella Elva DO Work Phone: [facility] 03-16-2024 10:04-0500 Body mass index (BMI) [Ratio] 33.13 kg/m2 Isabella Elva DO Work Phone: [facility] 03-16-2024 10:04-0500 Body weight 82.16 kg Isabella Elva DO Work Phone: [facility] 03-16-2024 10:04-0500 Diastolic blood pressure 80 mm[Hg] Isabella Elva DO Work Phone: [facility] 03-16-2024 10:04-0500 Systolic blood pressure 130 mm[Hg] Isabella Elva DO Work Phone: [facility] 03-01-2024 09:57-0400 Body mass index (BMI) [Ratio] 32.74 kg/m2 Tiffani Nancy PA Work Phone: [facility] 03-01-2024 09:57-0400 Body weight 81.19 kg Tiffani Avon PA Work Phone: [facility] 03-01-2024 09:57-0400 Diastolic blood pressure 80 mm[Hg] Tiffani Avon PA Work Phone: [facility] 03-01-2024 09:57-0400 Systolic blood pressure 122 mm[Hg] Tiffani Nancy PA Work Phone: [facility] 02-02-2024 15:46-0400 Body mass index (BMI) [Ratio] 32.01 kg/m2 Tiffani Avon PA Work Phone: [facility] 02-02-2024 15:46-0400 Body weight 79.38 kg Tiffani Avon PA Work Phone: [facility] 02-02-2024 15:46-0400 Diastolic blood pressure 76 mm[Hg] Tiffani Avon PA Work Phone: [facility] 02-02-2024 15:46-0400 Systolic blood pressure 126 mm[Hg] Tiffani Avon PA Work Phone: [facility] 01-05-2024 14:31-0400 Body mass index (BMI) [Ratio] 30.32 kg/m2 Isabella Elva DO Work Phone: [facility] 01-05-2024 14:31-0400 Body weight 75.18 kg Isabella Elva DO Work Phone: [facility] 01-05-2024 14:31-0400 Diastolic blood pressure 82 mm[Hg] Isabella Elva DO Work Phone: [facility] 01-05-2024 14:31-0400 Systolic blood pressure 126 mm[Hg] Isabella Elva DO Work Phone: [facility] Encounters Encounter Date Encounter Type Care Provider Facility Start: 05-09-2024 End: 05-09-2024 Clinisync Result Encounter Isabella Elva DO Work Phone: [facility] Unsolicited Start: 05-09-2024 End: 05-09-2024 Clinisync Result Encounter Isabella Elva DO Work Phone: [facility] Unsolicited Start: 04-27-2024 End: 04-27-2024 flow sheet Isabella Elva DO Work Phone: [facility] Comment on above: 34 weeks [...] DO Work Phone: [facility] Start: 03-29-2024 End: 03-29-2024 Bamboo flowsheet Isabella Elva DO Work Phone: [facility] Start: 03-29-2024 End: 03-29-2024 flow sheet Isabella Elva DO Work Phone: [facility] Comment on above: 30 weeks gestation o f ; Third trimester ; Sinusitis, unspecified chronicity, unspecified location; Gastroesophageal reflux in Start: 03-29-2024 End: 03-29-2024 ambulatory ISABELLA ELVA Not Available Start: 03-16-2024 End: 03-16-2024 Bamboo flowsheet Isabella Elva DO Work Phone: [facility] Start: 03-16-2024 End: 03-16-2024 Bamboo flowsheet Isabella Elva DO Work Phone: [facility] Start: 03-16-2024 End: 03-16-2024 flow sheet Isabella Elva DO Work Phone: [facility] Comment on above: 28 weeks gestation o f ; Third trimester Start: 03-16-2024 End: 03-16-2024 ambulatory ISABELLA ELVA Not Available Start: 03-01-2024 End: 03-01-2024 Bamboo flowsheet Tiffani ALVARENGA Work Phone: [facility] Start: 03-01-2024 End: 03-01-2024 Bamboo flowsheet Tiffani ALVARENGA Work Phone: [facility] Start: 03-01-2024 End: 03-01-2024 flow sheet Tiffani ALVARENGA Work Phone: [facility] Comment on above: Second trimester pre gnancy; 26 weeks gestation of ; Gestational diabetes mellitus (GDM), antepartum, gestational diabetes method of control unspecified; Elevated glucose tolerance test Start: 03-01-2024 End: 03-01-2024 ambulatory TIFFANI SON Not Available Start: 02-22-2024 End: 02-22-2024 Clinisync Result Encounter Tiffani ALVARENGA Work Phone: [facility] External Department Unsolicited Start: 02-22-2024 End: 02-22-2024 Clinisync Result Encounter Tiffani ALVARENGA Work Phone: [facility] External Department Unsolicited Start: 02-16-2024 End: 02-16-2024 Clinisync Result Encounter Tiffani ALVARENGA Work Phone: [facility] External Department Unsolicited Start: 02-16-2024 End: 02-16-2024 Clinisync Result Encounter Tiffani ALVARENGA Work Phone: [facility] Unsolicited Start: 02-02-2024 End: 02-02-2024 flow sheet Tiffani ALVARENGA Work Phone: [facility] Comment on above: Second trimester pre gnancy; 22 weeks gestation of ; Diabetes mellitus screening Start: 02-02-2024 End: 02-02-2024 ambulatory TIFFANI SON Not Available Start: 02-02-2024 End: 02-02-2024 Bamboo flowsheet Tiffani ALVARENGA Work Phone: [facility] Start: 02-02-2024 End: 02-02-2024 Bamboo flowsheet Tiffani Nancy PA Work Phone: [facility] Start: 01-27-2024 End: 01-30-2024 Clinisync Result Encounter Isabella Elva DO Work Phone: [facility] Unsolicited Start: 01-27-2024 End: 01-30-2024 Clinisync Result Encounter Iasbella Elva DO Work Phone: [facility] Unsolicited Start: 01-05-2024 End: 01-05-2024 Bamboo flowsheet Isabella Elva DO Work Phone: [facility] Start: 01-05-2024 End: 01-10-2024 Bamboo flowsheet Isabella Elva DO Work Phone: [facility] Start: 01-05-2024 End: 01-10-2024 Clinisync [...] 18-39 yrs Isabella Elva DO Work Phone: [facility] Comment on above: Well woman exam [...] Date Procedure Procedure Detail Performing Clinician Start: 05-09-2024 ALL CBC WITH AUTO DIFF Isabella Elva DO Work Phone: Start: 04-27-2024 Urnls dip stick/tabl et rgnt [...] micrscp Isabella Elva DO Work Phone: Start: 01-05-2024 IGP,APTIMA HPV,AGE GDLN Isabella [employer] DO Work Phone: Start: 01-05-2024 Microscopic observat ion [Identifier] in Cervix by Cyto stain Isabella [employer] DO Work Phone: Start: 01-05-2024 URETHRITIS/DISCHARGE PL[facility]IS [facility] Work Phone: Plan of Treatment Date Care Activity Detail Author Start: 01-04-2027 Screening for malign ant neoplasm of cervix [facility] Start: 10-15-2025 Screening for malign ant neoplasm of cervix [facility] Start: 05-11-2024 End: 05-11-2024 Patient encounter procedure 05/11/2024 10:30 AM EST Routine [facility] [address] [place] [address] Isabella Stevenson, DO [address] [place] [address] [facility] Start: 04-27-2024 End: 04-27-2024 Patient encounter procedure 04/27/2024 11:10 AM EST Routine [facility] [address] [place] [id number] Isabella Stevenson, DO [address] [place], [place] [id number] [facility] Start: 04-12-2024 End: 04-12-2024 Patient encounter procedure 04/12/2024 2:20 PM EST Routine [facility] [address] [place] [address] Isabella Stevenson, DO [address] [place] [address] [facility] Start: 04-12-2024 End: 04-12-2025 [...] EST Ancillary Procedure [facility] [address] [place] [id number] [facility] Start: 03-16-2024 End: 03-16-2024 Patient encounter procedure 03/16/2024 9:50 AM EST Routine [facility] [address] [place] [address] Isabella Stevenson, DO [address] [place] [address] [facility] Start: 03-01-2024 End: 03-01-2025 [...] Expected: 02/02/2024 (Approximate), Expires: 02/01/2025 [facility] Comment on above: Expected: 02/02/2024 (Approximate), Expires: 02/01/2025 Start: 02-02-2024 End: 02-02-2024 Professional / ancillary services management 02/02/2024 2:00 PM EDT Ancillary Procedure [facility] [address] [place] [address] [place] [id number] [facility] Start: 01-05-2024 End: 01-04-2025 Alpha fetoprotein, maternal Alpha fetoprotein, maternal Lab Routine Second trimester Expected: 01/05/2024 (Approximate), Expires: 01/04/2025 [facility] Comment on above: Expected: 01/05/2024 (Approximate), Expires: 01/04/2025 Start: 01-05-2024 End: 01-04-2025 US for US OB ANATOMY SINGLE W US OB CERVICAL LENGTH Imaging Routine Screening, , for anatomic survey Expected: 01/05/2024 (Approximate), Expires: 01/04/2025 [facility] Comment on above: Expected: 01/05/2024 (Approximate), Expires: 01/04/2025 Start: 01-05-2024 End: 01-05-2024 Patient encounter procedure 01/05/2024 1:50 PM EDT Routine [facility] [address] [place] [address] Isabella Stevenson DO [address] [place] [address] Arrived [facility] Comment on above: Arrived Start: 01-02-2024 Influenza vaccination Influenza Vacc ine (#1) [facility] Start: 2012 Screening for malign ant neoplasm of cervix Pap Smear [facility] CHLAMYDIA TRACHOMATI S (GENITO/STI) CHLAMYDIA TRACHOMATIS (GENITO/STI) Lab Routine Second trimester Screen for STD (sexually transmitted disease) Vaginal discharge Ordered: 01/05/2024 [facility] Comment on above: Ordered: 01/05/2024 Cytology Cervical or vaginal smear or scraping study Pap Smear Pathology and Cytology Routine Well woman exam with routine gynecological exam Ordered: 01/05/2024 [facility] Work Phone: Comment on above: Ordered: 01/05/2024 Human papilloma viru s DNA [Presence] in Unspecified specimen by Probe with amplification HPV DNA probe, amplified Microbiology Routine Well woman exam with routine gynecological exam Ordered: 01/05/2024 [facility] Comment on above: Ordered: 01/05/2024 Neisseria gonorrhoea e DNA [Presence] in Unspecified specimen by ABDI with probe detection Neisseria gonorrhea DNA probe, direct Lab Routine Second trimester Screen for STD (sexually transmitted disease) Vaginal discharge Ordered: 01/05/2024 [facility] Comment on above: Ordered: 01/05/2024 SURESWAB(R) ADVANCED VAGINITIS PLUS, TMA SURESWAB(R) ADVANCED VAGINITIS PLUS, TMA Pathology and Cytology Routine Second trimester Screen for STD (sexually transmitted disease) Vaginal discharge Ordered: 01/05/2024 [facility] Comment on above: Ordered: 01/05/2024 Payers Date Payer Category Payer Private Health Insurance [employer] [id number] 2022 Unknown [employer] [id number] 2022-Present [address] [place] [address] [id number] 1991 Unknown [id number]. 593 1991 Unknown [id number] [id number]. 593 1991 Unknown [id number]. 1258 1991 Unknown [id number] [id number]. 1258 1991 Unknown [id number]. 1258 1991 Unknown [id number] [id number]. 1258 1991 Unknown [id number] [id number]. 1258 1991 Unknown [id number] [id number]. 1258 1991 Unknown [id number] [id number]. 9 1991 Unknown [id number] [id number]. 1258 1991 Unknown [id number]. 1259 1959 Unknown [id number] Social History Date Type Detail Facility Start: [...] Text Equipment Identifier Dates Use as instructed [id number] Start: 03-01-2024 End: 03-01-2025 1 each by In Vit ro route Daily Use to check FSBS four times daily [id number] Start: 03-01-2024 End: 03-31-2024 Use as instructed [id number] Start: 04-27-2024 End: 04-27-2024 Use as instructed [id number] Start: 04-27-2024 End: 04-27-2025 Clinical Notes 01-05-2024 [...] 81 mg, Daily Blood Glucose Monitoring Suppl (D-GenSpera Glucometer) w/Device kit 1 kit, Does not [...] nursing note reviewed. Exam conducted with a global position system technician present. Vitals: Estimated body mass index is [...] Isabella Stevenson DO documented in this encounter [facility] 04-12-2024 History of Presen [...] tablet As directed Blood Glucose Monitoring Suppl ([employer]-Gen[employer]pera Glucometer) w/Device kit 1 kit, Does not [...] nursing note reviewed. Exam conducted with a global position system technician present. Vitals: Estimated body mass index is [...] Isabella Stevenson DO documented in this encounter [facility] 03-29-2024 History of Presen [...] nursing note reviewed. Exam conducted with a global position system technician present. Vitals: Estimated body mass index is 33 kg/m as calculated from the following: Height as of 11/28/23: 5' 2 . Weight as of this [...] Isabella Stevenson DO documented in this encounter [facility] 03-16-2024 History of Presen [...] nursing note reviewed. Exam conducted with a global position system technician present. Vitals: Estimated body mass index is [...] Isabella Stevenson DO documented in this encounter [facility] 03-01-2024 History of Presen [...] to Diabetic Edu was sent over to [facility]. 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 Pt was advised to make sure to take her supplies w/her to her appt when she gets scheduled by Kristal Yee RN at [facility]. Pt verbally understood. Growth US was given to patient today to have done at 28 weeks to schedule at [facility]. Orders Placed This Encounter Procedures POCT urinalysis dipstick manually resulted Follow Up: Patient is to return to office in 2 week for routine OB appointment. Documented by Tosin Carvalho MA on behalf of: COLETTE Almonte documented in this encounter [facility] 02-02-2024 History of Presen [...] of: COLETTE Almonte documented in this encounter [facility] 01-05-2024 History of Presen [...] Mother Vandana Hyperlipidemia Mother Vandana Allergies Mother Vandnaa Heart disease Father Cancer Maternal Grandfather Gonsalo [...] nursing note reviewed. Exam conducted with a global position system technician present. Vitals: Estimated body mass index is [...] DATE CREATED AUTHOR AUTHOR'S ORGANIZ ATION 04/28/2024 [facility] EPIC Reason for Visit (unrecogniz ed section and content) Reason Comments Routine Visit Care Teams (unrecognized sec tion and content) Quality Control Expert Relationship Specialty Start Date End Date Hima Sena MD [address] [facility] [address] [place] [address] PCP - General Family Medicine 09/08/22 Quality Control Expert Relationship Specialty Start Date End Date Hima Sena MD [address] [facility] [address] [place] [address] PCP - General Family Medicine 09/08/22 Quality Control Expert Relationship Specialty Start Date End Date Hima Sena MD [address] [facility] [address] [place] [address] PCP - General Family Medicine 09/08/22 Quality Control Expert Relationship Specialty Start Date End Date Hima Sena MD [address] [place] [address] [place] [address] PCP - General Family Medicine 09/08/22 Quality Control Expert Relationship Specialty Start Date End Date Hima Sena MD [address] [facility] [address] [place] [address] PCP - [facility] Medicine 09/08/22 Quality Control Expert Relationship Specialty Start Date End Date Hima Sena MD [address] [facility] [address] [place] [address] PCP - [facility] Medicine 09/08/22 Quality Control Expert Relationship Specialty Start Date End Date Hima Sena MD [address] [facility] [address] [place] [address] PCP - [facility] Medicine 09/08/22 Quality Control Expert Relationship Specialty Start Date End Date Hima Sena MD [address] [facility] [address] [place] [address] PCP - [facility] Medicine 09/08/22 Quality Control Expert Relationship Specialty Start Date End Date Hima Sena MD [address] [facility] [address] [place] [address] PCP - [facility] Medicine 09/08/22 Quality Control Expert Relationship Specialty Start Date End Date Hima Sena MD [address] [facility] [address] [place] [address] PCP - [facility] Medicine 09/08/22 Quality Control Expert Relationship Specialty Start Date End Date Hima Sena MD [address] [facility] [address] [place] [address] PCP - [facility] Medicine 09/08/22 FOR RECORDS PERTAINING TO [...] BE BASED ON THE PRIMARY CLINICAL RECORDS. [facility]. provides no warranty or guarantee of the accuracy or completeness of information in this document.
[2024-05-12 07:31] LABS: BOX Test Reference Lab FIRELANDS; BOX Test Sent Out GROUP B STREP
== END 2024-05-11 06:58 | disposition home or self-care (01) ==
LOC: LAB 06:57
PROVIDERS: Visit Provider Obstetrics & Gynecology
DX: Z34.93 Encounter for supervision of normal pregnancy, unspecified, third trimester (principal)
CPT/HCPCS: 36415; 87081

== ENCOUNTER 2024-05-14 05:05 | Inpatient (IN) | payer OTHER, SELFPAY ==
[2024-05-14] VITALS (30 sets, daily range): BP systolic 130–168; BP diastolic 66–103; PULSE 55–86; TEMP 36.6–36.9
--- OUTSIDE RECORDS SUMMARY | 2024-05-14 05:09 | XMS_ITS | CCD ---
Author Organization [facility] Care Team Providers Care Head Rigger Name Role Phone JAIDA, DR QUINTANILLA Attending [...] aspirin 81 mg delayed release oral tablet (20 sources) Platelet Aggregation Inhibitor, Nonsteroidal Anti-inflammatory Drug [...] Glucose Monitoring Suppl (D-Care Glucometer) w/Device kit (15 sources) Start: 03-01-2024 End: 03-01-2025 Blood Glucose [...] 1 kit 03/01/2024 03/01/2025 Active ferrous sulfate (15 sources) take 1 tablet by mouth in [...] error) insulin glargine 100 unt/ml injectable solution (5 sources) Insulin Analog Start: 04-27-2024 End: 05-27-2024 inject 10 [IU] by subcutaneous injection in the evening insulin glargine (Lantus) 100 UNIT/ML injection Indications: Hyperglycemia , GESTATIONAL DIABETES Inject 10 Units under the skin in the evening 3 mL 04/27/2024 05/27/2024 Active isopropyl alcohol 0.7 ml/ml medicated pad (15 sources) Start: 03-01-2024 Alcohol Swabs (Alcohol Prep [...] omeprazole 20 mg delayed release oral capsule (9 sources) Proton Pump Inhibitor Start: 03-29-2024 End: [...] Test Name Value Interpretation Reference Range Facility [facility] TOTAL PROTEIN 24 HOUR UR INEon 05-10-2024 Interpretation and review of laboratory results Abnormal [facility] Protein (U) [Mass/Vol] 18.5 mg/dL High NINF - 11.9 mg/dL [facility] TOTAL PROTEIN 24 HOUR URINE 222 High NINF [facility] TOTAL VOLUME 24 HOUR URINE 1200 mL/24hr [facility] Healthcar e ALL CBC WITH AUTO DIFFon BASOPHILS ABSOLUTE AUTO 0 [facility] Healthcare Basophils/100 WBC (Bld) 0.3 % 0.2 - 2.0 % [facility] Healthcare Eosinophils/100 WBC (Bld) 0.3 % Low 0.9 - 7.0 % [facility] Erythrocyte distribution width (RBC) [Ratio] 13 % 11.0 - 15.0 % [facility] Hematocrit (Bld) [Volume fraction] 35.1 % Low 36.0 - 48.0 % [facility] Healthcar e Hemoglobin (Bld) [Mass/Vol] 11.4 g/dL Low 12.0 - 16.0 g/dL [facility] IMMATURE GRANULOCYTES ABS AUTO 0.06 High [facility] Immature granulocytes/100 WBC (Bld) 0.5 % 0.0 - 0.5 % [facility] Interpretation and review of laboratory results Abnormal [facility] LYMPHOCYTES ABSOLUTE AUTO 1.2 [facility] Healthcare Lymphocytes/100 WBC (Bld) 10.4 % Low 20.5 - 60.0 % [facility] MCH (RBC) [Entitic mass] 27.5 pg 26.7 - 34.0 pg [facility] MCHC (RBC) [Mass/Vol] 32.5 g/dL 29.9 - 35.2 g/dL [facility] MCV (RBC) [Entitic vol] 84.8 fL 81.0 - 99.0 fL [facility] MONOCYTES ABSOLUTE AUTO 0.6 [facility] Monocytes/100 WBC (Bld) 5 % 1.7 - 12.0 % [facility] NEUTROPHILS ABSOLUTE AUTO 9.9 High [facility] Neutrophils/100 WBC (Bld) 83.5 % High 43.0 - 75.0 % [facility] Platelet mean volume (Bld) [Entitic vol] 11.5 fL 9.5 - 13.5 fL [facility] Health are [facility] EO # 0 [facility] TB PLT 295 [facility] TB RBC 4.14 Low [facility] TB WBC 11.9 High [facility] Health[facility] e Urinalysis macro (dipstick) panel (U)on 04-27-2024 Bilirubin, UA Negative Negative - 4(70) +++ mg/dL [facility] Blood, UA Negative Negative - 50 Álvaro/mcL [facility] Healthcare Clarity, UA Clear [facility] Healthca re Color, UA Yellow [facility] Health[facility] e Glucose, UA Negative Negative - 1999(110) ++++ mg/dL [facility] Interpretation and review of laboratory results Abnormal [facility] Ketones, UA Negative Negative - 160(16) ++++ mg/dL [facility] Leukocytes, UA Trace Negative - 500+++ Reji/mcL [facility] Nitrite, UA Negative Negative - Positive [facility] pH, UA 6.5 5 - 9 [facility] Healthcar e Protein, UA Negative Negative - 1999(20) ++++ mg/dL [facility] Spec Grav, UA 1.025 1 - 1.03 [facility] Urobilinogen, UA 1.0 0.2 - 12 mg/dL [facility] Urinalysis macro (dipstick) panel (U)on 04-12-2024 Bilirubin, UA Negative Negative - 4(70) +++ mg/dL [facility] Blood, UA Negative Negative - 50 Álvaro/mcL [facility] Healthcare Clarity, UA Clear [facility] Color, UA Yellow [facility] Healthcar e Glucose, UA Negative Negative - 1999(110) ++++ mg/dL [facility] Interpretation and review of laboratory results Abnormal [facility] Ketones, UA Positive Negative - 160(16) ++++ mg/dL [facility] Comment on above: 15 Leukocytes, UA Trace Negative - 500+++ Reji/mcL [facility] Nitrite, UA Negative Negative - Positive [facility] pH, UA 7 5 - 9 [facility] Healthcar e Protein, UA Negative Negative - 1999(20) ++++ mg/dL [facility] Spec Grav, UA 1.02 1 - 1.03 [facility] Urobilinogen, UA 1.0 0.2 - 12 mg/dL [facility] Urinalysis macro (dipstick) panel (U)on 03-29-2024 Bilirubin, UA Positive Negative - 4(70) +++ mg/dL [facility] Comment on above: small Blood, UA Negative Negative - 50 Álvaro/mcL [facility] Healthcare Clarity, UA Clear [facility] Color, UA Yellow [facility] Healthcar e Glucose, UA Negative Negative - 1999(110) ++++ mg/dL [facility] Interpretation and review of laboratory results Abnormal [facility] Ketones, UA Positive Negative - 160(16) ++++ mg/dL [facility] Comment on above: 40 Leukocytes, UA Negative Negative - 500+++ Reji/mcL [facility] Nitrite, UA Negative Negative - Positive [facility] pH, UA 7 5 - 9 [facility] Healthcar e Protein, UA Positive Negative - 1999(20) ++++ mg/dL [facility] Comment on above: 30 Spec Grav, UA 1.025 1 - 1.03 [facility] Urobilinogen, UA 0.2 0.2 - 12 mg/dL [facility] Healthcar e Urinalysis macro (dipstick) panel (U)on 03-16-2024 Bilirubin, UA Negative Negative - 4(70) +++ mg/dL [facility] Blood, UA Negative Negative - 50 Álvaro/mcL [facility] Clarity, UA Clear [facility] re Color, UA Yellow [facility] Healthcar e Glucose, UA Negative Negative - 1999(110) ++++ mg/dL [facility] Interpretation and review of laboratory results Abnormal [facility] Ketones, UA Negative Negative - 160(16) ++++ mg/dL [facility] Leukocytes, UA Negative Negative - 500+++ Reji/mcL [facility] Nitrite, UA Negative Negative - Positive [facility] pH, UA 7 5 - 9 [facility] Healthcar e Protein, UA Negative Negative - 1999(20) ++++ mg/dL [facility] Spec Grav, UA 1.02 1 - 1.03 [facility] Urobilinogen, UA 1.0 0.2 - 12 mg/dL [facility] Urinalysis macro (dipstick) panel (U)on 03-01-2024 Bilirubin, UA Negative Negative - 4(70) +++ mg/dL [facility] Blood, UA Negative Negative - 50 Álvaro/mcL [facility] Clarity, UA Clear [facility] re Color, UA Yellow [facility] Glucose, UA Negative Negative - 1999(110) ++++ mg/dL [facility] Interpretation and review of laboratory results Abnormal [facility] Ketones, UA Negative Negative - 160(16) ++++ mg/dL [facility] Leukocytes, UA Trace Negative - 500+++ Reji/mcL [facility] Nitrite, UA Negative Negative - Positive [facility] pH, UA 7 5 - 9 [facility] Protein, UA Negative Negative - 1999(20) ++++ mg/dL [facility] Spec Grav, UA 1.015 1 - 1.03 [facility] Urobilinogen, UA 0.2 0.2 - 12 mg/dL [facility] Healthcar e GLUCOSE TOLERANCE 3 HOURon GLUCOSE TOLERANCE 3 HOUR High mg/dL [facility] Comment on above: GLU FAST 98H (<95) C ol: 02/22/24 0919 GLU 1HR 193H (<180) Col: 02/22/24 1020 GLU 2HR 179H (<155) Col: 02/22/24 1119 GLU 3HR 71 (<140) Col: 02/22/24 1220 Interpretation and review of laboratory results Abnormal [facility] Healthcar e ALL CBC WITH AUTO DIFFon BASOPHILS ABSOLUTE AUTO 0 [facility] Basophils/100 WBC (Bld) 0.3 % 0.2 - 2.0 % [facility] Eosinophils/100 WBC (Bld) 0.3 % Low 0.9 - 7.0 % [facility] Erythrocyte distribution width (RBC) [Ratio] 12.8 % 11.0 - 15.0 % [facility] Hematocrit (Bld) [Volume fraction] 32.9 % Low 36.0 - 48.0 % [facility] Healthcar e Hemoglobin (Bld) [Mass/Vol] 10.9 g/dL Low 12.0 - 16.0 g/dL [facility] IMMATURE GRANULOCYTES ABS AUTO 0.13 High [facility] Immature granulocytes/100 WBC (Bld) 1.1 % High 0.0 - 0.5 % [facility] Interpretation and review of laboratory results Abnormal [facility] LYMPHOCYTES ABSOLUTE AUTO 1.1 Low [facility] Lymphocytes/100 WBC (Bld) 9.3 % Low 20.5 - 60.0 % [facility] MCH (RBC) [Entitic mass] 29.9 pg 26.7 - 34.0 pg [facility] MCHC (RBC) [Mass/Vol] 33.1 g/dL 29.9 - 35.2 g/dL [facility] MCV (RBC) [Entitic vol] 90.4 fL 81.0 - 99.0 fL [facility] MONOCYTES ABSOLUTE AUTO 0.4 [facility] Monocytes/100 WBC (Bld) 3.1 % 1.7 - 12.0 % [facility] NEUTROPHILS ABSOLUTE AUTO 10 High [facility] Neutrophils/100 WBC (Bld) 85.9 % High 43.0 - 75.0 % [facility] Platelet mean volume (Bld) [Entitic vol] 9.5 fL 9.5 - 13.5 fL [facility] # 0 [facility] Healthcar e TB PLT 299 [facility] e TB RBC 3.64 Low [facility] TB WBC 11.6 High [facility] Healthcar e [facility] Healthcar e Urinalysis macro (dipstick) panel (U)on 02-02-2024 Bilirubin, UA Negative Negative - 4(70) +++ mg/dL [facility] Blood, UA Negative Negative - 50 Álvaro/mcL [facility] Clarity, UA Clear [facility] Color, UA Yellow [facility] e Glucose, UA Negative Negative - 2000(110) ++++ mg/dL [facility] Interpretation and review of laboratory results Normal [facility] Ketones, UA Negative Negative - 160(16) ++++ mg/dL [facility] Leukocytes, UA Negative Negative - 500+++ Reji/mcL [facility] Nitrite, UA Negative Negative - Positive [facility] pH, UA 5.5 5 - 9 [facility] Protein, UA Negative Negative - 1999(20) ++++ mg/dL [facility] Spec Grav, UA 1.010 1 - 1.03 [facility] Urobilinogen, UA 0.2 0.2 - 12 mg/dL [facility] Healthcar e AFP, SERUM, OPEN SPINA BIFID Aon 01-30-2024 AFP MOM 0.83 . [facility] e AFP VALUE 54.5 ng/mL . [facility] COMMENT: Comment . [facility] Comment on above: Siria Davis , Ph.D., [facility] Director References: Available Upon Request. Multiples Of Median Cutoffs For AFP Elevations Espinoza 2.5 Black 2.8 IDD 2.0 Twins 4.5 Abbreviation Definitions IDD - Insulin Dep Diabetes OSBR - Open Spina Bifida Risk For further inquiries contact [facility] [facility] at [phone]. This test was developed and its performance characteristics determined by [employer]. It has not been cleared or approved by the Food and Drug Administration. Performed at: [facility] [place], [place] [id number] Publications Editor: Luis Kelly [facility], Phone: [phone] GEST. AGE ON COLLECTION DATE 21.7 . weeks [facility] GESTAT. AGE BASED ON LMP . [facility] Comment on above: Recalculations are n ot recommended when gestational dating by LMP and ultrasound are within 10 days. INSULIN DEP DIABETES No . [facility] INTERPRETATION Comment . [facility] hcare Comment on above: Interpretation: Scre en [...] Customer Services to discuss available options. The [employer] recommends amniocentesis be offered to women age 35 and older. [age] [facility] MULTIPLE GESTATION No . [facility] [place] [address] [place] [phone] . [facility] Healt hcare RACE . [facility] [employer] e RESULTS Report . [facility] TEST RESULTS: Negative . [facility] WEIGHT 165 . lbs [facility] Healthcar e N N LMP [id number] 4 18 N 1 Y 165 N N N N N White/ [facility] Aphioscar e IGP,APTIMA HPV,AGE GDLNon AGE GDLN ACOG TESTING Note . [facility] [employer] Comment on above: TESTS RESULT FLAG U NITS REF RANGE LAB Clinician Provided Cytology Information Source.............Cervix No. of containers..01 ThinPrep Vial Age Algo ACOG Elizabeth... 30-65 01 FLAG LEGEND: L-Low Normal,H-High Normal,LL-Alert Low,HH-Alert High <-Panic Low,>-Panic High,A-Abnormal,AA-Critical Abnormal Performed at: 01 = [address] [place] [address] Lexie Nichols MD, HPV APTIMA Negative Negative [employer]car e Comment on above: This nucleic acid am plification test detects fourteen high- risk HPV types (16,18,31,33,35,39,45,51,52,56,58,59,66,68) without differentiation. Performed at: =G - [facility], [place] [id number] Publications Editor: Lexie Nichols MD, Phone: [phone] Performed at: - [facility], [place] [id number] Publications Editor: Lexie Nichols MD, Phone: [phone] IGP, APTIMA HPV, RFX 16/18,45 Note . [facility] Comment on above: TESTS RESULT FLAG UN ITS REF RANGE LAB DIAGNOSIS: 02 NEGATIVE FOR INTRAEPITHELIAL LESION OR MALIGNANCY. Specimen adequacy: 02 Satisfactory for evaluation. No endocervical component is identified. Performed by: 02 Lizzy Hutchinson, R And D Lab Technician (ASC) . 02 Note: Note 02 The [...] <-Panic Low,>-Panic High,A-Abnormal,AA-Critical Abnormal Performed at: [address] [place] [address] Lexie Nichols MD, BRUSH-ALONE CERVIX [facility] Healthcar e URETHRITIS/DISCHARGE PLUS VA GINITIS (HTRX)on 01-08-2024 ATOPOBIUM VAGINAE 0.000 [facility] althcare ATOPOBIUM VAGINAE Not detected [facility] BVAB 2,3 (BACTERIAL VAGINOSIS ASSOCIATED BACTERIA 2, 3); MOBILUNCUS SPP 0.000 [facility] BVAB 2,3 (BACTERIAL VAGINOSIS ASSOCIATED BACTERIA 2, 3); MOBILUNCUS SPP Not detected [facility] EMMY ALBICANS, PARAPSILOSIS, TROPICALIS 29.274 Abnormal [facility] Healthcare EMMY ALBICANS, PARAPSILOSIS, TROPICALIS Detected Abnormal [facility] Healthcare EMMY GLABRATA 0.000 [facility] EMMY GLABRATA Not detected [facility] EMMY KRUSEI 0.000 [facility] Healt hcare EMMY KRUSEI Not detected [facility] CHLAMYDIA TRACHOMATIS 0.000 [facility] CHLAMYDIA TRACHOMATIS Not detected [facility] GARDNERELLA VAGINALIS 0.000 [facility] GARDNERELLA VAGINALIS Not detected [facility] Interpretation and review of laboratory results Abnormal [facility] MEGASPHAERA (TYPES 1, 2) 0.000 [facility] MEGASPHAERA (TYPES 1, 2) Not detected [facility] MYCOPLASMA GENITALIUM 0.000 [facility] MYCOPLASMA GENITALIUM Not detected [facility] Healthcare NEISSERIA GONORRHOEAE 0.000 [facility] NEISSERIA GONORRHOEAE Not detected [facility] Healthcare TRICHOMONAS VAGINALIS 0.000 [facility] TRICHOMONAS VAGINALIS Not detected [facility] Healthcare [facility] Healthcar e Urinalysis macro (dipstick) panel (U)on 01-05-2024 Bilirubin, UA Negative Negative - 4(70) +++ mg/dL [facility] Blood, UA Negative Negative - 50 Álvaro/mcL [facility] Clarity, UA Clear [facility] Healthca re Color, UA Yellow [facility] Healthcar e Glucose, UA Negative Negative - 2000(110) ++++ mg/dL [facility] Interpretation and review of laboratory results Abnormal [facility] Ketones, UA Negative Negative - 160(16) ++++ mg/dL [facility] Leukocytes, UA Trace Negative - 500+++ Reji/mcL [facility] Nitrite, UA Negative Negative - Positive [facility] pH, UA 6.5 5 - 9 [facility] Protein, UA Negative Negative - 2000(20) ++++ mg/dL [facility] Spec Grav, UA 1.025 1 - 1.03 [facility] Urobilinogen, UA 0.2 0.2 - 12 mg/dL [facility] PAP ACOG PANEL 2: 30 to 65on 11-13-2021 . . Normal [facility] Comment on above: Result Comment: Perf ormed at: WB Performed By: #### [id number] #### [facility] [address] [address] [address] Abby Campoverde Age Gdln ACOG Testing 30-65 Normal [facility] Comment on above: Performed By: #### [id number] #### [facility] [address] [address] [address] Abby Campoverde DIAGNOSIS: Comment Normal [facility] Comment on above: Result Comment: NEGA TIVE FOR INTRAEPITHELIAL LESION OR MALIGNANCY. Performed at: WB Performed By: #### [id number] #### [facility] [address] [address] [address] Abby Campoverde HPV Aptima Negative Normal Negative [facility] Comment on above: Result Comment: This nucleic acid amplification test detects fourteen high-risk HPV types (16,18,31,33,35,39,45,51,52,56,58,59,66,68) without differentiation. Performed at: =G Performed By: #### [id number] #### [facility] [address] [address] [address] Abby Campoverde Methodology: Comment Normal [facility] Comment on above: Result Comment: This liquid based ThinPrep(R) pap test was screened with the use of an image guided system. Performed at: WB Performed By: #### [id number] #### [facility] [address] [address] [address] Abby Campoverde Note: Comment Normal [facility] [...] Performed at: WB Performed By: #### [id number] #### [facility] [address] [place] [address] Dr. Abby Campoverde Performed by: Comment Normal [facility] Comment on above: Result Comment: Madisyn Sherman, R And D Lab Technician (ASCP) Performed at: WB Performed By: #### [id number] #### [facility] [address] [place] [address] Dr. Abby Campoverde Specimen adequacy: Comment Normal [facility] Comment on above: Result Comment: Sati sfactory for evaluation. Endocervical and/or squamous metaplastic cells (endocervical component) are present. Performed at: WB Performed By: #### [id number] #### [facility] [address] [place] [address] Dr. Abby Campoverde Covid-19 PCR (CVDTB)on 10-01 SARS-CoV-2 (COVID-19) RNA ABDI+probe Ql (Unsp spec) Not detected Normal NOT DETECTED [facility] Comment on above: Result Comment: This test is not yet approved or cleared by the [place] FDA. When there are no FDA-approved or cleared tests available, and other criteria are met, FDA can make tests available under an emergency access mechanism called an Emergency Use Authorization (EUA). The EUA for this test is supported by the [employer] Qa Analyst of Health and Human Service's (HHS's) declaration [...] Performed By: #### C VDTBH #### [facility] [address] [place], [place] [address] Dr. Abby Campoverde Vital Signs Date Time Vital Sign Value Performing Clinician Faci lity 04-27-2024 11:25-0500 Body mass index (BMI) [Ratio] 33.31 kg/m2 Isabella Elva DO Work Phone: [facility] 04-27-2024 11:25-0500 Body weight 82.61 kg Isabella Elva DO Work Phone: [facility] 04-27-2024 11:25-0500 Diastolic blood pressure 70 mm[Hg] Isabella Elva DO Work Phone: [facility] 04-27-2024 11:25-0500 Systolic blood pressure 120 mm[Hg] Isabella Elva DO Work Phone: [facility] 04-12-2024 15:18-0500 Body mass index (BMI) [Ratio] 33.47 kg/m2 Isabella Elva DO Work Phone: [facility] 04-12-2024 15:18-0500 Body weight 83.01 kg Isabella Elva DO Work Phone: [facility] 04-12-2024 15:18-0500 Diastolic blood pressure 78 mm[Hg] Isabella Elva DO Work Phone: [facility] 04-12-2024 15:18-0500 Systolic blood pressure 126 mm[Hg] Isabella Elva DO Work Phone: [facility] 03-29-2024 14:09-0500 Body mass index (BMI) [Ratio] 33 kg/m2 Isabella Elva DO Work Phone: [facility] 03-29-2024 14:09-0500 Body weight 81.83 kg Isabella Elva DO Work Phone: [facility] 03-29-2024 14:09-0500 Diastolic blood pressure 70 mm[Hg] Isabella Elva DO Work Phone: [facility] 03-29-2024 14:09-0500 Systolic blood pressure 120 mm[Hg] Isabella Elva DO Work Phone: [facility] 03-16-2024 10:04-0500 Body mass index (BMI) [Ratio] 33.13 kg/m2 Isabella Elva DO Work Phone: [facility] 03-16-2024 10:04-0500 Body weight 82.16 kg Isabella Elva DO Work Phone: [facility] 03-16-2024 10:04-0500 Diastolic blood pressure 80 mm[Hg] Isabella Elva DO Work Phone: [facility] 03-16-2024 10:04-0500 Systolic blood pressure 130 mm[Hg] Isabella Elva DO Work Phone: [facility] 03-01-2024 09:57-0400 Body mass index (BMI) [Ratio] 32.74 kg/m2 Tiffani Son PA Work Phone: [facility] 03-01-2024 09:57-0400 Body weight 81.19 kg Tiffani Nancy PA Work Phone: [facility] 03-01-2024 09:57-0400 Diastolic blood pressure 80 mm[Hg] Tiffani Alakanuk PA Work Phone: [facility] 03-01-2024 09:57-0400 Systolic blood pressure 122 mm[Hg] Tiffani Alakanuk PA Work Phone: [facility] 02-02-2024 15:46-0400 Body mass index (BMI) [Ratio] 32.01 kg/m2 Tiffani Nancy PA Work Phone: [facility] 02-02-2024 15:46-0400 Body weight 79.38 kg Tiffani Nancy PA Work Phone: [facility] 02-02-2024 15:46-0400 Diastolic blood pressure 76 mm[Hg] Tiffani Nancy PA Work Phone: [facility] 02-02-2024 15:46-0400 Systolic blood pressure 126 mm[Hg] Tiffani Alakanuk PA Work Phone: [facility] 01-05-2024 14:31-0400 Body mass index (BMI) [Ratio] 30.32 kg/m2 Isabella Elva DO Work Phone: [facility] 01-05-2024 14:31-0400 Body weight 75.18 kg Isabella Elva DO Work Phone: [facility] 01-05-2024 14:31-0400 Diastolic blood pressure 82 mm[Hg] Isabella Elva DO Work Phone: [facility] 01-05-2024 14:31-0400 Systolic blood pressure 126 mm[Hg] Isabella Elva DO Work Phone: [facility] Encounters Encounter Date Encounter Type Care Provider Facility Start: 05-11-2024 End: 05-11-2024 Bamboo flowsheet Isabella Elva DO Work Phone: [facility] Start: 05-11-2024 End: 05-11-2024 Bamboo flowsheet Isabella Elva DO Work Phone: [facility] Start: 05-10-2024 End: 05-10-2024 Clinisync Result Encounter Isabella Elva DO Work Phone: [facility] External Department Unsolicited Start: 05-10-2024 End: 05-10-2024 Clinisync Result Encounter Isabella Elva DO Work [...] flow sheet Isabella Elva DO Work Phone: [facility] Comment on above: Third [...] flow sheet Isabella Elva DO Work Phone: [facility] Comment on above: 30 weeks gestation o f ; Third trimester ; Sinusitis, unspecified chronicity, unspecified location; Gastroesophageal reflux in Start: 03-29-2024 End: 03-29-2024 ambulatory ISABELLA ELVA Not Available Start: 03-16-2024 End: 03-16-2024 Bamboo flowsheet Isabella Elva DO Work Phone: [facility] Start: 03-16-2024 End: 03-16-2024 Bamboo flowsheet Isabella Elva DO Work Phone: [facility] Start: 03-16-2024 End: 03-16-2024 flow sheet Isabella Elva DO Work Phone: [facility] Comment on above: 28 weeks gestation o f ; Third trimester Start: 03-16-2024 End: 03-16-2024 ambulatory ISABELLA ELVA Not Available Start: 03-01-2024 End: 03-01-2024 Bamboo flowsheet Tiffani ALVARENGA Work Phone: [facility] Start: 03-01-2024 End: 03-01-2024 Bamboo flowsheet Tiffani Son PA Work Phone: [facility] Start: 03-01-2024 End: 03-01-2024 flow sheet Tiffani Son PA Work Phone: [facility] Comment on above: Second trimester pre gnancy; 26 weeks gestation of ; Gestational diabetes mellitus (GDM), antepartum, gestational diabetes method of control unspecified; Elevated glucose tolerance test Start: 03-01-2024 End: 03-01-2024 ambulatory TIFFANI SON Not Available Start: 02-22-2024 End: 02-22-2024 Clinisync Result Encounter Tiffani Son PA Work Phone: [facility] Unsolicited Start: 02-22-2024 End: 02-22-2024 Clinisync Result Encounter Tiffani Son PA Work Phone: [facility] Unsolicited Start: 02-16-2024 End: 02-16-2024 Clinisync Result Encounter Tiffani Son PA Work Phone: [facility] Unsolicited Start: 02-16-2024 End: 02-16-2024 Clinisync Result Encounter Tiffani Son PA Work Phone: [facility] Unsolicited Start: 02-02-2024 End: 02-02-2024 flow sheet Tiffani Son PA Work Phone: [facility] Comment on above: Second trimester pre gnancy; 22 weeks gestation of ; Diabetes mellitus screening Start: 02-02-2024 End: 02-02-2024 ambulatory TIFFANI SON Not Available Start: 02-02-2024 End: 02-02-2024 Bamboo flowsheet Tiffani Son PA Work Phone: [facility] Start: 02-02-2024 End: 02-02-2024 Bamboo flowsheet Tiffani Son PA Work Phone: [facility] Start: 01-27-2024 End: 01-30-2024 Clinisync Result Encounter Isabella Stevenson DO Work Phone: [facility] Unsolicited [...] encounter procedure Isabella Elva DO Work Phone: [facility] Start: 01-05-2024 End: 01-05-2024 Periodic [...] Date Procedure Procedure Detail Performing Clinician Start: 05-10-2024 TBH TOTAL PROTEIN 24 HOUR URINE Isabella Elva DO Work Phone: Start: 05-09-2024 ALL CBC WITH AUTO DIFF [...] Start: 02-16-2024 ALL CBC WITH AUTO DIFF Tiffain ALVARENGA Work Phone: Start: 02-02-2024 Urnls dip stick/tabl et rgnt non-auto w/o micrscp Tiffani ALVARENGA Work Phone: Start: 01-27-2024 AFP, SERUM, OPEN SPI NA BIFIDA [facility] Work Phone: Start: 01-05-2024 Urnls dip stick/tabl et rgnt non-auto w/o micrscp [facility] DO Work Phone: Start: 01-05-2024 IGP,APTIMA HPV,AGE GDLN [facility] DO Work Phone: Start: 01-05-2024 Microscopic observat ion [Identifier] in Cervix by Cyto stain [facility] DO Work Phone: Start: 01-05-2024 URETHRITIS/DISCHARGE PLUS VAGINITIS (HTRX) Isabella Stevenson DO Work Phone: Plan of Treatment Date Care Activity Detail Author Start: 01-04-2027 Screening for malign ant neoplasm of cervix [facility] Start: 10-15-2025 Screening for malign ant neoplasm of cervix [facility] Start: 05-11-2024 End: 05-11-2024 Patient encounter procedure [facility] Comment on above: Arrived Start: 04-27-2024 End: 04-27-2024 Patient encounter procedure 04/27/2024 11:10 AM EST Routine [facility] [address] [place] [phone] Isabella Stevenson, DO [address] [place] [address] [facility] Start: 04-12-2024 End: 04-12-2024 Patient encounter procedure 04/12/2024 2:20 PM EST Routine [facility] [address] [place] [phone] Isabella Stevenson, DO [address], [place] [id number] [facility] Start: 04-12-2024 End: 04-12-2025 US biophysical profile w non stress test US biophysical profile w non stress test Imaging Routine Diet controlled gestational diabetes mellitus (GDM) in third trimester Expected: 04/12/2024 (Approximate), Expires: 04/12/2025 [facility] Work Phone: Comment on above: Expected: 04/12/2024 (Approximate), Expires: 04/12/2025 Start: 03-29-2024 End: 03-29-2024 Patient encounter procedure [facility] Comment on above: Arrived Start: 03-29-2024 End: 03-29-2024 Professional / ancillary services management 03/29/2024 1:00 PM EST Ancillary Procedure [facility] [address] [place] [address] [facility] Start: 03-16-2024 End: 03-16-2024 Patient encounter procedure 03/16/2024 9:50 AM EST Routine [facility] [address] [address] Isabella Stevenson, DO [address] [facility] [place] [address] [facility] Start: 03-01-2024 End: 03-01-2025 [...] EDT Ancillary Procedure [facility] [address] [facility] [place] [address] [facility] Start: 01-05-2024 End: 01-04-2025 Alpha fetoprotein, maternal Alpha fetoprotein, maternal Lab Routine Second trimester Expected: 01/05/2024 (Approximate), Expires: 01/04/2025 [facility] Comment on above: Expected: 01/05/2024 (Approximate), Expires: 01/04/2025 Start: 01-05-2024 End: 01-04-2025 US for US OB ANATOMY SINGLE W US OB CERVICAL LENGTH Imaging Routine Screening, , for anatomic survey Expected: 01/05/2024 (Approximate), Expires: 01/04/2025 [facility] Comment on above: Expected: 01/05/2024 (Approximate), Expires: 01/04/2025 Start: 01-05-2024 End: 01-05-2024 Patient encounter procedure 01/05/2024 1:50 PM EDT Routine [facility] [address] [place] [address] Isabella Stevenson, DO [address] [place] [address] Arrived [facility] Comment on above: Arrived Start: 01-02-2024 Influenza vaccination Influenza Vacc ine (#1) [facility] Start: 2012 Screening for malign ant neoplasm of cervix Pap Smear [facility] CHLAMYDIA TRACHOMATI S (GENITO/STI) CHLAMYDIA TRACHOMATIS (GENITO/STI) Lab Routine Second trimester Screen for STD (sexually transmitted disease) Vaginal discharge Ordered: 01/05/2024 [facility] Comment on above: Ordered: 01/05/2024 Cytology Cervical or vaginal smear or scraping study Pap Smear Pathology and Cytology Routine Well woman exam with routine gynecological exam Ordered: 01/05/2024 [facility] Work Phone: Comment on above: Ordered: 01/05/2024 Human papilloma viru s DNA [Presence] in Unspecified specimen by Probe with amplification HPV DNA probe, amplified Microbiology Routine Well woman exam with routine gynecological exam Ordered: 01/05/2024 [facility] Comment on above: Ordered: 01/05/2024 Neisseria gonorrhoea e DNA [Presence] in Unspecified specimen by ABDI with probe detection Neisseria gonorrhea DNA probe, direct Lab Routine Second trimester Screen for STD (sexually transmitted disease) Vaginal discharge Ordered: 01/05/2024 [facility] Comment on above: Ordered: 01/05/2024 SURESWAB(R) ADVANCED VAGINITIS PLUS, TMA SURESWAB(R) ADVANCED VAGINITIS PLUS, TMA Pathology and Cytology Routine Second trimester Screen for STD (sexually transmitted disease) Vaginal discharge Ordered: 01/05/2024 [facility] Comment on above: Ordered: 01/05/2024 Payers Date Payer Category Payer Private Health Insurance [employer] [id number] 2022 Unknown [employer] [id number] 2022-Present [address] [place] [address] [id number] 1991 Unknown [id number]. 593 1991 Unknown [id number] [id number]. 593 1991 Unknown [id number] [id number]. 1259 1991 Unknown [id number] [id number]. 9 1991 Unknown [id number] [id number]. 1258 1991 Unknown [id number] [id number]. 1258 1991 Unknown [id number] [id number]. 1258 1991 Unknown [id number] [id number]. 1258 1991 Unknown [id number] 2.16.840.1.684821.3.579.2. 1258 1991 Unknown [id number] [id number]. 1258 1991 Unknown [id number] [id number]. 9 1959 Unknown [id number] Social History Date Type Detail Facility Start: 10-29-2023 Tobacco smoking status NYIS Never sm oked tobacco [facility] Start: [...] Text Equipment Identifier Dates Use as instructed [id number] Start: 03-01-2024 End: 03-01-2025 1 each by In Vit ro route Daily Use to check FSBS four times daily [id number] Start: 03-01-2024 End: 03-31-2024 Use as instructed [id number] Start: 04-27-2024 End: 04-27-2024 Use as instructed [id number] Start: 04-27-2024 End: 04-27-2025 Clinical Notes 01-05-2024 to 04-27-2024 Jessica Sánchez, [facility] - 04/27/2024 11:10 AM Eva Sánchez, [facility] - 04/12/2024 2:20 PM Eva Sánchez, [facility] - 03/29/2024 1:40 PM Shayna Robles, [facility] - 03/16/2024 9:50 AM EST Note Date [...] nursing note reviewed. Exam conducted with a fiberglass auto body repairer present. Vitals: Estimated body mass index is [...] Isabella Stevenson DO documented in this encounter [facility] 04-12-2024 History of Presen t [...] nursing note reviewed. Exam conducted with a fiberglass auto body repairer present. Vitals: Estimated body mass index is [...] Isabella Stevenson DO documented in this encounter [facility] 03-29-2024 History of Presen t [...] tablet As directed Blood Glucose Monitoring Suppl (Mapkin Glucometer) w/Device kit 1 kit, Does not [...] nursing note reviewed. Exam conducted with a fiberglass auto body repairer present. Vitals: Estimated body mass index is [...] Jessica Sánchez LPN on behalf of: Isabella Elva, DO documented in this encounter [facility] 03-16-2024 History of Presen t [...] 81 mg, Daily Blood Glucose Monitoring Suppl (Mapkin Glucometer) w/Device kit 1 kit, Does not [...] nursing note reviewed. Exam conducted with a fiberglass auto body repairer present. Vitals: Estimated body mass index is [...] Isabella Stevenson DO documented in this encounter [facility] 03-01-2024 History of Presen t [...] to Diabetic Edu was sent over to [facility]. Pt was made aware diabetic supplies were sent to pharmacy today and to garbage pick up man when ready. Pt was advised to make sure to take her supplies w/her to her appt when she gets scheduled by Kristal Yee RN at [facility]. Pt verbally understood. Growth US was given to patient today to have done at 28 weeks to schedule at [facility]. Orders Placed This Encounter Procedures POCT urinalysis dipstick manually resulted Follow Up: Patient is to return to office in 2 week for routine OB appointment. Documented by Tosin Carvalho MA on behalf of: COLETTE Almonte documented in this encounter [facility] 02-02-2024 History of Presen t [...] of: COLETTE Almonte documented in this encounter [facility] 01-05-2024 History of Presen t [...] nursing note reviewed. Exam conducted with a fiberglass auto body repairer present. Vitals: Estimated body mass index is [...] DATE CREATED AUTHOR 11/18/2021 [facility] DATE CREATED AUTHOR AUTHOR'S ORGANIZ ATION 04/28/2024 [facility] EPIC Reason for Visit (unrecogniz ed section and content) Reason Comments Routine Visit Care Teams (unrecognized sec tion and content) Head Rigger Relationship Specialty Start Date End Date Hima Sena MD [address] [place] [address] PCP - General Family Medicine 09/08/22 Head Rigger Relationship Specialty Start Date End Date Hima Sena MD [address] [place] [address] PCP - General Family Medicine 09/08/22 Head Rigger Relationship Specialty Start Date End Date Hima Sena MD [address] [place] [address] PCP - General Family Medicine 09/08/22 Head Rigger Relationship Specialty Start Date End Date Hima Sena MD [address] [place] [address] PCP - General Family Medicine 09/08/22 Head Rigger Relationship Specialty Start Date End Date Hima Sena MD [address] [facility] [address] [place] [address] PCP - General Family Medicine 09/08/22 Head Rigger Relationship Specialty Start Date End Date Hima Sena MD [address] [facility] [address] [place] [address] PCP - General Family Medicine 09/08/22 Head Rigger Relationship Specialty Start Date End Date Hima Sena MD [address] [facility] [address] [place] [address] PCP - General Family Medicine 09/08/22 Head Rigger Relationship Specialty Start Date End Date Hima Sena MD [address] [place] [address] PCP - General Family Medicine 09/08/22 Head Rigger Relationship Specialty Start Date End Date Hima Sena MD [address] [place] [address] PCP - General Family Medicine 09/08/22 Head Rigger Relationship Specialty Start Date End Date Hima Sena MD [address] [facility] [address] [place] [address] PCP - General Family Medicine 09/08/22 Head Rigger Relationship Specialty Start Date End Date Hima Sena MD [address] [facility] [address] [place] [address] PCP - General Family Medicine 09/08/22 FOR [...] BE BASED ON THE PRIMARY CLINICAL RECORDS. [employer] [facility]. provides no warranty or guarantee of the accuracy or completeness of information in this document.
[2024-05-14] MEDS: 0.9 % SODIUM CHLORIDE 1,000 ML 125 ML IV ×2 (05:27→14:04)
[2024-05-14 05:42] LABS: Hematocrit 30.9 % (36.0-48.0); Hemoglobin 10.1 g/dL (12.0-16.0); Mean Corpuscular HGB Conc 32.7 g/dL (29.9-35.2); Mean Corpuscular Hemoglobin 27.8 pg (26.7-34.0); Mean Corpuscular Volume 85.1 fL (81.0-99.0); Mean Platelet Volume 11.9 fL (9.5-13.5); Platelet Count 319 10^3/uL (150-450); Red Blood Count 3.63 10^6/uL (4.20-5.40); Red Cell Distribution Width 13.1 % (11.0-15.0); White Blood Count 11.1 10^3/uL (4.0-11.0)
[2024-05-14 05:59] LABS: Amphetamine Screen Urine NEGATIVE (NEGATIVE); Barbiturates Screen Urine NEGATIVE (NEGATIVE); Benzodiazepines Screen Urine NEGATIVE (NEGATIVE); Buprenorphine Screen Urine NEGATIVE (NEGATIVE); Cannabinoid Screen Urine NEGATIVE (NEGATIVE); Cocaine Screen Urine NEGATIVE (NEGATIVE); Methadone Screen Urine NEGATIVE (NEGATIVE); Methamphetamines Screen Urine NEGATIVE (NEGATIVE); Opiate Screen Urine NEGATIVE (NEGATIVE); Oxycodone Screen Urine NEGATIVE (NEGATIVE); Phencyclidine Screen Urine NEGATIVE (NEGATIVE); Tricyclic Antidepressant Urine NEGATIVE (NEGATIVE)
[2024-05-14] MEDS: AMPICILLIN SODIUM 2,000 MG in 0.9 % SODIUM CHLORIDE 100 ML 200 MG IV (06:08)
[2024-05-14] MEDS: OXYTOCIN/0.9 % SODIUM CHLORIDE 10 UNITS/500 ML PLAST..BAG 6 UNIT IV (06:09)
[2024-05-14] MEDS: AMPICILLIN SODIUM 1,000 MG in 0.9 % SODIUM CHLORIDE 50 ML 100 MG IV (10:08)
[2024-05-14] MEDS: NALBUPHINE HCL 10 MG/ML AMPULE IV (14:02)
[2024-05-14] MEDS: LIDOCAINE HCL 1% 200 MG/20 ML MDV INJ (14:25)
[2024-05-14] MEDS: OXYTOCIN/0.9 % SODIUM CHLORIDE 20 UNITS/1,000 ML PLAST..BAG 125 UNIT IV (14:30)
--- NOTE | 2024-05-14 14:50 | PM.OBPRCVD ---
Procedure Intrapartal events: None Induction method: per pitocin protocol Delivery augmentation: rupture of membranes and pitocin Delivery monitor: external FHT and external uterine Route of delivery: Episiotomy Description: midline L&D Laceration Description: perineal - 2nd degree Delivery repair: Vicryl Estimated blood loss (mL): 400 Anesthesia type: None Disposition: floor Delivery date: 05/14/24 Gender: female presentation: vertex Placental delivery description: Spontaneous cord description: 3 Vessels and Nuchal Cord
[2024-05-14] MEDS: BENZOCAINE/MENTHOL 85 GRAM SPRAY BOTTLE 1 APPLIC TOPICAL (16:15)
[2024-05-14] MEDS: IBUPROFEN 600 MG TABLET PO ×2 (16:15→23:38)
[2024-05-14] MEDS: LABETALOL HCL 100 MG TABLET 200 MG PO (20:27)
[2024-05-15 06:57] LABS: Glucometer 110 mg/dL (74-106)
[2024-05-15 07:06] LABS: Basophils Absolute Auto 0.1 10^3/uL (0.0-0.1); Basophils Percent Auto 0.3 % (0.2-2.0); Eosinophils Percent Auto 0.3 % (0.9-7.0); Hematocrit 27.7 % (36.0-48.0); Hemoglobin 8.9 g/dL (12.0-16.0); Immature Granulocytes Abs Auto 0.08 10^3/uL (0.00-0.03); Immature Granulocytes Pct Auto 0.5 % (0.0-0.5); Lymphocytes Percent Auto 12.6 % (20.5-60.0); Mean Corpuscular HGB Conc 32.1 g/dL (29.9-35.2); Mean Corpuscular Hemoglobin 27.5 pg (26.7-34.0); Mean Corpuscular Volume 85.5 fL (81.0-99.0); Mean Platelet Volume 11.7 fL (9.5-13.5); Monocytes Absolute Auto 0.9 10^3/uL (0.3-0.8); Monocytes Percent Auto 5.5 % (1.7-12.0); Neutrophils Absolute Auto 12.6 10^3/uL (1.4-6.5); Neutrophils Percent Auto 80.8 % (43.0-75.0); Platelet Count 297 10^3/uL (150-450); Red Blood Count 3.24 10^6/uL (4.20-5.40); White Blood Count 15.6 10^3/uL (4.0-11.0)
--- NOTE | 2024-05-15 07:43 | PM.OBPN ---
OB - PN: Subj Subjective Patient comments: no complaints and pain well controlled status: doing well Exam Constitutional Vital Signs, click to edit/add: Last Vital Signs Temp 98.1 F 05/14/24 23:30 Pulse 81 05/14/24 23:37 Resp 16 05/14/24 05:52 BP 137/84 05/14/24 23:37 O2 Del Method Room Air 05/14/24 23:58 Documenting provider has reviewed patient's vital signs: yes Common normals: no apparent distress Respiratory Common normals: normal respiratory effort and clear to auscultation bilaterally Cardio Common normals: regular rate and regular rhythm GI Common normals: Normal to inspection, nondistended, normoactive bowel sounds present Extremity Common normals: no clubbing, cyanosis or edema and no calf tenderness Results Labs Labs: Short CBC 05/15/24 Range/Units 06:56 WBC 15.6 H (4.0-11.0) 10^3/uL Hgb 8.9 L (12.0-16.0) g/dL Hct 27.7 L (36.0-48.0) % Plt Count 297 (150-450) 10^3/uL OB - PN: A/P Plan - day: 1 Plan: routine postop care Time Spent with Patient Time: Total time spent is greater than 50% in coordination of care (as documented) at patient's floor/unit and/or counseling patient: Total time spent with greater than 50% in coordination of care (as documented) at patient's floor/unit and/or counseling patient: less than 15 minutes
[2024-05-15 09:10] VITALS: BP 127/78; PULSE 82; TEMP 36.9
[2024-05-15] MEDS: DOCUSATE SODIUM 100 MG CAPSULE PO (09:13)
[2024-05-15 09:17] VITALS: BP 127/78; PULSE 82
[2024-05-15] MEDS: IBUPROFEN 600 MG TABLET PO ×2 (09:18→16:03)
[2024-05-15] MEDS: RHO(D) IMMUNE GLOBULIN 1,500 UNIT SYRINGE 1500 UNIT IM (12:27)
[2024-05-15 16:02] VITALS: BP 152/76; PULSE 85
[2024-05-15 16:04] VITALS: BP 145/91; PULSE 89
[2024-05-15 17:17] VITALS: BP 137/83; PULSE 90
== END 2024-05-15 20:26 | disposition home or self-care (01) | DRG 807 ==
PROVIDERS: Admitting Provider Obstetrics & Gynecology; Visit Provider Obstetrics & Gynecology
DX: O24.424 Gestational diabetes mellitus in childbirth, insulin controlled (principal); Z37.0 Single live birth; O16.4 Unspecified maternal hypertension, complicating childbirth; O70.1 Second degree perineal laceration during delivery; O69.81X0 Labor and delivery complicated by cord around neck, without compression, not applicable or unspecified; Z3A.37 37 weeks gestation of pregnancy; O26.893 Other specified pregnancy related conditions, third trimester; Z67.11 Type A blood, Rh negative
CPT/HCPCS: 36415; 59050; 59410; 80307; 82948; 85025; 85027; 85461; 86850; 86900; 86901; J0290; J2300; J2791

== ENCOUNTER 2025-01-08 21:07 | Outpatient (REF) | payer OTHER, SELFPAY ==
--- OUTSIDE RECORDS SUMMARY | 2025-01-08 15:00 | XMS_ITS | Encounter Summary ---
Author Organization [facility] Address [address] [place] [address] Care Team Providers Care Crime Scene Examiner Name Role Phone Unavailable Primary Care Provider Unavailabl e Reason for Visit * Reason Comments Well Women Visit Encounter Details Date Type Department Care Team (Late st Contact Info) Description 01/08/2025 3:00 PM EDT Office Visit [facility] [place] [facility] [address] [place] [address] Farzad Stevenson DO [address] [facility] [place] [address] Well woman exam with routine gynecological exam Social History Tobacco Use Types Packs/Day Years Used Date Smoking Tobacco: Never Smokeless Tobacco: Never Alcohol Use Standard Drinks/Week Comments Yes 0 (1 standard drink = 0.6 oz pur e alcohol) AUDIT-C Answer Date Recorded Q1: How often do you have a drink containing alc ohol? Monthly or less 03/04/2023 Q2: How many drinks containi ng alcohol do you have on a typical day when you are drinking? 1 or 2 03/04/2023 Q3: How often do you have si x or more drinks on one occasion? Never 03/04/2023 Comments Unknown Sex and Gender Information Value Date Recorded Sex Assigned at Female 03/09/2023 3:15 PM EST Legal Sex Female 6:35 PM EDT Gender Identity Female 03/09/2023 3:15 PM EST Sexual Orientation Not on file documented as of this encounter Last Filed Vital Signs Vital Sign Reading Time Taken Comments Blood Pressure - - Pulse - - Temperature - - Respiratory Rate - - Oxygen Saturation - - Inhaled Oxygen Concentration - - Weight 71.2 kg (157 lb) 01/08/2025 3:04 PM EDT Height - - Body Mass Index 28.72 03/30/2023 1:02 PM EST documented in this encounter Plan of Treatment Upcoming Encounters Date Type Department Care Team (Late st Contact Info) Description 01/12/2025 9:40 AM EDT Clinical Support [facility] [address] [place] [address] 01/17/2026 10:00 AM EDT Procedure Visit [facility] [address] [place] [address] Farzad Stevenson DO [address] [place] [address] Scheduled Orders Name Type Priority Associated Diagnoses Orde r Schedule Pap Smear Pathology and Cytology Routine Well woman exam with routine gynecological exam Ordered: 01/08/2025 HPV DNA probe, amplified Microbiology Routine Well woman exam with routine gynecological exam Ordered: 01/08/2025 documented as of this encounter Visit Diagnoses Diagnosis Well woman exam with routine gynecological exam Routine gynecological examination documented in this encounter
--- OUTSIDE RECORDS SUMMARY | 2025-01-08 21:10 | XMS_ITS | Encounter Summary ---
Author Organization [facility] Address [address] [place] [address] Care Team Providers Care Anatomy And Physiology Instructor Name Role Phone Unavailable Primary Care Provider Unavailabl e Encounter Details Date Type Department Care Team (Latest Contact Info) Description 01/08/2025 Travel Social History Tobacco Use Types Packs/Day Years [...] on file documented as of this encounter Plan of Treatment Upcoming Encounters Date Type Department Care Team (Late st Contact Info) Description 01/12/2025 9:40 AM [place]T [place] [address] 01/17/2026 10:00 AM EDT [place] [address] Farzad Stevenson, DO [address] [facility] [place] [address] documented as of this encounter Visit Diagnoses Not on filedocumented in this encounter
--- OUTSIDE RECORDS SUMMARY | 2025-01-08 21:10 | XMS_ITS | Encounter Summary ---
Author Organization [facility] Address [address] [place] [address] Care Team Providers Care Rug Washer Name Role Phone Unavailable Primary Care Provider Unavailabl e Encounter Details Date Type Department Care Team (Late Contact Info) Description 02/01/2024 Abstract [facility] [address] [place] [place] [address] Joyce Robles LPN Social History Tobacco Use Types Packs/Day Years [...] drinks on one occasion? Never 03/04/2023 Comments Yes Sex and Gender Information Value Date Recorded Sex Assigned at Female 03/09/2023 3:15 PM EST Legal Sex Female 6:35 PM EDT Gender Identity Female 03/09/2023 3:15 PM EST Sexual Orientation Not on file documented as of this encounter Plan of Treatment Upcoming Encounters Date Type Department Care Team (Late st Contact Info) Description 01/12/2025 9:40 AM EDT Clinical Support [facility] [address] [place] [address] 01/17/2026 10:00 AM EDT Procedure Visit [facility] [address] [facility] [place] [phone] Farzad Stevenson, [address] [facility] [address] [place], [place] [id number] documented as of this encounter Visit Diagnoses Not on filedocumented in this encounter
--- OUTSIDE RECORDS SUMMARY | 2025-01-08 21:10 | XMS_ITS | Clinical Summary ---
Author Organization [facility] Address [address] [place] [address] Care Team Providers Care Clay Transporter Name Role Phone Unavailable Primary Care Provider Unavailabl e Allergies No known active allergies Medications MV-Min-Fe Fum-FA-DHA ( 1 PO) Take by mouth 01/09/20 25 Discontinued docusate sodium (Colace) 100 MG capsule Take 100 mg by mouth in the morning and 100 mg before bedtime. 01/09/20 25 Discontinued Encounters Date Type Department Care Team Description 01/08/2025 3:00 [place] [address] Farzad Stevenson DO Well woman exam with routine gynecological exam 01/08/2025 Bamboo flowsheet [facility] [address] [place] [address] Farzad Stevenson DO 01/08/2025 Travel from Last 3 Months Family History Medical History Relation Name Comments Heart disease Father Cancer Maternal Grandfather Gonsalo Asthma Maternal Grandmother Linda Thyroid disease Maternal Grandmother Linda Allergies Mother Vandana Hyperlipidemia Mother Vandana Hypertension Mother Vandana Relation Name Status Comments Father Alive Maternal Grandfather Gonsalo Maternal Grandmother Linda Mother Vandana Alive Social History Tobacco Use Types Packs/Day Years Used Date Smoking Tobacco: Never Smokeless Tobacco: Never Tobacco Cessation:Counseling Given: Not Answered Alcohol Use Standard Drinks/Week Comments Yes 0 [...] PM EST Sexual Orientation Not on file Last Filed Vital Signs Vital Sign Reading Time Taken Comments Blood Pressure 130/78 06/27/2024 9:56 AM EST Pulse - - Temperature - - Respiratory Rate - - Oxygen Saturation - - Inhaled Oxygen Concentration - - Weight 71.2 kg (157 lb) 01/08/2025 3:04 PM EDT Height 157.5 cm (5' 2 ) 03/30/2023 1:02 PM EST Body Mass Index 28.72 03/30/2023 1:02 PM EST Plan of Treatment Upcoming Encounters Date Type Department Care Team (Late st Contact Info) Description 01/12/2025 9:40 AM EDT Clinical Support [facility] [address] [place] [phone] 01/17/2026 10:00 AM EDT Procedure Visit [facility] [address] [place] [address] Farzad Stevenson DO [address] [place] [address] [place] [address] [employer]
--- OUTSIDE RECORDS SUMMARY | 2025-01-08 21:10 | XMS_ITS | Encounter Summary ---
Author Organization [facility] Address [address] [facility] [place] [address] Care Team Providers Care [employer] Name Role Phone Unavailable Primary Care Provider Unavailabl e Encounter Details Date Type Department Care Team (Late Contact Info) Description 05/14/2024 Abstract [facility] [place] [address] [facility] [address] Farzad Stevenson, [address] [facility] [place] [address] Social History Tobacco Use Types Packs/Day Years [...] Description 01/12/2025 9:40 AM EDT Clinical Support [facility] [address] [place] [address] 01/17/2026 10:00 AM EDT Procedure Visit [facility] [address] [facility] [place] [phone] Farzad Stevenson DO [address] [facility] [address] [place], [place] [address] documented as of this encounter Visit Diagnoses Not on filedocumented in this encounter
--- OUTSIDE RECORDS SUMMARY | 2025-01-08 21:10 | XMS_ITS | Encounter Summary ---
Author Organization [facility] Address [address] [place] [address] Care Team Providers Care Box Sealing Machine Catcher Name Role Phone Unavailable Primary Care Provider Unavailabl e Encounter Details Date Type Department Care Team (Late Contact Info) Description 03/14/2024 Abstract [facility] [place] [facility] [address] [facility] [place] [address] Farzad Stevenson, [address] [facility] [place] [address] Social History Tobacco Use Types Packs/Day Years [...] AM EDT Clinical Support [facility] [address] [place] [address] 01/17/2026 10:00 AM EDT Procedure Visit [facility] [address] [facility] [place] [phone] Farzad Stevenson DO [address] [facility] [address] [place], [place] [phone] documented as of this encounter Visit Diagnoses Not on filedocumented in this encounter
--- OUTSIDE RECORDS SUMMARY | 2025-01-08 21:10 | XMS_ITS | Encounter Summary ---
Author Organization [facility] Address [address] [facility] [place] [address] Care Team Providers Care Proposal Consultant Name Role Phone Unavailable Primary Care Provider Unavailabl e Encounter Details Date Type Department Care Team (Late st Contact Info) Description 02/02/2024 Clinisync Result Encounter [facility] External Department Unsolicited Isabella Stevenson, DO [address] [facility] [place] [address] Social History Tobacco Use Types Packs/Day Years [...] AM EDT Clinical Support [facility] [address] [facility] [address] 01/17/2026 10:00 AM EDT Procedure Visit [facility] [place] [address] [place] [address] Isabella Stevenson DO [address] [facility] [place] [address] documented as of this encounter Procedures Procedure Name Priority Date/Time Associated Diagnosis Comments US OB CERVICAL LENGTH 02/02/2024 3:23 PM EDT documented in this encounter Results * US OB CERVICAL LENGTH (02/02/2024 3:23 PM EDT) Anatomical Region Laterality Modality Other 02/02/2024 3:23 PM EDT Narrative 02/02/2024 3:26 [place] [address] Ultrasound Report Signed Patient: LILIANE NUNO MR#: [id number] : 1990 Acct:[id number] Age/Sex: 33 / F ADM Date: 02/02/24 Loc: [facility] Attending Dr: Isabella Stevenson D.O. Ordering Physician: Isabella Stevenson D.O. Date of Service: 02/02/24 Procedure(s): US OB cervical length Accession Number(s): [id number] cc: Isabella Stevenson D.O.; Physician,Non-Staff M.DYunior The [address] [address] Patient Name: LILIANE NUNO MRN: [id number] date: 1990 Sex: F Assigned Patient Location: [facility] Current Patient Location: [facility] Accession/Order Number: [id number] Exam Date: 02/02/2024 14:09 Report Date: 02/02/2024 15:23 At the request of: ISABELLA STEVENSON Procedure: US OB cervical length EXAMINATION: US OB anatomy, US OB cervical length HISTORY: ANATOMY COMPARISON: No relevant comparison available. TECHNIQUE: Transabdominal sonographic examination was performed for obstetrical and evaluation. FINDINGS: Number: 1 Heart Rate: 150 bpm H.B. /min Amniotic Fluid Volume: Subjectively normal Placental Location: Posterior, the placental edge is 5.6 cm from the internal os position: Cephalic presentation, longitudinal lie Cervix Length: 4.22 cm , closed Normal anatomy: Lateral ventricles, cerebellum, posterior fossa, nose, lips, orbits, four-chamber heart, RVOT, LVOT, diaphragm, stomach, kidneys, abdominal cord insertion, bladder, umbilical arteries, three-vessel cord, spine, extremities BIOMETRY: BPD: 5.45 cm; 22 weeks 4 days; 47 % HC: 20.13 cm; 22 weeks 2 days; 25.10 % AC: 17.74 cm; 22 weeks 4 days; 43.60 % FL: 3.99 cm; 22 weeks 6 days; 49.20 % EFW:519.66 g; 48.80 %, 1 lb. 3 oz. FL/AC: 22.49 FL/BPD: 73.21 HC/AC: 1.13 GESTATIONAL AGE: Age by EDC: 22 weeks 4 days DOUGLAS by EDC: 2024-06-03 Age by current US: 22 weeks 4 days DOUGLAS by current US: 2024-06-03 US/US OB cervical length IMPRESSION: Normal anatomy scan Closed cervix measuring 4.2 cm in length *Reference: AIUM Practice Guideline for the performance of Obstetric Ultrasound Examinations, January 31, 2007. Electronically authenticated by: ANDRADE MATHEWS Date: 02/02/2024 15:23 Dictated By: Andrade Mathews M.D. Signed By: 02/02/24 1526 DD/ 1523 TD/TT: Ferry Terminal Supervisor: Procedure Note Radiology, Radiologist, - 02/02/2024 The [place] [id number] Ultrasound Report Signed Patient: LILIANE NUNO LMR#: [id number] : 1990Acct:[id number] Age/Sex: 33 / FADM Date: 02/02/24 Loc: [facility] Attending Dr: Isabella Stevenson D.O. Ordering Physician: Isabella Stevenson D.O. Date of Service: 02/02/24 Procedure(s): US OB cervical length Accession Number(s): [id number] cc: Isabella Stevenson D.O.; Physician,Non-Staff [place] [address] Patient Name: LILIANE NUNO MRN: [facility]:[id number] date: 1990 Sex: F Assigned Patient Location: [facility] Current Patient Location: [facility] Accession/Order Number: [id number] Exam Date: 02/02/2024 14:09 Report Date: 02/02/2024 15:23 At the request of: ISABELLA STEVENSON Procedure: US OB cervical length EXAMINATION: US OB anatomy, US OB cervical length HISTORY: ANATOMY COMPARISON: No relevant comparison available. TECHNIQUE: Transabdominal sonographic examination was performed for obstetrical and evaluation. FINDINGS: Number: 1 Heart Rate: 150 bpm H.B. /min Amniotic Fluid Volume: Subjectively normal Placental Location: Posterior, the placental edge is 5.6 cm from theinternal os position: Cephalic presentation, longitudinal lie Cervix Length: 4.22 cm , closed Normal anatomy: Lateral ventricles, cerebellum, posterior fossa, nose,lips, orbits, four-chamber heart, RVOT, LVOT, diaphragm, stomach, kidneys,abdominal cord insertion, bladder, umbilical arteries, three-vessel cord, spine, extremities BIOMETRY: BPD: 5.45 cm; 22 weeks 4 days; 47 % HC: 20.13 cm; 22 weeks 2 days; 25.10 % AC: 17.74 cm; 22 weeks 4 days; 43.60 % FL: 3.99 cm; 22 weeks 6 days; 49.20 % EFW:519.66 g; 48.80 %, 1 lb. 3 oz. FL/AC: 22.49 FL/BPD: 73.21 HC/AC: 1.13 GESTATIONAL AGE: Age by EDC: 22 weeks 4 days DOUGLAS by EDC: 2024-06-03 Age by current US: 22 weeks 4 days DOUGLAS by current US: 2024-06-03 US/US OB cervical length IMPRESSION: Normal anatomy scan Closed cervix measuring 4.2 cm in length *Reference: AIUM Practice Guideline for the performance of Obstetric Ultrasound Examinations, January 31, 2007. Electronically authenticated by: ANDRADE MATHEWS Date: 02/02/2024 15:23 Dictated By: Andrade Mathews M.D. Signed By:02/02/24 1526 DD/ 1523 TD/TT: Ferry Terminal Supervisor: us Isabella Elva DO [facility] Final Result documented in this encounter Visit Diagnoses Not on filedocumented in this encounter
--- OUTSIDE RECORDS SUMMARY | 2025-01-08 21:10 | XMS_ITS | Encounter Summary ---
Author Organization [facility] Address [address] [place] [address] Care Team Providers Care Smoking Tobacco Packer Hand Name Role Phone Unavailable Primary Care Provider Unavailabl e Encounter Details Date Type Department Care Team (Late st Contact Info) Description 03/30/2024 Clinisync Result Encounter [facility] External Department Unsolicited Tiffani Son PA [facility] [address] Social History Tobacco Use Types Packs/Day Years [...] 9:40 AM EDT Clinical Support [facility] [address] 01/17/2026 10:00 AM EDT Procedure Visit [facility] [address] [facility] [place] [address] Farzad Stevenson, DO [address] [facility] [place] [address] documented as of this encounter Procedures Procedure Name Priority Date/Time Associated Diagnosis Comments US OB GROWTH 03/30/2024 6:11 AM EST documented in this encounter Results * US OB GROWTH (03/30/2024 6:11 AM EST) Anatomical Region Laterality Modality Other 03/30/2024 6:11 AM EST Narrative 03/30/2024 6:13 AM EST The [address] [address] Ultrasound Report Signed Patient: LILIANE NUNO MR#: [id number] : 1990 Acct:[id number] Age/Sex: 33 / F ADM Date: 03/29/24 Loc: [facility] Attending Dr: Tiffani Son Ordering Physician: Tiffani Son Date of Service: 03/29/24 Procedure(s): US OB growth Accession Number(s): [id number] cc: Tiffani Son; Physician,Non-Staff M.DYunior The [address] [address] Patient Name: LILIANE NUNO MRN: [id number] date: 1990 Sex: F Assigned Patient Location: [facility] Current Patient Location: Accession/Order Number: [id number] Exam Date: 03/29/2024 13:08 Report Date: 03/30/2024 06:11 At the request of: TIFFANI SON Procedure: US OB growth EXAMINATION: US OB growth HISTORY: GESTATIONAL DIABETES COMPARISON: Ultrasound OB anatomy 02/02/2024 FINDINGS: Heart Rate: 136 bpm Amniotic Fluid Volume: 10.2 cm; normal range. Number: 1 Position: CEPHALIC BIOMETRY: BPD: 7.80 cm; 31 weeks 2 days; 61.60 % HC: 28.27 cm; 31 weeks 0 days; 25.40 % AC: 26.26 cm; 30 weeks 0 days; 40.20 % FL: 6.01 cm; 31 weeks 2 days; 55.80 % EFW: 1627.74 g; 45.20 % FL/AC: 22.89 FL/BPD: 77.05 HC/AC: 1.08 GESTATIONAL AGE: Age by EDC: 30 weeks 4 days DOUGLAS by EDC: 2024-06-03 Age by US: 31 weeks 0 days DOUGLAS by US: 2024-05-31 US/US OB growth IMPRESSION: 1. Single live intrauterine with growth detailed above. Electronically authenticated by: BIN THOMAS Date: 03/30/2024 06:11 Dictated By: Bin Thomas M.D. Signed By: 03/30/24612 DD/ 0 TD/TT: Claims Specialist: Procedure Note Radiology, Radiologist, MD - 03/30/2024 [place] [address] Ultrasound Report Signed Patient: LILIANE NUNO LMR#: [id number] : 1990Acct:[id number] Age/Sex: 33 / FADM Date: 03/29/24 Loc: [facility] Attending Dr: Tiffani Son Ordering Physician: Tiffani Son Date of Service: 03/29/24 Procedure(s): US OB growth Accession Number(s): [id number] cc: Tiffani Son; Physician,Non-Staff Mihai The [address] [address] Patient Name: LILIANE NUNO MRN: [id number] date: 1990 Sex: F Assigned Patient Location: [facility] Current Patient Location: Accession/Order Number: [id number] Exam Date: 03/29/2024 13:08 Report Date: 03/30/2024 06:11 At the request of: TIFFANI SON Procedure: US OB growth EXAMINATION: US OB growth HISTORY: GESTATIONAL DIABETES COMPARISON: Ultrasound OB anatomy 02/02/2024 FINDINGS: Heart Rate: 136 bpm Amniotic Fluid Volume: 10.2 cm; normal range. Number: 1 Position: CEPHALIC BIOMETRY: BPD: 7.80 cm; 31 weeks 2 days; 61.60 % HC: 28.27 cm; 31 weeks 0 days; 25.40 % AC: 26.26 cm; 30 weeks 0 days; 40.20 % FL: 6.01 cm; 31 weeks 2 days; 55.80 % EFW: 1627.74 g; 45.20 % FL/AC: 22.89 FL/BPD: 77.05 HC/AC: 1.08 GESTATIONAL AGE: Age by EDC: 30 weeks 4 days DOUGLAS by EDC: 2024-06-03 Age by US: 31 weeks 0 days DOUGLAS by US: 2024-05-31 US/US OB growth IMPRESSION: 1. Single live intrauterine with growth detailed above. Electronically authenticated by: BIN THOMAS Date: 03/30/2024 06:11 Dictated By: Bin Thomas M.D. Signed By:03/30/24612 DD/ 0 TD/TT: Claims Specialist: Tiffani ALVARENGA [facility] Final Result documented in this encounter Visit Diagnoses Not on filedocumented in this encounter
--- OUTSIDE RECORDS SUMMARY | 2025-01-08 21:10 | XMS_ITS | Encounter Summary ---
Author Organization [facility] Address [address] [facility] [place] [address] Care Team Providers Care Portfolio Management Marketing Name Role Phone Unavailable Primary Care Provider Unavailabl e Encounter Details Date Type Department Care Team (Late Contact Info) Description 05/16/2024 Abstract [facility] [place] [address] [facility] [place] [place] [address] Farzad Stevenson, [address] [facility] [place] [address] Social History Tobacco Use Types Packs/Day Years [...] AM EDT Clinical Support [facility] [address] [place] [address] 01/17/2026 10:00 AM EDT Procedure Visit [facility] [address] [facility] [place] [phone] Farzad Stevenson DO [address] [facility] [address] [place], [place] [address] documented as of this encounter Visit Diagnoses Not on filedocumented in this encounter
--- OUTSIDE RECORDS SUMMARY | 2025-01-08 21:10 | XMS_ITS | Encounter Summary ---
Author Organization [facility] Address [address] [facility] [place] [address] Care Team Providers Care Engineering Mathematician Name Role Phone Unavailable Primary Care Provider Unavailabl e Encounter Details Date Type Department Care Team (Late st Contact Info) Description 02/02/2024 Clinisync Result Encounter [facility] External Department Unsolicited Isabella Stevenson, DO [address] [facility] [place] [address] Social History Tobacco Use Types Packs/Day Years [...] AM EDT Clinical Support [facility] [address] [place] [address] 01/17/2026 10:00 AM EDT Procedure Visit [facility] [address] [place] [address] Isabella Stevenson DO [address] [facility] [place] [address] documented as of this encounter Procedures Procedure Name Priority Date/Time Associated Diagnosis Comments US OB ANATOMY 02/02/2024 3:23 PM EDT documented in this encounter Results * US OB ANATOMY (02/02/2024 3:23 PM EDT) Anatomical Region Laterality Modality Other 02/02/2024 3:23 PM EDT Narrative 02/02/2024 3:26 PM EDT The [place] [id number] Ultrasound Report Signed Patient: LILIANE NUNO MR#: [id number] : 1990 Acct:[id number] Age/Sex: 33 / F ADM Date: 02/02/24 Loc: [facility] Attending Dr: Isabella Stevenson D.O. Ordering Physician: Isabella Stevenson D.O. Date of Service: 02/02/24 Procedure(s): US OB anatomy Accession Number(s): [id number] cc: Isabella Stevenson D.O.; Physician,Non-Staff M.DYunior The [address] [address] Patient Name: LILIANE NUNO MRN: [id number] date: 1990 Sex: F Assigned Patient Location: [facility] Current Patient Location: [facility] Accession/Order Number: [id number] Exam Date: 02/02/2024 14:09 Report Date: 02/02/2024 15:23 At the request of: ISABELLA STEVENSON Procedure: US OB anatomy EXAMINATION: US OB anatomy, US OB cervical [...] DOUGLAS by current US: 2024-06-03 US/US OB anatomy IMPRESSION: Normal anatomy scan Closed cervix measuring 4.2 cm in length *Reference: AIUM Practice Guideline for the performance of Obstetric Ultrasound Examinations, January 31, 2007. Electronically authenticated by: ANDRADE MATHEWS Date: 02/02/2024 15:23 Dictated By: Andrade Mathews M.D. Signed By: 02/02/24 1526 DD/ 1523 TD/TT: Automotive Internet Sales Manager: Procedure Note Radiology, Radiologist, MD - 02/02/2024 The [place] [id number] Ultrasound Report Signed Patient: LILIANE NUNO LMR#: [id number] : 1990Acct:[id number] Age/Sex: 33 / FADM Date: 02/02/24 Loc: [facility] Attending Dr: Isabella Stevenson D.O. Ordering Physician: Isabella Stevenson D.O. Date of Service: 02/02/24 Procedure(s): US OB anatomy Accession Number(s): [id number] cc: Isabella Stevenson D.O.; Physician,Non-Staff Mihai [address] [address] Patient Name: LILIANE NUNO MRN: [facility]:[id number] date: 1990 Sex: F Assigned Patient Location: [facility] Current Patient Location: [facility] Accession/Order Number: [id number] Exam Date: 02/02/2024 14:09 Report Date: 02/02/2024 15:23 At the request of: ISABELLA STEVENSON Procedure: US OB anatomy EXAMINATION: US OB anatomy, US OB cervical [...] DOUGLAS by current US: 2024-06-03 US/US OB anatomy IMPRESSION: Normal anatomy scan Closed cervix measuring 4.2 cm in length *Reference: AIUM Practice Guideline for the performance of Obstetric Ultrasound Examinations, January 31, 2007. Electronically authenticated by: ANDRADE MATHEWS Date: 02/02/2024 15:23 Dictated By: Andrade Mathews M.D. Signed By:02/02/24 1526 DD/ 1523 TD/TT: Automotive Internet Sales Manager: us Isabella Elva DO [facility] Final Result documented in this encounter Visit Diagnoses Not on filedocumented in this encounter
--- OUTSIDE RECORDS SUMMARY | 2025-01-08 21:10 | XMS_ITS | Encounter Summary ---
Author Organization [facility] Address [address] [facility] [place] [address] Care Team Providers Care Blackener Name Role Phone Unavailable Primary Care Provider Unavailabl e Encounter Details Date Type Department Care Team (Late Contact Info) Description 01/11/2024 Orders Only [facility] [place] [facility] [address] [place] [address] Hortencia Archuleta LPN [address] [email or web address] [place] [id number] Social History Tobacco Use Types Packs/Day Years [...] AM EDT Clinical Support [facility] [address] [place] [address] 01/17/2026 10:00 AM EDT Procedure Visit [facility] [address] [place] [address] Fazrad Stevenson DO [address] [place] [address] [address] [place], [place] [address] documented as of this encounter Procedures Procedure Name Priority Date/Time Associated Diagnosis Comments PAP SMEAR Routine 01/05/2024 12:00 AM EDT documented in this encounter Results * Pap Smear (01/05/2024 12:00 AM EDT) Swab Cervical swab / Unknown us Farzad Stevenson DO LAB CYTOLOGY ORDERABLES Final Re sult EXTERNAL LAB documented in this encounter Visit Diagnoses Not on filedocumented in this encounter
--- OUTSIDE RECORDS SUMMARY | 2025-01-08 21:10 | XMS_ITS | Encounter Summary ---
Author Organization [facility] Address [address] [facility] [place] [address] Care Team Providers Care Corporate Strategy Intern Name Role Phone Unavailable Primary Care Provider Unavailabl e Encounter Details Date Type Department Care Team (Late st Contact Info) Description 10/29/2023 Clinisync Result Encounter [facility] External Department Unsolicited Isabella Stevenson, DO [address] [facility] [place] [address] Social History Tobacco Use Types Packs/Day Years [...] AM EDT Clinical Support [facility] [place] [address] [place] [address] 01/17/2026 10:00 AM EDT Procedure Visit [facility] [address] [place] [address] Isabella Stevenson DO [address] [facility] [place] [address] documented as of this encounter Procedures Procedure Name Priority Date/Time Associated Diagnosis Comments US OB TRANSVAGINAL 10/29/2023 10 :02 AM EDT documented in this encounter Results * US OB TRANSVAGINAL (10/29/2023 10:02 AM EDT) Anatomical Region Laterality Modality Other 10/29/2023 10:0 2 AM EDT Narrative 10/29/2023 10:05 AM EDT [place] [id number] Ultrasound Report Signed Patient: LILIANE NUNO MR#: [id number] : 1990 Acct:[id number] Age/Sex: 33 / F ADM Date: 10/29/23 Loc: [facility] Attending Dr: Isabella Stevenson D.O. Ordering Physician: Isabella Stevenson D.O. Date of Service: 10/29/23 Procedure(s): US OB transvaginal Accession Number(s): [id number] cc: Isabella Stevenson D.O.; Physician,Non-Staff M.DYunior [address] [id number] Patient Name: LILIANE NUNO MRN: [id number] date: 1990 Sex: F Assigned Patient Location: [facility] Current Patient Location: [facility] Accession/Order Number: [id number] Exam Date: 10/29/2023 09:27 Report Date: 10/29/2023 10:02 At the request of: ISABELLA STEVENSON Procedure: US OB transvaginal EXAMINATION: US OB transvaginal HISTORY: MISSED MENSES COMPARISON: No relevant comparison available. FINDINGS: Levi intrauterine gestation Gestational sac: 2.7 cm, 7 weeks 4 days CRL: 2.0 cm, 8 weeks 4 days Yolk sac: 4.9 mm Heart rate: 183 beats minute Cervix: Closed, 4.2 cm The uterus is normal, anteverted, anteflexed The ovaries are normal Clinical age: 8 weeks 6 days Clinical DOUGLAS: 06/03/2024 Ultrasound age: 8 weeks 4 days Clinical DOUGLAS: 06/05/2024 US/US OB transvaginal IMPRESSION: Viable levi intrauterine gestation measuring 8 weeks 4 days Electronically authenticated by: ANDRADE MATHEWS Date: 10/29/2023 10:02 Dictated By: Andrade Mathews M.D. Signed By: 10/29/23 1005 DD/ 1002 TD/TT: Skilled Nursing Professional: Procedure Note Radiology, Radiologist, MD - 10/29/2023 [place] [address] Ultrasound Report Signed Patient: LILIANE NUNO LMR#: [id number] : 1990Acct:[id number] Age/Sex: 33 / FADM Date: 10/29/23 Loc: [facility] Attending Dr: Isabella Stevenson D.O. Ordering Physician: Isabella Stevenson D.O. Date of Service: 10/29/23 Procedure(s): US OB transvaginal Accession Number(s): [id number] cc: Isabella Stevenson D.O.; Physician,Non-Staff Mihai The [place] [id number] Patient Name: LILIANE NUNO MRN: [id number] date: 1990 Sex: F Assigned Patient Location: [facility] Current Patient Location: [facility] Accession/Order Number: [id number] Exam Date: 10/29/2023 09:27 Report Date: 10/29/2023 10:02 At the request of: ISABELLA STEVENSON Procedure: US OB transvaginal EXAMINATION: US OB transvaginal HISTORY: MISSED MENSES COMPARISON: No relevant comparison available. FINDINGS: Levi intrauterine gestation Gestational sac: 2.7 cm, 7 weeks 4 days CRL: 2.0 cm, 8 weeks 4 days Yolk sac: 4.9 mm Heart rate: 183 beats minute Cervix: Closed, 4.2 cm The uterus is normal, anteverted, anteflexed The ovaries are normal Clinical age: 8 weeks 6 days Clinical DOUGLAS: 06/03/2024 Ultrasound age: 8 weeks 4 days Clinical DOUGLAS: 06/05/2024 US/US OB transvaginal IMPRESSION: Viable levi intrauterine gestation measuring 8 weeks 4 days Electronically authenticated by: ANDRADE MATHEWS Date: 10/29/2023 10:02 Dictated By: Andrade Mathews M.D. Signed By:10/29/23 1005 DD/ 1002 TD/TT: Skilled Nursing Professional: us Isabella Elva DO [facility] Final Result documented in this encounter Visit Diagnoses Not on filedocumented in this encounter
--- OUTSIDE RECORDS SUMMARY | 2025-01-08 21:10 | XMS_ITS | Encounter Summary ---
Author Organization [facility] Address [address] [place] [address] Care Team Providers Care Automated Weaver Name Role Phone Unavailable Primary Care Provider Unavailabl e Reason for Visit * Reason Comments Med Refill Encounter Details Date Type Department Care Team (Late st Contact Info) Description 07/14/2023 Refill [facility] [place] [facility] [address] [facility] [place] [address] Farzad Stevenson DO [address] [facility] [address] [place], [facility] Encounter for weight management Social History Tobacco Use Types Packs/Day Years Used Date Smoking Tobacco: Never Alcohol Use Standard Drinks/Week Comments [...] on file documented as of this encounter Miscellaneous Notes * Telephone Encounter - Soledad Robert LPN - 07/16/2023 11:15 AM EDT Approving, but needs appt for additional refills. documented in this encounter Plan of Treatment Upcoming Encounters Date Type Department Care Team (Late st Contact Info) Description 01/12/2025 9:40 AM EDT Clinical Support [facility] [address] [place] [address] 01/17/2026 10:00 AM EDT Procedure Visit [facility] [place] [address] [place] [address] Farzad Stevenson DO [address] [place] [address] documented as of this encounter Visit Diagnoses Diagnosis Encounter for weight management documented in this encounter
--- OUTSIDE RECORDS SUMMARY | 2025-01-08 21:10 | XMS_ITS | Encounter Summary ---
Author Organization [facility] Address [address] [facility] [place] [address] Care Team Providers Care Organic Chemistry Teacher Name Role Phone Unavailable Primary Care Provider Unavailabl e Encounter Details Date Type Department Care Team (Late Contact Info) Description 11/02/2023 Abstract [facility] [place] [facility] [address] [facility] [place] [address] Farzad Stevenson DO [address] [facility] [place] [address] Social History Tobacco Use Types Packs/Day Years [...] AM EDT Clinical Support [facility] [address] [place] [address] 01/17/2026 10:00 AM EDT Procedure Visit [facility] [address] [facility] [place] [address] Farzad Stevenson DO [address] [facility] [address] [place], [place] [address] documented as of this encounter Visit Diagnoses Not on filedocumented in this encounter
--- OUTSIDE RECORDS SUMMARY | 2025-01-08 21:10 | XMS_ITS | Encounter Summary ---
Author Organization [facility] Address [address] [facility] [place] [address] Care Team Providers Care Paramedic Instructor Name Role Phone Unavailable Primary Care Provider Unavailabl e Encounter Details Date Type Department Care Team (Late Contact Info) Description 11/02/2023 Abstract [facility] [place] [facility] [address] [facility] [place] [address] Farzad Stevenson DO [address] [facility] [place] [address] Social History Tobacco Use Types Packs/Day Years [...] AM EDT Clinical Support [facility] [address] [place] [address] 01/17/2026 10:00 AM EDT Procedure Visit [facility] [address] [facility] [place] [phone] Frazad Stevenson DO [address] [facility] [address] [place], [place] [id number] documented as of this encounter Visit Diagnoses Not on filedocumented in this encounter
--- OUTSIDE RECORDS SUMMARY | 2025-01-08 21:10 | XMS_ITS | Encounter Summary ---
Author Organization [facility] Address [address] [facility] [place] [address] Care Team Providers Care Hide Curer Name Role Phone Unavailable Primary Care Provider Unavailabl e Encounter Details Date Type Department Care Team (Late Contact Info) Description 01/06/2024 Abstract [facility] [address] [facility] [place] [address] Farzad Stevenson, [address] [facility] [place] [address] Social History Tobacco Use Types Packs/Day Years [...] AM EDT Clinical Support [facility] [address] [place] [address] 01/17/2026 10:00 AM EDT Procedure Visit [facility] [address] [facility] [place] [phone] Farzad Stevenson DO [address] [facility] [address] [place], [place] [address] documented as of this encounter Visit Diagnoses Not on filedocumented in this encounter
--- OUTSIDE RECORDS SUMMARY | 2025-01-08 21:10 | XMS_ITS | Encounter Summary ---
Author Organization [facility] Address [address] [facility] [place] [address] Care Team Providers Care Fuse Maker Name Role Phone Unavailable Primary Care Provider Unavailabl e Encounter Details Date Type Department Care Team (Late Contact Info) Description 01/08/2025 Bamboo flowsheet [facility] [address] [facility] [place] [address] Farzad Stevenson DO [address] [facility] [place] [address] Social History Tobacco Use Types Packs/Day Years [...] AM EDT Clinical Support [facility] [address] [facility] [place] [address] 01/17/2026 10:00 AM EDT Procedure Visit [facility] [address] [place] [address] Farzad Stevenson DO [address] [facility] [address] [place], [place] [address] documented as of this encounter Visit Diagnoses Not on filedocumented in this encounter
--- OUTSIDE RECORDS SUMMARY | 2025-01-08 21:10 | XMS_ITS | Encounter Summary ---
Author Organization [facility] Address [address] [facility] [place] [address] Care Team Providers Care Palliative Nurse Name Role Phone Unavailable Primary Care Provider Unavailabl e Encounter Details Date Type Department Care Team (Late Contact Info) Description 05/14/2024 Abstract [facility] [address] [facility] [place] [address] Farzad Stevenson, [address] [facility] [place] [address] Social History Tobacco Use Types Packs/Day Years [...] AM EDT Clinical Support [facility] [address] [place] [address] 01/17/2026 10:00 AM EDT Procedure Visit [facility] [address] [facility] [place] [phone] Farzad Stevenson DO [address] [facility] [address] [place], [place] [address] documented as of this encounter Visit Diagnoses Not on filedocumented in this encounter
--- OUTSIDE RECORDS SUMMARY | 2025-01-08 21:10 | XMS_ITS | Encounter Summary ---
Author Organization [facility] Address [address] [facility] [place] [address] Care Team Providers Care Director Marketing Analytics Name Role Phone Unavailable Primary Care Provider Unavailabl e Encounter Details Date Type Department Care Team (Late Contact Info) Description 03/29/2024 Abstract [facility] [address] [facility] [place] [address] Farzad Stevenson DO [address] [facility] [place] [address] Social History Tobacco Use Types Packs/Day Years [...] AM EDT Clinical Support [facility] [address] [place] [address] 01/17/2026 10:00 AM EDT Procedure Visit [facility] [address] [facility] [place] [phone] Farzad Stevenson DO [address] [facility] [address] [place], [place] [address] documented as of this encounter Visit Diagnoses Not on filedocumented in this encounter
--- OUTSIDE RECORDS SUMMARY | 2025-01-08 21:11 | XMS_ITS | Encounter Summary ---
Author Organization [facility] Address [address] [facility] [place] [place] [address] Care Team Providers Care Credit Director Name Role Phone Unavailable Primary Care Provider Unavailabl e Encounter Details Date Type Department Care Team (Late st Contact Info) Description 05/02/2024 Clinisync Result Encounter [facility] External Department Unsolicited Isabella Stevenson, DO [address] [facility] [place] [address] Social History Tobacco Use Types Packs/Day Years [...] AM EDT Clinical Support [facility] [address] [facility] [place] [address] 01/17/2026 10:00 AM EDT Procedure Visit [facility] [address] [place] [address] Isabella Stevenson DO [address] [facility] [address] [place], [facility] documented as of this encounter Procedures Procedure Name Priority Date/Time Associated Diagnosis Comments US OB BPP W NON-STRESS 05/02/2024 3:04 PM EST documented in this encounter Results * US OB BPP W NON-STRESS (05/02/2024 3:04 PM EST) Anatomical Region Laterality Modality Other 05/02/2024 3:04 PM EST Narrative 05/02/2024 3:07 PM EST The [place] [id number] Ultrasound Report Signed Patient: LILIANE NUNO MR#: [id number] : 1990 Acct:[id number] Age/Sex: 33 / F ADM Date: 05/02/24 Loc: US Attending Dr: Isabella Stevenson D.O. Ordering Physician: Isabella Stevenson D.O. Date of Service: 05/02/24 Procedure(s): US OB BPP w non-stress Accession Number(s): [id number] cc: Isabella Stevenson D.O.; Physician,Non-Staff M.Roopa The [address] [address] Patient Name: LILAINE NUNO MRN: [id number] date: 1990 Sex: F Assigned Patient Location: US Current Patient Location: Accession/Order Number: [id number] Exam Date: 05/02/2024 13:02 Report Date: 05/02/2024 15:04 At the request of: ISABELLA STEVENSON Procedure: US OB BPP w non-stress EXAMINATION: US OB BPP w non-stress HISTORY: Diet controlled gestational diabetes COMPARISON: No relevant comparison available. TECHNIQUE: Ultrasound biophysical profile was performed in the radiology department. non-reactive stress testing was performed by nursing staff in the birthing center. FINDINGS: BREATHING MOVEMENTS: 2 GROSS BODY MOVEMENTS: 2 TONE: 2 QUALITATIVE AMNIOTIC FLUID VOLUME: 2 PRESENTATION: CEPHALIC HEART RATE: 143.62 bpm AMNIOTIC FLUID VOLUME: 11.2 cm GESTATIONAL AGE: 35 weeks 3 days US/US OB BPP w non-stress IMPRESSION: Total biophysical profile score: 8 Electronically authenticated by: ANDRADE MATHEWS Date: 05/02/2024 15:04 Dictated By: Andrade Mathews M.D. Signed By: 05/02/24 1507 DD/ 1504 TD/TT: Preform Plate Maker: Procedure Note Radiology, Radiologist, MD - 05/02/2024 [place] [address] Ultrasound Report Signed Patient: LILIANE NUNO LMR#: [id number] : 1990Acct:[id number] Age/Sex: 33 / FADM Date: 05/02/24 Loc: US Attending Dr: Isabella Stevenson D.O. Ordering Physician: Isabella Stevenson D.O. Date of Service: 05/02/24 Procedure(s): US OB BPP w non-stress Accession Number(s): [id number] cc: Isabella Stevenson D.O.; Physician,Non-Staff Mihai The [place] [address] Patient Name: LILIANE NUNO MRN: [id number] date: 1990 Sex: F Assigned Patient Location: US Current Patient Location: Accession/Order Number: [id number] Exam Date: 05/02/2024 13:02 Report Date: 05/02/2024 15:04 At the request of: ISABELLA STEVENSON Procedure: US OB BPP w non-stress EXAMINATION: US OB BPP w non-stress HISTORY: Diet controlled gestational diabetes COMPARISON: No relevant comparison available. TECHNIQUE: Ultrasound biophysical profile was performed in the radiology department. non-reactive stress testing was performed by nursingstaff in the birthing center. FINDINGS: BREATHING MOVEMENTS: 2 GROSS BODY MOVEMENTS: 2 TONE: 2 QUALITATIVE AMNIOTIC FLUID VOLUME: 2 PRESENTATION: CEPHALIC HEART RATE: 143.62 bpm AMNIOTIC FLUID VOLUME: 11.2 cm GESTATIONAL AGE: 35 weeks 3 days US/US OB BPP w non-stress IMPRESSION: Total biophysical profile score: 8 Electronically authenticated by: ANDRADE MATHEWS Date: 05/02/2024 15:04 Dictated By: Andrade Mathews M.D. Signed By:05/02/24 1507 DD/ 1504 TD/TT: Preform Plate Maker: us Isabella Stevenson DO [facility] Final Result documented in this encounter Visit Diagnoses Not on filedocumented in this encounter
--- OUTSIDE RECORDS SUMMARY | 2025-01-08 21:11 | XMS_ITS | Encounter Summary ---
Author Organization [facility] Address [address] [facility] [place] [place] [address] Care Team Providers Care Child Development Assistant Name Role Phone Unavailable Primary Care Provider Unavailabl e Encounter Details Date Type Department Care Team (Late st Contact Info) Description 04/27/2024 Clinisync Result Encounter [facility] External Department Unsolicited Isabella Stevenson, DO [address] [facility] [place] [address] Social History Tobacco Use Types Packs/Day Years [...] AM EDT Clinical Support [facility] [address] [facility] [place] [address] 01/17/2026 10:00 AM EDT Procedure Visit [facility] [address] [place] [phone] Isabella Stevenson DO [address] [facility] [address] [place], [facility] documented as of this encounter Procedures Procedure Name Priority Date/Time Associated Diagnosis Comments US OB GROWTH 04/27/2024 7:55 AM EST documented in this encounter Results * US OB GROWTH (04/27/2024 7:55 AM EST) Anatomical Region Laterality Modality Other 04/27/2024 7:55 AM EST Narrative 04/27/2024 7:58 AM EST The [address] [place] [address] [address] Ultrasound Report Signed Patient: LILIANE NUNO MR#: [id number] : 1990 Acct:[id number] Age/Sex: 33 / F ADM Date: 04/24/24 Loc: [facility] Attending Dr: Isabella Stevenson D.O. Ordering Physician: Isabella Stevenson D.O. Date of Service: 04/24/24 Procedure(s): US OB growth Accession Number(s): [id number] cc: Isabella Stevenson D.O.; Physician,Non-Staff M.DYunior The [address] [address] Patient Name: LILIANE NUNO MRN: [id number] date: 1990 Sex: F Assigned Patient Location: [facility] Current Patient Location: Accession/Order Number: [id number] Exam Date: 04/24/2024 19:08 Report Date: 04/27/2024 07:55 At the request of: ISABELLA STEVENSON Procedure: US OB growth EXAMINATION: US OB growth HISTORY: GDM COMPARISON: ULTRASOUND OB GROWTH 03/29/2024 FINDINGS: Heart Rate: 171.97 bpm Amniotic Fluid Volume: 11.1 cm; normal range. Number: 1 Position: CEPHALIC BIOMETRY: BPD: 8.75 cm; 35 weeks 2 days; 78.10 % HC: 31.97 cm; 36 weeks 0 days; 59 % AC: 33.30 cm; 37 weeks 1 day; >97 % FL: 6.62 cm; 34 weeks 1 day; 35.20 % EFW: 2850.23 g; 90.70 % FL/AC: 19.88 FL/BPD: 75.63 HC/AC: 0.96 GESTATIONAL AGE: Age by EDC: 34 weeks 2 days DOUGLAS by EDC: 2024-06-03 Age by US: 35 weeks 5 days DOUGLAS by US: 2024-05-24 US/US OB growth IMPRESSION: 1. Single live intrauterine with growth detailed above. 2. Abdominal circumference is greater than 97th percentile. Electronically authenticated by: BIN THOMAS Date: 04/27/2024 07:55 Dictated By: Bin Thomas M.D. Signed By: 04/27/24 0758 DD/ 0755 TD/TT: Social Insurance Administrator: Procedure Note Radiology, Radiologist, MD - 04/27/2024 [place] [address] Ultrasound Report Signed Patient: LILIANE NUNO R#: [id number] : 1990Acct:[id number] Age/Sex: 33 / FADM Date: 04/24/24 Loc: [facility] Attending Dr: Isabella Stevenson D.O. Ordering Physician: Isabella Stevenson D.O. Date of Service: 04/24/24 Procedure(s): US OB growth Accession Number(s): [id number] cc: Isabella Stevenson D.O.; Physician,Non-Staff Mihai The [place] [id number] Patient Name: LILIANE NUNO MRN: [facility]:[id number] date: 1990 Sex: F Assigned Patient Location: [facility] Current Patient Location: Accession/Order Number: [id number] Exam Date: 04/24/2024 19:08 Report Date: 04/27/2024 07:55 At the request of: ISABELLA STEVENSON Procedure: US OB growth EXAMINATION: US OB growth HISTORY: GDM COMPARISON: ULTRASOUND OB GROWTH 03/29/2024 FINDINGS: Heart Rate: 171.97 bpm Amniotic Fluid Volume: 11.1 cm; normal range. Number: 1 Position: CEPHALIC BIOMETRY: BPD: 8.75 cm; 35 weeks 2 days; 78.10 % HC: 31.97 cm; 36 weeks 0 days; 59 % AC: 33.30 cm; 37 weeks 1 day; >97 % FL: 6.62 cm; 34 weeks 1 day; 35.20 % EFW: 2850.23 g; 90.70 % FL/AC: 19.88 FL/BPD: 75.63 HC/AC: 0.96 GESTATIONAL AGE: Age by EDC: 34 weeks 2 days DOUGLAS by EDC: 2024-06-03 Age by US: 35 weeks 5 days DOUGLAS by US: 2024-05-24 US/US OB growth IMPRESSION: 1. Single live intrauterine with growth detailed above. 2. Abdominal circumference is greater than 97th percentile. Electronically authenticated by: BIN THOMAS Date: 04/27/2024 07:55 Dictated By: Bin Thomas M.D. Signed By:04/27/24 0758 DD/ 0755 TD/TT: Social Insurance Administrator: us Isabella Stevenson DO [facility] Final Result documented in this encounter Visit Diagnoses Not on filedocumented in this encounter
--- OUTSIDE RECORDS SUMMARY | 2025-01-08 21:11 | XMS_ITS | Encounter Summary ---
Author Organization [facility] Address [address] [facility] [place] [address] Care Team Providers Care Dot Etcher Apprentice Name Role Phone Unavailable Primary Care Provider Unavailabl e Encounter Details Date Type Department Care Team (Late st Contact Info) Description 04/18/2024 Clinisync Result Encounter [facility] External Department Unsolicited Isabella Stevenson, DO [address] [facility] [place] [address] Social History Tobacco Use Types Packs/Day Years [...] AM EDT Clinical Support [facility] [place] [address] [facility] [address] 01/17/2026 10:00 AM EDT Procedure Visit [facility] [place] [address] [place] [address] Isabella Stevenson DO [address] [facility] [address] [place], [place] [address] documented as of this encounter Procedures Procedure Name Priority Date/Time Associated Diagnosis Comments US OB BPP W NON-STRESS 04/18/2024 1:33 PM EST documented in this encounter Results * US OB BPP W NON-STRESS (04/18/2024 1:33 PM EST) Anatomical Region Laterality Modality Other 04/18/2024 1:33 PM EST Narrative 04/18/2024 1:36 [place] [address] Ultrasound Report Signed Patient: LILIANE NUNO MR#: [id number] : 1990 Acct:[id number] Age/Sex: 33 / F ADM Date: 04/18/24 Loc: [facility] [address]: Isabella Stevenson D.O. Ordering Physician: Isabella Stevenson D.O. Date of Service: 04/18/24 Procedure(s): US OB BPP w non-stress Accession Number(s): [id number] cc: Isabella Stevenson D.O.; Physician,Non-Staff MRob The [address] [address] Patient Name: LILIANE NUNO MRN: [facility]:[id number] date: 1990 Sex: F Assigned Patient Location: [facility] Current Patient Location: [facility] Accession/Order Number: [id number] Exam Date: 04/18/2024 13:00 Report Date: 04/18/2024 13:33 At the request of: ISABELLA STEVENSON Procedure: US OB BPP w non-stress EXAMINATION: US OB BPP w non-stress HISTORY: GESTATIONAL DIABETES MELLITUS O24.419 COMPARISON: No relevant comparison available. TECHNIQUE: Ultrasound biophysical profile was performed in the radiology department. non-reactive stress testing was performed by nursing staff in the birthing center. FINDINGS: BREATHING MOVEMENTS: 2 GROSS BODY MOVEMENTS: 2 TONE: 2 QUALITATIVE AMNIOTIC FLUID VOLUME: 2 PRESENTATION: CEPHALIC HEART RATE: 154.29 bpm AMNIOTIC FLUID VOLUME: 14.8 cm GESTATIONAL AGE: 33 weeks 3 days US/US OB BPP w non-stress IMPRESSION: Total biophysical profile score: 8 Electronically authenticated by: ANDRADE MATHEWS Date: 04/18/2024 13:33 Dictated By: Andrade Mathews M.D. Signed By: 04/18/246 DD/ 32 TD/TT: Visual Merchandise Manager: Procedure Note Radiology, Radiologist, MD - 04/18/2024 [place] [address] Ultrasound Report Signed Patient: LILIANE NUNO LMR#: [id number] : 1990Acct:[id number] Age/Sex: 33 / FADM Date: 04/18/24 Loc: [facility] [address]: Isabella Stevenson D.O. Ordering Physician: Isabella Stevenson D.O. Date of Service: 04/18/24 Procedure(s): US OB BPP w non-stress Accession Number(s): [id number] cc: Isabella Stevenson D.O.; Physician,Non-Staff Mihai The [address] [address] Patient Name: LILIANE NUNO MRN: [facility]:[id number] date: 1990 Sex: F Assigned Patient Location: [facility] Current Patient Location: [facility] Accession/Order Number: [id number] Exam Date: 04/18/2024 13:00 Report Date: 04/18/2024 13:33 At the request of: ISABELLA STEVENSON Procedure: US OB BPP w non-stress EXAMINATION: US OB BPP w non-stress HISTORY: GESTATIONAL DIABETES MELLITUS O24.419 COMPARISON: No relevant comparison available. TECHNIQUE: Ultrasound biophysical profile was performed in the radiology department. non-reactive stress testing was performed by nursingstaff in the birthing center. FINDINGS: BREATHING MOVEMENTS: 2 GROSS BODY MOVEMENTS: 2 TONE: 2 QUALITATIVE AMNIOTIC FLUID VOLUME: 2 PRESENTATION: CEPHALIC HEART RATE: 154.29 bpm AMNIOTIC FLUID VOLUME: 14.8 cm GESTATIONAL AGE: 33 weeks 3 days US/US OB BPP w non-stress IMPRESSION: Total biophysical profile score: 8 Electronically authenticated by: ANDRADE MATHEWS Date: 04/18/2024 13:33 Dictated By: Andrade Mathews M.D. Signed By:04/18/24 1336 DD/ 1333 TD/TT: Visual Merchandise Manager: us Isabella Elva DO [facility] Final Result documented in this encounter Visit Diagnoses Not on filedocumented in this encounter
--- OUTSIDE RECORDS SUMMARY | 2025-01-08 21:11 | XMS_ITS | Encounter Summary ---
Author Organization [facility] Address [address] [facility] [place] [address] Care Team Providers Care Materials Planning Analyst Name Role Phone Unavailable Primary Care Provider Unavailabl e Encounter Details Date Type Department Care Team (Late st Contact Info) Description 04/27/2024 Clinisync Result Encounter [facility] External Department Unsolicited Isabella Stevenson, DO [address] [facility] [place] [address] Social History Tobacco Use Types Packs/Day Years [...] AM EDT Clinical Support [place] [address] [facility] [address] 01/17/2026 10:00 AM EDT Procedure Visit [facility] [place] [address] [facility] [address] Isabella Stevenson DO [address] [facility] [address] [place], [facility] documented as of this encounter Procedures Procedure Name Priority Date/Time Associated Diagnosis Comments US OB BPP W NON-STRESS 04/27/2024 7:56 AM EST documented in this encounter Results * US OB BPP W NON-STRESS (04/27/2024 7:56 AM EST) Anatomical Region Laterality Modality Other 04/27/2024 7:56 AM EST Narrative 04/27/2024 7:59 [place] [address] Ultrasound Report Signed Patient: LILIANE NUNO MR#: [id number] : 1990 Acct:[id number] Age/Sex: 33 / F ADM Date: 04/24/24 Loc: [facility] Attending Dr: Isabella Stevenson D.O. Ordering Physician: Isabella Stevenson D.O. Date of Service: 04/24/24 Procedure(s): US OB BPP w non-stress Accession Number(s): [id number] cc: Isabella Stevenson D.O.; Physician,Non-Staff MRob The [address] [address] Patient Name: LILIANE NUNO MRN: [facility]:[id number] date: 1990 Sex: F Assigned Patient Location: [facility] Current Patient Location: Accession/Order Number: [id number] Exam Date: 04/24/2024 19:08 Report Date: 04/27/2024 07:56 At the request of: ISABELLA STEVENSON Procedure: US OB BPP w non-stress EXAMINATION: US OB BPP w non-stress HISTORY:DIET CONTROLLED GDM O24.410 COMPARISON: Ultrasound OB biophysical 04/18/2024 TECHNIQUE: Ultrasound biophysical profile was performed in the radiology department. BREATHING MOVEMENTS: 2 GROSS BODY MOVEMENTS: 2 TONE: 2 QUALITATIVE AMNIOTIC FLUID VOLUME: 2 PRESENTATION: CEPHALIC HEART RATE: 171.97 bpm AMNIOTIC FLUID VOLUME: 11.06 cm GESTATIONAL AGE: 34 weeks 2 days US/US OB BPP w non-stress IMPRESSION: Total biophysical profile score: 8 Electronically authenticated by: BIN THOMAS Date: 04/27/2024 07:56 Dictated By: Bin Thomas M.D. Signed By: 04/27/24 0759 DD/ 075 TD/TT: Physician Chief Of Pathology: Procedure Note Radiology, Radiologist, MD - 04/27/2024 [place] [address] Ultrasound Report Signed Patient: LILIANE NUNO R#: [id number] : 1990Acct:[id number] Age/Sex: 33 / FADM Date: 04/24/24 Loc: [facility] [place] Attending Dr: Isabella Stevenson D.O. Ordering Physician: Isabella Stevenson D.O. Date of Service: 04/24/24 Procedure(s): US OB BPP w non-stress Accession Number(s): [id number] cc: Isabella Stevenson D.O.; Physician,Non-Staff MRob The [place] [address] Patient Name: LILIANE NUNO MRN: [id number] date: 1990 Sex: F Assigned Patient Location: [facility] Current Patient Location: Accession/Order Number: [id number] Exam Date: 04/24/2024 19:08 Report Date: 04/27/2024 07:56 At the request of: ISABELLA STEVENSON Procedure: US OB BPP w non-stress EXAMINATION: US OB BPP w non-stress HISTORY:DIET CONTROLLED GDM O24.410 COMPARISON: Ultrasound OB biophysical 04/18/2024 TECHNIQUE: Ultrasound biophysical profile was performed in the radiology department. BREATHING MOVEMENTS: 2 GROSS BODY MOVEMENTS: 2 TONE: 2 QUALITATIVE AMNIOTIC FLUID VOLUME: 2 PRESENTATION: CEPHALIC HEART RATE: 171.97 bpm AMNIOTIC FLUID VOLUME: 11.06 cm GESTATIONAL AGE: 34 weeks 2 days US/US OB BPP w non-stress IMPRESSION: Total biophysical profile score: 8 Electronically authenticated by: BIN THOMAS Date: 04/27/2024 07:56 Dictated By: Bin Thomas M.D. Signed By:04/27/24 0759 DD/ 0756 TD/TT: Physician Chief Of Pathology: us Isabella Crowello DO [facility] Final Result documented in this encounter Visit Diagnoses Not on filedocumented in this encounter
--- OUTSIDE RECORDS SUMMARY | 2025-01-08 21:11 | XMS_ITS | Encounter Summary ---
Author Organization [facility] Address [address] [place] [address] Care Team Providers Care Papier Mache Molder Name Role Phone Unavailable Primary Care Provider Unavailabl e Encounter Details Date Type Department Care Team (Late st Contact Info) Description 05/09/2024 Clinisync Result Encounter [facility] External Department Unsolicited Isabella Stevenson, DO [address] [place] [address] Social History Tobacco Use Types Packs/Day Years [...] AM EDT Clinical Support [place] [address] [place] [phone] 01/17/2026 10:00 AM EDT Procedure Visit [facility] [place] [address] [facility] [place] [phone] Isabella Stevenson, [address] [place] [address] documented as of this encounter Procedures Procedure Name Priority Date/Time Associated Diagnosis Comments US OB BPP W NON-STRESS 05/09/2024 2:37 PM EST [facility] PROTHROMBIN TIME INR W/O COUM Routine 05/09/2024 2:14 PM EST MHPT FIBRINOGEN Routine 05/09/2024 2:14 PM EST [facility] APTT Routine 05/09/2024 2:14 PM EST TBH URINE T PROTEIN CREAT RATIO Routine 05/09/2024 2:11 PM EST documented in this encounter Results * US OB BPP W NON-STRESS (05/09/2024 2:37 PM EST) Anatomical Region Laterality Modality Other 05/09/2024 2:37 PM EST Narrative 05/09/2024 2:40 PM EST [address] [address] Ultrasound Report Signed Patient: LILIANE NUNO MR#: [id number] : 1990 Acct:[id number] Age/Sex: 33 / F ADM Date: 05/09/24 Loc: [facility] 250-[address]: Isabella Stevenson D.O. Ordering Physician: Isabella Stevenson D.O. Date of Service: 05/09/24 Procedure(s): US OB BPP w non-stress Accession Number(s): [id number] cc: Isabella Stevenson D.O.; Physician,Non-Staff Mihai The [address] [address] Patient Name: LILIANE NUNO MRN: [facility]:[id number] date: 1990 Sex: F Assigned Patient Location: [facility] Current Patient Location: [facility] Accession/Order Number: [id number] Exam Date: 05/09/2024 13:00 Report Date: 05/09/2024 14:37 At the request of: ISABELLA STEVENSON Procedure: US OB BPP w non-stress EXAMINATION: US OB BPP w non-stress HISTORY:Diet controlled gestational diabetes O24.410 COMPARISON: Ultrasound OB biophysical 05/02/2024 TECHNIQUE: Ultrasound biophysical profile was performed in the radiology department. BREATHING MOVEMENTS: 2 GROSS BODY MOVEMENTS: 2 TONE: 2 QUALITATIVE AMNIOTIC FLUID VOLUME: 2 PRESENTATION: CEPHALIC HEART RATE: 139.18 bpm AMNIOTIC FLUID VOLUME: 13.70 cm GESTATIONAL AGE: 36 weeks 3 days US/US OB BPP w non-stress IMPRESSION: Total biophysical profile score: 8 Electronically authenticated by: BIN THOMAS Date: 05/09/2024 14:37 Dictated By: Bin Thomas M.D. Signed By: 05/09/24 1440 DD/ 1437 TD/TT: Typing Secretary: Procedure Note Radiology, Radiologist, MD - 05/09/2024 [place] [address] Ultrasound Report Signed Patient: LILIANE NUNO LMR#: [id number] : 1990Acct:[id number] Age/Sex: 33 / FADM Date: 05/09/24 Loc: [facility] 250-[address]: Isabella Stevenson D.O. Ordering Physician: Isabella Stevenson D.O. Date of Service: 05/09/24 Procedure(s): US OB BPP w non-stress Accession Number(s): [id number] cc: Isabella Stevenson D.O.; Physician,Non-Staff Mihai [place] [id number] Patient Name: LILIANE NUNO MRN: [facility]:[id number] date: 1990 Sex: F Assigned Patient Location: [facility] Current Patient Location: [facility] Accession/Order Number: [id number] Exam Date: 05/09/2024 13:00 Report Date: 05/09/2024 14:37 At the request of: ISABELLA STEVENSON Procedure: US OB BPP w non-stress EXAMINATION: US OB BPP w non-stress HISTORY:Diet controlled gestational diabetes O24.410 COMPARISON: Ultrasound OB biophysical 05/02/2024 TECHNIQUE: Ultrasound biophysical profile was performed in the radiology department. BREATHING MOVEMENTS: 2 GROSS BODY MOVEMENTS: 2 TONE: 2 QUALITATIVE AMNIOTIC FLUID VOLUME: 2 PRESENTATION: CEPHALIC HEART RATE: 139.18 bpm AMNIOTIC FLUID VOLUME: 13.70 cm GESTATIONAL AGE: 36 weeks 3 days US/US OB BPP w non-stress IMPRESSION: Total biophysical profile score: 8 Electronically authenticated by: BIN THOMAS Date: 05/09/2024 14:37 Dictated By: Bin Thomas M.D. Signed By:05/09/24 1440 DD/ 1437 TD/TT: Typing Secretary: Isabella Crowello DO [facility] Final Result * (ABNORMAL) MHPT FIBRINOGEN (05/09/2024 2:14 PM EST) Pathologist [facility] FIBRINOGEN 412(H) 200 - 400 mg/dL TB 05/09/2024 2:14 PM EST 05/09/2024 2:17 PM EST Narrative [facility] - 05/09/2024 2:50 PM EST [facility] Elva DO [facility] Final Result [facility] * (ABNORMAL) CCF APTT (05/09/2024 2:14 PM EST) Pathologist [facility] PARTIAL THROMBOPLASTIN TIME 21.9(L) 22.3 - 36.2 sec TBH 05/09/2024 2:14 PM EST 05/09/2024 2:17 PM EST Narrative [facility] - 05/09/2024 2:50 PM EST Isabella Elva DO [facility] Final Result [facility] TB * [facility] PROTHROMBIN TIME INR W/O COUM (05/09/2024 2:14 PM EST) PROTHROMBIN TIME 9.3 9.0 - 11.6 sec TBH TBH INR <0.93 TBH Comment: DESIRED INR: 2.0-3.0 CONDITIONS NOT LISTED BELOW 2.5-3.5 FOR PROSTHETIC HEART VALVE REPLACEMENT 2.5-3.5 RECURRENT THROMBOSIS 05/09/2024 2:14 PM EST 05/09/2024 2:17 PM EST Narrative [facility] - 05/09/2024 2:50 PM EST Isabella Elva DO [facility] Final Result Performing Organization Address [facility]/ZIP Co de Phone Number [facility] TB * (ABNORMAL) TBH URINE T PROTEIN CREAT RATIO (05/09/2024 2:11 PM EST) TOTAL PROTEIN URINE RANDOM <6.0 <=11.9 mg/dL TBH CREATININE URINE RANDOM <13.00(L) 20.00 - 300.00 mg/dL TBH 05/09/2024 2:11 PM EST 05/09/2024 2:17 PM EST Narrative [facility] - 05/09/2024 2:48 PM EST Isabella Elva DO [facility] Final Result [facility] TB documented in this encounter Visit Diagnoses Not on filedocumented in this encounter
--- OUTSIDE RECORDS SUMMARY | 2025-01-08 21:11 | XMS_ITS | Encounter Summary ---
Author Organization [facility] Address [address] [place] [address] Care Team Providers Care Automotive Project Engineer Name Role Phone Unavailable Primary Care Provider Unavailabl e Encounter Details Date Type Department Care Team (Late Contact Info) Description 11/24/2023 Abstract [facility] [place] [facility] [address] [place] [phone] Farzad Stevenson DO [address] [place] [address] Social History Tobacco Use Types Packs/Day Years [...] AM EDT Clinical Support [place] [address] [place] [address] 01/17/2026 10:00 AM EDT Procedure Visit [facility] [address] [place] [phone] Farzad Stevenson DO [address] [place], [place] [phone] documented as of this encounter Visit Diagnoses Not on filedocumented in this encounter
--- OUTSIDE RECORDS SUMMARY | 2025-01-08 21:12 | XMS_ITS | CCD ---
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 Role Phone JAIDA, DR QUINTANILLA Attending Unavailable REQUEST, NONE LISTED Primary Care Unavaila francis SENA, DR QUINTANILLA Admitting Unavailable JAIDA, DR QUINTANILLA Consulting Unavailable ELVA, DR MASON Admitting Unavailable ELVA, DR MASON Consulting Unavailable ELVA, DR MASON Attending Unavailable REQUEST, NONE LISTED Primary Care Unavaila francis Sena MD, Hima Vásquez Primary Care Provider [phone] ELVA, ISABELLA Attending Unavailable HUY, TIFFANI Attending Unavailable ELVA, ISABELLA Attending Unavailable ELVA, ISABELLA Attending Unavailable ELVA, ISABELLA Attending Unavailable HUY, TIFFANI Attending Unavailable HUY, TIFFANI Attending Unavailable ELVA, ISABELLA Attending Unavailable ELVA, ISABELLA Attending Unavailable ELVA, ISABELLA Attending Unavailable ELVA, ISABELLA Attending Unavailable ELVA, ISABELLA Attending Unavailable Unavailable Primary Care Provider Unavailabl e Medications Current Medications Medication Drug Class(es) Dates Sig (Normalized) Sig (Original) amoxicillin 875 mg / clavulanate 125 mg oral tablet (2 sources) Penicillin-class Antibacterial Start: 05-30-2024 End: 06-09-2024 take 1 tablet by mouth in the morning amoxicillin-clavul anate (Augmentin) 875-125 MG tablet Indications: Upper respiratory tract infection, unspecified type Take 1 tablet (875 mg) by mouth in the morning and 1 tablet (875 mg) before bedtime. Do all this for 10 days. 20 tablet 05/30/2024 06/09/2024 Active azithromycin 250 mg oral tablet (6 sources) Macrolide Antimicrobial Start: 03-29-2024 End: 04-27-2024 azithromycin (Zithromax Z-Padilla) 250 MG tablet Indications: Sinusitis, unspecified chronicity, unspecified location As directed 6 tablet 03/29/2024 04/27/2024 Discontinued docusate sodium 100 mg oral capsule (3 sources) take 1 capsule by mouth in the morning docusate sodium (Colace) 100 MG capsule Take 100 mg by mouth in the morning and 100 mg before bedtime. Active insulin detemir 100 unt/ml injectable solution (2 sources) Insulin Analog Start: 04-27-2024 End: 04-27-2024 inject 10 [IU] by subcutaneous injection at bedtime insulin detemir (Levemir) 100 UNIT/ML injection Indications: Gestational diabetes mellitus (GDM) affecting Inject 10 Units under the skin at bedtime 10 mL 12 04/27/2024 04/27/2024 Discontinued (Entered in error) labetalol hydrochloride 100 mg oral tablet (8 sources) beta-Adrenergic Eliezer Start: 05-26-2024 End: 06-27-2024 take 1 tablet by mouth in the morning labetalol (Normodyne) 100 MG tablet Indications: Blood pressure check Take 1 tablet (100 mg) by mouth in the morning and 1 tablet (100 mg) before bedtime. 60 tablet 3 05/26/2024 06/27/2024 Discontinued End: 05-30-2024 take 1 tablet by mouth in the morning labetalol (Normodyne) 200 MG tablet Take 200 mg by mouth in the morning and 200 mg before bedtime. 05/30/2024 Discontinued MV-Min-Fe Fum-FA-DH A ( 1 PO) (20 sources) MV-Min- Fe Fum-FA-DHA ( 1 PO) Take by mouth Active Completed/Discontinued Medications Medication Drug Class(es) Dates Sig (Normalized) Sig (Original) aspirin 81 mg delayed release oral tablet (20 sources) Platelet Aggregation Inhibitor, Nonsteroidal Anti-inflammatory Drug End: 05-23-2024 take 1 tablet by mouth once daily aspirin 81 MG EC tablet Take 81 mg by mouth Daily 05/23/2024 Discontinued Blood Glucose Monitoring Suppl (D-Care Glucometer) w/Device kit (20 sources) Start: 03-01-2024 End: 05-23-2024 Blood Glucose Monitoring Suppl (D-Care Glucometer) w/Device kit Indications: Gestational diabetes mellitus (GDM), antepartum, gestational diabetes method of control unspecified , Elevated glucose tolerance test 1 kit Daily Use four times daily to check FSBS. In the morning prior to breakfast & 1 hour after each meal for a total of 4times daily. 1 kit 03/01/2024 05/23/2024 Discontinued Start: 03-01-2024 End: 03-01-[address] Monitoring Sup [address] (D-Care Glucometer) w/Device kit Indications: Gestational diabetes mellitus (GDM), antepartum, gestational diabetes method of control unspecified , Elevated glucose tolerance test 1 kit Daily Use four times daily to check FSBS. In the morning prior to breakfast & 1 hour after each meal for a total of 4times daily. 1 kit 03/01/2024 03/01/2025 Active ferrous sulfate (20 sources) End: 05-23-2024 take 1 tablet by mouth in the morning Ferrous Sulfate (IRON PO) Take 1 tablet by mouth in the morning. 05/23/2024 Discontinued take 1 tablet by mouth in the mo rning Ferrous Sulfate (IRON PO) Take 1 tablet by mouth in the morning. Active insulin glargine 100 unt/ml injectable solution (13 sources) Insulin Analog Start: 04-27-2024 End: 05-27-2024 inject 10 [IU] by subcutaneous injection in the evening insulin glargine (Lantus) 100 UNIT/ML injection Indications: Hyperglycemia , GESTATIONAL DIABETES Inject 10 Units under the skin in the evening 3 mL 04/27/2024 05/23/2024 Discontinued isopropyl alcohol 0.7 ml/ml medicated pad (20 sources) Start: 03-01-2024 End: 05-23-2024 Alcohol Swabs (Alcohol Prep Pad) 70 % pads Indications: Gestational diabetes mellitus (GDM), antepartum, gestational diabetes method of control unspecified , Elevated glucose tolerance test Apply 1 Pad topically Daily Use four times daily to check FSBS. 150 each 3 03/01/2024 05/23/2024 Discontinued magnesium oxide 400 mg oral tablet (20 sources) Start: 12-06-2023 End: 08-11-2024 take 1 tablet by mouth once daily magnesium oxide (Mag-Ox) 400 MG tablet Indications: Nonintractable headache, unspecified chronicity pattern, unspecified headache type TAKE 1 TABLET (400 MG) BY MOUTH DAILY 30 tablet 3 04/13/2024 05/23/2024 Discontinued omeprazole 20 mg delayed release oral capsule (16 sources) Proton Pump Inhibitor Start: 03-29-2024 End: 05-23-2024 take 1 capsule by mouth before mealtime omeprazole (PriLOSEC) [address] capsule Indications: Gastroesophageal Reflux Disease , Heartburn Take 1 capsule (20 mg) by mouth in the morning. Take before meals. Do not crush or chew.. 30 capsule 3 03/29/2024 05/23/2024 Discontinued Problems Active Problems Problem Classification Problem Date Documented Date Episodic/Chronic Diabetes mellitus without complication (2 sources) Abnormal glucose tolerance test; Translations: [Other abnormal glucose] 03-01-2024 Episodic Diabetes or abnormal glucose tolerance complicating ; childbirth; or the puerperium (6 sources) Gestational diabetes mellitus; Translations: [Gestational diabetes mellitus in , unspecified control] 03-01-2024 Episodic Genitourinary symptoms and ill-defined conditions (2 sources) Increased frequency of urination; Translations: [Frequency of micturition] 05-30-2024 Episodic Other complications of (2 sources) Gastroesophageal reflux disease in ; Translations: [Diseases of the digestive system complicating , unspecified trimester] 03-29-2024 Episodic Other and delivery including normal (18 sources) Second trimester ; Translations: [Encounter for supervision of normal , unspecified, second trimester] 02-02-2024 Episodic Other screening for suspected conditions (not mental disorders or infectious disease) (8 sources) Encounter for screening for malignant neoplasm of cervix; Translations: [Patient encounter status] Onset: 11-10-2021 Episodic Other upper respiratory infections (2 sources) Sinusitis; Translations: [Chronic sinusitis, unspecified] 03-29-2024 Chronic Other upper respiratory infections (2 sources) Upper respiratory infection; Translations: [Acute upper respiratory infection, unspecified] 05-30-2024 Episodic Residual codes; unclassified (2 sources) Gestation [...] [34 weeks gestation of ] 04-27-2024 Episodic Residual codes; unclassified (2 sources) Gestation period, 36 weeks; Translations: [36 weeks gestation of ] 05-11-2024 Episodic Unclassified (3 sources) CONTACT W/AND (SUSP) [...] Test Name Value Interpretation Reference Range Facility BOX TESTon 05-16-2024 BOX TEST RESULT SEE SCANNED REPORT N [facility] BOX TEST SENT OUT GROUP B STREP [facility] Healthcare BOX1 [facility] Health[facility] e BOX2 05/11/24 [facility] GROUP B STREP [facility] e ALL CBC WITH AUTO DIFFon BASOPHILS ABSOLUTE AUTO 0.1 [facility] Basophils/100 WBC (Bld) 0.3 % 0.2 - 2.0 % [facility] Eosinophils/100 WBC (Bld) 0.3 % Low 0.9 - 7.0 % [facility] Erythrocyte distribution width (RBC) [Ratio] 13 % 11.0 - 15.0 % [facility] Hematocrit (Bld) [Volume fraction] 27.7 % Low 36.0 - 48.0 % [facility] e Hemoglobin (Bld) [Mass/Vol] 8.9 g/dL Low 12.0 - 16.0 g/dL [facility] IMMATURE GRANULOCYTES ABS AUTO 0.08 High [facility] Immature granulocytes/100 WBC (Bld) 0.5 % 0.0 - 0.5 % [facility] Interpretation and review of laboratory results Abnormal [facility] LYMPHOCYTES ABSOLUTE AUTO 2 [facility] Lymphocytes/100 WBC (Bld) 12.6 % Low 20.5 - 60.0 % [facility] MCH (RBC) [Entitic mass] 27.5 pg 26.7 - 34.0 pg [facility] MCHC (RBC) [Mass/Vol] 32.1 g/dL 29.9 - 35.2 g/dL [facility] MCV (RBC) [Entitic vol] 85.5 fL 81.0 - 99.0 fL [facility] MONOCYTES ABSOLUTE AUTO 0.9 High [facility] Monocytes/100 WBC (Bld) 5.5 % 1.7 - 12.0 % [facility] NEUTROPHILS ABSOLUTE AUTO 12.6 High [facility] Neutrophils/100 WBC (Bld) 80.8 % High 43.0 - 75.0 % [facility] Platelet mean volume (Bld) [Entitic vol] 11.7 fL 9.5 - 13.5 fL [facility] Healthc are TBH EO # 0 [facility] TBH PLT 297 [facility] TB RBC 3.24 Low [facility] Health[facility] e TB WBC 15.6 High [facility] Healthcar e HMHP CBC WITH PLATELET NO DI FFERENTIALon 05-14-2024 Erythrocyte distribution width (RBC) [Ratio] 13.1 % 11.0 - 15.0 % [facility] Hematocrit (Bld) [Volume fraction] 30.9 % Low 36.0 - 48.0 % [facility] e Hemoglobin (Bld) [Mass/Vol] 10.1 g/dL Low 12.0 - 16.0 g/dL [facility] Interpretation and review of laboratory results Abnormal [facility] MCH (RBC) [Entitic mass] 27.8 pg 26.7 - 34.0 pg [facility] MCHC (RBC) [Mass/Vol] 32.7 g/dL 29.9 - 35.2 g/dL [facility] MCV (RBC) [Entitic vol] 85.1 fL 81.0 - 99.0 fL [facility] Platelet mean volume (Bld) [Entitic vol] 11.9 fL 9.5 - 13.5 [facility]L [facility] TB RBC 3.63 Low [facility] TB WBC 11.1 High [facility] e Urinalysis macro (dipstick) panel (U)on 05-11-2024 Bilirubin, UA Positive Negative - 4(70) +++ mg/dL [facility] Comment on above: small Blood, UA Negative Negative - 50 Álvaro/mcL [facility] Clarity, UA Clear Merged with [facility] re Color, UA Yellow [facility] e Glucose, UA Negative Negative - 1999(110) ++++ mg/dL [facility] Interpretation and review of laboratory results Abnormal [facility] Ketones, UA Positive Negative - 160(16) ++++ mg/dL [facility] Comment on above: 40 Leukocytes, UA Negative Negative - 500+++ Reji/mcL [facility] Nitrite, UA Negative Negative - Positive [facility] pH, UA 6.5 5 - [address] [facility] Protein, UA Trace Negative - 1999(20) ++++ mg/dL [facility] Spec Grav, UA 1.025 1 - 1.03 [facility] Urobilinogen, UA 1.0 0.2 - 12 mg/dL [facility] TOTAL PROTEIN 24 HOUR UR INEon 05-10-2024 Interpretation and review of laboratory results Abnormal [facility] Protein (U) [Mass/Vol] 18.5 mg/dL [facility] - 11.[facility] mg/dL [facility] TOTAL PROTEIN 24 HOUR URINE 222 High [facility] TOTAL VOLUME 24 HOUR URINE 1200 mL/24hr [facility] ALL CBC WITH AUTO DIFFon BASOPHILS ABSOLUTE AUTO 0 [facility] Basophils/100 WBC (Bld) 0.3 % 0.2 - 2.0 % [facility] Eosinophils/100 WBC (Bld) 0.3 % Low 0.9 - 7.0 % [facility] Erythrocyte distribution width (RBC) [Ratio] 13 % 11.0 - 15.0 % [facility] Hematocrit (Bld) [Volume fraction] 35.1 % Low 36.0 - 48.0 % [facility] e Hemoglobin (Bld) [Mass/Vol] 11.4 g/dL Low 12.0 - 16.0 g/dL [facility] IMMATURE GRANULOCYTES ABS AUTO 0.06 High [facility] Immature granulocytes/100 WBC (Bld) 0.5 % 0.0 - 0.5 % [facility] Interpretation and review of laboratory results Abnormal [facility] LYMPHOCYTES ABSOLUTE AUTO 1.2 [facility] Lymphocytes/100 WBC (Bld) 10.4 % Low 20.5 - 60.0 % [facility] MCH (RBC) [Entitic mass] 27.5 pg 26.7 - 34.0 pg [facility] MCHC (RBC) [Mass/Vol] 32.5 g/dL 29.9 - 35.2 g/dL [facility] MCV (RBC) [Entitic vol] 84.8 fL 81.0 - 99.0 fL [facility] MONOCYTES ABSOLUTE AUTO 0.6 [facility] Monocytes/100 WBC (Bld) 5 % 1.7 - 12.0 % [facility] NEUTROPHILS ABSOLUTE AUTO 9.9 High [facility] Neutrophils/100 WBC (Bld) 83.5 % High 43.0 - 75.0 % [facility] Platelet mean volume (Bld) [Entitic vol] 11.5 fL 9.5 - 13.5 fL [facility] Healthcar e TB PLT 295 [facility] TB RBC 4.14 Low [facility] Health[facility] e TB WBC 11.9 High [facility] e Urinalysis macro (dipstick) panel (U)on 04-27-2024 Bilirubin, UA Negative Negative - 4(70) +++ mg/dL [facility] Blood, UA Negative Negative - 50 Álvaro/mcL [facility] Clarity, UA Clear [facility] re Color, UA Yellow [facility] e Glucose, UA Negative Negative - 1999(110) ++++ mg/dL [facility] Interpretation and review of laboratory results Abnormal [facility] Ketones, UA Negative Negative - 160(16) ++++ mg/dL [facility] Leukocytes, UA Trace Negative - 500+++ Reji/mcL [facility] Nitrite, UA Negative Negative - Positive [facility] pH, UA 6.5 5 - [address] [facility] e Protein, UA Negative Negative - 1999(20) ++++ mg/dL [facility] Spec Grav, UA 1.025 1 - 1.03 [facility] Health care Urobilinogen, UA 1.0 0.2 - 12 mg/dL [facility] Urinalysis macro (dipstick) panel (U)on 04-12-2024 Bilirubin, UA Negative Negative - 4(70) +++ mg/dL [facility] Blood, UA Negative Negative - 50 Álvaro/mcL [facility] Healthcare Clarity, UA Clear [facility] re Color, UA Yellow [facility] Glucose, UA Negative Negative - 1999(110) ++++ mg/dL [facility] Interpretation and review of laboratory results Abnormal [facility] Ketones, UA Positive Negative - 160(16) ++++ mg/dL [facility] Comment on above: 15 Leukocytes, UA Trace Negative - 500+++ Reji/mcL [facility] Nitrite, UA Negative Negative - Positive [facility] pH, UA 7 5 - 9 [facility] Healthcar e Protein, UA Negative Negative - 1999(20) ++++ mg/dL [facility] Spec Grav, UA 1.02 1 - 1.03 [facility] care Urobilinogen, UA 1.0 0.2 - 12 mg/dL [facility] Urinalysis macro (dipstick) panel (U)on 03-29-2024 Bilirubin, UA Positive Negative - 4(70) +++ mg/dL [facility] Comment on above: small Blood, UA Negative Negative - 50 Álvaro/mcL [facility] Healthcare Clarity, UA Clear [facility] re Color, UA Yellow [facility] Healthcar e Glucose, UA Negative Negative - 1999(110) ++++ mg/dL [facility] Interpretation and review of laboratory results Abnormal [facility] Ketones, UA Positive Negative - 160(16) ++++ mg/dL [facility] Comment on above: 40 Leukocytes, UA Negative Negative - 500+++ Reji/mcL [facility] Healthcare Nitrite, UA Negative Negative - Positive [facility] pH, UA 7 5 - 9 [facility] Healthcar e Protein, UA Positive Negative - 1999(20) ++++ mg/dL [facility] Comment on above: 30 Spec Grav, UA 1.025 1 - 1.03 [facility] Urobilinogen, UA 0.2 0.2 - 12 mg/dL [facility] Healthcar e Urinalysis macro (dipstick) panel (U)on 03-16-2024 Bilirubin, UA Negative Negative - 4(70) +++ mg/dL [facility] Blood, UA Negative Negative - 50 Álvaro/mcL [facility] Healthcare Clarity, UA Clear [facility] re Color, UA Yellow [facility] Glucose, UA Negative Negative - 1999(110) ++++ mg/dL [facility] Interpretation and review of laboratory results Abnormal [facility] Ketones, UA Negative Negative - 160(16) ++++ mg/dL [facility] Leukocytes, UA Negative Negative - 500+++ Rjei/mcL [facility] Healthcare Nitrite, UA Negative Negative - Positive [facility] pH, UA 7 5 - 9 [facility] Healthcar e Protein, UA Negative Negative - 1999(20) ++++ mg/dL [facility] Spec Grav, UA 1.02 1 - 1.03 [facility] Urobilinogen, UA 1.0 0.2 - 12 mg/dL [facility] Urinalysis macro (dipstick) panel (U)on 03-01-2024 Bilirubin, UA Negative Negative - 4(70) +++ mg/dL [facility] Blood, UA Negative Negative - 50 Álvaro/mcL [facility] Healthcare Clarity, UA Clear [facility] re Color, UA Yellow [facility] Healthcar e Glucose, UA Negative Negative - 1999(110) ++++ mg/dL [facility] Interpretation and review of laboratory results Abnormal [facility] Ketones, UA Negative Negative - 160(16) ++++ mg/dL [facility] Leukocytes, UA Trace Negative - 500+++ Reji/mcL [facility] Healthcare Nitrite, UA Negative Negative - Positive [facility] pH, UA 7 5 - 9 [facility] Healthcar e Protein, UA Negative Negative - 1999(20) ++++ mg/dL [facility] Spec Grav, UA 1.015 1 - 1.03 [facility] care Urobilinogen, UA 0.2 0.2 - 12 mg/dL [facility] GLUCOSE TOLERANCE 3 HOURon 1 GLUCOSE TOLERANCE 3 HOUR High mg/dL [facility] Comment on above: GLU FAST 98H (<95) C ol: 02/22/24 0919 GLU 1HR 193H (<180) Col: 02/22/24 1020 GLU 2HR 179H (<155) Col: 02/22/24 1119 GLU 3HR 71 (<140) Col: 02/22/24 1220 Interpretation and review of laboratory results Abnormal [facility] ALL CBC WITH AUTO DIFFon BASOPHILS ABSOLUTE AUTO 0 [facility] Basophils/100 WBC (Bld) 0.3 % 0.2 - 2.0 % [facility] Eosinophils/100 WBC (Bld) 0.3 % Low 0.9 - 7.0 % [facility] Erythrocyte distribution width (RBC) [Ratio] 12.8 % 11.0 - 15.0 % [facility] Hematocrit (Bld) [Volume fraction] 32.9 % Low 36.0 - 48.0 % [facility] Health[facility] e Hemoglobin (Bld) [Mass/Vol] 10.9 g/dL Low 12.0 - 16.0 g/dL [facility] IMMATURE GRANULOCYTES ABS AUTO 0.13 High [facility] Immature granulocytes/100 WBC (Bld) 1.1 % High 0.0 - 0.5 % [facility] Interpretation and review of laboratory results Abnormal [facility] LYMPHOCYTES ABSOLUTE AUTO 1.1 Low [facility] Lymphocytes/100 WBC (Bld) 9.3 % Low 20.5 - 60.0 % [facility] MCH (RBC) [Entitic mass] 29.9 pg 26.7 - 34.0 pg [facility] MCHC (RBC) [Mass/Vol] 33.1 g/dL 29.9 - 35.2 g/dL [facility] MCV (RBC) [Entitic vol] 90.4 fL 81.0 - 99.0 fL [facility] MONOCYTES ABSOLUTE AUTO 0.4 [facility] Monocytes/100 WBC (Bld) 3.1 % 1.7 - 12.0 % [facility] NEUTROPHILS ABSOLUTE AUTO 10 High [facility] Neutrophils/100 WBC (Bld) 85.9 % High 43.0 - 75.0 % [facility] Platelet mean volume (Bld) [Entitic vol] 9.5 fL 9.5 - 13.5 fL [facility] Healthc are TBH EO # 0 [facility] TBH PLT 299 [facility] TB RBC 3.64 Low [facility] Health[facility] e TBH WBC 11.6 High [facility] Urinalysis macro (dipstick) panel (U)on 02-02-2024 Bilirubin, UA Negative Negative - 4(70) +++ mg/dL [facility] Blood, UA Negative Negative - 50 Álvaro/mcL [facility] Clarity, UA Clear [facility] Health[facility] re Color, UA Yellow [facility] Glucose, UA Negative Negative - 1999(110) ++++ mg/dL [facility] Interpretation and review of laboratory results Normal [facility] Ketones, UA Negative Negative - 160(16) ++++ mg/dL [facility] Leukocytes, UA Negative Negative - 500+++ Reji/mcL [facility] Nitrite, UA Negative Negative - Positive [facility] pH, UA 5.5 5 - [address] [facility] e Protein, UA Negative Negative - 1999(20) ++++ mg/dL [facility] Spec Grav, UA 1.010 1 - 1.03 [facility] Urobilinogen, UA 0.2 0.2 - 12 mg/dL [facility] AFP, SERUM, OPEN SPINA BIFID Aon 01-30-2024 AFP MOM 0.83 . [facility] AFP VALUE 54.5 ng/mL . [facility] Healthcar e COMMENT: Comment . [facility] Health[facility] Comment on above: Siria Davis , Ph.D., [facility] Director References: Available Upon Request. Multiples Of Median Cutoffs For AFP Elevations Espinoza 2.5 Black 2.8 IDD 2.0 Twins 4.5 Abbreviation Definitions IDD - Insulin Dep Diabetes OSBR - Open Spina Bifida Risk For further inquiries contact [employer] at [phone]. This test was developed and its performance characteristics determined by [employer]. It has not been cleared or approved by the Food and Drug Administration. Performed at: [email or web address] [address] [place], [place] [id number] [employer] Worker: Luis Kelly [facility], Phone: [phone] GEST. AGE ON COLLECTION DATE 21.7 . weeks [facility] GESTAT. AGE BASED ON LMP . [facility] Comment on above: Recalculations are n ot recommended when gestational dating by LMP and ultrasound are within 10 days. INSULIN DEP DIABETES No . [facility] INTERPRETATION Comment . [facility] Alissa hanson Comment on above: Interpretation: Scre en [...] Customer Services to discuss available options. The [employer] recommends amniocentesis be offered to women age 35 and older. [age] [facility] MULTIPLE GESTATION No . [facility] [place] [address] [place] [phone] . MARI hanson RACE . [facility] [employer] RESULTS Report . [facility] [email or web address] e TEST RESULTS: Negative . [facility] [employer] [facility] WEIGHT 165 . lbs [facility] [email or web address] e N N LMP [id number] 18 N 1 Y 165 N N N N N White/ [facility] [email or web address] e IGP,APTIMA HPV,AGE GDLNon AGE GDLN ACOG TESTING Note . [facility] Comment on above: TESTS RESULT FLAG UN ITS REF RANGE LAB Clinician Provided Cytology Information Source.............Cervix No. of containers..01 ThinPrep Vial Age Algo ACOG Elizabeth... FLAG LEGEND: L-Low Normal,H-High Normal,LL-Alert Low,HH-Alert High <-Panic Low,>-Panic High,A-Abnormal,AA-Critical Abnormal Performed at: [address] [place] [address] Lexie Nichols MD, HPV APTIMA Negative Negative [facility] Comment on above: This nucleic acid am plification test detects fourteen high- risk HPV types (16,18,31,33,35,39,45,51,52,56,58,59,66,68) without differentiation. Performed at: = - [address] [id number] [employer] Worker: Lexie Nichols MD, Phone: [phone] Performed at: - [address], [place] [id number] Fiber [employer]ic [employer] Worker: Lexie Nichols MD, Phone: [phone] IGP, APTIMA HPV, RFX 16/18,45 Note . [facility] Comment on above: TESTS RESULT FLAG U NITS REF RANGE LAB DIAGNOSIS: 02 NEGATIVE FOR INTRAEPITHELIAL LESION OR MALIGNANCY. Specimen adequacy: 02 Satisfactory for evaluation. No endocervical component is identified. Performed by: 02 Lizzy Hutchinson, [employer] (ASCP) . 02 Note: Note 02 The [...] <-Panic Low,>-Panic High,A-Abnormal,AA-Critical Abnormal Performed at: [address] [address] Lexei Nichols MD, [facility] e URETHRITIS/DISCHARGE PLUS VA GINITIS (HTRX)on 01-08-2024 ATOPOBIUM VAGINAE 0.000 [facility] ATOPOBIUM VAGINAE Not detected [facility] BVAB 2,3 (BACTERIAL VAGINOSIS ASSOCIATED BACTERIA 2, 3); MOBILUNCUS SPP 0.000 [facility] BVAB 2,3 (BACTERIAL VAGINOSIS ASSOCIATED BACTERIA 2, 3); MOBILUNCUS SPP Not detected [facility] EMMY ALBICANS, PARAPSILOSIS, TROPICALIS 29.274 Abnormal [facility] EMMY ALBICANS, PARAPSILOSIS, TROPICALIS Detected Abnormal [facility] EMMY GLABRATA 0.000 [facility] EMMY GLABRATA Not detected [facility] EMMY KRUSEI 0.000 [facility] EMMY KRUSEI [facility] CHLAMYDIA TRACHOMATIS 0.000 [facility] CHLAMYDIA TRACHOMATIS Not detected [facility] GARDNERELLA VAGINALIS 0.000 [facility] GARDNERELLA VAGINALIS Not detected [facility] Interpretation and review of laboratory results Abnormal [facility] MEGASPHAERA (TYPES 1, 2) 0.000 [facility] MEGASPHAERA (TYPES 1, 2) Not detected [facility] MYCOPLASMA GENITALIUM 0.000 [facility] MYCOPLASMA GENITALIUM Not detected [facility] NEISSERIA GONORRHOEAE 0.000 [facility] NEISSERIA GONORRHOEAE Not detected [facility] TRICHOMONAS VAGINALIS 0.000 [facility] TRICHOMONAS VAGINALIS Not detected [facility] Urinalysis macro (dipstick) panel (U)on 01-05-2024 Bilirubin, UA Negative Negative - 4(70) +++ mg/dL [facility] Blood, UA Negative Negative - 50 Álvaro/mcL [facility] Clarity, UA Clear [facility] Color, UA Yellow [facility] Glucose, UA Negative Negative - 1999(110) ++++ mg/dL [facility] Interpretation and review of laboratory results Abnormal [facility] Ketones, UA Negative Negative - 160(16) ++++ mg/dL [facility] Leukocytes, UA Trace Negative - 500+++ Reji/mcL [facility] Nitrite, UA Negative Negative - Positive [facility] pH, UA 6.5 5 - 9 [facility] Healthcar e Protein, UA Negative Negative - 1999(20) ++++ mg/dL [facility] Spec Grav, UA 1.025 1 - 1.03 [facility] Urobilinogen, UA 0.2 0.2 - 12 mg/dL [facility] PAP ACOG PANEL 2: 30 to 65on 11-13-2021 . . Normal [facility] Comment on above: Result Comment: Perf ormed at: WB Performed By: #### [id number] #### [facility] [address] [address] [address] Abby Campoverde Age Gdln ACOG Testing 30-65 Normal [facility] Comment on above: Performed By: #### [id number] #### [facility] [address] [address] [address] Abby Campoverde DIAGNOSIS: Comment Normal [facility] Comment on above: Result Comment: NEGA TIVE FOR INTRAEPITHELIAL LESION OR MALIGNANCY. Performed at: WB Performed By: #### [id number] #### [facility] [address] [address] [address] Abby Campoverde HPV Aptima Negative [facility] Comment on above: Result Comment: This nucleic acid amplification test detects fourteen high-risk HPV types (16,18,31,33,35,39,45,51,52,56,58,59,66,68) without differentiation. Performed at: =G Performed By: #### [id number] #### [facility] [address] [address] [address] Abby Campoverde Methodology: Comment Normal [facility] Comment on above: Result Comment: This liquid based ThinPrep(R) pap test was screened with the use of an image guided system. Performed at: WB Performed By: #### [id number] #### [facility] [address] [place] [address] Dr. Abby Campoverde Note: Comment Normal [facility] Comment on above: Result Comment: The Pap smear is a screening test designed to aid in the detection of premalignant and malignant conditions of the uterine cervix. It is not a diagnostic procedure and should not be used as the sole means of detecting cervical cancer. Both false-positive and false-negative reports do occur. . Performed at: WB Performed By: #### [id number] #### [facility] [address] [place] [address] Dr. Abby Campoverde Performed by: Comment Normal [facility] Comment on above: Result Comment: Madisyn Sherman, [employer] (ASCP) Performed at: WB Performed By: #### [id number] #### [facility] [address] [place] [address] Dr. Abby Campoverde Specimen adequacy: Comment Normal [facility] Comment on above: Result Comment: Sati sfactory for evaluation. Endocervical and/or squamous metaplastic cells (endocervical component) are present. Performed at: WB Performed By: #### [id number] #### [facility] [address] [place] [address] Dr. Abby Campoverde Covid-19 PCR (CVDTB)on 10-01 SARS-CoV-2 (COVID-19) RNA ABDI+probe Ql (Unsp spec) Not detected Normal NOT DETECTED [facility] Comment on above: Result Comment: This test is not yet approved or cleared by the [place] FDA. When there are no FDA-approved or cleared tests available, and other criteria are met, FDA can make tests available under an emergency access mechanism called an Emergency Use Authorization (EUA). The EUA for this test is supported by the Document Manager of Health and Human Service's (HHS's) declaration [...] consistent with SARS-CoV-2. Performed By: #### C [facility] #### [facility] [address] [place] [address] Dr. Abby Campoverde Vital Signs Date Time Vital Sign Value Performing Clinician Raymond adorno 06-27-2024 09:56-0500 Body mass index (BMI) [Ratio] 30.87 kg/m2 ZEB Work Phone: [facility] 06-27-2024 09:56-0500 Body weight 76.57 kg ZEB Work Phone: [facility] 06-27-2024 09:56-0500 Diastolic blood pressure 78 mm[Hg] [employer] Work Phone: [facility] 06-27-2024 09:56-0500 Systolic blood pressure 130 mm[Hg] [employer] Work Phone: [facility] 05-30-2024 10:07-0500 Body mass index (BMI) [Ratio] 31.53 kg/m2 Tiffani ALVARENGA Work Phone: [facility] 05-30-2024 10:07-0500 Body weight 78.2 kg Tiffani ALVARENGA Work Phone: [facility] 05-30-2024 10:07-0500 Diastolic blood pressure 82 mm[Hg] Tiffani ALVARENGA Work Phone: [facility] 05-30-2024 10:07-0500 Systolic blood pressure 120 mm[Hg] Tiffani ALVARENGA Work Phone: [facility] 05-23-2024 12:24-0500 Body mass index (BMI) [Ratio] 31.83 kg/m2 Isabella Elva DO Work Phone: [facility] 05-23-2024 12:24-0500 Body weight 78.93 kg Isabella Elva DO Work Phone: [facility] 05-23-2024 12:24-0500 Diastolic blood pressure 84 mm[Hg] Isabella Elva DO Work Phone: [facility] 05-23-2024 12:24-0500 Systolic blood pressure 118 mm[Hg] Isabella Elva DO Work Phone: [facility] 05-11-2024 11:07-0500 Body mass index (BMI) [Ratio] 33.29 kg/m2 Isabella Elva DO Work Phone: [facility] 05-11-2024 11:07-0500 Body weight 82.56 kg Isabella Elva DO Work Phone: [facility] 05-11-2024 11:07-0500 Diastolic blood pressure 82 mm[Hg] Isabella Elva DO Work Phone: [facility] 05-11-2024 11:07-0500 Systolic blood pressure 138 mm[Hg] Isabella Elva DO Work Phone: [facility] 04-27-2024 11:25-0500 Body mass index (BMI) [Ratio] 33.31 kg/m2 Isabella Elva DO Work Phone: [facility] 04-27-2024 11:25-0500 Body weight 82.61 kg Isabella Elva DO Work Phone: [facility] 04-27-2024 11:25-0500 Diastolic blood pressure 70 mm[Hg] Isabella Elva DO Work Phone: [facility] 04-27-2024 11:25-0500 Systolic blood pressure 120 mm[Hg] Isabella Elva DO Work Phone: [facility] 04-12-2024 15:18-0500 Body mass index (BMI) [Ratio] 33.47 kg/m2 Isabella Elva DO Work Phone: [facility] 04-12-2024 15:18-0500 Body weight 83.01 kg Isabella Elva DO Work Phone: [facility] 04-12-2024 15:18-0500 Diastolic blood pressure 78 mm[Hg] Isabella Elva DO Work Phone: [facility] 04-12-2024 15:18-0500 Systolic blood pressure 126 mm[Hg] Isabella Elva DO Work Phone: [facility] 03-29-2024 14:09-0500 Body mass index (BMI) [Ratio] 33 kg/m2 Isabella Elva DO Work Phone: [facility] 03-29-2024 14:09-0500 Body weight 81.83 kg Isabella Elva DO Work Phone: [facility] 03-29-2024 14:09-0500 Diastolic blood pressure 70 mm[Hg] Isabella Elva DO Work Phone: [facility] 03-29-2024 14:09-0500 Systolic blood pressure 120 mm[Hg] Isabella Elva DO Work Phone: [facility] 03-16-2024 10:04-0500 Body mass index (BMI) [Ratio] 33.13 kg/m2 Isabella Elva DO Work Phone: [facility] 03-16-2024 10:04-0500 Body weight 82.16 kg Isabella Elva DO Work Phone: [facility] 03-16-2024 10:04-0500 Diastolic blood pressure 80 mm[Hg] Isabella Elva DO Work Phone: [facility] 03-16-2024 10:04-0500 Systolic blood pressure 130 mm[Hg] Isabella Elva DO Work Phone: [facility] 03-01-2024 09:57-0400 Body mass index (BMI) [Ratio] 32.74 kg/m2 Tiffani ALVARENGA Work Phone: [facility] 03-01-2024 09:57-0400 Body weight 81.19 kg Tiffani Huy PA Work Phone: [facility] 03-01-2024 09:57-0400 Diastolic blood pressure 80 mm[Hg] Tiffani Huy PA Work Phone: [facility] 03-01-2024 09:57-0400 Systolic blood pressure 122 mm[Hg] Tiffani Huy PA Work Phone: [facility] 02-02-2024 15:46-0400 Body mass index (BMI) [Ratio] 32.01 kg/m2 Tiffani Huy PA Work Phone: [facility] 02-02-2024 15:46-0400 Body weight 79.38 kg Tiffani Richmond PA Work Phone: [facility] 02-02-2024 15:46-0400 Diastolic blood pressure 76 mm[Hg] Tiffani Huy PA Work Phone: [facility] 02-02-2024 15:46-0400 Systolic blood pressure 126 mm[Hg] Tiffani Huy PA Work Phone: [facility] 01-05-2024 14:31-0400 Body mass index (BMI) [Ratio] 30.32 kg/m2 Isabella Elva DO Work Phone: [facility] 01-05-2024 14:31-0400 Body weight 75.18 kg Isabella Elva DO Work Phone: [facility] 01-05-2024 14:31-0400 Diastolic blood pressure 82 mm[Hg] Isabelal Elva DO Work Phone: [facility] 01-05-2024 14:31-0400 Systolic blood pressure 126 mm[Hg] Isabella Elva DO Work Phone: [facility] Healthcare Encounters Encounter Date Encounter Type Care Provider Facility Start: 01-08-2025 End: 01-08-2025 Bamboo flowsheet Isabella Elva DO Work Phone: [facility] Start: 01-08-2025 End: 01-08-2025 Bamboo flowsheet Isabella Elva DO Work Phone: [facility] Start: 06-27-2024 End: 06-27-2024 care visit Isabella Elva DO Work Phone: [facility] Comment on above: 6 weeks f ollow-up Start: 06-27-2024 End: 06-27-2024 ambulatory ISABELLA ELVA Not Available Start: 05-30-2024 End: 05-30-2024 Patient encounter status Tiffani ALVARENGA Work Phone: [facility] Work Phone: Start: 05-30-2024 End: 05-30-2024 ambulatory Tiffani ALVARENGA Work Phone: [facility] Comment on above: Urinary frequency (P rimary Dx); Blood pressure check; Upper respiratory tract infection, unspecified type Start: 05-23-2024 End: 05-23-2024 Bamboo flowsheet Isabella Elva DO Work Phone: [facility] Start: 05-23-2024 End: 05-23-2024 Bamboo flowsheet Isabella Elva DO Work Phone: [facility] Start: 05-23-2024 End: 05-23-2024 Patient encounter status Isabella Elva DO Work Phone: [facility] Work Phone: Start: 05-23-2024 End: 05-23-2024 Postop follow up visit related to original px Isabella Elva DO Work Phone: [facility] Comment on above: Blood pressure check Start: 05-23-2024 End: 05-23-2024 ambulatory ISABELLA ELVA Not Available Start: 05-15-2024 End: 05-15-2024 Clinisync Result Encounter Isabella Elva DO Work Phone: [facility] Department Unsolicited Start: 05-15-2024 End: 05-15-2024 Clinisync Result Encounter Isabella Elva DO Work Phone: [facility] Unsolicited Start: 05-14-2024 End: 05-14-2024 Clinisync Result Encounter Isabella Elva DO Work Phone: [facility] Unsolicited Start: 05-14-2024 End: 05-14-2024 Clinisync Result Encounter Isabella Elva DO Work Phone: [facility] Unsolicited Start: 05-11-2024 End: 05-11-2024 Bamboo flowsheet Isabella Elva DO Work Phone: [facility] Start: 05-11-2024 End: 05-16-2024 Bamboo flowsheet Isabella Elva DO Work Phone: [facility] Start: 05-11-2024 End: 05-16-2024 Clinisync Result Encounter Isabella Elva DO Work Phone: [facility] Unsolicited Start: 05-11-2024 End: 05-11-2024 flow sheet Isabella Elva DO Work Phone: [facility] Comment on above: Third trimester preg bharathi; 36 weeks gestation of Start: 05-11-2024 End: 05-11-2024 ambulatory ISABELLA ELVA Not Available Start: 05-10-2024 End: 05-10-2024 Clinisync Result Encounter [...] [facility] Start: 03-16-2024 End: 03-16-2024 Bamboo flowsheet Isabella Elva DO Work Phone: [facility] Start: 03-16-2024 End: 03-16-2024 flow sheet Isabella Elva DO Work Phone: [facility] Comment on above: 28 weeks gestation o f ; Third trimester Start: 03-16-2024 End: 03-16-2024 ambulatory ISABELLA STEVENSON Not Available Start: 03-01-2024 End: 03-01-2024 Bamboo flowsheet Tiffani Son PA Work Phone: [facility] Start: 03-01-2024 End: 03-01-2024 Bamboo flowsheet Tiffani Son PA Work Phone: [facility] Start: 03-01-2024 End: 03-01-2024 flow sheet Tiffani Son PA Work Phone: [facility] Comment on above: Second [...] 02-02-2024 flow sheet Tiffani ALVARENGA Work Phone: [facility] Comment on above: Second trimester pre gnancy; 22 weeks gestation of ; Diabetes mellitus screening Start: 02-02-2024 End: 02-02-2024 ambulatory TIFFANI SON Not Available Start: 02-02-2024 End: 02-02-2024 Bamboo flowsheet Tiffani ALVARENGA Work Phone: [facility] Start: 02-02-2024 End: 02-02-2024 Bamboo flowsheet Tiffani Son PA Work Phone: [facility] Start: 01-27-2024 End: 01-30-2024 Clinisync Result Encounter Isabella Elva DO Work Phone: [facility] Unsolicited Start: 01-27-2024 End: 01-30-2024 Clinisync Result Encounter Isabella Elva DO Work Phone: [facility] External Department Unsolicited Start: 01-05-2024 End: 01-05-2024 Bamboo flowsheet Isabella Elva DO Work Phone: [facility] Start: 01-05-2024 End: 01-10-2024 Bamboo flowsheet Isabella Elva DO Work Phone: [facility] Start: 01-05-2024 End: 01-10-2024 Clinisync Result Encounter Isabella Elva DO Work Phone: [facility] External Department Unsolicited Start: 01-05-2024 End: 01-08-2024 External Result Encounter Isabella Elva DO Work Phone: [facility] Unsolicited Start: 01-05-2024 End: 01-05-2024 Patient encounter procedure Isabella Elva DO Work Phone: [facility] Healthcare Start: 01-05-2024 End: 01-05-2024 Periodic preventive med est patient 18-39 yrs Isabella Elva DO Work Phone: [facility] Comment on above: Well woman [...] Date Procedure Procedure Detail Performing Clinician Start: 05-15-2024 ALL CBC WITH AUTO DIFF Isabella Elva DO Work Phone: Start: 05-14-2024 [facility] CBC WITH PLATEL ET NO DIFFERENTIAL Isabella Elva DO Work Phone: Start: 05-11-2024 Urnls dip stick/tabl et rgnt non-auto w/o micrscp Isabella Elva DO Work Phone: Start: 05-11-2024 BOX TEST Isabella Fazi o DO Work Phone: Start: 05-10-2024 TBH TOTAL PROTEIN 24 HOUR [...] AFP, SERUM, OPEN SPI NA BIFIDA Isabella Evla DO Work Phone: Start: 01-05-2024 Urnls dip stick/tabl et rgnt non-auto w/o micrscp Isabella Elva DO Work Phone: Start: 01-05-2024 IGP,APTIMA HPV,AGE GDLN Isabella Elva DO Work Phone: Start: 01-05-2024 Microscopic observat ion [Identifier] in Cervix by [facility]: Start: 01-05-2024 URETHRITIS/DISCHARGE PLUS VAGINITIS ([facility]TRX) [facility] Work [facility]: Plan of Treatment Date Care Activity Detail Author Start: 01-04-2027 Screening for malign ant neoplasm of cervix [facility] Start: 10-15-2025 Screening for malign ant neoplasm of cervix [facility] Start: 01-08-2025 End: 01-08-2025 Patient encounter procedure [facility] Comment on above: Arrived Start: 06-27-2024 End: 06-27-2024 ambulatory 06/27/2024 9:50 AM EST Visit [facility] [address] [place] [address] Isabella Stevenson, DO [address], [place] [id number] [facility] Start: 05-30-2024 End: 05-30-2024 ambulatory 05/30/2024 9:50 AM EST Visit [facility] [address] [place] [address] Tiffani Son PA [address] [place] [address] [facility] Start: 05-23-2024 End: 05-23-2024 Patient encounter procedure 05/23/2024 11:30 AM EST Office Visit [facility] [address] [place] [phone] Isabella Stevenson, DO [address] [place] [address] Arrived [facility] Comment on above: Arrived Start: 05-11-2024 End: 05-11-2025 CULTURE, GROUP B STREP WITH SUSCEPTIBLITY CULTURE, GROUP B STREP WITH SUSCEPTIBLITY Lab Routine Third trimester Expected: 05/11/2024, Expires: 05/11/2025 [facility] Work Phone: Comment on above: Expected: 05/11/2024 , Expires: 05/11/2025 Start: 05-11-2024 End: 05-11-2024 Patient encounter procedure [facility] Comment on above: Arrived Start: 04-27-2024 End: 04-27-2024 Patient encounter procedure 04/27/2024 11:10 AM EST Routine [facility] [address] [place] [id number] Isabella Stevenson, DO [address] [place] [address] [facility] Start: 04-12-2024 End: 04-12-2024 Patient encounter procedure 04/12/2024 2:20 PM EST Routine [facility] [address] [facility] [place] [phone] Isabella Stevenson, DO [address] [place] [address] [facility] Start: 04-12-2024 End: 04-12-2025 [...] EST Ancillary Procedure [facility] [address] [place] [address] [facility] Start: 03-16-2024 End: 03-16-2024 Patient encounter procedure 03/16/2024 9:50 AM EST Routine [facility] [address] [place] [address] Isabella Stevenson, DO [address] [place], [place] [id number] [facility] Start: 03-01-2024 End: 03-01-2025 [...] mellitus screening Expected: 02/02/2024 (Approximate), Expires: 02/01/2025 [facility] Comment on above: Expected: 02/02/2024 (Approximate), Expires: 02/01/2025 Start: 02-02-2024 End: 02-02-2024 Professional / ancillary services management 02/02/2024 2:00 PM EDT Ancillary Procedure [facility] [address] [place] [phone] [facility] Start: 01-05-2024 End: 01-04-2025 Alpha fetoprotein, maternal Alpha fetoprotein, maternal Lab Routine Second trimester Expected: 01/05/2024 (Approximate), Expires: 01/04/2025 [facility] Comment on above: Expected: 01/05/2024 (Approximate), Expires: 01/04/2025 Start: 01-05-2024 End: 01-04-2025 US for US OB ANATOMY SINGLE W US OB CERVICAL LENGTH Imaging Routine Screening, , for anatomic survey Expected: 01/05/2024 (Approximate), Expires: 01/04/2025 [facility] Comment on above: Expected: 01/05/2024 (Approximate), Expires: 01/04/2025 Start: 01-05-2024 End: 01-05-2024 Patient encounter procedure 01/05/2024 1:50 PM EDT Routine [facility] [address] [place] [phone] Isabella Stevenson DO [address] [place] [address] Arrived [facility] Comment on above: Arrived Start: 01-02-2024 Influenza vaccination Influenza Vacc ine (#1) [facility] Start: 2012 Screening for malign ant neoplasm of cervix Pap Smear [facility] CHLAMYDIA TRACHOMATI S (GENITO/STI) CHLAMYDIA TRACHOMATIS (GENITO/STI) Lab Routine Second trimester Screen for STD (sexually transmitted disease) Vaginal discharge Ordered: 01/05/2024 [facility] Comment on above: Ordered: 01/05/2024 Cytology Cervical or vaginal smear or scraping study Pap Smear Pathology and Cytology Routine Well woman exam with routine gynecological exam Ordered: 01/05/2024 [facility] Work Phone: Comment on above: Ordered: 01/05/2024 Human papilloma viru s DNA [Presence] in Unspecified specimen by Probe with amplification HPV DNA probe, amplified Microbiology Routine Well woman exam with routine gynecological exam Ordered: 01/05/2024 [facility] Comment on above: Ordered: 01/05/2024 Neisseria gonorrhoea e DNA [Presence] in Unspecified specimen by ABDI with probe detection Neisseria gonorrhea DNA probe, direct Lab Routine Second trimester Screen for STD (sexually transmitted disease) Vaginal discharge Ordered: 01/05/2024 [facility] Comment on above: Ordered: 01/05/2024 SURESWAB(R) ADVANCED VAGINITIS PLUS, TMA SURESWAB(R) ADVANCED VAGINITIS PLUS, TMA Pathology and Cytology Routine Second trimester Screen for STD (sexually transmitted disease) Vaginal discharge Ordered: 01/05/2024 [facility] Comment on above: Ordered: 01/05/2024 Payers Date Payer Category Payer Private Health Insurance [employer] [id number] 2022 Unknown [employer] [id number] 2022-Present [address] [place] [address] [id number] 1991 Unknown [id number] 2.16.840.1.595299.3.579.2. 593 1991 Unknown [id number] 2.16.840.1.528210.3.579.2. 593 1991 Unknown [id number] 2.16.840.1.987809.3.579.2. 1258 1991 Unknown [id number] 2.16.840.1.418588.3.579.2. 1258 1991 Unknown [id number] 2.16.840.1.761080.3.579.2. 1258 1991 Unknown [id number] 2.16.840.1.069484.3.579.2. 1258 1991 Unknown [id number] 2.16.840.1.694074.3.579.2. 1258 1991 Unknown [id number] 2.16.840.1.264529.3.579.2. 1258 1991 Unknown [id number] 2.16.840.1.774386.3.579.2. 1258 1991 Unknown [id number] 2.16.840.1.746786.3.579.2. 1258 1991 Unknown [id number] 2.16.840.1.447025.3.579.2. 1258 1991 Unknown [id number] 2.16.840.1.023778.3.579.2. 1258 1991 Unknown [id number] 2.16.840.1.221340.3.579.2. 1258 1991 Unknown [id number] 2.16.840.1.934735.3.579.2. 1258 1991 Unknown [id number] 2.16.840.1.672699.3.579.2. 1259 1959 Unknown [id number] Social History Date Type Detail Facility Start: 10-29-2023 Tobacco smoking status NHIS Never sm oked tobacco [facility] Start: 10-29-2023 Tobacco use and exposure Smoke less tobacco non-user [facility] Start: 02-02-2024 End: 06-27-2024 Alcoholic beverage intake Current drinker of alcohol [...] Text Equipment Identifier Dates Use as instructed [id number] Start: 03-01-2024 End: 03-01-2025 1 each by In Vit ro route Daily Use to check FSBS four times daily [id number] Start: 03-01-2024 End: 03-31-2024 Use as instructed [id number] Start: 04-27-2024 End: 04-27-2024 Use as instructed [id number] Start: 04-27-2024 End: 04-27-2025 Clinical Notes 01-05-2024 to 06-27-2024 Jessica Sánchez, DARLYN - 06/27/2024 9:50 AM COLETTE Rivas - 05/30/2024 9:50 AM Eva Sánchez LPN - 05/23/2024 11:30 AM Shayna Robles LPN - 05/11/2024 10:30 AM EST Note Date & Type Note Facility 06-27-2024 History of Presen t illness Narrative Reason for Appointment: Patient ID: Liliane Rausch is a 34 y.o. female who presents for Follow-up Patient presents today for Post Follow Up appointment. MEDICATIONS Current Outpatient Medications Medication Instructions docusate sodium (COLACE) 100 mg, 2 times daily MV-Min-Fe Fum-FA-DHA ( 1 PO) Take by [...] nursing note reviewed. Exam conducted with a liquefied natural gas operator present. Vitals: Estimated body mass index is 30.87 kg/m as calculated from the following: Height as of 23: 5' 2 . Weight as of this encounter: 168 lb 12.8 oz. BP: 130/78 Patient's last menstrual period was 08/28/2023. ASSESSMENT & PLAN ICD-10-CM 1. 6 weeks follow-up Z39.2 Post Follow Up: Patient is doing well but has complaints of none. Patient presents today for 6 week visit. Patient is s/p Vaginal delivery. Patient states depression but denies suicidal and homicidal ideations. All options were discussed with the patient regarding control and patient desires none at this time. Follow Up: Patient is to return for annual unless needed otherwise. Documented by Jessica Sánchez LPN on behalf of: Isabella Stevenson DO documented in this encounter [facility] 05-30-2024 History of Presen t illness Narrative Reason for Appointment: Patient ID: Liliane Rausch is a 34 y.o. female who presents for Blood Pressure Check Patient presents today for Post Follow Up appointment. And bp check MEDICATIONS Current Outpatient Medications Medication Instructions labetalol (NORMODYNE) 100 mg, Oral, 2 times daily MV-Min-Fe Fum-FA-DHA ( 1 PO) Take by [...] Systems: Review of Systems Constitutional: Negative. HENT: Positive for congestion and sinus pain. Eyes: Negative. Respiratory: Positive for cough. Cardiovascular: Negative. Gastrointestinal: Negative. Genitourinary: Negative. Musculoskeletal: Negative. Skin: Negative. Neurological: Negative. All other systems reviewed and are negative. Hematological: Negative. Endocrine: Negative. Allergic/Immunologic: Negative. OBJECTIVE Objective: Physical Exam Constitutional: Appearance: Normal appearance. She is normal weight. HENT: Head: Normocephalic. Nose: Congestion present. Cardiovascular: Rate and Rhythm: Normal rate. Pulses: Normal pulses. Pulmonary: Effort: Pulmonary effort is normal. Breath sounds: Normal breath sounds. Comments: Dry cough Abdominal: Palpations: Abdomen is soft. Musculoskeletal: General: Normal range of motion. Neurological: General: No focal deficit present. Mental Status: She is alert and oriented to person, place, and time. Psychiatric: Mood and Affect: Mood normal. Behavior: Behavior normal. Thought Content: Thought content normal. Judgment: Judgment normal. Vitals and nursing note reviewed. Vitals: Estimated body mass index is 31.53 kg/m as calculated from the following: Height as of 03/30/23: 5' 2 . Weight as of this encounter: 172 lb 6.4 oz. BP: 120/82 Patient's last menstrual period was 08/28/2023. ASSESSMENT & PLAN ICD-10-CM 1. Blood pressure check Z01.30 Patient presents for post BP check, doing well, BP120/82. Patient is going to stop labetolol. Pt states she has upper respiratory congestion with cough and minor breast pain. We will call in augmentin to cover uri and mastitis. Pt will follow up in several weeks for 6 week post Documented by COLETTE Almonte on behalf of: COLETTE Almonte documented in this encounter [facility] 05-23-2024 History of Presen t illness Narrative Reason for Appointment: Patient ID: Liliane Rausch is a 34 y.o. female who presents for Blood Pressure Check Patient presents today for Post Follow Up appointment. MEDICATIONS Current Outpatient Medications Medication Instructions labetalol (NORMODYNE) 200 mg, 2 times daily MV-Min-Fe Fum-FA-DHA ( 1 PO) Take by [...] nursing note reviewed. Exam conducted with a liquefied natural gas operator present. Vitals: Estimated body mass index is 31.83 kg/m as calculated from the following: Height as of 03/30/23: 5' 2 . Weight as of this encounter: 174 lb. BP: 118/84 Patient's last menstrual period was 08/28/2023. ASSESSMENT & PLAN ICD-10-CM 1. Blood pressure check Z01.30 Patient presents today for a one week BP check. Patient is doing well with minor complaints of pain. Pt BP WNL pt advised to decrease labetalol 100mg BID. Return in one week for BP check. Follow Up: Patient is to return in 5 weeks for 6 week evaluation. Documented by Jessica Sánchez LPN on behalf of: Isabella Stevenson DO documented in this encounter [facility] 05-11-2024 History of Presen t illness Narrative Reason [...] TEST STRIPS test strip Use as instructed insulin glargine (LANTUS) 10 Units, Subcutaneous, Every evening insulin pen needle (B-D ULTRAFINE III SHORT PEN) 31G X 8 mm misc Use as instructed magnesium oxide (MAG-OX) 400 [...] appearance. She is well-developed. Genitourinary: Vulva normal. Cardiovascular: Rate and Rhythm: Normal rate and [...] nursing note reviewed. Exam conducted with a liquefied natural gas operator present. Vitals: Estimated body mass index is 33.29 kg/m as calculated from the following: Height as of 03/30/23: 5' 2 . Weight as of this encounter: 182 lb. BP: 138/82 Patient's last menstrual period was 08/28/2023. ASSESSMENT & PLAN ICD-10-CM 1. Third trimester Z34.93 POCT urinalysis dipstick manually resulted CULTURE, GROUP B STREP WITH SUSCEPTIBLITY 2. 36 weeks gestation of Z3A.36 Patient is doing well but has complaints of being tired and having maternal discomfort due to . Patient verbalized frequent movement and was instructed to perform kick counts three times per day. labor precautions were given, LARC consent was signed/declined, and GBS was obtained. Cervical check was performed and patient is 1cm dilated. Patient sign IOL packet and will be induced on 05/14/24 @0500, patient to enter through ER Entrance morning of induction. Signed consents and episode routed to [facility]. Patient will have IOL due to elevated BP, h/o pre-eclampsia and GDM. Orders Placed This Encounter Procedures CULTURE, GROUP B STREP WITH SUSCEPTIBLITY POCT urinalysis dipstick manually resulted Follow Up: Patient is to return to office in for post appointment. Documented by Joyce Robles LPN on behalf of: Isabella Stevenson DO documented in this encounter [facility] 04-27-2024 History of Presen t illness Narrative [...] 81 mg, Daily Blood Glucose Monitoring Suppl (DooBop Glucometer) w/Device kit 1 kit, Does not [...] nursing note reviewed. Exam conducted with a liquefied natural gas operator present. Vitals: Estimated body mass index is [...] Isabella Stevenson DO documented in this encounter [facility] 04-12-2024 History of Presen t illness [...] tablet As directed Blood Glucose Monitoring Suppl (Prevedere Glucometer) w/Device kit 1 kit, Does not [...] nursing note reviewed. Exam conducted with a liquefied natural gas operator present. Vitals: Estimated body mass index is [...] Isabella Stevenson DO documented in this encounter [facility] 03-29-2024 History of Presen t illness [...] nursing note reviewed. Exam conducted with a liquefied natural gas operator present. Vitals: Estimated body mass index is [...] Isabella Stevenson DO documented in this encounter [facility] 03-16-2024 History of Presen t illness [...] nursing note reviewed. Exam conducted with a liquefied natural gas operator present. Vitals: Estimated body mass index is [...] Isabella Stevenson DO documented in this encounter [facility] 03-01-2024 History of Presen t illness [...] to Diabetic Edu was sent over to [facility]. Pt was made aware diabetic supplies were sent to pharmacy today and to fruit picker when ready. Pt was advised to make sure to take her supplies w/her to her appt when she gets scheduled by Kristal Yee RN at [facility]. Pt verbally understood. Growth US was given to patient today to have done at 28 weeks to schedule at [facility]. Orders Placed This Encounter Procedures POCT urinalysis dipstick manually resulted Follow Up: Patient is to return to office in 2 week for routine OB appointment. Documented by Tosin Carvalho MA on behalf of: COLETTE Almonte documented in this encounter [facility] 02-02-2024 History of Presen t illness [...] of: COLETTE Almonte documented in this encounter [facility] 01-05-2024 History of Presen t illness [...] nursing note reviewed. Exam conducted with a liquefied natural gas operator present. Vitals: Estimated body mass index is [...] (GDM) affecting [facility] Diagnosis Third trimester state, incidental 36 weeks gestation of [facility]* Diagnosis Blood pressure check Screening for hypertension [facility]* Diagnosis Urinary frequency- Primary Blood pressure check Screening for hypertension Upper respiratory tract infection, unspecified type [facility]* Diagnosis 6 weeks follow-up documented in this encounter [facility] Summary Purpose Family History No Family History Records FoundNo Family History Records Found Advance Directives No Advanced Directives Records FoundNo Advanced Directives Records Found Additional Source Comments INFORMATION SOURCE (unrecogn ized section and content) DATE CREATED AUTHOR 11/18/2021 [facility] DATE CREATED AUTHOR AUTHOR'S ORGANIZ ATION 06/28/2024 [facility] EPIC Reason for Visit (unrecogniz ed section and content) Reason Comments Routine Visit Reason Comments Blood Pressure Check Reason Comments Follow-up Care Teams (unrecognized sec tion and content) Oil 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 Engineer Relationship Specialty Start Date End Date Hima Sena MD [address] [facility] [address] [place] [address] PCP - General Family Medicine 09/08/22 Oil Drilling Engineer Relationship Specialty Start Date End Date Hima Sena MD [address] [facility] [address] [place] [address] PCP - General Family Medicine 09/08/22 Oil Drilling Engineer Relationship Specialty Start Date End Date Hima Sena MD [address] [facility] [address] [place] [address] PCP - General Family Medicine 09/08/22 Oil Drilling Engineer Relationship Specialty Start Date End Date Hima Sena MD [address] [facility] [address] [place] [address] PCP - General Family Medicine 09/08/22 Oil Drilling Engineer Relationship Specialty Start Date End Date Hima Sena MD [address] [facility] [address] [place] [address] PCP - General Family Medicine 09/08/22 Oil Drilling Engineer Relationship Specialty Start Date End Date Hima Snea MD [address] [facility] [address] [place] [address] PCP - General [facility] 09/08/22 Oil Drilling Engineer Relationship Specialty Start Date End Date Hima Sena MD [address] [facility] [address] [place] [address] PCP - General [facility] 09/08/22 Oil Drilling Engineer Relationship Specialty Start Date End Date Hima Sena MD [address] [facility] [address] [place] [address] PCP - General Family Medicine 09/08/22 Oil Drilling Engineer Relationship Specialty Start Date End Date Hima Sena MD [address] [facility] [address] [place] [address] PCP - General Family Medicine 09/08/22 Oil Drilling Engineer Relationship Specialty Start Date End Date Hima Sena MD [address] [facility] [address] [place] [address] PCP - General Family Medicine 09/08/22 Oil Drilling Engineer Relationship Specialty Start Date End Date Hima Sena MD [address] [facility] [address] [place] [address] PCP - General [facility] 09/08/22 Oil Drilling Engineer Relationship Specialty Start Date End Date Hima Sena MD [address] [facility] [address] [place] [address] PCP - General Family [facility] 09/08/22 Oil Drilling Engineer Relationship Specialty Start Date End Date Hima Sena MD [address] [facility] [address] [place] [address] PCP - [facility] 09/08/22 Oil Drilling Engineer Relationship Specialty Start Date End Date Hima Sena MD [address] [facility] [address] [place] [address] PCP - General Family [facility] 09/08/22 FOR RECORDS PERTAINING TO PATIENTS WHO [...] BE BASED ON THE PRIMARY CLINICAL RECORDS. [employer] [facility]. provides no warranty or guarantee of the accuracy or completeness of information in this document.
[2025-01-11 14:09] LABS: Age Gdln ACOG Testing Note (.); IGP, Aptima HPV, rfx 16/18,45 Note (.)
== END 2025-01-08 21:08 | disposition home or self-care (01) ==
LOC: LAB 21:07
PROVIDERS: Visit Provider Obstetrics & Gynecology
DX: Z01.419 Encounter for gynecological examination (general) (routine) without abnormal findings (principal)
CPT/HCPCS: 87624; 88175